=== PATIENT | male | born 1940 | race Caucasian/White ===

== ENCOUNTER 2020-11-23 06:37 | Outpatient (REF) | payer MEDICARE, SELFPAY ==
[2020-11-23 07:23] LABS: Hematocrit 36.1 % (42-52); Hemoglobin 11.7 g/dl (14.0-18.0); Mean Corpuscular HGB Conc 32.4 g/dl (31.0-36.0); Mean Corpuscular Hemoglobin 29.7 pg (27.0-33.0); Mean Corpuscular Volume 91.6 fL (80-98); Platelet Count 130 X10*3/uL (160-400); Red Blood Count 3.94 X10*6/uL (4.60-5.80); Red Cell Distribution Width 14.4 % (11.0-16.0); White Blood Count 3.4 X10*3/uL (4.8-10.8)
[2020-11-23 07:49] LABS: Alanine Aminotransferase 17 U/L (0-40); Alkaline Phosphatase 111 U/L (39-117); Anion Gap 18 (12-20); Aspartate Amino Transferase 32 U/L (5-37); Bilirubin Total 0.3 mg/dL (0.0-1.0); Blood Urea Nitrogen 49 mg/dL (9-16); Calcium 8.7 mg/dL (8.4-10.2); Carbon Dioxide 19 mmol/L (22-29); Chloride 105 mmol/L (96-108); Estimated Glomerular Filt Rate 31; Glucose Random 136 mg/dL (60-115); Potassium 4.5 mmol/L (3.3-5.1); Sodium 137 mmol/L (135-145)
== END 2020-11-23 06:38 | disposition home or self-care (01) ==
LOC: HO.MMNH1L 06:37
PROVIDERS: Visit Provider Family Medicine
DX: U07.1 COVID-19 (principal); I10 Essential (primary) hypertension
CPT/HCPCS: 36415; 80053; 85027

== ENCOUNTER 2020-11-26 12:50 | Outpatient (REF) | payer MEDICARE, SELFPAY ==
[2020-11-26 08:21] LABS: Hematocrit 38.1 % (42-52); Hemoglobin 12.1 g/dl (14.0-18.0); Mean Corpuscular HGB Conc 31.8 g/dl (31.0-36.0); Mean Corpuscular Volume 91.4 fL (80-98); Mean Platelet Volume 11.5 fL (9.4-12.4); Platelet Count 184 X10*3/uL (160-400); Red Blood Count 4.17 X10*6/uL (4.60-5.80); Red Cell Distribution Width 14.6 % (11.0-16.0); White Blood Count 5.8 X10*3/uL (4.8-10.8)
[2020-11-26 09:14] LABS: Anion Gap 20 (12-20); Blood Urea Nitrogen 48 mg/dL (9-16); Calcium 9.3 mg/dL (8.4-10.2); Carbon Dioxide 18 mmol/L (22-29); Chloride 108 mmol/L (96-108); Estimated Glomerular Filt Rate 27; Glucose Random 156 mg/dL (60-115); Potassium 4.2 mmol/L (3.3-5.1); Sodium 142 mmol/L (135-145)
== END 2020-11-26 12:51 | disposition home or self-care (01) ==
LOC: HO.MMNH1L 12:50
PROVIDERS: Visit Provider Family Medicine
DX: U07.1 COVID-19 (principal); I10 Essential (primary) hypertension
CPT/HCPCS: 36415; 80048; 85027

== ENCOUNTER 2020-11-27 | Outpatient (REF) | payer SELFPAY ==
[2020-11-27 09:27] LABS: Glucose Urine UA NEG (NEG); Leukocyte Esterase Urine NEG (NEG); Nitrite Urine NEG (NEG); PH 5.5 (5.0-8.0); Specific Gravity - Urine 1.025 (1.005-1.025); Urine Blood 3+ (NEG); Urine Ketones 5 MG/DL (NEG); Urine Protein 1+ MG/DL (NEG-TRACE)
[2020-11-27 09:28] LABS: Appearance Urine HAZY; Color Urine YELLOW
[2020-11-27 09:45] LABS: Amorphous Sediment Urine 1+ /LPF; Mucus Urine 2+ /LPF
== END 2020-11-27 00:01 | disposition home or self-care (01) ==
LOC: HO.LNP
PROVIDERS: Visit Provider Family Medicine
DX: Z13.89 Encounter for screening for other disorder (principal)
CPT/HCPCS: 81001; 87086

== ENCOUNTER 2020-12-03 06:41 | Outpatient (REF) | payer MEDICARE, SELFPAY ==
[2020-12-03 07:05] LABS: Hematocrit 40.2 % (42-52); Hemoglobin 13.2 g/dl (14.0-18.0); Mean Corpuscular HGB Conc 32.8 g/dl (31.0-36.0); Mean Corpuscular Hemoglobin 29.3 pg (27.0-33.0); Mean Corpuscular Volume 89.3 fL (80-98); Mean Platelet Volume 11.8 fL (9.4-12.4); NRBC Pct Auto 0.2 /100WBC (0.0-0.2); Platelet Count 242 X10*3/uL (160-400); Red Cell Distribution Width 13.9 % (11.0-16.0); White Blood Count 10.4 X10*3/uL (4.8-10.8)
[2020-12-03 07:22] LABS: Alanine Aminotransferase 17 U/L (0-40); Albumin Level 3.1 g/dL (3.5-5.0); Alkaline Phosphatase 92 U/L (39-117); Anion Gap 15 (12-20); Aspartate Amino Transferase 11 U/L (5-37); Bilirubin Total 0.7 mg/dL (0.0-1.0); Blood Urea Nitrogen 56 mg/dL (9-16); Calcium 9.6 mg/dL (8.4-10.2); Carbon Dioxide 27 mmol/L (22-29); Chloride 103 mmol/L (96-108); Estimated Glomerular Filt Rate 41; Glucose Random 314 mg/dL (60-115); Sodium 140 mmol/L (135-145); Total Protein 5.2 g/dL (6.5-8.0)
== END 2020-12-03 06:42 | disposition home or self-care (01) ==
LOC: HO.MMNH1L 06:41
PROVIDERS: Visit Provider Family Medicine
DX: U07.1 COVID-19 (principal); I10 Essential (primary) hypertension
CPT/HCPCS: 36415; 80048; 80053; 85027

== ENCOUNTER 2020-12-10 00:38 | Outpatient (REF) | payer MEDICARE, SELFPAY ==
[2020-12-10 07:46] LABS: Hematocrit 40.8 % (42-52); Hemoglobin 13.6 g/dl (14.0-18.0); Mean Corpuscular HGB Conc 33.3 g/dl (31.0-36.0); Mean Corpuscular Hemoglobin 29.3 pg (27.0-33.0); Mean Corpuscular Volume 87.9 fL (80-98); Platelet Count 169 X10*3/uL (160-400); Red Blood Count 4.64 X10*6/uL (4.60-5.80); White Blood Count 10.7 X10*3/uL (4.8-10.8)
[2020-12-10 08:41] LABS: Anion Gap 14 (12-20); Blood Urea Nitrogen 46 mg/dL (9-16); Calcium 9.3 mg/dL (8.4-10.2); Carbon Dioxide 26 mmol/L (22-29); Chloride 99 mmol/L (96-108); Estimated Glomerular Filt Rate 30; Glucose Random 438 mg/dL (60-115); Potassium 3.9 mmol/L (3.3-5.1); Sodium 135 mmol/L (135-145)
== END 2020-12-10 00:39 | disposition home or self-care (01) ==
LOC: HO.MMNH1L 00:38
PROVIDERS: Visit Provider Family Medicine
DX: J96.90 Respiratory failure, unspecified, unspecified whether with hypoxia or hypercapnia (principal); I10 Essential (primary) hypertension; E87.5 Hyperkalemia
CPT/HCPCS: 36415; 80048; 85027

== ENCOUNTER 2020-12-17 10:25 | Outpatient (REF) | payer SELFPAY | END 2020-12-17 10:26 | disposition home or self-care (01) | LOC: HO.MMNH1L 10:25 | PROVIDERS: Visit Provider Family Medicine | DX: Z13.89 Encounter for screening for other disorder (principal) ==

== ENCOUNTER 2020-12-19 06:13 | Outpatient (REF) | payer MEDICARE, SELFPAY ==
[2020-12-19 06:51] LABS: Alanine Aminotransferase 18 U/L (0-40); Albumin Level 2.2 g/dL (3.5-5.0); Alkaline Phosphatase 109 U/L (39-117); Anion Gap 11 (12-20); Aspartate Amino Transferase 15 U/L (5-37); Bilirubin Total 0.3 mg/dL (0.0-1.0); Blood Urea Nitrogen 22 mg/dL (9-16); Calcium 8.2 mg/dL (8.4-10.2); Carbon Dioxide 25 mmol/L (22-29); Chloride 104 mmol/L (96-108); Estimated Glomerular Filt Rate 41; Glucose Random 138 mg/dL (60-115); Hematocrit 32.1 % (42-52); Hemoglobin 10.4 g/dl (14.0-18.0); Mean Corpuscular HGB Conc 32.4 g/dl (31.0-36.0); Mean Corpuscular Hemoglobin 28.9 pg (27.0-33.0); Mean Corpuscular Volume 89.2 fL (80-98); Mean Platelet Volume 11.1 fL (9.4-12.4); Platelet Count 189 X10*3/uL (160-400); Potassium 4.2 mmol/L (3.3-5.1); Red Cell Distribution Width 14.9 % (11.0-16.0); Sodium 136 mmol/L (135-145); White Blood Count 6.2 X10*3/uL (4.8-10.8)
== END 2020-12-19 06:14 | disposition home or self-care (01) ==
LOC: HO.MMNH1L 06:13
PROVIDERS: Visit Provider Family Medicine
DX: U07.1 COVID-19 (principal)
CPT/HCPCS: 36415; 80053; 85027

== ENCOUNTER 2020-12-24 00:32 | Outpatient (REF) | payer MEDICARE, SELFPAY ==
[2020-12-24 08:17] LABS: Hematocrit 31.8 % (42-52); Hemoglobin 10.4 g/dl (14.0-18.0); Mean Corpuscular HGB Conc 32.7 g/dl (31.0-36.0); Mean Corpuscular Hemoglobin 28.7 pg (27.0-33.0); Mean Corpuscular Volume 87.8 fL (80-98); Platelet Count 463 X10*3/uL (160-400); Red Blood Count 3.62 X10*6/uL (4.60-5.80); Red Cell Distribution Width 14.5 % (11.0-16.0); White Blood Count 5.5 X10*3/uL (4.8-10.8)
[2020-12-24 08:33] LABS: Anion Gap 15 (12-20); Blood Urea Nitrogen 19 mg/dL (9-16); Calcium 8.6 mg/dL (8.4-10.2); Carbon Dioxide 25 mmol/L (22-29); Chloride 103 mmol/L (96-108); Estimated Glomerular Filt Rate 39; Glucose Random 134 mg/dL (60-115); Potassium 4.1 mmol/L (3.3-5.1); Sodium 139 mmol/L (135-145)
== END 2020-12-24 00:33 | disposition home or self-care (01) ==
LOC: HO.MMNH1L 00:32
PROVIDERS: Visit Provider Family Medicine
DX: U07.1 COVID-19 (principal)
CPT/HCPCS: 36415; 80048; 85027

== ENCOUNTER 2020-12-31 01:05 | Outpatient (REF) | payer MEDICARE, SELFPAY ==
[2020-12-31 06:50] LABS: Hematocrit 31.9 % (42-52); Hemoglobin 10.1 g/dl (14.0-18.0); Mean Corpuscular HGB Conc 31.7 g/dl (31.0-36.0); Mean Corpuscular Hemoglobin 28.5 pg (27.0-33.0); Mean Corpuscular Volume 89.9 fL (80-98); Mean Platelet Volume 10.8 fL (9.4-12.4); NRBC Pct Auto 0.4 /100WBC (0.0-0.2); Platelet Count 443 X10*3/uL (160-400); Red Blood Count 3.55 X10*6/uL (4.60-5.80); Red Cell Distribution Width 14.7 % (11.0-16.0); White Blood Count 7.4 X10*3/uL (4.8-10.8)
[2020-12-31 07:39] LABS: Anion Gap 12 (12-20); Blood Urea Nitrogen 21 mg/dL (9-16); Calcium 8.8 mg/dL (8.4-10.2); Carbon Dioxide 27 mmol/L (22-29); Chloride 104 mmol/L (96-108); Estimated Glomerular Filt Rate 39; Glucose Random 112 mg/dL (60-115); Potassium 4.2 mmol/L (3.3-5.1); Sodium 139 mmol/L (135-145)
== END 2020-12-31 01:06 | disposition home or self-care (01) ==
LOC: HO.MMNH1L 01:05
PROVIDERS: Visit Provider Family Medicine
DX: U07.1 COVID-19 (principal)
CPT/HCPCS: 36415; 80048; 85027

== ENCOUNTER 2021-01-08 00:25 | Outpatient (REF) | payer MEDICARE, SELFPAY ==
[2021-01-08 07:19] LABS: Hematocrit 35.9 % (42-52); Hemoglobin 11.2 g/dl (14.0-18.0); Mean Corpuscular HGB Conc 31.2 g/dl (31.0-36.0); Mean Corpuscular Hemoglobin 28.4 pg (27.0-33.0); Mean Corpuscular Volume 91.1 fL (80-98); Mean Platelet Volume 11.5 fL (9.4-12.4); NRBC Pct Auto 0.2 /100WBC (0.0-0.2); Platelet Count 308 X10*3/uL (160-400); Red Blood Count 3.94 X10*6/uL (4.60-5.80); Red Cell Distribution Width 15.6 % (11.0-16.0); White Blood Count 8.2 X10*3/uL (4.8-10.8)
[2021-01-08 07:31] LABS: Anion Gap 11 (12-20); Blood Urea Nitrogen 21 mg/dL (9-16); Carbon Dioxide 29 mmol/L (22-29); Chloride 109 mmol/L (96-108); Estimated Glomerular Filt Rate 38; Glucose Random 123 mg/dL (60-115); Sodium 144 mmol/L (135-145)
== END 2021-01-08 00:26 | disposition home or self-care (01) ==
LOC: HO.MMNH1L 00:25
PROVIDERS: Visit Provider Family Medicine
DX: U07.1 COVID-19 (principal)
CPT/HCPCS: 36415; 80048; 85027

== ENCOUNTER 2021-01-13 04:32 | Outpatient (REF) | payer SELFPAY | END 2021-01-13 04:33 | disposition home or self-care (01) | LOC: HO.MMNH1L 04:32 | PROVIDERS: Visit Provider Family Medicine | DX: Z13.89 Encounter for screening for other disorder (principal) ==

== ENCOUNTER 2021-01-14 00:51 | Outpatient (REF) | payer MEDICARE, SELFPAY ==
[2021-01-14 07:47] LABS: Hematocrit 35.1 % (42-52); Hemoglobin 11.1 g/dl (14.0-18.0); Mean Corpuscular HGB Conc 31.6 g/dl (31.0-36.0); Mean Corpuscular Hemoglobin 28.6 pg (27.0-33.0); Mean Corpuscular Volume 90.5 fL (80-98); Platelet Count 191 X10*3/uL (160-400); Red Blood Count 3.88 X10*6/uL (4.60-5.80); Red Cell Distribution Width 16.1 % (11.0-16.0)
[2021-01-14 08:16] LABS: Anion Gap 12 (12-20); Blood Urea Nitrogen 22 mg/dL (9-16); Calcium 8.9 mg/dL (8.4-10.2); Carbon Dioxide 28 mmol/L (22-29); Chloride 105 mmol/L (96-108); Estimated Glomerular Filt Rate 46; Glucose Random 124 mg/dL (60-115); Potassium 4.5 mmol/L (3.3-5.1); Sodium 140 mmol/L (135-145)
[2021-01-14 08:21] LABS: White Blood Count 7.6 X10*3/uL (4.8-10.8)
== END 2021-01-14 00:52 | disposition home or self-care (01) ==
LOC: HO.MMNH1L 00:51
PROVIDERS: Visit Provider Family Medicine
DX: U07.1 COVID-19 (principal)
CPT/HCPCS: 36415; 80048; 85027

== ENCOUNTER 2021-01-21 00:27 | Outpatient (REF) | payer MEDICARE, SELFPAY ==
[2021-01-21 07:13] LABS: Hematocrit 32.8 % (42-52); Hemoglobin 10.4 g/dl (14.0-18.0); Mean Corpuscular HGB Conc 31.7 g/dl (31.0-36.0); Mean Corpuscular Hemoglobin 28.8 pg (27.0-33.0); Mean Corpuscular Volume 90.9 fL (80-98); Mean Platelet Volume 12.1 fL (9.4-12.4); Platelet Count 181 X10*3/uL (160-400); Red Blood Count 3.61 X10*6/uL (4.60-5.80); Red Cell Distribution Width 16.4 % (11.0-16.0)
[2021-01-21 07:45] LABS: Blood Urea Nitrogen 20 mg/dL (9-16); Calcium 8.8 mg/dL (8.4-10.2); Estimated Glomerular Filt Rate 49; Glucose Random 124 mg/dL (60-115)
[2021-01-21 08:01] LABS: Anion Gap 13 (12-20); Carbon Dioxide 26 mmol/L (22-29); Chloride 107 mmol/L (96-108); Potassium 4.3 mmol/L (3.3-5.1); Sodium 142 mmol/L (135-145)
== END 2021-01-21 00:28 | disposition home or self-care (01) ==
LOC: HO.MMNH1L 00:27
PROVIDERS: Visit Provider Family Medicine
DX: U07.1 COVID-19 (principal)
CPT/HCPCS: 36415; 80048; 85027

== ENCOUNTER 2021-01-28 07:04 | Outpatient (REF) | payer MEDICARE, SELFPAY ==
[2021-01-28 07:12] LABS: Hematocrit 32.3 % (42-52); Hemoglobin 10.3 g/dl (14.0-18.0); Mean Corpuscular HGB Conc 31.9 g/dl (31.0-36.0); Mean Corpuscular Hemoglobin 28.8 pg (27.0-33.0); Mean Corpuscular Volume 90.2 fL (80-98); Mean Platelet Volume 11.7 fL (9.4-12.4); Platelet Count 205 X10*3/uL (160-400); Red Blood Count 3.58 X10*6/uL (4.60-5.80)
[2021-01-28 07:36] LABS: Anion Gap 10 (12-20); Blood Urea Nitrogen 23 mg/dL (9-16); Carbon Dioxide 28 mmol/L (22-29); Chloride 109 mmol/L (96-108); Estimated Glomerular Filt Rate 41; Glucose Random 140 mg/dL (60-115); Potassium 4.1 mmol/L (3.3-5.1); Sodium 143 mmol/L (135-145)
== END 2021-01-28 07:05 | disposition home or self-care (01) ==
LOC: HO.MMNH1L 07:04
PROVIDERS: Visit Provider Family Medicine
DX: U07.1 COVID-19 (principal)
CPT/HCPCS: 36415; 80048; 85027

== ENCOUNTER 2021-02-04 00:30 | Outpatient (REF) | payer MEDICARE, SELFPAY | END 2021-02-04 00:31 | disposition home or self-care (01) | LOC: HO.MMNH1L 00:30 | PROVIDERS: Visit Provider Family Medicine | DX: Z13.89 Encounter for screening for other disorder (principal) ==

== ENCOUNTER 2021-03-29 07:00 | Outpatient (REF) | payer MEDICARE, SELFPAY ==
[2021-03-29 07:38] LABS: Glucose Urine UA NEG (NEG); Leukocyte Esterase Urine TRACE (NEG); Nitrite Urine NEG (NEG); Specific Gravity - Urine >= 1.030 (1.005-1.025); Urine Blood 1+ (NEG); Urine Ketones NEG (NEG); Urine Protein 2+ MG/DL (NEG-TRACE)
[2021-03-29 07:39] LABS: Appearance Urine HAZY; Color Urine YELLOW
[2021-03-29 08:07] LABS: Bacteria Urine 1+ /LPF; Calcium Oxalate Crystals Urine TRACE /LPF; Squamous Epithelial Cell Urine TRACE /LPF; Triple Phosphate Crystal Urine TRACE /LPF
== END 2021-03-29 07:01 | disposition home or self-care (01) ==
LOC: HO.MMNH1L 07:00
PROVIDERS: Visit Provider Family Medicine
DX: R41.0 Disorientation, unspecified (principal)
CPT/HCPCS: 81001; 87086; 87088; 87186

== ENCOUNTER 2021-04-08 00:57 | Outpatient (REF) | payer MEDICARE, SELFPAY ==
[2021-04-08 06:54] LABS: Hemoglobin 12.4 g/dl (14.0-18.0); Mean Corpuscular HGB Conc 31.8 g/dl (31.0-36.0); Mean Corpuscular Hemoglobin 28.2 pg (27.0-33.0); Mean Corpuscular Volume 88.6 fL (80-98); Mean Platelet Volume 11.4 fL (9.4-12.4); Platelet Count 274 X10*3/uL (160-400); Red Cell Distribution Width 13.9 % (11.0-16.0); White Blood Count 8.7 X10*3/uL (4.8-10.8)
[2021-04-08 07:29] LABS: Anion Gap 14 (12-20); Blood Urea Nitrogen 22 mg/dL (9-16); Calcium 9.5 mg/dL (8.4-10.2); Carbon Dioxide 25 mmol/L (22-29); Chloride 108 mmol/L (96-108); Estimated Glomerular Filt Rate 32; Glucose Random 69 mg/dL (60-115); Potassium 4.2 mmol/L (3.3-5.1); Sodium 143 mmol/L (135-145)
== END 2021-04-08 00:58 | disposition home or self-care (01) ==
LOC: HO.MMNH1L 00:57
PROVIDERS: Visit Provider Family Medicine
DX: N18.6 End stage renal disease (principal)
CPT/HCPCS: 36415; 80048; 85027

== ENCOUNTER 2021-04-16 21:12 | Outpatient (REF) | payer MEDICARE, SELFPAY ==
[2021-04-16 07:19] LABS: Hematocrit 36.2 % (42-52); Hemoglobin 11.7 g/dl (14.0-18.0); Mean Corpuscular HGB Conc 32.3 g/dl (31.0-36.0); Mean Corpuscular Hemoglobin 28.5 pg (27.0-33.0); Mean Corpuscular Volume 88.3 fL (80-98); Mean Platelet Volume 11.9 fL (9.4-12.4); Platelet Count 209 X10*3/uL (160-400); Red Cell Distribution Width 14.3 % (11.0-16.0); White Blood Count 7.5 X10*3/uL (4.8-10.8)
[2021-04-16 08:13] LABS: Anion Gap 10 (12-20); Blood Urea Nitrogen 30 mg/dL (9-16); Calcium 9.3 mg/dL (8.4-10.2); Carbon Dioxide 29 mmol/L (22-29); Chloride 108 mmol/L (96-108); Estimated Glomerular Filt Rate 31; Glucose Random 118 mg/dL (60-115); Potassium 4.2 mmol/L (3.3-5.1); Sodium 143 mmol/L (135-145)
== END 2021-04-16 21:13 | disposition home or self-care (01) ==
LOC: HO.MMNH1L 21:12
PROVIDERS: Visit Provider Family Medicine
DX: N18.9 Chronic kidney disease, unspecified (principal)
CPT/HCPCS: 36415; 80048; 85027

== ENCOUNTER 2023-06-18 12:16 | Outpatient (AMB) | payer MEDICARE, SELFPAY ==
--- NOTE | 2023-06-18 12:24 | HO.NEPHOV_ITS ---
HPI HPI Comments History of Present Illness Details I had a delight of seeing Papo in follow-up for his chronic kidney disease and hypertension. He is known to have proteinuria. He is a diabetic. His blood sugar control is fair. His blood pressure has been at goal. He does not have any hypervolemia. He denies chest pain, shortness of breath, hypoglycemia, nausea, vomiting, diarrhea or urinary symptoms. He is active now. He avoids nonsteroidal anti-inflammatory medications. His renal functions are stable. [facility] Medical History (Updated 06/23/23 @ 13:27 by Mitesh Corrales MD) Posterior reversible encephalopathy syndrome Chronic kidney disease, stage 4 (severe) Diabetes Acute kidney injury Essential (primary) hypertension Surgical History (Updated 06/18/23 @ 12:23 by Isabela Green MA) History of cataract surgery Social History (Updated 06/18/23 @ 12:37 by Isabela Green MA) Alcohol intake: never Patient Tobacco Use Status: Never used Tobacco Vital Signs 06/18/23 12:33 Height 5 ft 9 in Weight 215 lb 6 oz BMI 31.8 BP 130/70 Blood Pressure Location Lt brachial Position Sitting Pulse 74 Pulse Source Pulse Oximeter Physical Exam Vital Signs: Last Vital Signs Pulse 74 06/18/23 12:33 BP 130/70 06/18/23 12:33 BMI result Body Mass Index 31.8 Const General: comfortable and no acute distress Orientation/consciousness: patient oriented x3 HEENT Head: Yes normocephalic Mouth: Normal oral and palatal mucosa present Eyes EOM: EOMs intact bilaterally Neck Neck: Yes supple Resp Auscultation: clear to auscultation bilaterally Cardio Jugular venous distension: no JVD Rate: regular rate Heart sounds: Murmur heart sound present GI Palpation (GI): Soft to palpation Auscultation: normal bowel sounds General: Yes no CVA tenderness Back/Spine/Pelvis Back: no CVA tenderness Skin General skin exam: no rashes or lesions noted Neuro General: patient oriented x3 and moves all extremities Assessment & Plan Assessment & Plan (1) Chronic kidney disease, stage 4 (severe): Code(s): N18.4 - Chronic kidney disease, stage 4 (severe) (2) Essential (primary) hypertension: Code(s): I10 - Essential (primary) hypertension (3) Proteinuria: Code(s): R80.9 - Proteinuria, unspecified Qualifiers: Proteinuria type: other Qualified Code(s): R80.8 - Other proteinuria Plan Papo has stage 4 chronic kidney disease. His renal functions had been pretty stable. He is proteinuric. His blood pressure has been at goal. He has no orthostatic symptoms. He is not hyperkalemic or metabolically acidotic. He will be a candidate for Farga. He should be on a low-sodium diet. He should try to lose some weight. He should remain well hydrated. He should avoid nonst eroidal anti-inflammatory medications. All these have been explained detail .Follow-up of blood work and urine studies were ordered. All his and his daughter's questions were answered. Follow-up appointment given. Time spent for retrieval of data, patient encounter and documentation 22 minutes. Orders: Orders Hemoglobin A1c 06/18/23 I10 - Essential (primary) hypertension, N18.4 - Chronic kidney disease, stage 4 (severe) Blood Urea Nitrogen 06/18/23 I10 - Essential (primary) hypertension, N18.4 - Chronic kidney disease, stage 4 (severe) Calcium 06/18/23 I10 - Essential (primary) hypertension, N18.4 - Chronic kidney disease, stage 4 (severe) Electrolytes 06/18/23 I10 - Essential (primary) hypertension, N18.4 - Chronic kidney disease, stage 4 (severe) Creatinine 06/18/23 I10 - Essential (primary) hypertension, N18.4 - Chronic kidney disease, stage 4 (severe) Complete Blood Count Auto Diff 06/18/23 I10 - Essential (primary) hypertension, N18.4 - Chronic kidney disease, stage 4 (severe) Coding Level of Care Code Est Pt Level 3 (84038) Diagnoses Chronic kidney disease, stage 4 (severe) N18.4 Essential (primary) hypertension I10 Other proteinuria R80.8 Proteinuria type: other
[2023-06-18 12:33] VITALS: BP 130/70; PULSE 74; BMI 31.8
== END 2023-06-18 13:22 | disposition home or self-care (01) ==
PROVIDERS: PCP Pediatrics; Visit Provider Internal Medicine Nephrology
DX: I12.9 Hypertensive chronic kidney disease with stage 1 through stage 4 chronic kidney disease, or unspecified chronic kidney disease (principal); E11.22 Type 2 diabetes mellitus with diabetic chronic kidney disease; N18.4 Chronic kidney disease, stage 4 (severe); R80.8 Other proteinuria
CPT/HCPCS: 99213

== ENCOUNTER → 2023-06-18 12:16 | Outpatient (BNVA) | payer MEDICARE, SELFPAY | PROVIDERS: PCP Pediatrics; Visit Provider Internal Medicine Nephrology | DX: I12.9 Hypertensive chronic kidney disease with stage 1 through stage 4 chronic kidney disease, or unspecified chronic kidney disease (principal); N18.4 Chronic kidney disease, stage 4 (severe); R80.8 Other proteinuria | CPT/HCPCS: 99212 ==

== ENCOUNTER 2023-09-15 14:19 | Outpatient (AMB) | payer MEDICARE, SELFPAY ==
[2023-09-15 14:19] VITALS: BP 150/66; PULSE 78; O2SAT 98; BMI 32.8
--- NOTE | 2023-09-15 14:19 | MHC.OFFVIS ---
Intake Vital Signs 09/15/23 14:19 09/15/23 14:50 Height 5 ft 9 in Weight 222 lb BMI 32.8 BP 150/66 H 140/70 H Blood Pressure Location Rt brachial Lt brachial Position Sitting Pulse 78 Pulse Source Pulse Oximeter Pulse Oximetry (%) 98 Oxygen Delivery Method Room Air Intake Visit Reasons: follow-up/ LVM Allergies atorvastatin Allergy (Verified 09/15/23 14:21) Unknown pravastatin Allergy (Verified 09/15/23 14:21) Unknown HPI HPI Comments History of Present Illness Details I had a delight of seeing Papo in follow-up for his chronic kidney disease and hypertension. He was accompanied by his daughter. He is known to have proteinuria. He is a diabetic. His last A1c was 6.5. His blood pressure has been at goal. He does not have any hypervolemia. He denies chest pain, shortness of breath, hypoglycemia, nausea, vomiting, diarrhea or urinary symptoms. He is active now. He avoids nonsteroidal anti-inflammatory medications. His renal functions are stable with a creatinine around 2.8 PFSH Medical History Posterior reversible encephalopathy syndrome Chronic kidney disease, stage 4 (severe) Diabetes Acute kidney injury Essential (primary) hypertension Surgical History History of cataract surgery Social History Alcohol intake: never Patient Tobacco Use Status: Never used Tobacco Physical Exam Vital Signs: Last Vital Signs Pulse 78 09/15/23 14:19 BP 140/70 H 09/15/23 14:50 Pulse Ox 98 09/15/23 14:19 Oxygen Delivery Method Room Air 09/15/23 14:19 BMI result Body Mass Index 32.8 Const General: comfortable and no acute distress Orientation/consciousness: patient oriented x3 HEENT Head: Yes normocephalic Mouth: Normal oral and palatal mucosa present Eyes EOM: EOMs intact bilaterally Neck Neck: Yes supple Resp Auscultation: clear to auscultation bilaterally Cardio Jugular venous distension: no JVD Rate: regular rate GI Palpation (GI): Soft to palpation Auscultation: normal bowel sounds General: Yes no CVA tenderness Back/Spine/Pelvis Back: no CVA tenderness Skin General skin exam: no rashes or lesions noted Neuro General: patient oriented x3 and moves all extremities Extrem General: Yes no pedal edema Assessment & Plan Assessment & Plan (1) Chronic kidney disease, stage 4 (severe): Code(s): N18.4 - Chronic kidney disease, stage 4 (severe) (2) Essential (primary) hypertension: Code(s): I10 - Essential (primary) hypertension (3) Proteinuria: Code(s): R80.9 - Proteinuria, unspecified Qualifiers: Proteinuria type: other Qualified Code(s): R80.8 - Other proteinuria Plan Papo has stage 4 chronic kidney disease. His renal functions had been pretty stable. He is proteinuric. His blood pressure has been at goal. He has no orthostatic symptoms. He is not hyperkalemic or metabolically acidotic. I asked him to hold glipizide and started him on 5 mg Jardiance today. He should be monitoring his blood sugar closely at home. If his blood sugar goes up he may have to go back on glipizide. He should be on a low-sodium diet. He should try to lose some weight. He should remain well hydrated. He should avoid nonsteroidal anti-inflammatory medications. All these have been explained detail .Follow-up of blood work was ordered. All his and his daughter's questions were answered. Follow-up appointment given Orders: Orders Electrolytes Today I10 - Essential (primary) hypertension, N18.4 - Chronic kidney disease, stage 4 (severe), R80.9 - Proteinuria, unspecified Blood Urea Nitrogen Today I10 - Essential (primary) hypertension, N18.4 - Chronic kidney disease, stage 4 (severe), R80.9 - Proteinuria, unspecified Creatinine Today I10 - Essential (primary) hypertension, N18.4 - Chronic kidney disease, stage 4 (severe), R80.9 - Proteinuria, unspecified Medications: New empagliflozin (Jardiance) 5 mg (1/2 x 10 mg) PO DAILY 30 days 15 tabs 1RF empagliflozin (Jardiance) 5 mg (1/2 x 10 mg) PO DAILY 15 tabs 1RF 30 days Coding Level of Care Code Est Pt Level 4 (48701) Diagnoses Chronic kidney disease, stage 4 (severe) N18.4 Essential (primary) hypertension I10 Other proteinuria R80.8 Proteinuria type: other
[2023-09-15 14:50] VITALS: BP 140/70
== END 2023-09-15 14:55 | disposition home or self-care (01) ==
PROVIDERS: PCP Pediatrics; Visit Provider Internal Medicine Nephrology
DX: I12.9 Hypertensive chronic kidney disease with stage 1 through stage 4 chronic kidney disease, or unspecified chronic kidney disease (principal); N18.4 Chronic kidney disease, stage 4 (severe); R80.8 Other proteinuria
CPT/HCPCS: 99214

== ENCOUNTER → 2023-09-15 14:19 | Outpatient (BNVA) | payer MEDICARE, SELFPAY | PROVIDERS: PCP Pediatrics; Visit Provider Internal Medicine Nephrology | DX: I12.9 Hypertensive chronic kidney disease with stage 1 through stage 4 chronic kidney disease, or unspecified chronic kidney disease (principal); N18.4 Chronic kidney disease, stage 4 (severe); R80.8 Other proteinuria | CPT/HCPCS: 99212 ==

== ENCOUNTER 2023-10-27 13:27 | Outpatient (AMB) | payer MEDICARE, SELFPAY ==
[2023-10-27 13:33] VITALS: BP 138/70; PULSE 66; O2SAT 96; BMI 31.9
--- NOTE | 2023-10-27 13:33 | HO.NEPHOV ---
HPI HPI Comments History of Present Illness Details I had a delight of seeing Papo in follow-up for his chronic kidney disease and hypertension. He is known to have proteinuria. He is a diabetic. His blood sugar control is fair. His blood pressure has been at goal. He does not have any hypervolemia. He denies chest pain, shortness of breath, hypoglycemia, nausea, vomiting, diarrhea or urinary symptoms. He is active now. He avoids nonsteroidal anti-inflammatory medications. His renal functions are stable. [facility] Medical History (Updated 09/16/23 @ 15:00 by Mitesh Corrales MD) Posterior reversible encephalopathy syndrome Chronic kidney disease, stage 4 (severe) Diabetes Acute kidney injury Essential (primary) hypertension Surgical History History of cataract surgery Social History Alcohol intake: never Patient Tobacco Use Status: Never used Tobacco Vital Signs 10/27/23 13:33 Height 5 ft 9 in Weight 216 lb BMI 31.9 BP 138/70 Blood Pressure Location Lt brachial Position Sitting Pulse 66 Pulse Source Pulse Oximeter Pulse Oximetry (%) 96 Oxygen Delivery Method Room Air Physical Exam Vital Signs: Last Vital Signs Pulse 66 10/27/23 13:33 BP 138/70 10/27/23 13:33 Pulse Ox 96 10/27/23 13:33 Oxygen Delivery Method Room Air 10/27/23 13:33 BMI result Body Mass Index 31.9 Const General: comfortable and no acute distress Orientation/consciousness: patient oriented x3 HEENT Head: Yes normocephalic Mouth: Normal oral and palatal mucosa present Eyes EOM: EOMs intact bilaterally Neck Neck: Yes supple Resp Auscultation: clear to auscultation bilaterally Cardio Jugular venous distension: no JVD Rate: regular rate GI Palpation (GI): Soft to palpation Auscultation: normal bowel sounds General: Yes no CVA tenderness Back/Spine/Pelvis Back: no CVA tenderness Skin General skin exam: no rashes or lesions noted Neuro General: patient oriented x3 and moves all extremities Extrem General: Yes no pedal edema Assessment & Plan Assessment & Plan (1) Chronic kidney disease, stage 4 (severe): Code(s): N18.4 - Chronic kidney disease, stage 4 (severe) (2) Essential (primary) hypertension: Code(s): I10 - Essential (primary) hypertension (3) Proteinuria: Code(s): R80.9 - Proteinuria, unspecified Qualifiers: Proteinuria type: other Qualified Code(s): R80.8 - Other proteinuria Plan Papo has stage 4 chronic kidney disease. His renal functions had been pretty stable. He is proteinuric. His blood pressure has been at goal. He has no orthostatic symptoms. He is not hyperkalemic or metabolically acidotic. He is on Jardiance, dose of which I increased to 10 mg daily.. He should be on a low-sodium diet. He should try to lose some weight. He should remain well hydrated. He should avoid nonsteroidal anti-inflammatory medications. All these have been explained detail .Follow-up of blood work and urine studies were ordered. All his and his daughter's questions were answered. Follow-up appointment given. Orders: Orders Blood Urea Nitrogen Today I10 - Essential (primary) hypertension, N18.4 - Chronic kidney disease, stage 4 (severe), R80.9 - Proteinuria, unspecified Creatinine Today I10 - Essential (primary) hypertension, N18.4 - Chronic kidney disease, stage 4 (severe), R80.9 - Proteinuria, unspecified Electrolytes Today I10 - Essential (primary) hypertension, N18.4 - Chronic kidney disease, stage 4 (severe), R80.9 - Proteinuria, unspecified Medications: Changed From empagliflozin (Jardiance) 5 mg (1/2 x 10 mg) PO DAILY 30 days 15 tabs 1RF To empagliflozin (Jardiance) 10 mg PO DAILY 30 days 30 tabs 5RF Coding Level of Care Code Est Pt Level 4 (84573) Diagnoses Chronic kidney disease, stage 4 (severe) N18.4 Essential (primary) hypertension I10 Other proteinuria R80.8 Proteinuria type: other Results Reviewed Nephrology Results: Hgb 11.7 g/dl (14.0-18.0) L 04/16/21 WBC 7.5 X10*3/uL (4.8-10.8) 04/16/21 Plt Count 209 X10*3/uL (160-400) 04/16/21 Sodium 143 mmol/L (135-145) 04/16/21 Potassium 4.2 mmol/L (3.3-5.1) 04/16/21 Chloride 108 mmol/L (96-108) 04/16/21 Carbon Dioxide 29 mmol/L (22-29) 04/16/21 BUN 30 mg/dL (9-16) H 04/16/21 Creatinine 2.08 mg/dL (0.5-1.4) H 04/16/21 Calcium 9.3 mg/dL (8.4-10.2) 04/16/21 Urine Protein 2+ MG/DL (NEG-TRACE) H 03/29/21
== END 2023-10-27 14:13 | disposition home or self-care (01) ==
PROVIDERS: PCP Pediatrics; Visit Provider Internal Medicine Nephrology
DX: I12.9 Hypertensive chronic kidney disease with stage 1 through stage 4 chronic kidney disease, or unspecified chronic kidney disease (principal); N18.4 Chronic kidney disease, stage 4 (severe); R80.8 Other proteinuria
CPT/HCPCS: 99214

== ENCOUNTER → 2023-10-27 13:27 | Outpatient (BNVA) | payer MEDICARE, SELFPAY | PROVIDERS: PCP Pediatrics; Visit Provider Internal Medicine Nephrology | DX: N18.4 Chronic kidney disease, stage 4 (severe) (principal); I10 Essential (primary) hypertension; R80.8 Other proteinuria; E11.9 Type 2 diabetes mellitus without complications | CPT/HCPCS: 99212 ==

== ENCOUNTER 2023-12-29 11:21 | Outpatient (REF) | payer MEDICARE, SELFPAY ==
[2023-12-29 19:08] LABS: Mean Corpuscular Volume 90.4 fL (80.0-98.0); SCAN SMEAR FLAG 1
[2023-12-29 19:10] LABS: Basophils Absolute Auto 0.1 X10*3/uL (0.0-0.2); Basophils Percent Auto 0.8 % (0-2); Eosinophils Absolute Auto 0.2 X10*3/uL (0.0-0.4); Eosinophils Percent Auto 2.7 % (0-4); Hematocrit 44.3 % (42.0-52.0); Hemoglobin 14.5 g/dl (14.0-18.0); Imm Gran Abs Auto 0.04 X10*3/uL (0.00-0.03); Imm Gran Pct Auto 0.5 % (0.0-0.4); Lymphocytes Absolute Auto 1.2 X10*3/uL (1.2-4.9); Lymphocytes Percent Auto 13.7 % (20-40); MANUAL DIFF FLAG SCAN; Mean Corpuscular HGB Conc 32.7 g/dl (31.0-36.0); Mean Corpuscular Hemoglobin 29.6 pg (27.0-33.0); Mean Platelet Volume 13.4 fL (9.4-12.4); Monocytes Absolute Auto 0.6 X10*3/uL (0.1-1.2); Monocytes Percent Auto 6.8 % (2-11); Neutrophils Absolute Auto 6.5 x10*3/uL (2.0-8.3); Neutrophils Percent Auto 75.5 % (45-73); Platelet Count 176 X10*3/uL (160-400); Red Cell Distribution Width 14.1 % (11.0-16.0); White Blood Count 8.6 X10*3/uL (4.8-10.8)
[2023-12-29 19:28] LABS: Anion Gap 17 (12-20); Blood Urea Nitrogen 34 mg/dL (9-16); Calcium 10.1 mg/dL (8.4-10.2); Carbon Dioxide 24 mmol/L (22-29); Chloride 108 mmol/L (96-108); Estimated Glomerular Filt Rate 20; PLT ABN DIST 1; Potassium 4.1 mmol/L (3.3-5.1); Sodium 145 mmol/L (135-145)
[2023-12-29 20:53] LABS: SLIDE REVIEW VERIFIED
[2023-12-30 07:10] LABS: Estimated Average Glucose 154 mg/dL
== END 2023-12-29 11:22 | disposition home or self-care (01) ==
LOC: HO.HKASLDS 11:21
PROVIDERS: Visit Provider Internal Medicine Nephrology
DX: I12.9 Hypertensive chronic kidney disease with stage 1 through stage 4 chronic kidney disease, or unspecified chronic kidney disease (principal); N18.4 Chronic kidney disease, stage 4 (severe); R80.9 Proteinuria, unspecified
CPT/HCPCS: 36415; 80051; 82310; 82565; 83036; 84520; 85025

== ENCOUNTER 2023-12-31 10:17 | Outpatient (AMB) | payer MEDICARE, SELFPAY ==
--- NOTE | 2023-12-31 11:53 | HO.NEPHOV ---
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 He is known to have proteinuria. He is a diabetic. His blood sugar control is high. His blood pressure has been at goal. He does not have any hypervolemia. He denies chest pain, shortness of breath, hypoglycemia, nausea, vomiting, diarrhea or urinary symptoms. He is active now. He avoids nonsteroidal anti-inflammatory medications. He had no new complaints. [facility] Medical History (Updated 12/31/23 @ 20:49 by Mitesh Corrales MD) Posterior reversible encephalopathy syndrome Chronic kidney disease, stage 4 (severe) Diabetes Acute kidney injury Essential (primary) hypertension Surgical History History of cataract surgery Social History Alcohol intake: never Patient Tobacco Use Status: Never used Tobacco Physical Exam Vital Signs: Last Vital Signs Pulse 64 12/31/23 11:54 BP 140/70 H 12/31/23 11:54 Pulse Ox 96 12/31/23 11:54 Oxygen Delivery Method Room Air 12/31/23 11:54 BMI result Body Mass Index 31.4 Const General: comfortable and no acute distress Orientation/consciousness: patient oriented x3 HEENT Head: Yes normocephalic Mouth: Normal oral and palatal mucosa present Eyes EOM: EOMs intact bilaterally Neck Neck: Yes supple Resp Auscultation: clear to auscultation bilaterally Cardio Jugular venous distension: no JVD Rate: regular rate GI Palpation (GI): Soft to palpation Auscultation: normal bowel sounds General: Yes no CVA tenderness Back/Spine/Pelvis Back: no CVA tenderness Skin General skin exam: no rashes or lesions noted Neuro General: patient oriented x3 and moves all extremities Extrem General: Yes no pedal edema Results Reviewed Nephrology Results: Hgb 14.5 g/dl (14.0-18.0) 12/29/23 WBC 8.6 X10*3/uL (4.8-10.8) 12/29/23 Plt Count 176 X10*3/uL (160-400) 12/29/23 Sodium 145 mmol/L (135-145) 12/29/23 Potassium 4.1 mmol/L (3.3-5.1) 12/29/23 Chloride 108 mmol/L (96-108) 12/29/23 Carbon Dioxide 24 mmol/L (22-29) 12/29/23 BUN 34 mg/dL (9-16) H 12/29/23 Creatinine 2.99 mg/dL (0.5-1.4) H 12/29/23 Calcium 10.1 mg/dL (8.4-10.2) 12/29/23 Urine Protein 2+ MG/DL (NEG-TRACE) H 03/29/21 Assessment & Plan Assessment & Plan (1) Essential (primary) hypertension: Code(s): I10 - Essential (primary) hypertension Category: Medical (2) Diabetes: Code(s): E11.9 - Type 2 diabetes mellitus without complications Category: Medical Qualifiers: Diabetes mellitus type: type 2 Diabetes mellitus adjunct faculty for medical terminology insulin use: without adjunct faculty for medical terminology use Diabetes mellitus complication status: with kidney complications Diabetes mellitus complication detail: with nephropathy Qualified Code(s): E11.21 - Type 2 diabetes mellitus with diabetic nephropathy (3) Chronic kidney disease, stage 4 (severe): Code(s): N18.4 - Chronic kidney disease, stage 4 (severe) Category: Medical (4) Proteinuria: Code(s): R80.9 - Proteinuria, unspecified Category: Medical Qualifiers: Proteinuria type: other Qualified Code(s): R80.8 - Other proteinuria Plan Papo has stage 4 chronic kidney disease. His renal functions had been pretty stable. He is proteinuric. His blood pressure has been at goal. He has no orthostatic symptoms. He is not hyperkalemic or metabolically acidotic. He is on Jardiance, 10 mg daily. His blood sugars have been high. I have asked him to start on glipizide 2.5 mg once daily in addition to current dose of Jardiance. He should be on a low-sodium diet. He should try to lose some weight. He should remain well hydrated. He should avoid nonsteroidal anti-inflammatory medications. All these have been explained detail .Follow-up of blood work were ordered. All his and his daughter's questions were answered. Follow-up appointment given. Orders: Orders Blood Urea Nitrogen Today E11.9 - Type 2 diabetes mellitus without complications, I10 - Essential (primary) hypertension, N18.4 - Chronic kidney disease, stage 4 (severe), R80.8 - Other proteinuria Electrolytes Today E11.9 - Type 2 diabetes mellitus without complications, I10 - Essential (primary) hypertension, N18.4 - Chronic kidney disease, stage 4 (severe), R80.8 - Other proteinuria Hemoglobin A1c Today E11.9 - Type 2 diabetes mellitus without complications, I10 - Essential (primary) hypertension, N18.4 - Chronic kidney disease, stage 4 (severe), R80.8 - Other proteinuria Creatinine Today E11.9 - Type 2 diabetes mellitus without complications, I10 - Essential (primary) hypertension, N18.4 - Chronic kidney disease, stage 4 (severe), R80.8 - Other proteinuria Coding Level of Care Code Est Pt Level 4 (53964) Diagnoses Essential (primary) hypertension I10 Type 2 diabetes mellitus with diabetic nephropathy, without long-term current use of insulin E11.21 Diabetes mellitus type: type 2 Diabetes mellitus skilled nursing insulin use: without adjunct faculty for medical terminology use Diabetes mellitus complication status: with kidney complications Diabetes mellitus complication detail: with nephropathy Chronic kidney disease, stage 4 (severe) N18.4 Other proteinuria R80.8 Proteinuria type: other
[2023-12-31 11:54] VITALS: BP 140/70; PULSE 64; O2SAT 96; BMI 31.4
== END 2023-12-31 12:20 | disposition home or self-care (01) ==
PROVIDERS: PCP Pediatrics; Visit Provider Internal Medicine Nephrology
DX: I12.9 Hypertensive chronic kidney disease with stage 1 through stage 4 chronic kidney disease, or unspecified chronic kidney disease (principal); E11.21 Type 2 diabetes mellitus with diabetic nephropathy; N18.4 Chronic kidney disease, stage 4 (severe); R80.8 Other proteinuria
CPT/HCPCS: 99214

== ENCOUNTER → 2023-12-31 10:17 | Outpatient (BNVA) | payer MEDICARE, SELFPAY | PROVIDERS: PCP Pediatrics; Visit Provider Internal Medicine Nephrology | DX: E11.22 Type 2 diabetes mellitus with diabetic chronic kidney disease (principal); I12.9 Hypertensive chronic kidney disease with stage 1 through stage 4 chronic kidney disease, or unspecified chronic kidney disease; N18.4 Chronic kidney disease, stage 4 (severe); E11.21 Type 2 diabetes mellitus with diabetic nephropathy; R80.8 Other proteinuria | CPT/HCPCS: 99212 ==

== ENCOUNTER 2024-01-14 11:26 | Outpatient (REF) | payer MEDICARE, SELFPAY ==
[2024-01-14 17:48] LABS: Anion Gap 15 (12-20); Blood Urea Nitrogen 32 mg/dL (9-16); Carbon Dioxide 23 mmol/L (22-29); Chloride 110 mmol/L (96-108); Estimated Glomerular Filt Rate 20; Potassium 4.2 mmol/L (3.3-5.1); Sodium 144 mmol/L (135-145)
[2024-01-15 07:08] LABS: Estimated Average Glucose 151 mg/dL; Hemoglobin A1c % 6.9 % (<6.0)
== END 2024-01-14 11:27 | disposition home or self-care (01) ==
LOC: HO.HKASLDS 11:26
PROVIDERS: Visit Provider Internal Medicine Nephrology
DX: E11.9 Type 2 diabetes mellitus without complications (principal); N18.4 Chronic kidney disease, stage 4 (severe); R80.8 Other proteinuria; I10 Essential (primary) hypertension
CPT/HCPCS: 36415; 80051; 82565; 83036; 84520

== ENCOUNTER 2024-01-19 10:55 | Outpatient (AMB) | payer MEDICARE, SELFPAY ==
--- NOTE | 2024-01-19 11:02 | HO.NEPHOV ---
Vital Signs 01/19/24 11:03 Height 5 ft 9 in Weight 211 lb 6 oz BMI 31.2 BP 130/70 Blood Pressure Location Lt brachial Position Sitting Pulse 62 Pulse Source Pulse Oximeter Pulse Oximetry (%) 97 Oxygen Delivery Method Room Air Intake Visit Reasons: 4 Weeks F/U/ LVM [employer] Required: No Accompanied by: Daughter Allergies atorvastatin Allergy (Verified 01/19/24 11:07) Unknown pravastatin Allergy (Verified 01/19/24 11:07) Unknown HPI Comments Details: I had a delight of seeing Papo in follow-up for his chronic kidney disease and hypertension. He is known to have proteinuria. He is a diabetic. His blood sugar control is high. His blood pressure has been at goal. He does not have any hypervolemia. He denies chest pain, shortness of breath, hypoglycemia, nausea, vomiting, diarrhea or urinary symptoms. He is active now. He avoids nonsteroidal anti-inflammatory medications. He had no new complaints. [facility] Medical History (Updated 01/19/24 @ 11:17 by Mitesh Corrales MD) Posterior reversible encephalopathy syndrome Chronic kidney disease, stage 4 (severe) Diabetes Acute kidney injury Essential (primary) hypertension Surgical History History of cataract surgery Social History Alcohol intake: never Patient Tobacco Use Status: Never used Tobacco Physical Exam Vital Signs: Last Vital Signs Pulse 62 01/19/24 11:03 BP 130/70 01/19/24 11:03 Pulse Ox 97 01/19/24 11:03 Oxygen Delivery Method Room Air 01/19/24 11:03 BMI result Body Mass Index 31.2 Const General: comfortable and no acute distress Orientation/consciousness: patient oriented x3 HEENT Head: Yes normocephalic Mouth: Normal oral and palatal mucosa present Eyes EOM: EOMs intact bilaterally Neck Neck: Yes supple Resp Auscultation: clear to auscultation bilaterally Cardio Jugular venous distension: no JVD Rate: regular rate GI Palpation (GI): Soft to palpation Auscultation: normal bowel sounds General: Yes no CVA tenderness Back/Spine/Pelvis Back: no CVA tenderness Skin General skin exam: no rashes or lesions noted Neuro General: patient oriented x3 and moves all extremities Results Reviewed Nephrology Results: Hgb 14.5 g/dl (14.0-18.0) 12/29/23 WBC 8.6 X10*3/uL (4.8-10.8) 12/29/23 Plt Count 176 X10*3/uL (160-400) 12/29/23 Sodium 144 mmol/L (135-145) 01/14/24 Potassium 4.2 mmol/L (3.3-5.1) 01/14/24 Chloride 110 mmol/L (96-108) H 01/14/24 Carbon Dioxide 23 mmol/L (22-29) 01/14/24 BUN 32 mg/dL (9-16) H 01/14/24 Creatinine 2.96 mg/dL (0.5-1.4) H 01/14/24 Calcium 10.1 mg/dL (8.4-10.2) 12/29/23 Assessment & Plan Assessment & Plan (1) Chronic kidney disease, stage 4 (severe): Code(s): N18.4 - Chronic kidney disease, stage 4 (severe) Category: Medical (2) Essential (primary) hypertension: Code(s): I10 - Essential (primary) hypertension Category: Medical (3) Diabetic nephropathy: Code(s): E11.21 - Type 2 diabetes mellitus with diabetic nephropathy Category: Medical Qualifiers: Diabetes mellitus type: type 2 Qualified Code(s): E11.21 - Type 2 diabetes mellitus with diabetic nephropathy Plan Papo has stage 4 chronic kidney disease. His renal functions had been pretty stable. He is proteinuric. His blood pressure has been at goal. He has no orthostatic symptoms. He is not hyperkalemic or metabolically acidotic. I increased his Jardiance to 20 mg daily which I plan to increase it to 25 mg when he runs out of Jardiance. . His blood sugars is better. He can come off glipizide if he develops hypoglycemia . He should be on a low-sodium diet. He should try to lose some weight. He should remain well hydrated. He should avoid nonsteroidal anti-inflammatory medications. All these have been explained detail .Follow-up of blood work were ordered. All his and his daughter's questions were answered. Follow-up appointment given. Orders: Orders Creatinine Today E11.21 - Type 2 diabetes mellitus with diabetic nephropathy, I10 - Essential (primary) hypertension, N18.4 - Chronic kidney disease, stage 4 (severe) Electrolytes Today E11.21 - Type 2 diabetes mellitus with diabetic nephropathy, I10 - Essential (primary) hypertension, N18.4 - Chronic kidney disease, stage 4 (severe) Blood Urea Nitrogen Today E11.21 - Type 2 diabetes mellitus with diabetic nephropathy, I10 - Essential (primary) hypertension, N18.4 - Chronic kidney disease, stage 4 (severe) Coding Level of Care Code Est Pt Level 4 (46144) Diagnoses Chronic kidney disease, stage 4 (severe) N18.4 Essential (primary) hypertension I10 Diabetic nephropathy associated with type 2 diabetes mellitus E11 Diabetes mellitus type: type 2
[2024-01-19 11:03] VITALS: BP 130/70; PULSE 62; O2SAT 97; BMI 31.2
== END 2024-01-19 11:29 | disposition home or self-care (01) ==
PROVIDERS: PCP Pediatrics; Visit Provider Internal Medicine Nephrology
DX: I12.9 Hypertensive chronic kidney disease with stage 1 through stage 4 chronic kidney disease, or unspecified chronic kidney disease (principal); N18.4 Chronic kidney disease, stage 4 (severe); E11.21 Type 2 diabetes mellitus with diabetic nephropathy
CPT/HCPCS: 99214

== ENCOUNTER → 2024-01-19 10:55 | Outpatient (BNVA) | payer MEDICARE, SELFPAY | PROVIDERS: PCP Pediatrics; Visit Provider Internal Medicine Nephrology | DX: E11.22 Type 2 diabetes mellitus with diabetic chronic kidney disease (principal); I12.9 Hypertensive chronic kidney disease with stage 1 through stage 4 chronic kidney disease, or unspecified chronic kidney disease; N18.4 Chronic kidney disease, stage 4 (severe); E11.21 Type 2 diabetes mellitus with diabetic nephropathy | CPT/HCPCS: 99212 ==

== ENCOUNTER 2024-03-02 13:36 | Outpatient (REF) | payer MEDICARE, SELFPAY ==
[2024-03-02 18:59] LABS: Anion Gap 16 (12-20); Blood Urea Nitrogen 33 mg/dL (9-16); Carbon Dioxide 24 mmol/L (22-29); Chloride 109 mmol/L (96-108); Estimated Glomerular Filt Rate 20; Potassium 4.5 mmol/L (3.3-5.1); Sodium 144 mmol/L (135-145)
== END 2024-03-02 13:37 | disposition home or self-care (01) ==
LOC: HO.HKASLDS 13:36
PROVIDERS: Visit Provider Internal Medicine Nephrology
DX: R80.9 Proteinuria, unspecified (principal); I12.9 Hypertensive chronic kidney disease with stage 1 through stage 4 chronic kidney disease, or unspecified chronic kidney disease; N18.4 Chronic kidney disease, stage 4 (severe)
CPT/HCPCS: 36415; 80051; 82565; 84520

== ENCOUNTER 2024-03-08 11:32 | Outpatient (AMB) | payer MEDICARE, SELFPAY ==
[2024-03-08 11:37] VITALS: BP 130/70; PULSE 67; O2SAT 95; BMI 31.2
--- NOTE | 2024-03-08 11:37 | HO.NEPHOV_ITS ---
Vital Signs 03/08/24 11:37 Height 5 ft 9 in Weight 211 lb BMI 31.2 BP 130/70 Blood Pressure Location Lt brachial Position Sitting Pulse 67 Pulse Source Pulse Oximeter Pulse Oximetry (%) 95 Oxygen Delivery Method Room Air Intake Visit Reasons: 6 Weeks F/U/ [employer] Required: No Accompanied by: Daughter Allergies atorvastatin Allergy (Verified 03/08/24 11:40) Unknown pravastatin Allergy (Verified 03/08/24 11:40) Unknown HPI Comments Details: I had a delight of seeing Papo in follow-up for his chronic kidney disease and hypertension. He is known to have proteinuria. He is a diabetic. His blood pressure has been at goal. He does not have any hypervolemia. He denies chest pain, shortness of breath, hypoglycemia, nausea, vomiting, diarrhea or urinary symptoms. He is active now. He avoids nonsteroidal anti-inflammatory medications. He had no new complaints. [facility] Medical History (Updated 01/19/24 @ 11:17 by Mitesh Corrales MD) Posterior reversible encephalopathy syndrome Chronic kidney disease, stage 4 (severe) Diabetes Acute kidney injury Essential (primary) hypertension Surgical History History of cataract surgery Social History Alcohol intake: never Patient Tobacco Use Status: Never used Tobacco Review of Systems Const All systems reviewed & are unremarkable except as noted in HPI and below Physical Exam Vital Signs: Last Vital Signs Pulse 67 03/08/24 11:37 BP 150/70 H 03/08/24 11:37 Pulse Ox 95 03/08/24 11:37 Oxygen Delivery Method Room Air 03/08/24 11:37 BMI result Body Mass Index 31.2 Const General: comfortable and no acute distress Orientation/consciousness: patient oriented x3 HEENT Head: Yes normocephalic Mouth: Normal oral and palatal mucosa present Eyes EOM: EOMs intact bilaterally Neck Neck: Yes supple Resp Auscultation: clear to auscultation bilaterally Cardio Jugular venous distension: no JVD Rate: regular rate GI Palpation (GI): Soft to palpation Auscultation: normal bowel sounds General: Yes no CVA tenderness Back/Spine/Pelvis Back: no CVA tenderness Skin General skin exam: no rashes or lesions noted Neuro General: patient oriented x3 and moves all extremities Extrem General: Yes no pedal edema Results Reviewed Nephrology Results: Hgb 14.5 g/dl (14.0-18.0) 12/29/23 WBC 8.6 X10*3/uL (4.8-10.8) 12/29/23 Plt Count 176 X10*3/uL (160-400) 12/29/23 Sodium 144 mmol/L (135-145) 03/02/24 Potassium 4.5 mmol/L (3.3-5.1) 03/02/24 Chloride 109 mmol/L (96-108) H 03/02/24 Carbon Dioxide 24 mmol/L (22-29) 03/02/24 BUN 33 mg/dL (9-16) H 03/02/24 Creatinine 3.01 mg/dL (0.5-1.4) H 03/02/24 Calcium 10.1 mg/dL (8.4-10.2) 12/29/23 Assessment & Plan Assessment & Plan (1) Diabetic nephropathy: Code(s): E11.21 - Type 2 diabetes mellitus with diabetic nephropathy Category: Medical Qualifiers: Diabetes mellitus type: type 2 Qualified Code(s): E11.21 - Type 2 diabetes mellitus with diabetic nephropathy (2) Essential (primary) hypertension: Code(s): I10 - Essential (primary) hypertension Category: Medical (3) Chronic kidney disease, stage 4 (severe): Code(s): N18.4 - Chronic kidney disease, stage 4 (severe) Category: Medical Plan Papo has stage 4 chronic kidney disease. His renal functions had been pretty stable. He is proteinuric. His blood pressure has been at goal. He has no orthostatic symptoms. He is not hyperkalemic or metabolically acidotic. He is on Jardiance to 25 mg daily. His blood sugars is better. He should be on a low- sodium diet. He should try to lose some weight. He should remain well hydrated. He should avoid nonsteroidal anti-inflammatory medications. All these have been explained detail .Follow-up of blood work were ordered. All his and his daughter's questions were answered. Follow-up appointment given. Orders: Orders Creatinine Today E11.21 - Type 2 diabetes mellitus with diabetic nephropathy, I10 - Essential (primary) hypertension, N18.4 - Chronic kidney disease, stage 4 (severe) Blood Urea Nitrogen Today E11.21 - Type 2 diabetes mellitus with diabetic nephropathy, I10 - Essential (primary) hypertension, N18.4 - Chronic kidney disease, stage 4 (severe) Electrolytes Today E11.21 - Type 2 diabetes mellitus with diabetic nephropathy, I10 - Essential (primary) hypertension, N18.4 - Chronic kidney disease, stage 4 (severe) Coding Level of Care Code Est Pt Level 4 (90665) Diagnoses Diabetic nephropathy associated with type 2 diabetes mellitus . Diabetes mellitus type: type 2 Essential (primary) hypertension I10 Chronic kidney disease, stage 4 (severe) N18.4
== END 2024-03-08 12:01 | disposition home or self-care (01) ==
PROVIDERS: PCP Pediatrics; Visit Provider Internal Medicine Nephrology
DX: E11.21 Type 2 diabetes mellitus with diabetic nephropathy (principal); I12.9 Hypertensive chronic kidney disease with stage 1 through stage 4 chronic kidney disease, or unspecified chronic kidney disease; N18.4 Chronic kidney disease, stage 4 (severe)
CPT/HCPCS: 99214

== ENCOUNTER → 2024-03-08 11:32 | Outpatient (BNVA) | payer MEDICARE, SELFPAY | PROVIDERS: PCP Pediatrics; Visit Provider Internal Medicine Nephrology | DX: E11.21 Type 2 diabetes mellitus with diabetic nephropathy (principal); I12.9 Hypertensive chronic kidney disease with stage 1 through stage 4 chronic kidney disease, or unspecified chronic kidney disease; N18.4 Chronic kidney disease, stage 4 (severe); Z79.84 Long term (current) use of oral hypoglycemic drugs | CPT/HCPCS: 99212 ==

== ENCOUNTER 2024-06-07 11:17 | Outpatient (AMB) | payer MEDICARE, SELFPAY ==
[2024-06-07 11:42] VITALS: BP 148/70; PULSE 61; O2SAT 98; BMI 30.9
--- NOTE | 2024-06-07 11:42 | HO.NEPHOV_ITS ---
Vital Signs 06/07/24 11:42 Height 5 ft 9 in Weight 209 lb 2 oz BMI 30.9 BP 148/70 H Blood Pressure Location Lt brachial Position Sitting Pulse 61 Pulse Source Pulse Oximeter Pulse Oximetry (%) 98 Oxygen Delivery Method Room Air Intake Visit Reasons: 3 mon follow up-[facility] [employer] Required: No Accompanied by: Daughter Allergies atorvastatin Allergy (Verified 06/07/24 11:45) Unknown pravastatin Allergy (Verified 06/07/24 11:45) Unknown HPI Comments Details: I had a delight of seeing Papo in follow-up for his chronic kidney disease and hypertension. He is known to have proteinuria. He is a diabetic. His blood pressure has been at goal. He does not have any hypervolemia. He denies chest pain, shortness of breath, hypoglycemia, nausea, vomiting, diarrhea or urinary symptoms. He is active now. He avoids nonsteroidal anti-inflammatory medications. He had no new complaints [facility] Medical History (Updated 01/19/24 @ 11:17 by Mitesh Corrales MD) Posterior reversible encephalopathy syndrome Chronic kidney disease, stage 4 (severe) Diabetes Acute kidney injury Essential (primary) hypertension Surgical History History of cataract surgery Social History Alcohol intake: never Patient Tobacco Use Status: Never used Tobacco Review of Systems Const All systems reviewed & are unremarkable except as noted in HPI and below Physical Exam Vital Signs: Last Vital Signs Pulse 61 06/07/24 11:42 BP 148/70 H 06/07/24 11:42 Pulse Ox 98 06/07/24 11:42 Oxygen Delivery Method Room Air 06/07/24 11:42 BMI result Body Mass Index 30.9 Const General: comfortable and no acute distress Orientation/consciousness: patient oriented x3 HEENT Head: Yes normocephalic Mouth: Normal oral and palatal mucosa present Eyes EOM: EOMs intact bilaterally Neck Neck: Yes supple Resp Auscultation: clear to auscultation bilaterally Cardio Jugular venous distension: no JVD Rate: regular rate GI Palpation (GI): Soft to palpation Auscultation: normal bowel sounds General: Yes no CVA tenderness Back/Spine/Pelvis Back: no CVA tenderness Skin General skin exam: no rashes or lesions noted Neuro General: patient oriented x3 and moves all extremities Extrem General: Yes no pedal edema Assessment & Plan Assessment & Plan (1) Chronic kidney disease, stage 4 (severe): Code(s): N18.4 - Chronic kidney disease, stage 4 (severe) Category: Medical (2) Diabetic nephropathy: Code(s): E11.21 - Type 2 diabetes mellitus with diabetic nephropathy Category: Medical Qualifiers: Diabetes mellitus type: type 2 Qualified Code(s): E11.21 - Type 2 diabetes mellitus with diabetic nephropathy (3) Essential (primary) hypertension: Code(s): I10 - Essential (primary) hypertension Category: Medical Plan Papo has stage 4 chronic kidney disease. His renal functions had been pretty stable. He is proteinuric. His blood pressure has been at goal. He has no orthostatic symptoms. He is not hyperkalemic or metabolically acidotic. He is on Jardiance to 25 mg daily. His blood sugars is better. He should be on a low- sodium diet. He should try to lose some weight. He should remain well hydrated. He should avoid nonsteroidal anti-inflammatory medications. All these have been explained detail .Follow-up of blood work were ordered. All his and his daughter's questions were answered. Follow-up appointment given Orders: Orders Creatinine 3 Months E11.21 - Type 2 diabetes mellitus with diabetic nephropathy, I10 - Essential (primary) hypertension, N18.4 - Chronic kidney disease, stage 4 (severe) Blood Urea Nitrogen 3 Months E11.21 - Type 2 diabetes mellitus with diabetic nephropathy, I10 - Essential (primary) hypertension, N18.4 - Chronic kidney disease, stage 4 (severe) Electrolytes 3 Months E11.21 - Type 2 diabetes mellitus with diabetic nephropathy, I10 - Essential (primary) hypertension, N18.4 - Chronic kidney disease, stage 4 (severe) Vitamin D 25-OH Total 3 Months E11.21 - Type 2 diabetes mellitus with diabetic nephropathy, I10 - Essential (primary) hypertension, N18.4 - Chronic kidney disease, stage 4 (severe) Calcium 3 Months E11.21 - Type 2 diabetes mellitus with diabetic nephropathy, I10 - Essential (primary) hypertension, N18.4 - Chronic kidney disease, stage 4 (severe) Parathyroid Hormone Intact 3 Months E11.21 - Type 2 diabetes mellitus with diabetic nephropathy, I10 - Essential (primary) hypertension, N18.4 - Chronic kidney disease, stage 4 (severe) Phosphorus 3 Months E11.21 - Type 2 diabetes mellitus with diabetic nephropathy, I10 - Essential (primary) hypertension, N18.4 - Chronic kidney disease, stage 4 (severe) Coding Level of Care Code Est Pt Level 4 (89393) Diagnoses Chronic kidney disease, stage 4 (severe) N18.4 Diabetic nephropathy associated with type 2 diabetes mellitus E11.21 Diabetes mellitus type: type 2 Essential (primary) hypertension I10
== END 2024-06-07 12:04 | disposition home or self-care (01) ==
LOC: HO.HKAS 11:17
PROVIDERS: PCP Pediatrics; Visit Provider Internal Medicine Nephrology
DX: I12.9 Hypertensive chronic kidney disease with stage 1 through stage 4 chronic kidney disease, or unspecified chronic kidney disease (principal); N18.4 Chronic kidney disease, stage 4 (severe); E11.21 Type 2 diabetes mellitus with diabetic nephropathy
CPT/HCPCS: 99214

== ENCOUNTER → 2024-06-07 11:17 | Outpatient (BNVA) | payer MEDICARE, SELFPAY | PROVIDERS: PCP Pediatrics; Visit Provider Internal Medicine Nephrology | DX: E11.21 Type 2 diabetes mellitus with diabetic nephropathy (principal); E11.22 Type 2 diabetes mellitus with diabetic chronic kidney disease; I12.9 Hypertensive chronic kidney disease with stage 1 through stage 4 chronic kidney disease, or unspecified chronic kidney disease; N18.4 Chronic kidney disease, stage 4 (severe); Z79.84 Long term (current) use of oral hypoglycemic drugs | CPT/HCPCS: 99212 ==

== ENCOUNTER 2024-10-05 10:59 | Outpatient (REF) | payer MEDICARE, SELFPAY ==
--- OUTSIDE RECORDS SUMMARY | 2024-10-05 13:45 | XMS_ITS | Data Portability ---
Author Organization [facility], Main Office Address [address] [place] [address] Care Team Providers Care Stave Jointer Name Role Phone SUZI ARNOLD 1ST FLOOR OTHER [phone] KEITH SIMS OTHER Assessment No assessment recorded. Plan of Treatment Reminders Order Date Submit Date Provider Last Modified By Organization Details Last Modified Time Details Appointments None record ed. Lab None record ed. Referral None record ed. Procedures None record ed. Surgeries None record ed. Imaging None record ed. Medication Orders None record ed. Patient TargetsNo targets recorded. Patient InstructionsNo instructions recorded. Reason for Referral None Reported. Problems Name Problem SNOMED Code Status Onset Date Resolution Date Notes Provider Name and Address Organization Details Recorded Time Benign prostatic hyperplasia 145983316 Active 2020 JAYA FRIEDMAN NP [address], [address], [place], [address], [facility] [employer] [facility] 13:12:59 Essential hypertension 09563416 Active 2020 JAYA FRIEDMAN NP [address], [address], [place], [address], [facility] [employer] 13:13:05 Gout 10922247 Active 2020 JAYA FRIEDMAN NP [address], [address], [place], [address], [facility] [employer] 13:13:13 Hyperlipidemia 07668520 Active 2020 JAYA FRIEDMAN NP [address], [place], [address], [facility] [employer] [facility] 13:13:19 Gastroesophage al reflux disease without esophagitis 910853576 Active 2020 JAYA FRIEDMAN NP [address], [place], [address], [facility] [employer] 1 13:13:28 SARS-CoV-2 Active 2020 JAYA FRIEDMAN, [employer] [address], [address], [place], [address], [facility] [employer] 1 13:13:59 Acute urinary tract infection 138090736 Active 2020 JAYA FRIEDMAN, [employer] [address], [place], [address], [facility] [employer] 1 13:15:55 At increased risk for falls 674843195 Active 2020 JAYA FRIEDMAN, [employer] [address], [place], [address], [facility] [employer] 1 13:18:38 Type 2 diabetes mellitus without complication 199056896 Active 2020 Ary Javed MD [address], [address], [place], [address], [facility] [employer] 19:37:57 Unresponsive 852069009 Active 2020 JAYA FRIEDMAN, [employer] [address], [place], [address], [facility] [employer] 09:22:18 Atrial fibrillation 59314887 Active 2020 JAYA FRIEDMAN, [employer] [address], [place], [address], [facility] [employer] 1 13:25:45 Altered mental status 425881188 Active 2020 JAYA FRIEDMAN, [employer] [address], [place], [address], [facility] [employer] 10:06:28 Pneumonia 902222601 Active 2020 JAYA ELDER, [employer] [address], [place], [address], [facility] [employer] 1 10:05:14 Orthostatic hypotension 97245548 Active 2020 JAYA FRIEDMAN, [employer] [address], [place], [address], [employer] [facility] 1 11:14:33 Chronic retention of urine 131067040 Active 2020 JAYA FRIEDMAN NP [address] [facility], [address], [place], [address], [facility] 1 11:14:58 Insomnia 605674194 Active 2020 JAYA FRIEDMAN NP [address] [facility], [address], [place], [address], [employer] [facility] 1 15:24:06 Problem Notes None recorded. Medical Equipment None Reported. Allergies No known drug allergies Vitals Date Recorded Body height Heart rate Respiratory rate Body temperature Oxygen saturation Oxygen saturation in Arterial blood by Pulse oximetry Systolic blood pressure Diastolic blood pressure Provider Name and Address Organization Details Last Updated DateTime 1 167.64 cm 60 /min 18 /min 97.1 [degF] 100 % 100 % 129 mm[Hg] 60 mm[Hg] JAYA FRIEDMAN NP [address] [facility], [address], [place], [address], [facility] 1 15:14:37 Date Recorded Body height Heart rate Respiratory rate Body temperature Oxygen saturation Oxygen saturation in Arterial blood by Pulse oximetry Systolic blood pressure Diastolic blood pressure Provider Name and Address Organization Details Last Updated DateTime 1 167.64 cm 77 /min 18 /min 97.4 [degF] 97 % 97 % 138 mm[Hg] 81 mm[Hg] JAYA FRIEDMAN NP [address] [facility], [address], [place], [address], [facility] 1 13:01:02 Date Recorded Body height Heart rate Respiratory rate Body temperature Oxygen saturation Oxygen saturation in Arterial blood by Pulse oximetry Systolic blood pressure Diastolic blood pressure Provider Name and Address Organization Details Last Updated DateTime 1 167.64 cm 70 /min 18 /min 98.3 [degF] 97 % 97 % 140 mm[Hg] 71 mm[Hg] JAYA FRIEDMAN NP [address] [facility], [address], [place], [address], [facility] 1 13:43:49 Date Recorded Body height Heart rate Respiratory rate Body temperature Oxygen saturation Oxygen saturation in Arterial blood by Pulse oximetry Systolic blood pressure Diastolic blood pressure Provider Name and Address Organization Details Last Updated DateTime 1 167.64 cm 61 /min 18 /min 97.4 [degF] 98 % 98 % 142 mm[Hg] 75 mm[Hg] JAYA FRIEDMAN NP [address] [facility], [facility] [address], [place], [address], [employer] 1 12:41:48 Date Recorded Body height Body mass index (BMI) Body weight Heart rate Respiratory rate Body temperature Oxygen saturation Oxygen saturation in Arterial blood by Pulse oximetry Systolic blood pressure Diastolic blood pressure Provider Name and Address Organization Details Last Updated DateTime 1 167.64 cm 30.4 kg/m2 10359.8 g 62 /min 18 /min 97.3 [degF] 98 % 98 % 157 mm[Hg] 75 mm[Hg] JAYA FRIEDMAN NP [address] [facility], [facility] [address], [place], [address], [employer] 1 10:15:26 Social History Question Answer Notes LastModified by Organizat ion Details LastModified Time Tobacco Smoking Status Former Smoker quit about a month ago JAYA FRIEDMAN NP [address] [facility] [address], [place], [address], [employer] 11/23/2020 13:17:00 Do You Have An Advance Directive? Yes Ok Cpr DNI Ok To Hosp, NO Hd, Ivf, Art Nut Information not available 03/26/2021 What Is Your Level Of Alcohol Consumption? Occasional Information not available 11/23/2020 How Much Tobacco Do You Chew? None Information not available 12/11/2020 What Is Your Code Status? DNI Information not available 04/02/2021 Do You Or Have You Ever Used E-cigarettes Or Vape? Never Used Electronic Cigarettes Information not available 12/11/2020 Legal Guardian? No Information not available 04/02/2021 Do You Have A Medical Power Of Tanning Solution Maker? Yes Information not available 12/11/2020 What Was The Date Of Your Most Recent Tobacco Screening? 12/11/2020 Information not available 12/11/2020 Do You Or Have You Ever Used Smokeless Tobacco? Never Used Smokeless Tobacco Information not available 12/11/2020 Has Tobacco Cessation Counseling Been Provided? No Information not available 04/02/2021 How Many Years Have You Smoked Tobacco? 60 Information not available 12/11/2020 Do You Or Have You Ever Used Any Other Forms Of Tobacco Or Nicotine? No Information not available 04/02/2021 Sex: Unknown Functional Status None recorded. Mental Status None recorded. Family History Nothing Reported Notes:n/c Medical History No medical history recorded. Immunizations Vaccine Type Date Status Note Provider Nam e and Address Organization Details Recorded Time Td (adult), 5 Lf tetanus toxoid, preservative free, adsorbed [facility] 10:52:50 Influenza, split virus, quadrivalent, preservative 0 completed Elodia Valencia [facility] 11/26/2020 10:53:03 Influenza, split virus, quadrivalent, preservative 9 completed Elodia Valencia [facility] 11/26/2020 10:53:14 Influenza, split virus, quadrivalent, preservative 8 [facility] 11/26/[facility] 10:53:20 Pneumococcal conjugate PCV 13 8 [facility] 11/26/[facility] 10:53:34 pneumococcal polysaccharide PPV23 1 completed Elodia Valencia [facility] 11/26/2020 10:53:46 zoster recombinant 9 completed Elodia Valencia [facility] 11/26/2020 10:53:58 zoster recombinant 8 [facility] 10:54:09 Past Encounters Encounter ID Performer Location Encounter Start Date Encounter Closed Date Diagnosis/Indication Diagnosis SNOMED-CT Code Diagnosis ICD10 Code Diagnosis Note [id number] JAYA GRIPPIN, [employer] [address] [address] 11/23/2020 08:30:27 11/27/2020 12:18:26 Benign prostatic hyperplasia 807177093 N40.0 conner cath followup with urology flomax 0.4 mg daily augmentin 875/125 mg bid to 11/25 Essential hypertension 17534619 I10 amlodipine 10 mg daily enalapril 20 mg bid clonidine 0.1 mg bid CoQ10 bid monitor bp Gastroesop hageal reflux disease without esophagitis 902938576 K21.9 protonix 40 mg daily Gout 63700157 M10.9 allopurino l 300 mg daily Hyperlipidemia 64107117 E78.5 rosuvastat in 5 mg daily SARS-CoV-2 829050482 U07 .1 11/20 positive O2 prn encourage po intake of food and fluids ivf for anorexia monitor for any changes in mental or medical status send to ED for decompensa tion Acute urin chi tract infection 927704882 N39.0 augmentin bid to 11/25 At increas ed risk for falls 301613380 Z91.81 PT OT eval and treat fall precaution s frequent safety checks [id number] JAYA FRIEDMAN NP [address] [address] 11/26/2020 14:06:52 11/28/2020 16:25:23 At increased risk for falls 612766210 Z91.81 PT OT eval and treat fall precaution s frequent safety checks SARS-CoV-2 391159472 U07 .1 11/20 positive O2 prn encourage po intake of food and fluids ivf for anorexia monitor for any changes in mental or medical status send to ED for decompensa tion start D51/2 NS at 60 ml/hr x 2 liter rocephin 1 gm IV x7 days zpak if can take po [id number] JAYA FRIEDMAN NP [address] [address] 12/01/2020 12:41:54 12/05/2020 08:22:16 At increased risk for falls 312967880 Z91.81 PT OT eval and treat fall precaution s frequent safety checks Benign pro static hyperplasia 372873245 N40.0 followup with urology flomax 0.4 mg daily Essential hypertension 30826327 I10 amlodipine 10 mg daily clonidine 0.1 mg bid CoQ10 bid monitor bp Gastroesop hageal reflux disease without esophagitis 781489462 K21.9 protonix 40 mg daily Gout 33485528 M10.9 allopurino l 300 mg daily Hyperlipidemia 45535426 E78.5 rosuvastat in 5 mg daily SARS-CoV-2 611923151 U07 .1 11/20 positive O2 prn encourage po intake of food and fluids ivf for anorexia monitor for any changes in mental or medical status send to ED for decompensa tion decadron 6 mg x 4 days albuterol mdi 2 puffs q 4hr prn remeron 7.5 mg hs for appetite [id number] JAYA FRIEDMAN NP [address] [address] 12/03/2020 07:55:59 12/05/2020 08:40:14 SARS-CoV-2 064133870 U07.1 11/20 positive O2 prn encourage po intake of food and fluids ivf for anorexia monitor for any changes in mental or medical status send to ED for decompensa tion decadron 6 mg x 4 days albuterol mdi 2 puffs q 4hr prn remeron 7.5 mg hs for appetite Benign pro static hyperplasia 152648191 N40.0 followup with urology flomax 0.4 mg daily [id number] JAYA FRIEDMAN NP [address] [address] 12/07/2020 08:32:58 12/10/2020 12:07:45 At increased risk for falls 438795402 Z91.81 PT OT eval and treat fall precaution s frequent safety checks SARS-CoV-2 834125825 U07 .1 11/20 positive O2 prn encourage po intake of food and fluids ivf for anorexia monitor for any changes in mental or medical status send to ED for decompensa tion decadron 6 mg x 4 days albuterol mdi 2 puffs q 4hr prn remeron 7.5 mg hs for appetite [id number] JAYA FRIEDMAN NP [address] [address] 12/10/2020 15:22:09 12/13/2020 10:56:51 At increased risk for falls 323896455 Z91.81 PT OT eval and treat fall precaution s frequent safety checks SARS-CoV-2 926607831 U07 .1 11/20 positive O2 prn encourage po intake of food and fluids ivf for anorexia monitor for any changes in mental or medical status send to ED for decompensa tion albuterol mdi 2 puffs q 4hr prn remeron 7.5 mg hs for appetite D5 1/ NS at 60 ml/hr x 2 liters [id number] JAYA FRIEDMAN NP [address] [address] 12/11/2020 15:13:36 12/13/2020 03:48:29 SARS-CoV-2 325960209 U07.1 recovered 11/20 positive O2 prn encourage po intake of food and fluids ivf for anorexia monitor for any changes in mental or medical status send to ED for decompensa tion albuterol mdi 2 puffs q 4hr prn remeron 7.5 mg hs for appetite NS at 60 ml/hr x 2 liters [facility] for falls 320202978 Z91.81 PT OT eval and treat fall precaution s frequent safety checks [id number] Ary Javed MD [address] [address] 12/11/2020 17:36:32 12/13/2020 11:38:42 SARS-CoV-2 894260817 U07.1 Considered recovered, was + on 11/20, began having sxs on 11/16. Continues with sequelae. He continues to have poor po intake. Started on IV fluid today. He is also getting more confused again. Pretty oriented when he talks to me, but very odd that he cannot be redirected from believing [place]. O2 sat stable. Completed dexamethas one on 12/05. Continue albuterol mdi 2 puffs q 4hr prn and mirtazapin e 7.5 mg qhs for appetite Continue NS at 60 ml/hr x 2 liters. Have low threshold for sending him out. Recheck labs on 12/13. Continue to monitor O2 sats, temp, GI sxs and po intake. At [facility] ed risk for falls 916295921 Z91.81 Very deconditio yana, needs PT/OT for strengthen ing, balance, gait training, safety and function. Fall precaution s in place. Monitor for safety. Benign pro static hyperplasia 617105208 N40.0 No current issues. Continue tamsulosin 0.4 mg qd. F/U with uro as planned. Essential hypertension 25070036 I10 SBP borderline today, Continue amlodipine 10 mg qd and clonidine 0.1 mg BID. Monitor BP and labs and adjust as needed. Gastroesop hageal reflux disease without esophagitis 090374145 K21.9 No current sxs. Continue pantoprazo le 40 mg qd. Monitor sxs. Gout 32346757 M10.09 Continue allopurino l 300 mg qd. Monitor for sxs and for uric acid level prn. Hyperlipidemia 38563161 E78.5 Continue rosuvastat in 5 mg qd and CoQ10/fish oil BID. Monitor labs as outpt. Type 2 miguel a betes mellitus without complication 127283627 E11.9 One high BS likely due to D5NS. Off steroids for 5 days, so unlikely to be contributi ng. Now improved. Continue SSI and adjust as needed. Vitamin D deficiency 347 46330 E56.8 Continue cholecalci ferol 1000 IU qd. Recheck level in 4 weeks. [id number] MCKENZIE WEAVER [address] [place] [address] [place] [address] 12/12/2020 07:51:37 12/14/2020 15:19:28 At increased risk for falls 254934441 Z91.81 PT OT eval and treat fall precaution s frequent safety checks SARS-CoV-2 832263650 U07 .1 recovered 11/20 positive O2 prn encourage po intake of food and fluids ivf for anorexia monitor for any changes in mental or medical status send to ED for decompensa tion albuterol mdi 2 puffs q 4hr prn remeron 7.5 mg hs for appetite NS at 60 ml/hr x 2 liters Type 2 miguel a betes mellitus without complication 099268598 E11.9 Continue SSI and adjust as needed. Unresponsive 245656168 R 40.20 code called, sent to hospital [id number] JAYA GRIPPIN, [employer] [address] [address] 12/19/2020 13:18:05 12/25/2020 14:01:46 At increased risk for falls 279643162 Z91.81 PT OT eval and treat fall precaution s frequent safety checks Benign pro static hyperplasia 496736282 N40.0 followup with urology flomax 0.4 mg daily Essential hypertension 72437124 I10 amlodipine 10 mg daily clonidine 0.1 mg bid CoQ10 bid monitor bp Gastroesop hageal reflux disease without esophagitis 257873515 K21.9 protonix 40 mg daily Gout 66118082 M10.9 allopurino l 300 mg daily Hyperlipidemia 71912612 E78.5 rosuvastat in 5 mg daily SARS-CoV-2 026661006 U07 .1 recovered 11/20 positive O2 prn encourage po intake of food and fluids ivf for anorexia monitor for any changes in mental or medical status send to ED for decompensa tion albuterol mdi 2 puffs q 4hr prn remeron 7.5 mg hs for appetite Type 2 miguel a betes mellitus without complication 690265706 E11.9 Continue SSI and adjust as needed. Atrial fibrillation 4943 6004 I48.91 metoprolol 12.5 mg bid [id number] JAYA FRIEDMAN NP [address] [address] 12/21/2020 15:02:43 12/25/2020 14:43:29 At increased risk for falls 582392080 Z91.81 PT OT eval and treat fall precaution s frequent safety checks SARS-CoV-2 675009220 U07 .1 recovered 11/20 positive O2 prn encourage po intake of food and fluids ivf for anorexia monitor for any changes in mental or medical status send to ED for decompensa tion albuterol mdi 2 puffs q 4hr prn remeron 7.5 mg hs for appetite [id number] MCKENZIE WEAVER [address] [address] 12/24/2020 07:54:31 12/26/2020 12:15:29 Altered mental status 121418285 R41.82 sent to [facility] for further evaluation [id number] JAYA GRIPPIN, [employer] [address] [address] 12/28/2020 08:00:51 12/31/2020 16:12:32 Altered mental status 858704909 R41.82 continue to reorient prn seroquel 12.5 mg hs to 12/31 At [facility] ed risk for falls 644071543 Z91.81 PT OT eval and treat fall precaution s frequent safety checks Atrial fibrillation 4943 6004 I48.91 metoprolol 12.5 mg bid Benign pro static hyperplasia 511208243 N40.0 followup with urology flomax 0.4 mg daily Essential hypertension 01612234 I10 amlodipine 10 mg daily clonidine 0.1 mg bid CoQ10 bid monitor bp Gastroesop hageal reflux disease without esophagitis 413055481 K21.9 protonix 40 mg daily Gout 57086999 M10.9 allopurino l 300 mg daily Hyperlipidemia 01334767 E78.5 rosuvastat in 5 mg daily Type 2 miguel a betes mellitus without complication 028711097 E11.9 Continue SSI and adjust as needed. SARS-CoV-2 132371941 U07 .1 recovered 11/20 positive O2 prn encourage po intake of food and fluids ivf for anorexia monitor for any changes in mental or medical status send to ED for decompensa tion albuterol mdi 2 puffs q 4hr prn remeron 15 mg hs for appetite [id number] JAYA FRIEDMAN NP [address] [address] 12/31/2020 12:02:10 01/03/2021 12:06:40 Altered mental status 504629136 R41.82 continue to reorient prn seroquel 12.5 mg hs to 12/31 Type 2 miguel a betes mellitus without complication 523708916 E11.9 Continue SSI and adjust as needed. [id number] JAYA FRIEDMAN NP [address] [address] 01/02/2021 07:46:14 01/04/2021 16:30:37 Type 2 diabetes mellitus without complication 391335690 E11.9 Continue SSI and adjust as needed. glucerna with meals Hyperlipidemia 52433248 E78.5 rosuvastat in 5 mg daily Gout 67259095 M10.9 allopurino l 300 mg daily Gastroesop hageal reflux disease without esophagitis 777802353 K21.9 protonix 40 mg daily Essential hypertension 56608007 I10 amlodipine 10 mg daily clonidine 0.1 mg bid CoQ10 bid monitor bp Benign pro static hyperplasia 945027178 N40.0 followup with urology flomax 0.4 mg daily Atrial fibrillation 4943 6004 I48.91 metoprolol 12.5 mg bid At [facility] ed risk for falls 237912777 Z91.81 PT OT eval and treat fall precaution s frequent safety checks Pneumonia 764011364 J18. 9 recovered O2 prn , trying to wean him to room air [id number] [employer]IE [employer] [address] [place] [address] 01/07/2021 11:06:12 01/09/2021 15:49:15 Atrial fibrillation 17679901 I48.91 metoprolol 12.5 mg bid Type 2 miguel a betes mellitus without complication 286631031 E11.9 Continue SSI and adjust as needed. glucerna with meals At [facility] risk for falls 214315607 Z91.81 PT OT eval and treat fall precaution s frequent safety checks [id number] MCKENZIE [employer]AVER [address] [place] [address] 01/11/2021 14:24:00 01/15/2021 14:37:10 Type 2 diabetes mellitus without complication 421226433 E11.9 Continue SSI and adjust as needed. glucerna with meals Gastroesop hageal reflux disease without esophagitis 439549176 K21.9 protonix 40 mg daily Essential hypertension 03592117 I10 amlodipine 10 mg daily clonidine 0.1 mg bid CoQ10 bid monitor bp [id number] MCKENZIE WEAVER [address] [place] [address] 01/14/2021 12:41:51 01/16/2021 13:09:42 Gastroesophageal reflux disease without esophagitis 984678234 K21.9 protonix 40 mg daily Type 2 miguel a betes mellitus without complication 658680458 E11.9 Continue SSI and adjust as needed. glucerna with meals [id number] JAYA GRIPPIN, [employer] [address] [address] 01/18/2021 13:22:41 01/21/2021 14:13:18 Gastroesophageal reflux disease without esophagitis 066560522 K21.9 protonix 40 mg daily Type 2 miguel a betes mellitus without complication 814527406 E11.9 Continue SSI and adjust as needed. glucerna with meals At [facility] risk for falls 234415921 Z91.81 PT OT eval and treat fall precaution s frequent safety checks [id number] Zulema Mckoy MD [address] [address] 01/23/2021 07:54:25 01/25/2021 13:56:28 At increased risk for falls 812429024 Z91.81 PT/OTwill monitor and continue to try to minimize fall risk Atrial fibrillation 4943 6004 I48.19 metoprolol 12.5 mg bid for rate controlwil l monitor Benign pro static hyperplasia 011872550 N40.0 tamsulosin 0.4 mg dailywill monitor Essential hypertension 86951243 I10 metoprolol 12.5 mg bid amlodipine 10 mg dailycloni dine 0.1 mg bidwill monitor Gastroesop hageal reflux disease without esophagitis 824653015 K21.9 pantoprazo le 40 mg dailywill monitor Gout 66726928 M10.09 allopurino l 300 mg dailywill monitor Hyperlipidemia 70298041 E78.49 rosuvastat in 5 mg dailywill monitor 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 9 recovered O2 prn , trying to wean him to room air Type 2 miguel a betes mellitus without complication 836816149 E11.9 Continue SSI and adjust as needed. glucerna with meals Hyperlipidemia 63521258 E78.5 rosuvastat in 5 mg daily Gout 68368746 M10.9 allopurino l 300 mg daily Gastroesop hageal reflux disease without esophagitis 495582952 K21.9 protonix 40 mg daily Essential hypertension 32469933 I10 amlodipine 10 mg daily clonidine 0.1 mg bid CoQ10 bid monitor bp Benign pro static hyperplasia 979374955 N40.0 followup with urology flomax 0.4 mg daily Atrial fibrillation 4943 6004 I48.91 metoprolol 12.5 mg bid Acute urin chi tract infection 038621091 N39.0 recoveredp robiotic daily At [facility] ed risk for falls 183312856 Z91.81 PT OT eval and treat fall precaution s frequent safety checks [id number] MCKENZIE WEAVER CATALINA [address] [place] [address] [place] [address] 03/26/2021 10:32:00 03/28/2021 14:22:20 Orthostatic hypotension 65829269 I95.1 Chronic re tention of urine 082884958 R33.8 Atrial fibrillation 4943 6004 I48.91 metoprolol 12.5 mg bid Benign pro static hyperplasia 930217648 N40.0 followup with urologyfol ey to be removed Essential hypertension 34805964 I10 valsartan 160 mg [id number] bidamlodip ine 10 mg dailymonit or bp Gastroesop hageal reflux disease without esophagitis 279988039 K21.9 protonix 40 mg daily Gout 03641018 M10.9 allopurino l 300 mg daily Hyperlipidemia 19828195 E78.5 rosuvastat in 5 mg daily Type 2 miguel a betes mellitus without complication [id number] E11.9 Continue SSI and adjust as needed. glucerna with mealsglipi zide 2.5 mg bid Altered mental status 41 0212829 R41.82 resolved monitor for changestra zodone 25 mg hsmelatoni n 5 mg hs prnremeron 15 mg hs At [facility] ed risk for falls 452776298 Z91.81 PT OT eval and treat fall precaution s frequent safety checks [id number] MD SUZI Sheridan [address] [place] [address] rd ANNA CHANG [address] 03/29/2021 16:23:18 04/03/2021 15:17:55 Orthostatic hypotension 15043116 I95.1 Improved since here.Very deconditio yana.Needs PT/OT for strengthen ing, balance, gait training, safety and function.C ontinue fall precaution s.Monitor for safety. Chronic re tention of urine 128845241 R33.8 Continue conner for now. Plan voiding trial for next week.Uro consult if fails voiding trial. Atrial fibrillation 4943 6004 I48.0 Rate in good control on metoprolol 12.5 mg BID.Not on AC due to GI bleed.Terri tor HR. Benign pro static hyperplasia 402785840 N40.1 As above. Essential hypertension 00133842 I10 With some borderline systolic HTN, but BP goal is permissive HTN, with SBP<160 amd DBP<90, to help avoid orhostasis .Continue valsartan 160 mg qd, amlodipine 10 mg qd and metoprolol 12.5 mg BID.Monito r BP and labs. Gastroesop hageal reflux disease without esophagitis 997207589 K21.9 No current sxs.Contin ue pantoprazo le 40 mg qd.Monitor sxs. Gout 15765628 M10.09 No current sxs. Continue allopurino l 300 mg qd.Monitor for sxs. Hyperlipidemia 07231141 E78.49 Continue rosuvastat in 5 mg qd and CoQ10 100 mg BID.Monito r labs as outpt. 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 Altered mental status 41 8083464 G93.49 MS still variable.C ontinue trazodone 25 mg qhs, mirtazapin e 15 mg qhs and melatonin 5 mg qhs prnMOnitor MS and mood.Psych consult prn. At [facility] ed risk for falls 841545475 Z91.81 Continue PT/OT as above.Cont inue fall precaution s.Monitor for safety. [id number] JAYA FRIEDMAN NP [address] [address] 04/01/2021 12:25:54 04/03/2021 15:37:28 Benign prostatic hyperplasia 323374454 N40.0 followup with urologyfol ey to be removed Acute urin cih tract infection 309243182 N39.0 bactrim DS bid for 5 daysprobio tic daily [id number] JAYA FRIEDMAN NP [address] [address] 04/05/2021 15:13:25 04/09/2021 11:48:29 Chronic retention of urine 487845282 R33.8 monitor urine outputavoi d dehydratio n Acute urin chi tract infection 705727871 N39.0 probiotic daily Atrial fibrillation 4943 6004 I48.0 metoprolol 12.5 mg bid Benign pro static hyperplasia 484054795 N40.1 followup with urology Essential hypertension 03868074 I10 CoQ10 bidamlodip ine 10 mg dailymonit or bp Gastroesop hageal reflux disease without esophagitis 732767056 K21.9 protonix 40 mg daily Gout 66138978 M10.09 monitor for symptoms Hyperlipidemia 34603145 E78.49 rosuvastat in 5 mg daily 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 glucerna with mealsglipi zide 2.5 mg bid At [facility] risk for falls 114835328 Z91.81 PT OT eval and treat fall precaution s frequent safety checks Insomnia 439617839 G47.0 0 melatonin 5 mg hs prnremeron 15 mg hstrazodon e 25 mg hs [id number] JAYA FRIEDMAN NP [address] [address] 04/08/2021 11:46:51 04/12/2021 09:03:52 Gastroesophageal reflux disease without esophagitis 213269530 K21.9 protonix 40 mg daily Benign pro static hyperplasia 597719750 N40.1 followup with urology Acute urin chi tract infection 055724240 N39.0 probiotic daily [id number] JAYA FRIEDMAN NP [address] [address] 04/12/2021 10:40:41 04/19/2021 09:05:23 Benign prostatic hyperplasia 175781273 N40.1 followup with urology At [facility] ed risk for falls 062251476 Z91.81 PT OT eval and treat fall precaution s frequent safety checks Acute urin chi tract infection 641131993 N39.0 probiotic daily [id number] JAYA FRIEDMAN NP [address] [address] 04/16/2021 12:13:30 04/19/2021 10:25:31 Acute urinary tract infection 133608135 N39.0 probiotic dailyawait ing results Type 2 miguel a betes mellitus without complication 169801886 E11.9 Continue SSI and adjust as needed. glucerna with mealsglipi zide 2.5 mg bid [id number] JAYA FRIEDMAN MCKENZIE [address] [address] 04/19/2021 09:58:13 04/23/2021 11:09:47 Orthostatic hypotension 66770292 I95.1 Improved since here.Very deconditio yana.Needs PT/OT for strengthen ing, balance, gait training, safety and function.C ontinue fall precaution s.Monitor for safety. Chronic re tention of urine 304405386 R33.8 monitor urine outputavoi d dehydratio n Atrial fibrillation 4943 6004 I48.91 metoprolol 12.5 mg bid Benign pro static hyperplasia 780286051 N40.0 followup with urologymon itor voiding Essential hypertension 28949038 I10 CoQ10 bidamlodip ine 10 mg dailymonit or bp Gastroesop hageal reflux disease without esophagitis 183988910 K21.9 protonix 40 mg daily Gout 80903632 M10.9 allopurino l 300 mg daily Hyperlipidemia 91684660 E78.5 rosuvastat in 5 mg daily Type 2 miguel a betes mellitus without complication 707816202 E11.9 Continue SSI and adjust as needed. glucerna with mealsglipi zide 2.5 mg bid Altered mental status 41 8899682 R41.82 resolved monitor for changestra zodone 25 mg hsmelatoni n 5 mg hs prnremeron 15 mg hs At [facility] ed risk for falls 581024271 Z91.81 PT OT eval and treat fall precaution s frequent safety checks Health Concerns Section Related Observation LastModified by Organization Detai ls LastModified Time None Recorded Concern Status LastModified by Organization Details LastModified Time None Recorded Advance Directives Directive Y: ok cpr DNI ok to hosp, NO hd, ivf, art nut Payers Encounter Date Sequence Insurance Name Policy Number Policy Johnson Covered Member ID Johnson Member ID Guarantor Name 04/05/[address] [facility] (MEDICARE REPLACEMENT/A DVANTAGE - PPO) [id number] Papo Brand [id number] Papo Brand 04/08/[address] [facility] (MEDICARE REPLACEMENT/A DVANTAGE - PPO) [id number] Papo Brand [id number] Papo Brand 04/12/[address] [facility] (MEDICARE REPLACEMENT/A DVANTAGE - PPO) [id number] Papo Brand [id number] Papo Brand 04/16/[address] [facility] (MEDICARE REPLACEMENT/A DVANTAGE - PPO) [id number] Papo Brand [id number] Papo Brand 04/19/[address] [facility] (MEDICARE REPLACEMENT/A DVANTAGE - PPO) [id number] Papo Brand [id number] [employer] Notes Date Note Type Note Provider Name and Address Organization Details Recorded Time 04/05/2021 text/html seen today for readmission-80 yom readmitted to for rehab after being sent to the hospital 04/01 with agitation confusion and unable to reinsert his conner cath. IN the Ed the ultrasound showed 150 ml of urine 8 hours after the conner removed, he had been on bactrim for uti, htis was changed to rocephin he also received gently rehydration with IVF. CAOx2 he knew we were in [place] but did not know the name of the facility. lungs clear, no edema, he denies any disstress or discomfort, reminded nursing that he needed a urinal and fluids at the bedside JAYA FRIEDMAN NP [address] [facility], [address], [place], [address], [facility] [employer] [facility] 04/05/2021 15:25:29 04/08/2021 text/html seen today for acute rounding visit, CAOx3 sitting up in bed, lungs clear, participates with PT, mood has improved, more animated today JAYA FRIEDMAN NP [address], [address], [place], [address], [facility] 04/08/2021 13:03:53 04/12/2021 text/html seen today for acute rounding visit, CAOx3 resting in bed, lungs clear, supervision with ambulation, eating and drinking well, still has episodes of impaired cognition, will repeat the UA per family request JAYA FRIEDMAN NP [address] [facility], [address], [place], [address], [facility] [employer] [facility] 04/12/2021 13:47:11 04/16/2021 text/html seen today for acute rounding visit, CAOx3 sitting up in bed, eating and drinking well, no ua symtoms, awaiting repeat ua results JAYA FRIEDMAN NP [address] [facility], [address], [place], [address], [facility] [employer] [facility] 04/16/2021 12:44:13 04/19/2021 text/html seen today for discharge summary-80 yom admitted to for rehab after presenting to the hospital from home with imbalance and unable to ambulate, no dizziness or lightheadedness. CT head showed no acute process, ASA and plavix started. MRI brain done, negative for infarct, moderate C1-2 canal stenosis, had orthostatic bp issues during his hospitalization, clonidine and flomax stopped, and valsartan started, he was started on some hs trazodone for mild delirium. he needs followup with urology if conner cannot be removed. 04/05 readmitted to for rehab after being sent to the hospital 04/01 with agitation confusion and unable to reinsert his conner cath. IN the Ed the ultrasound showed 150 ml of urine 8 hours after the conner removed, he had been on bactrim for uti, htis was changed to rocephin he also received gently rehydration with IVF. CAOx3 sitting up in bed, he is ready for discharge, SW having difficulty finding VNA for him, he wants to go home. lungs clear , voiding well, eating and drinking well. JAYA FRIEDMAN NP [address] [facility], [address], [place], [address], [facility] 04/19/2021 10:22:06
--- OUTSIDE RECORDS SUMMARY | 2024-10-05 13:45 | XMS_ITS ---
Author Organization [facility] Address Unknown Problems Problem Status Start Date End Date MUSCLE WASTING AND ATROPHY, NOT ELSEWHERE CLASSIFIED, LEFT UPPER ARM (Primary) (M62.522 - ICD-10-CM) ACTIVE 03/25/2021 PATHOLOGICAL FRACTURE, OTHER SITE, SUBSEQUENT ENCOUNTER FOR FRACTURE WITH ROUTINE HEALING (Primary) (M84.48XD - ICD-10-CM) RESOLVED 12/20/2020 03/25/2021 URINARY TRACT INFECTION, SIT E NOT SPECIFIED (N39.0 - ICD-10-CM) ACTIVE 04/04/2021 BENIGN PROSTATIC HYPERPLASIA WITH LOWER URINARY TRACT SYMPTOMS (N40.1 - ICD-10-CM) ACTIVE 03/25/2021 MUSCLE WASTING AND ATROPHY, NOT ELSEWHERE CLASSIFIED, RIGHT UPPER ARM (M62.521 - ICD-10-CM) ACTIVE 03/25/2021 PNEUMONIA, UNSPECIFIED ORGANISM (J18.9 - ICD-10-CM) RE SOLVED 12/17/2020 03/25/2021 DIFFICULTY IN WALKING, NOT E LSEWHERE CLASSIFIED (R26.2 - ICD-10-CM) RESOLVED 11/22/2020 03/25/2021 TYPE 2 DIABETES MELLITUS WIT HOUT COMPLICATIONS (E11.9 - ICD-10-CM) ACTIVE 11/22/2020 RETENTION OF URINE, UNSPECIFIED (R33.9 - ICD-10-CM) AC TIVE 03/25/2021 DYSPHAGIA, OROPHARYNGEAL PHASE (R13.12 - ICD-10-CM) RE SOLVED 11/22/2020 03/25/2021 CHRONIC KIDNEY DISEASE, STAG E 3 UNSPECIFIED (N18.30 - ICD-10-CM) ACTIVE 11/22/2020 MAJOR DEPRESSIVE DISORDER, S CHEMA EPISODE, UNSPECIFIED (F32.9 - ICD-10-CM) ACTIVE 03/28/2021 OTHER MALAISE (R53.81 - ICD-10-CM) RESOLVED 202003/25/2021 ORTHOSTATIC HYPOTENSION (I95.1 - ICD-10-CM) ACTIVE 03/25/2021 PERSONAL HISTORY OF (HEALED) TRAUMATIC FRACTURE (Z87.81 - ICD-10-CM) RESOLVED 11/22/2020 03/25/2021 HYPERTENSIVE CHRONIC KIDNEY DISEASE WITH STAGE 1 THROUGH STAGE 4 CHRONIC KIDNEY DISEASE, OR UNSPECIFIED CHRONIC KIDNEY DISEASE (I12.9 - ICD-10-CM) ACTIVE 11/22/2020 DIFFICULTY IN WALKING, NOT E LSEWHERE CLASSIFIED (R26.2 - ICD-10-CM) ACTIVE 03/25/2021 PERSONAL HISTORY OF COVID-19 (Z86.16 - ICD-10-CM) ACTI VE 03/25/2021 GOUT, UNSPECIFIED (M10.9 - ICD-10-CM) ACTIVE ESSENTIAL (PRIMARY) HYPERTENSION (I10 - ICD-10-CM) RES OLVED 11/22/2020 11/22/2020 MUSCLE WASTING AND ATROPHY, NOT ELSEWHERE CLASSIFIED, RIGHT UPPER ARM (M62.521 - ICD-10-CM) RESOLVED 11/22/2020 MUSCLE WASTING AND ATROPHY, NOT ELSEWHERE CLASSIFIED, LEFT UPPER ARM (M62.522 - ICD-10-CM) RESOLVED 11/22/2020 HISTORY OF FALLING (Z91.81 - ICD-10-CM) ACTIVE 0 11/22/2020 VITAMIN D DEFICIENCY, UNSPECIFIED (E55.9 - ICD-10-CM) ACTIVE 11/22/2020 COVID-19 (U07.1 - ICD-10-CM) RESOLVED 11/22/2020 03/25/2021 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 There is a mild right lower lung infiltrate.There is subsegmental atelectasis versus a mild left lower lung infiltrate. The lungsare otherwise clear. There is no definite pleural effusion. The bone structuresappear unremarkable.Conclusion: A mild right lower lung infiltrate.Electronically signed by AICHA CARABALLO M.D. 11/26/2020 1:33:17 PM EDT.Reason for Study: R06.02 SHORTNESS OF BREATHPrincipal Result Media Assistant: AICHA CARABALLO ([id number])Certification Engineer: RAE FITCH ([email or web address])[employer]er Certification Engineer: RANDALL 11/26/2020 01:33 p m EDT Encounters Encounter Performer Performer Role Encounter Diagnoses Location Date Leave - Discharged / Transferred to another [facility] 1 09:19 pm EDT - 1 05:18 pm EDT Leave - Discharged / Transferred to another [facility] 1 05:51 pm EDT - 1 10:16 am EDT Leave - Discharged / Transferred to another [facility] 1 03:05 pm EDT - 1 03:01 pm EDT Discharge - Discharged to home or self care - Home - [facility] 1 03:09 pm EDT - 1 02:42 pm EDT Leave - Discharged / Transferred to another [facility] 1 07:39 pm EDT - 1 03:30 pm EDT Discharge - Discharged to home or self care - Home - [facility] 1 01:26 pm EDT - 1 02:09 pm EDT Reason For Referral Behavioral symptoms (e.g. agitation, psychosis) Immunizations Vaccine Date Influenza TB 2 Step Mantoux Skin Test 12/01/2020 1 2:00 am EDT TB 2 Step Mantoux Skin Test 11/23/2020 1 2:00 am EDT PCV13 (Pneumococcal Conjugate)Vaccine SARS-COV-2 (COVID-19) 11/14/2020 12:00 a m EDT SARS-COV-2 (COVID-19) 10/24/2020 08:00 a m EDT Social History
--- OUTSIDE RECORDS SUMMARY | 2024-10-05 13:45 | XMS_ITS | Data Portability ---
Author Organization [facility], Main Office Address [address] [facility] [address] [place] [id number] Care Team Providers Care Drug Clerk Name Role Phone SUDHEER SIMS Primary Care Provider HIRAL TURK Disc Recordist ONOFRE HARDIN Orthopedic Surgeon [phone] ALANNAH CORRALES Site Acquisition Specialist DONNA DOUGLAS Esthetician Makeup Artist DYAN LOZADA Urologist LORENA CAZARES Orthopedic Surgeon [phone] ANGEL LUIS PAULINO Interior Block Wirer RUDY EDWARDS Hogshead Dumper Assessment Encounter Date Assessment Date Assessment LastModified by Organization Details LastModified Time 10/10/2022 10/10/2022 This service was provided using telemedicine. Patient consented to video & audio visit Patient was located in the [facility]. Provider was located in the office. No other persons participated in the telemedicine visit except for the patient unless otherwise indicated here. Kareen Total time of visit was 13 minutes. [email or web address] Not available 10/10/2022 15:17:14 10/31/2022 10/31/2022 This service was provided using telemedicine. Patient consented to video & audio visit Patient was located in the [facility]. Provider was located in the office. No other persons participated in the telemedicine visit except for the patient unless otherwise indicated here. Dtr/Kareen Total time of visit was 12 minutes. [email or web address] Not available 10/31/2022 15:18:36 05/27/2024 05/27/2024 This service was provided using telemedicine. Patient consented to video & audio visit Patient was located in the [facility]. Provider was located in the office. No other persons participated in the telemedicine visit except for the patient unless otherwise indicated here. Phil Total time of visit was 17 minutes. flora Not available 05/27/2024 13:53:38 Plan of Treatment Reminders Order Date Submit Date Provider Last Modified By Organization Details Last Modified Time Details Appointments FOLLOW UP 2024 11:30A M Sudheer Sims MD Not available Not available Not available AWV30 2024 11:00A M Sudheer Sims MD Not available Not available Not available Lab CMP, serum or plasma 2023 025 awychowski [facility] (Centralized Electronic Ordering - All Locations), Patient Can Go To The Location Of Their Choice, [id number] 05/27/2024 13:54:53 HbA1c (hemog lobin A1c), blood 2023 025 flora [facility] (Centralized Electronic Ordering - All Locations), Patient Can Go To The Location Of Their Choice, [id number] 05/27/2024 13:54:53 TSH, ultra- sensit karlo, serum 2023 025 awychowski [facility] (Centralized Electronic Ordering - All Locations), Patient Can Go To The Location Of Their Choice, [id number] 05/27/2024 13:54:53 TSH, ultra- sensit karlo, serum 2023 024 MARIYA [facility] (Centralized Electronic Ordering - All Locations), Patient Can Go To The Location Of Their Choice, [id number] 05/18/2024 08:09:35 magnes ium, serum or plasma 2023 024 MARIYA [facility], [address], [place], [id number], 05/18/2024 08:09:36 lipid panel, serum 2023 024 MARIYA [facility], [address], [place], [id number], 05/18/2024 08:09:33 HbA1c (hemog lobin A1c), blood 2023 024 MARIYA [facility], [address], [address], [place], [place], [id number], 05/18/2024 08:09:34 CMP, serum or plasma 2023 024 MARIYA [facility], [address], [address], [place], [address], 05/18/2024 08:09:32 PSA, serum or plasma 2023 024 MARIYA [facility], [address], [address], [place], [place], [id number], 05/18/2024 08:09:34 TSH, serum or plasma 2022 023 MARIYA [facility], [address], [address], [place], [address], 12/02/2022 21:39:33 TSH, serum or plasma 2022 023 MARIYA [facility], [address], [address], [place], [address], 10/06/2022 13:55:15 magnes ium, serum or plasma 2022 023 [email or web address] [facility], [address], [place], [id number], 10/07/2022 08:56:57 HbA1c (hemog lobin A1c), blood 2022 023 MARIYA [facility], [address], [address], [place], [address], 10/06/2022 13:53:04 CMP, serum or plasma 2022 023 MARIYA [facility], [address], [address], [place], [id number], 10/06/2022 13:48:43 lipid panel, serum 2022 023 MARIYA [facility], [address], [address], [place], [id number], 10/06/2022 13:48:45 PSA, serum or plasma 2022 023 MARIYA [facility], [address], [address], [place], [address], 10/06/2022 13:55:13 Referral physic al therap ist referr al - At risk for fallin g 2022 023 [email or web address] Not available 2022 15:39:45 nutrit ionist /dieti deya referr al 2022 023 [email or web address] Not available 10/21/2022 13:21:11 Procedures None record ed. Surgeries None record ed. Imaging None record ed. Medication Orders mirtaz apine 30 mg tablet 2023 024 [id number], [address] [place] [address], [id number], 02/15/2024 14:43:12 rosuva statin 5 mg tablet 2023 024 [facility] #84390, [address] [place] [address], [id number], 02/15/2024 14:43:09 Jardia nce 25 mg tablet 2023 024 [facility], [address] [place] [address], [id number], 03/14/2024 06:33:50 quetia pine 25 mg tablet 2022 023 [email or web address] [facility] #30568, [address] [place] [address], [id number], 02/15/2024 14:00:42 quetia pine 25 mg tablet 2022 023 dana [facility] #53639, [address], [place], [id number], 02/15/2024 14:00:42 doxepi n 10 mg capsul e 2022 023 jaclyn [facility] #71031, [address], [place], [id number], 10/10/2022 14:45:51 Patient TargetsNo targets recorded. Patient Instructions Encounter Date Encounter Id Patient Instructions Last Modified By Organization Details Last Modified Time 2022 [id number] thyroid nodules: care instructions [email or web address] Not available 10/07/2022 08:56:57 insomnia: care instructions [email or web address] Not available 2022 15:35:24 preventing falls: care instructions awychowski Not available 2022 15:35:24 medicare preventive services guide (male 74 rs and under) [email or web address] Not available 2022 15:35:24 starting a weight loss plan: care instructions awychowski Not available 2022 15:35:24 02/15/2024 [id number] insomnia: care instructions [email or web address] Not available 02/15/2024 14:42:59 preventing falls: care instructions awychowski Not available 02/15/2024 14:42:58 well visit, over 65: care instructions [email or web address] Not available 02/15/2024 14:42:58 medicare preventive services guide (male 74 rs and under) [email or web address] Not available 02/15/2024 14:42:59 Reason for Referral Physical Therapist Referral for Adult health examination At risk for falling Referring Physician: Family [facility], Encounter Date: 2022 Town Marshal/dietitian Refer ral for Body mass index 30+ - obesity Referring Physician: Family Jenny Chavez, Encounter Date: 2022 Results Created Date Observation Date Name Description Value Unit Range Abnormal Flag Note LastModifiedBy Organization Detail LastModifiedTime 06/16/2006/16/2023 renal funct ion panel , serum WBC 8.4 Not Available [facility] (Centralized Electronic Ordering - All Locations) Patient Can Go To The Location Of Their Choice, 06/16/2023 08:42:41 06/16/2006/16/2023 renal funct ion panel , serum RBC 4.88 Not Available [facility] (Centralized Electronic Ordering - All Locations) Patient Can Go To The Location Of Their Choice, 06/16/2023 08:42:41 06/16/2006/16/2023 renal funct ion panel , serum HGB 14.4 Not Available [facility] (Centralized Electronic Ordering - All Locations) Patient Can Go To The Location Of Their Choice, 06/16/2023 08:42:41 06/16/2006/16/2023 renal funct ion panel , serum HCT 45.8 Not Available [facility] (Centralized Electronic Ordering - All Locations) Patient Can Go To The Location Of Their Choice, 06/16/2023 08:42:41 06/16/2006/16/2023 renal funct ion panel , serum plt 203 Not Available [facility] (Centralized Electronic Ordering - All Locations) Patient Can Go To The Location Of Their Choice, 06/16/2023 08:42:41 06/16/2006/16/2023 renal funct ion panel , serum HbA1C 6.3 Not Available [facility] (Centralized Electronic Ordering - All Locations) Patient Can Go To The Location Of Their Choice, 06/16/2023 08:42:41 06/16/2006/16/2023 renal funct ion panel , serum sodium 146 Not Available [facility] (Centralized Electronic Ordering - All Locations) Patient Can Go To The Location Of Their Choice, 06/16/2023 08:42:41 06/16/2006/16/2023 renal funct ion panel , serum BUN 40 Not Available [facility] (Centralized Electronic Ordering - All Locations) Patient Can Go To The Location Of Their Choice, 06/16/2023 08:42:41 06/16/2006/16/2023 renal funct ion panel , serum creatinine 2.8 Not Available [facility] (Centralized Electronic Ordering - All Locations) Patient Can Go To The Location Of Their Choice, 06/16/2023 08:42:41 06/16/2006/16/2023 renal funct ion panel , serum glucose 133 Not Available [facility] (Centralized Electronic Ordering - All Locations) Patient Can Go To The Location Of Their Choice, 06/16/2023 08:42:41 06/16/2006/16/2023 renal funct ion panel , serum potassium 5.1 Not Available [facility] (Centralized Electronic Ordering - All Locations) Patient Can Go To The Location Of Their Choice, 06/16/2023 08:42:41 06/16/2006/16/2023 urina lysis , compl ete WBC 8.4 Not Available [facility] (Centralized Electronic Ordering - All Locations) Patient Can Go To The Location Of Their Choice, 06/16/2023 08:42:41 06/16/2006/16/2023 urina lysis , compl ete RBC 4.88 Not Available [facility] (Centralized Electronic Ordering - All Locations) Patient Can Go To The Location Of Their Choice, 06/16/2023 08:42:41 06/16/2006/16/2023 urina lysis , compl ete HGB 14.4 Not Available [facility] (Centralized Electronic Ordering - All Locations) Patient Can Go To The Location Of Their Choice, 06/16/2023 08:42:41 06/16/2006/16/2023 urina lysis , compl ete HCT 45.8 Not Available [facility] (Centralized Electronic Ordering - All Locations) Patient Can Go To The Location Of Their Choice, 06/16/2023 08:42:41 06/16/2006/16/2023 urina lysis , compl ete plt 203 Not Available [facility] (Centralized Electronic Ordering - All Locations) Patient Can Go To The Location Of Their Choice, 06/16/2023 08:42:41 06/16/2006/16/2023 urina lysis , compl ete HbA1C 6.3 Not Available [facility] (Centralized Electronic Ordering - All Locations) Patient Can Go To The Location Of Their Choice, 06/16/2023 08:42:41 06/16/2006/16/2023 urina lysis , compl ete sodium 146 Not Available [facility] (Centralized Electronic Ordering - All Locations) Patient Can Go To The Location Of Their Choice, 06/16/2023 08:42:41 06/16/2006/16/2023 urina lysis , compl ete BUN 40 Not Available [facility] (Centralized Electronic Ordering - All Locations) Patient Can Go To The Location Of Their Choice, 06/16/2023 08:42:41 06/16/2006/16/2023 urina lysis , compl ete creatinine 2.8 Not Available [facility] (Centralized Electronic Ordering - All Locations) Patient Can Go To The Location Of Their Choice, 06/16/2023 08:42:41 06/16/2006/16/2023 urina lysis , compl ete glucose 133 Not Available [facility] (Centralized Electronic Ordering - All Locations) Patient Can Go To The Location Of Their Choice, 06/16/2023 08:42:41 06/16/2006/16/2023 urina lysis , compl ete potassium 5.1 Not Available [facility] (Centralized Electronic Ordering - All Locations) Patient Can Go To The Location Of Their Choice, 06/16/2023 08:42:41 06/16/2006/16/2023 micro album in, urine WBC 8.4 Not Available [facility] (Centralized Electronic Ordering - All Locations) Patient Can Go To The Location Of Their Choice, 06/16/2023 08:42:41 06/16/2006/16/2023 micro album in, urine RBC 4.88 Not Available [facility] (Centralized [facility] Ordering - All Locations) Patient Can Go To The Location Of Their Choice, 06/16/2023 08:42:41 06/16/2006/16/2023 micro album in, urine HGB 14.4 Not Available [facility] (Centralized Electronic Ordering - All Locations) Patient Can Go To The Location Of Their Choice, 06/16/2023 08:42:41 06/16/2006/16/2023 micro album in, urine HCT 45.8 Not Available [facility] (Centralized Electronic Ordering - All Locations) Patient Can Go To The Location Of Their Choice, 06/16/2023 08:42:41 06/16/2006/16/2023 micro album in, urine plt 203 Not Available [facility] (Centralized Electronic Ordering - All Locations) Patient Can Go To The Location Of Their Choice, 06/16/2023 08:42:41 06/16/2006/16/2023 micro album in, urine HbA1C 6.3 Not Available [facility] (Centralized Electronic Ordering - All Locations) Patient Can Go To The Location Of Their Choice, 06/16/2023 08:42:41 06/16/2006/16/2023 micro album in, urine sodium 146 Not Available [facility] (Centralized Electronic Ordering - All Locations) Patient Can Go To The Location Of Their Choice, 06/16/2023 08:42:41 06/16/2006/16/2023 micro album in, urine BUN 40 Not Available [facility] (Centralized Electronic Ordering - All Locations) Patient Can Go To The Location Of Their Choice, 06/16/2023 08:42:41 06/16/2006/16/2023 micro album in, urine creatinine 2.8 Not Available [facility] (Centralized [facility] Ordering - All Locations) Patient Can Go To The Location Of Their Choice, 06/16/2023 08:42:41 06/16/2006/16/2023 micro album in, urine glucose 133 Not Available [facility] (Centralized Electronic Ordering - All Locations) Patient Can Go To The Location Of Their Choice, 06/16/2023 08:42:41 06/16/2006/16/2023 micro album in, urine potassium 5.1 Not Available [facility] (Centralized Electronic Ordering - All Locations) Patient Can Go To The Location Of Their Choice, 06/16/2023 08:42:41 06/16/2006/16/2023 BMP, serum or plasm a WBC 8.4 Not Available [facility] (Centralized Electronic Ordering - All Locations) Patient Can Go To The Location Of Their Choice, 06/16/2023 08:42:41 06/16/2006/16/2023 BMP, serum or plasm a RBC 4.88 Not Available [facility] (Centralized Electronic Ordering - All Locations) Patient Can Go To The Location Of Their Choice, 06/16/2023 08:42:41 06/16/2006/16/2023 BMP, serum or plasm a HGB 14.4 Not Available [facility] (Centralized Electronic Ordering - All Locations) Patient Can Go To The Location Of Their Choice, 06/16/2023 08:42:41 06/16/2006/16/2023 BMP, serum or plasm a HCT 45.8 Not Available [facility] (Centralized Electronic Ordering - All Locations) Patient Can Go To The Location Of Their Choice, 06/16/2023 08:42:41 06/16/2006/16/2023 BMP, serum or plasm a plt 203 Not Available [facility] ([facility]ized Electronic Ordering - All Locations) Patient Can Go To The Location Of Their Choice, 06/16/2023 08:42:41 06/16/2006/16/2023 BMP, serum or plasm a HbA1C 6.3 Not Available [facility] (Centralized Electronic Ordering - All Locations) Patient Can Go To The Location Of Their Choice, 06/16/2023 08:42:41 06/16/2006/16/2023 BMP, serum or plasm a sodium 146 Not Available [facility] (Centralized Electronic Ordering - All Locations) Patient Can Go To The Location Of Their Choice, 06/16/2023 08:42:41 06/16/2006/16/2023 BMP, serum or plasm a BUN 40 Not Available [facility] (Centralized Electronic Ordering - All Locations) Patient Can Go To The Location Of Their Choice, 06/16/2023 08:42:41 06/16/2006/16/2023 BMP, serum or plasm a creatinine 2.8 Not Available [facility] (Centralized [facility] Ordering - All Locations) Patient Can Go To The Location Of Their Choice, 06/16/2023 08:42:41 06/16/2006/16/2023 BMP, serum or plasm a glucose 133 Not Available [facility] (Centralized Electronic Ordering - All Locations) Patient Can Go To The Location Of Their Choice, 06/16/2023 08:42:41 06/16/2006/16/2023 BMP, serum or plasm a potassium 5.1 Not Available [facility] ([facility] Ordering - All Locations) Patient Can Go To The Location Of Their Choice, 06/16/2023 08:42:41 06/16/2006/16/2023 HbA1c (hemo globi n A1c), blood WBC 8.4 Not Available [facility] ([facility] Ordering - All Locations) Patient Can Go To The Location Of Their Choice, 06/16/2023 08:42:41 06/16/2006/16/2023 HbA1c (hemo globi n A1c), blood RBC 4.88 Not Available [facility] ([facility] Ordering - All Locations) Patient Can Go To The Location Of Their Choice, 06/16/2023 08:42:41 06/16/2006/16/2023 HbA1c (hemo globi n A1c), blood HGB 14.4 Not Available [facility] ([facility] Electronic Ordering - All Locations) Patient Can Go To The Location Of Their Choice, 06/16/2023 08:42:41 06/16/2006/16/2023 HbA1c (hemo globi n A1c), blood HCT 45.8 Not Available [facility] ([facility] Electronic Ordering - All Locations) Patient Can Go To The Location Of Their Choice, 06/16/2023 08:42:41 06/16/2006/16/2023 HbA1c (hemo globi n A1c), blood plt 203 Not Available [facility] ([facility] Electronic Ordering - All Locations) Patient Can Go To The Location Of Their Choice, 06/16/2023 08:42:41 06/16/2006/16/2023 HbA1c (hemo globi n A1c), blood HbA1C 6.3 Not Available [facility] ([facility] Ordering - All Locations) Patient Can Go To The Location Of Their Choice, 06/16/2023 08:42:41 06/16/2006/16/2023 HbA1c (hemo globi n A1c), blood sodium 146 Not Available [facility] ([facility] Ordering - All Locations) Patient Can Go To The Location Of Their Choice, 06/16/2023 08:42:41 06/16/2006/16/2023 HbA1c (hemo globi n A1c), blood BUN 40 Not Available [facility] ([facility]ized [facility] Ordering - All Locations) Patient Can Go To The Location Of Their Choice, 06/16/2023 08:42:41 06/16/2006/16/2023 HbA1c (hemo globi n A1c), blood creatinine 2.8 Not Available [facility] ([facility] Ordering - All Locations) Patient Can Go To The Location Of Their Choice, 06/16/2023 08:42:41 06/16/2006/16/2023 HbA1c (hemo globi n A1c), blood glucose 133 Not Available [facility] ([facility] Ordering - All Locations) Patient Can Go To The Location Of Their Choice, 06/16/2023 08:42:41 06/16/2006/16/2023 HbA1c (hemo globi n A1c), blood potassium 5.1 Not Available [facility] ([facility] Ordering - All Locations) Patient Can Go To The Location Of Their Choice, 06/16/2023 08:42:41 10/06/1910/06/2022 COMPR EHENS KARLO METAB OLIC PANL glucose 171 mg/dL (70-99 ) high Not Available [facility] ([facility] Ordering - All Locations) Patient Can Go To The Location Of Their Choice, 10/06/2022 13:48:43 10/06/19 23 10/06/2022 COMPR EHENS KARLO METAB OLIC PANL BUN 38 mg/dL (8-23) high Not Available [facility] ([facility] Ordering - All Locations) Patient Can Go To The Location Of Their Choice, 10/06/2022 13:48:43 10/06/19 23 10/06/2022 COMPR EHENS KARLO METAB OLIC PANL creatinine 3.0 mg/dL (0.7-1 .2) high Not Available [facility] ([facility] Ordering - All Locations) Patient Can Go To The Location Of Their Choice, 10/06/2022 13:48:43 10/06/19 23 10/06/2022 COMPR EHENS KARLO METAB OLIC PANL sodium 145 mmol/ L (133-1 45) Not Available [facility] ([facility] Ordering - All Locations) Patient Can Go To The Location Of Their Choice, 10/06/2022 13:48:43 10/06/1910/06/2022 COMPR EHENS KARLO METAB OLIC PANL potassium 4.4 mmol/ L (3.6-5 .2) Not Available [facility] ([facility] Ordering - All Locations) Patient Can Go To The Location Of Their Choice, 10/06/2022 13:48:43 10/06/1910/06/2022 COMPR EHENS KARLO METAB OLIC PANL chloride 107 mmol/ L (98-10 7) Not Available [facility] ([facility] Ordering - All Locations) Patient Can Go To The Location Of Their Choice, 10/06/2022 13:48:43 10/06/1910/06/2022 COMPR EHENS KARLO METAB OLIC PANL bicarbonate 26 mmol/ L (22-29 ) Not Available [facility] ([facility] Ordering - All Locations) Patient Can Go To The Location Of Their Choice, 10/06/2022 13:48:43 10/06/1910/06/2022 COMPR EHENS KARLO METAB OLIC PANL anion gap 12 (4-17) Not Available [facility] ([facility] Order[facility] - All Locations) Patient Can Go To The Location Of Their Choice, 10/06/2022 13:48:43 10/06/1910/06/2022 COMPR EHENS KARLO METAB OLIC PANL albumin 4.3 gm/dL (3.4-4 .8) Not Available [facility] ([facility] Ordering - All Locations) Patient Can Go To The Location Of Their Choice, 10/06/2022 13:48:43 10/06/1910/06/2022 COMPR EHENS KARLO METAB OLIC PANL calcium 10.2 mg/dL (8.6-1 0.5) Not Available [facility] ([facility] Ordering - All Locations) Patient Can Go To The Location Of Their Choice, 10/06/2022 13:48:43 10/06/1910/06/2022 COMPR EHENS KARLO METAB OLIC PANL bilirubin,to jarett 0.4 mg/dL (0-1.2 ) Not Available [facility] ([facility] Ordering - All Locations) Patient Can Go To The Location Of Their Choice, 10/06/2022 13:48:43 10/06/1910/06/2022 COMPR EHENS KARLO METAB OLIC PANL total protein 6.2 gm/dL (6.2-8 .2) Not Available [facility] ([facility] Ordering - All Locations) Patient Can Go To The Location Of Their Choice, 10/06/2022 13:48:43 10/06/1910/06/2022 COMPR EHENS KARLO METAB OLIC PANL Ag ratio 2.3 Not Available [facility] ([facility] Ordering - All Locations) Patient Can Go To The Location Of Their Choice, 10/06/2022 13:48:43 10/06/1910/06/2022 COMPR EHENS KARLO METAB OLIC PANL AST 18 U/L (0-40) Not Available [facility] ([facility] Ordering - All Locations) Patient Can Go To The Location Of Their Choice, 10/06/2022 13:48:43 10/06/1910/06/2022 COMPR EHENS KARLO METAB OLIC PANL alk phos 207 U/L (40-12 9) high Not Available [facility] ([facility] Ordering - All Locations) Patient Can Go To The Location Of Their Choice, 10/06/2022 13:48:43 10/06/1910/06/2022 COMPR EHENS KARLO METAB OLIC PANL ALT 15 U/L (0-41) Not Available [facility] ([facility]ized [facility] Ordering - All Locations) Patient Can Go To The Location Of Their Choice, 10/06/2022 13:48:43 10/06/1910/06/2022 COMPR EHENS KARLO METAB OLIC PANL estimated GFR creatinine 20 mL/mi n/1.7 3_M2 Creat inine based estim ated glome rular filtr ation (eGFR ) in adult s is calcu lated using the Natio nal Kidne y Found ation recom valerie d 2020 CKD-E PI equat ion. Estim ates GFR from serum creat inine , age and sex. Not Available [facility] ([facility]ized Electronic Ordering - All Locations) Patient Can Go To The Location Of Their Choice, 10/06/2022 13:48:43 10/06/1910/06/2022 NON FASTI NG LIPID PANEL cholesterol, total 128 mg/dL (<200) Not Available [facility] ([facility] - [facility] Locations) Patient Can Go To The Location Of Their Choice, 10/06/2022 13:48:45 10/06/1910/06/2022 NON FASTI NG LIPID PANEL HDL chol 36 mg/dL (>39) low Not Available [facility] ([facility] Ordering - All Locations) Patient Can Go To The Location Of Their Choice, 10/06/2022 13:48:45 10/06/1910/06/2022 NON FASTI NG LIPID PANEL non HDL cholesterol (calc) 92 mg/dL (<160) Not Available [facility] - All Locations) Patient Can Go To The Location Of Their Choice, 10/06/2022 13:48:45 10/06/1910/06/2022 HEMOG LOBIN A1C hemoglobin A1C 7.5 % (4.0-5 .6) high MONIT ORING : In known diabe tic patie nts, hemog lobin A1c targe ts shoul d be discu ssed with healt h care provi ada. DIAGN OSTIC USE: The Ameri can Diabe faina Assoc iatio n (ADA) and the World Healt h Organ izati on (WHO) recom mend the use of HbA1c to diagn ose diabe faina using a thres hold of 6.5%. Patie nts who have an HbA1c betwe en 5.7% and 6.4% are consi dered at incre ased risk for devel oping diabe faina in the futur e. CAUTI ON: False ly low HbA1c resul ts may be obser jamal in patie nts with hemol ytic anemi a, homoz ygous forms of abnor mal hemog lobin (e.g. SS, CC, SC), pregn sujatha, recen t blood loss or hemog lobin F great er than 7%. Fruct osami ne may be used as an alter jose test in these cases . REFER ENCE: ADA: Stand ards of Medic al Care in Diabe faina 2019, The Journ al of Clini maya and Appli ed [facility] and Educa sesar Volum e 43, Suppl ement 1 Not Available [facility] (Centralized Electronic Ordering - All Locations) Patient Can Go To The Location Of Their Choice, 10/06/2022 13:53:04 10/06/1910/06/2022 PSA PSA 0.6 NG/mL (0-4) TEST PERFO RMED USING THE ALEJANDRINA ELECT ALEJANDRINA MILLU MINES CENCE TOTAL PSA ASSAY . PSA VALUE S OBTAI YANA WITH OTHER ASSAY METHO DS OR KITS CANNO T BE USED INTER IYER EABLY . Not Available [facility] (Centralized Electronic Ordering - All Locations) Patient Can Go To The Location Of Their Choice, 10/06/2022 13:55:13 10/06/1910/06/2022 TSH WITH REFLE X TO FT4 TSH 8.47 uIU/m L (0.4-4 .2) high Not Available [facility] (Centralized Electronic Ordering - All Locations) Patient Can Go To The Location Of Their Choice, 10/06/2022 13:55:15 10/06/1910/06/2022 FREE T4 free T4 1.31 NG/dL (0.70- 1.80) Not Available [facility] (Centralized Electronic Ordering - All Locations) Patient Can Go To The Location Of Their Choice, 10/06/2022 14:41:48 10/06/1910/07/2022 MAGNE SIUM magnesium 1.8 mg/dL (1.6-2 .3) Not Available [facility] (Centralized Electronic Ordering - All Locations) Patient Can Go To The Location Of Their Choice, 10/07/2022 09:40:32 12/03/1912/02/2022 TSH WITH REFLE X TO FT4 TSH 6.45 uIU/m L (0.4-4 .2) high Not Available [facility] (Centralized Electronic Ordering - All Locations) Patient Can Go To The Location Of Their Choice, 12/02/2022 21:39:33 12/03/19 23 12/02/2022 FREE T4 free T4 1.20 NG/dL (0.70- 1.80) Not Available [facility] (Centralized Electronic Ordering - All Locations) Patient Can Go To The Location Of Their Choice, 12/02/2022 22:17:24 01/30/20 23 01/29/2023 TSH WITH REFLE X TO FT4 TSH 3.74 uIU/m L (0.4-4 .2) Not Available [facility] (Centralized Electronic Ordering - All Locations) Patient Can Go To The Location Of Their Choice, 01/29/2023 20:53:10 06/12/2006/12/2023 BASIC METAB OLIC PANEL glucose 128 mg/dL (70-99 ) high Not Available [facility] (Centralized Electronic Ordering - All Locations) Patient Can Go To The Location Of Their Choice, 06/12/2023 23:01:06/12/2006/12/2023 BASIC METAB OLIC PANEL BUN 41 mg/dL (8-23) high Not Available [facility] (Centralized Electronic Ordering - All Locations) Patient Can Go To The Location Of Their Choice, 06/12/2023 23:01:06/12/2006/12/2023 BASIC METAB OLIC PANEL creatinine 2.8 mg/dL (0.7-1 .2) high Not Available [facility] (Centralized Electronic Ordering - All Locations) Patient Can Go To The Location Of Their Choice, 06/12/2023 23:01:29 06/12/2006/12/2023 BASIC METAB OLIC PANEL sodium 144 mmol/ L (133-1 45) Not Available [facility] (Centralized Electronic Ordering - All Locations) Patient Can Go To The Location Of Their Choice, 06/12/2023 23:01:29 06/12/2006/12/2023 BASIC METAB OLIC PANEL potassium 4.9 mmol/ L (3.6-5 .2) Not Available [facility] (Centralized Electronic Ordering - All Locations) Patient Can Go To The Location Of Their Choice, 06/12/2023 23:01:06/12/2006/12/2023 BASIC METAB OLIC PANEL chloride 109 mmol/ L (98-10 7) high Not Available [facility] (Centralized Electronic Ordering - All Locations) Patient Can Go To The Location Of Their Choice, 06/12/2023 23:01:29 06/12/20 23 06/12/2023 BASIC METAB OLIC PANEL bicarbonate 23 mmol/ L (22-29 ) Not Available [facility] (Centralized Electronic Ordering - All Locations) Patient Can Go To The Location Of Their Choice, 06/12/2023 23:01:29 06/12/2006/12/2023 BASIC METAB OLIC PANEL anion gap 12 (4-17) Not Available [facility] (Centralized Electronic Ordering - All Locations) Patient Can Go To The Location Of Their Choice, 06/12/2023 23:01:29 06/12/2006/12/2023 BASIC METAB OLIC PANEL calcium 9.9 mg/dL (8.6-1 0.5) Not Available [facility] (Centralized Electronic Ordering - All Locations) Patient Can Go To The Location Of Their Choice, 06/12/2023 23:01:29 06/12/2006/12/2023 BASIC METAB OLIC PANEL estimated GFR creatinine 21 mL/mi n/1.7 3_M2 Creat inine based estim ated glome rular filtr ation (eGFR ) in adult s is calcu lated using the Natio nal Kidne y Found ation recom valerie d 2020 CKD-E PI equat ion. Estim ates GFR from serum creat inine , age and sex. Not Available [facility] (Centralized Electronic Ordering - All Locations) Patient Can Go To The Location Of Their Choice, 06/12/2023 23:01:29 06/12/2006/12/2023 URIC ACID uric acid 3.3 mg/dL (2.6-8 .7) Not Available [facility] (Centralized Electronic Ordering - All Locations) Patient Can Go To The Location Of Their Choice, 06/12/2023 23:01:31 06/12/2006/12/2023 CBC w/ auto diff WBC 8.4 Not Available [facility] (Centralized Electronic Ordering - All Locations) Patient Can Go To The Location Of Their Choice, 06/16/2023 07:59:21 06/12/2006/12/2023 CBC w/ auto diff RBC 4.88 Not Available [facility] (Centralized Electronic Ordering - All Locations) Patient Can Go To The Location Of Their Choice, 06/16/2023 07:59:21 06/12/2006/12/2023 CBC w/ auto diff HGB 14.4 Not Available [facility] (Centralized Electronic Ordering - All Locations) Patient Can Go To The Location Of Their Choice, 06/16/2023 07:59:21 06/12/2006/12/2023 CBC w/ auto diff HCT 45.8 Not Available [facility] (Centralized Electronic Ordering - All Locations) Patient Can Go To The Location Of Their Choice, 06/16/2023 07:59:21 06/12/2006/12/2023 CBC w/ auto diff plt 203 Not Available [facility] (Centralized Electronic Ordering - All Locations) Patient Can Go To The Location Of Their Choice, 06/16/2023 07:59:21 06/12/2006/12/2023 CBC w/ auto diff HbA1C 6.3 Not Available [facility] (Centralized Electronic Ordering - All Locations) Patient Can Go To The Location Of Their Choice, 06/16/2023 07:59:21 06/12/2006/12/2023 CBC w/ auto diff sodium 146 Not Available [facility] (Centralized Electronic Ordering - All Locations) Patient Can Go To The Location Of Their Choice, 06/16/2023 07:59:21 06/12/2006/12/2023 CBC w/ auto diff BUN 40 Not Available [facility] (Centralized Electronic Ordering - All Locations) Patient Can Go To The Location Of Their Choice, 06/16/2023 07:59:21 06/12/2006/12/2023 CBC w/ auto diff creatinine 2.8 Not Available [facility] ([facility]ized Electronic Ordering - All Locations) Patient Can Go To The Location Of Their Choice, 06/16/2023 07:59:21 06/12/2006/12/2023 CBC w/ auto diff glucose 133 Not Available [facility] (Centralized Electronic Ordering - All Locations) Patient Can Go To The Location Of Their Choice, 06/16/2023 07:59:21 06/12/2006/12/2023 CBC w/ auto diff potassium 5.1 Not Available [facility] (Centralized Electronic Ordering - All Locations) Patient Can Go To The Location Of Their Choice, 06/16/2023 07:59:21 10/21/1910/22/2023 HEMOG LOBIN A1C hemoglobin A1C 6.9 % 4.8-5. 6 above high normal Predi abete s: 5.7 - 6.4 Diabe faina: >6.4 Glyce anshul contr ol for adult s with diabe faina: <7.0 Not Available [facility] ([facility]) [address] [place], [address], 10/22/2023 22:06:05 05/17/2005/18/2024 COMP. METAB OLIC PANEL (14) glucose 122 mg/dL 70-99 above high normal Not Available [facility] ([facility]) [address] [place], [address], 05/18/2024 08:09:32 05/17/20 24 05/18/2024 COMP. METAB OLIC PANEL (14) BUN 34 mg/dL 8-27 above high normal Not Available [facility] ([facility]) [address] [place], [address], 05/18/2024 08:09:32 05/17/20 24 05/18/2024 COMP. METAB OLIC PANEL (14) creatinine 3.18 mg/dL 0.76-1 .27 above high normal Not Available [facility] ([facility]) [address] [place], [address], 05/18/2024 08:09:32 05/17/20 24 05/18/2024 COMP. METAB OLIC PANEL (14) eGFR 18 mL/mi n/1.7 3 >59 below low normal Not Available [facility] ([facility]) [address] [place], [address], 05/18/2024 08:09:32 05/17/20 24 05/18/2024 COMP. METAB OLIC PANEL (14) BUN/creatini ne ratio 11 10-24 normal Not Available [facility] ([facility]) [address] [place], [address], 05/18/2024 08:09:32 05/17/20 24 05/18/2024 COMP. METAB OLIC PANEL (14) sodium 145 mmol/ L 134-14 4 above high normal Not Available [facility] ([facility]) [address] [place], [address], 05/18/2024 08:09:32 05/17/20 24 05/18/2024 COMP. METAB OLIC PANEL (14) potassium 4.8 mmol/ L 3.5-5. 2 normal Not Available [facility] ([facility]) [address] [place], [address], 05/18/2024 08:09:32 05/17/20 24 05/18/2024 COMP. METAB OLIC PANEL (14) chloride 107 mmol/ L 96-106 above high normal Not Available [facility] ([facility]) [address] [place], [address], 05/18/2024 08:09:32 05/17/20 24 05/18/2024 COMP. METAB OLIC PANEL (14) carbon dioxide, total 18 mmol/ L 20-29 below low normal Not Available [facility] ([facility]) [address] [place], [address], 05/18/2024 08:09:32 05/17/20 24 05/18/2024 COMP. METAB OLIC PANEL (14) calcium 9.7 mg/dL 8.6-10 .2 normal Not Available [facility] ([facility]) [address] [place], [address], 05/18/2024 08:09:32 05/17/20 24 05/18/2024 COMP. METAB OLIC PANEL (14) protein, total 6.6 g/dL 6.0-8. 5 normal Not Available [facility] ([facility]) [address] [place], [address], 05/18/2024 08:09:32 05/17/20 24 05/18/2024 COMP. METAB OLIC PANEL (14) albumin 4.0 g/dL 3.7-4. 7 normal Not Available [facility] ([facility]) [address] [facility], [place], [address], 05/18/2024 08:09:32 05/17/20 24 05/18/2024 COMP. METAB OLIC PANEL (14) globulin, total 2.6 g/dL 1.5-4. 5 Not Available [facility] ([facility]) [address] [facility] [place], [address], 05/18/2024 08:09:32 05/17/2005/18/2024 COMP. METAB OLIC PANEL (14) bilirubin, total 0.3 mg/dL 0.0-1. 2 normal Not Available [facility] ([facility]) [address] [facility] [place], [address], 05/18/2024 08:09:32 05/17/20 24 05/18/2024 COMP. METAB OLIC PANEL (14) alkaline phosphatase 191 IU/L 44-121 above high normal Not Available [facility] ([facility]) [address] [facility], [place], [address], 05/18/2024 08:09:32 05/17/2005/18/2024 COMP. METAB OLIC PANEL (14) AST (SGOT) 26 IU/L 0-40 normal Not Available [facility] ([facility]) [address] [facility] [place], [address], 05/18/2024 08:09:32 05/17/2005/18/2024 COMP. METAB OLIC PANEL (14) ALT (SGPT) 21 IU/L 0-44 normal Not Available [facility] ([facility]) [address] [facility] [place], [address], 05/18/2024 08:09:32 05/17/20 05/18/2024 LIPID PANEL cholesterol, total 140 mg/dL 100-19 9 normal Not Available [facility] ([facility]) [address] [place], [address], 05/18/2024 08:09:33 05/17/20 24 05/18/2024 LIPID PANEL triglyceride s 120 mg/dL 0-149 normal Not Available [facility] ([facility]) [address] [place], [address], 05/18/2024 08:09:33 05/17/20 24 05/18/2024 LIPID PANEL HDL cholesterol 46 mg/dL >39 normal Not Available [facility] ([facility]) [address] [place], [address], 05/18/2024 08:09:33 05/17/2005/18/2024 LIPID PANEL VLDL cholesterol maya 22 mg/dL 5-40 Not Available [facility] ([facility]) [address] [place], [address], 05/18/2024 08:09:33 05/17/2005/18/2024 LIPID PANEL LDL chol calc ([facility]) 72 mg/dL 0-99 Not Available [facility] ([facility]) [address] [place], [address], 05/18/2024 08:09:33 05/17/2005/18/2024 LIPID PANEL LDL calc comment: APPLICATION COUNSELOR Not Available [facility] ([facility]) [address] [place], [address], 05/18/2024 08:09:33 05/17/2005/17/2024 PSA TOTAL (REFL EX TO FREE) reflex criteria COMMEN T The perce nt free PSA is perfo rmed on a refle x basis only when the total PSA is betwe en 4.0 and 10.0 ng/mL . Not Available [facility] ([facility]) [address] [place], [address], 05/18/2024 08:09:34 05/17/2005/18/2024 PSA TOTAL (REFL EX TO FREE) prostate specific Ag 0.6 NG/mL 0.0-4. 0 normal Alejandrina ECLIA metho dolog y. Accor ding to the Ameri can Urolo g[employer] Ass[employer] iatio n, Serum PSA shoul d decre ase and remai n at undet ectab le level s after radic al prost atect mary. The AUA defin es bioch emica l recur rence as an initi al PSA value 0.2 ng/mL or great er follo wed by a subse quent confi rmato ry PSA value 0.2 ng/mL or great er. Value s obtai yana with diffe rent assay metho ds or kits canno t be used inter iyer eably . Resul ts canno t be inter prete d as absol [place] evide nce of the prese nce or absen ce of yue abreu se. Not Available [facility] ([facility]) [address] [facility], [place], [address], 05/18/2024 08:09:34 05/17/2005/17/2024 HEMOG LOBIN A1C hemoglobin A1C 6.5 % 4.8-5. 6 above high normal Predi abete s: 5.7 - 6.4 Diabe faina: >6.4 Glyce anshul contr ol for adult s with diabe faina: <7.0 Not Available [facility] ([facility]) [address] [facility], [place], [address], 05/18/2024 08:09:34 05/17/20 24 05/18/2024 TSH RFX ON ABNOR MAL TO FREE T4 TSH 4.730 uIU/m L 0.450- 4.500 above high normal Not Available [facility] ([facility]) [address] [facility], [place], [address], 05/18/2024 08:09:35 10/08/05/18/2024 TSH RFX ON ABNOR MAL TO FREE T4 T4,free (direct) 1.60 NG/dL 0.82-1 .77 normal Not Available [facility] ([facility]) [address] [facility], [place], [address], 05/18/2024 08:09:35 05/17/20 24 05/18/2024 MAGNE SIUM magnesium 2.2 mg/dL 1.6-2. 3 normal Not Available [facility] ([facility]) [address] [facility], [place], [address], 05/18/2024 08:09:36 Result Notes None recorded. Problems Name Problem SNOMED Code Status Onset Date Resolution Date Notes Provider Name and Address Organization Details Recorded Time Chronic kidney disease stage 3 288624138 Completed 201510/31/2020 Pati dyer [facility] 2 11:00:31 Diabetes mellitus 45088549 Active 2015 ANNA Sinclair [facility] 4 14:12:03 Carcinom a of prostate 327183971 Active 2015 [facility] 2 15:07:04 Osteomye litis 00731060 Completed 201010/01/2017 5th digit right foot, s/p amputati on Sudheer Sims MD [address] [facility] [address], [place], [address] , [facility] 8 15:03:09 Spinal stenosis 80211885 Active 2015 ANNA Garner [facility] 2 15:07:04 Adenoma of rectum 307770546 Active 2015 ANNA Garner [facility] 2 15:07:04 Radiatio n proctiti s 121396848 Active 2015 [facility]NA Gar[facility] 2 15:07:04 Polyp of colon 07904641 Active 2015 ANNA Garner, [facility] 2 15:07:04 Glaucoma 77282958 Completed 201610/01/2017 Sudheer Sims MD [address], [place], [address] , [facility] 8 15:02:39 Thyroid hormone tests outside referenc e range 864566782 Completed 201610/05/2018 Sudheer Sims MD [address], [place], [address] , [facility] 11:12:24 Proteinu neel 05936472 Completed 201610/05/2016 ANNA Aguirre, [facility] 2 13:26:12 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 053198868 Active 2016 ANNA Garner, [facility] 2 15:07:04 Hypercho lesterol emia 08225400 Active 2016 ANNA Garner, [facility] 2 15:07:04 Renal disorder due to type 2 diabetes mellitus 632376003 Active 2016 Isabelabakari dyer [facility] 1 09:04:10 Osteoart hritis of hip 967518638 Active 2017 ANNA Garner, [facility] 2 15:07:04 History of osteomye litis 297916505 Active 2017 ANNA Garner, [facility] 2 15:07:04 Methicil danielle resistan t Staphylo coccus aureus infectio n 714598713 Completed 201810/07/2019 Sudheer Sims MD [address], [place], [address] , [facility] 0 10:27:23 Gout 40803000 Active 2018 Barbi Burkett MA null, [facility] 4 14:12:03 Infectio n of toe 491288785 Completed 201810/07/2019 left first MTP Sudheer Sims MD [address] [address], [place], [address] , [facility] 10:27:09 Ulcer of left foot Completed 201801/06/2019 grade 2 Elizabeth mittal MA null, [facility] 9 13:18:01 Gouty arthriti s of toe 440345277 Completed 201810/07/2019 Sudheer Sims MD [address] [address], [place], [address] , [facility] 10:27:00 Osteomye litis of left foot 23475466058 32770 Completed 201810/07/2019 MSSA Sudheer Sims MD [address] [address], [place], [address] , [facility] 10:27:37 Bursitis caused by bacteria l infectio n 911238050 Completed 201810/07/2019 Sudheer Sims MD [address] [address], [address] , [facility] 10:23:02 Diabetic foot ulcer 845256545 Completed 201810/07/2019 Sudheer Sims MD [address] [address], [place], [address] , [facility] 10:23:09 Olecrano n bursitis 498330586 Completed 201810/07/2019 Sudheer Sims MD [address], [place], [address] , [facility] 10:27:42 History of methicil danielle resistan t Staphylo coccus aureus infectio n 464194472 Active 2019 Dyan Moreira MA null, [facility] 2 15:07:04 Osteoart hritis of joint of bilatera l hands 17610411170 9109 Active 2019 Dyan Moreira MA null, [facility] 2 15:07:04 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 87807002912 07 Active 2019 ANNA Garner, [facility] 2 15:07:04 Vitamin D deficien cy 61669979 Active 2019 ANNA Sinclair, [facility] 4 14:12:03 Erosive esophagi tis 13036466 Active 2020 Dyan Moreira MA null, [facility] 2 15:07:04 Total replacem ent of hip Active 2020 right ANNA Garner, [facility] 2 15:07:04 History of total hip arthropl asty 77791786430 6 Active 2020 ANNA Garner, [facility] 2 15:07:04 Retentio n of urine 946424236 Active 2020 ANNA Garner, [facility] 2 15:07:04 Traumati c dislocat ion of joint of finger 864600034 Completed 202010/07/2022 Sudheer Sims MD [address] [facility] [address], [place], [address] , [facility] 3 08:51:50 Cyst of kidney 322612848 Active 2020 Cain Saenz MD [address] [facility] [address], [place], [address] , [facility] 1 22:49:45 Acute urinary tract infectio n 695089957 Completed 202008/16/2021 Sudheer Sims MD [address] [facility] [address], [facility] [place], [address] , [facility] 3 08:48:25 COVID-19 534465231 Completed 202012/12/2020 Removal Reason: Problem marked historic al by user [employer] from the COVID-19 watch flag Iram Li RN null, [facility] 1 14:39:56 History of SARS-CoV -2 47117527455 2946971 Active 2020 Dyan Moreira MA null, [facility] 2 15:07:04 Spinal stenosis in cervical region 73638132 Active 2020 Barbi Burkett MA null, [facility] 4 14:12:03 Nodular thyroid disease Active 2020 Dyan Moreira MA null, [facility] 2 15:07:04 Hyperten sive renal disease 46384517 Active 2020 Dyan Moreira MA null, [facility] 2 15:07:04 Secondar y hyperpar athyroid is 13797283 Active 2020 Dyan Moreira MA null, [facility] 2 15:07:04 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 796807203 Active 2020 LABS 1 ACR 983.6 Yaneli Carlos MA null, [facility] 2 13:26:12 Vertigo 710316301 Completed 202110/07/2022 Sudheer Sims MD [address] [facility] [address], [place], [address] , [facility] 3 08:51:46 At increase d risk for falls 567936433 Active 2021 Dyan Moreira MA null, [facility] 2 15:07:04 Moderate major depressi on 394899 Active 2021 Dyan Moreira MA null, [facility] 2 15:07:04 Subclini maya hypothyr oidism 09042518 Active 2021 Dyan Moreira MA null, [facility] 2 15:07:04 Hypomagn esemia 924963342 Active 2021 Yaneli Carlos MA null, [facility] 2 13:26:12 Persiste nt insomnia 396065663 Active 2021 Dyan Moreira MA null, [facility] 2 15:07:04 Acute urinary tract infectio n 342519187 Completed 202010/07/2022 Sudheer Sims MD [address] [facility] [address], [place], [address] , [facility] 3 08:48:25 Orthosta tic hypotens ion 60397920 Active 2020 ANNA Aguirre, [facility] 2 13:26:12 Lower urinary tract symptoms due to benign prostati c hypertro phy 92838813879 101 Active 2020 Dyan Moreira MA null, [facility] 2 15:07:04 Chronic kidney disease stage 3A 777726253 Completed 202109/23/2023 Sudheer Sims MD [address] [facility] [address], [place], [address] , [facility] 4 10:15:15 Thyroid nodule 844078362 Completed 202010/07/2022 Sudheer Sims MD [address] [facility] [address], [place], [address] , [facility] 3 08:51:43 Multinod kimberly smith 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 Procedures Surgical History Date Name Laterality Status Provider Name and Address Organization Details Recorded Time 2021 Advanced Care Planning completed Elizabeth torres MA [facility] 2 10:25:24 2020 esophagogastroduodenoscopy completed Sudheer Sims MD [address] [facility] [address], [place], [address], [facility] 1 16:22:14 2020 prosthetic arthroplasty of the hip completed Sudheer Sims MD [address] [facility] [address], [place], [address], [facility] 1 12:44:46 2020 Joint Replacement completed Sudheer Sims MD [address] [facility] [address], [address], [facility] 1 21:46:38 2020 Eye Surgery completed Ewelina Velazquez MA [facility] 1 09:51:24 2019 Mini-Cog Test completed Yaneli Carlos MA [facility] 0 09:58:14 2018 Mini-Cog Test completed Yaneli Carlos MA [facility] 9 10:56:24 2017 Mini-Cog Test completed Yaneli Carlos MA [facility] 8 14:19:13 2016 Fall Risk Assessment completed Bella Pastor [facility] 7 13:42:32 2016 Mini-Cog Test completed Bella Pastor [facility] 7 13:44:30 2016 Advanced Care Planning completed Sudheer Sims MD [address], [place], [address], [facility] 12:13:29 2015 Colonoscopy completed Sudheer Sims MD [address], [place], [address], [facility] 9 11:11:56 2010 Amputation completed Sudheer Sims MD [address], [place], [address], [facility] 9 11:12:03 Cholecystectomy completed Sudheer Sims MD [address], [place], [address], [facility] 7 14:21:27 Laminotomy single lumbar completed Sudheer Sims MD [address], [place], [address], [facility] 7 14:22:18 Appendectomy completed Sudheer Sims MD [address], [place], [address], [facility] 0 10:18:05 Imaging Results None recorded. Procedure Notes None recorded. Medical Equipment None Reported. Allergies Allergen ID Allergen Name Allergen Category Reaction Reaction Severity Criticality Documentation Date Start Date Code Code System Note Provider Name and Address Organization Details Recorded Time 26022 atorvasta tin medicatio n myalgias (muscle pain) moderate Not available 03/23/2017 03171 RxNorm Sudheer Sims MD [address], [place], [address], [facility] 14:27:00 57848 pravastat in medicatio n myalgias (muscle pain) Not available Not available 04/23/20172020 56603 RxNorm ANNA Sinclair, [facility] 4 13:50:45 06668 atorvasta tin calcium medicatio n other moderate Not available 01/14/20222020 59435 RxNorm Sudheer Sims MD [address], [place], [address], [facility] 08:48:05 18603 doxepin medicatio n dizziness Not available Not available 10/10/2022 3638 RxNorm ANNA Garner, [facility] 3 14:46:07 Medications Name Sig Start Date Stop Date Status Note LastModified by Organization Details LastModified Time co q-10 100mg capsules TAKE 1 CAPSULE BY MOUTH TWICE DAILY 05/08 completed Not Available Not Available Not Available co q-10 100mg softgel capsules TAKE 1 CAPSULE BY MOUTH TWICE DAILY 09/12 completed Not Available Not Available Not Available quetiapin e 25 mg tablet TAKE 1/2 TABLET BY MOUTH AT BEDTIME NEEDED 02/14 completed Not Available Not Available Not Available clonidine HCl 0.1 mg tablet TAKE 1 TABLET BY MOUTH TWICE DAILY 03/26 completed Not Available Not Available Not Available clindamyc in HCl 300 mg capsule 10/07 completed Not Available Not Available Not Available trazodone 50 mg tablet TAKE 2 TABLETS BY MOUTH EVERY DAY AT BEDTIME 05/13 completed Not Available Not Available Not Available atorvasta tin 10 mg tablet Take by oral route for 90 days. 03/23 completed Not Available Not Available Not Available pravastat in 40 mg tablet Take 1 tablet every day by oral route. 04/23 completed Not Available Not Available Not Available ofloxacin 0.3 % eye drops INSTILL 1 DROP FOUR TIMES DAILY IN TO OPERATED EYE STARTING THE DAY AFTER SURGERY PLEASE BRING TO OFFICE BOTH BOTTLES AFTER SURGERY 10/17 completed Not Available Not Available Not Available enalapril maleate 20 mg tablet TAKE 1 TABLET BY MOUTH TWICE A DAY 02/06 completed Not Available Not Available Not Available minocycli ne 100 mg capsule Take 1 capsule every day by oral route for 10 days. 01/06 completed Not Available Not Available Not Available prednison e 20 mg tablet Take 2 tablets every day by oral route for 5 days. 04/27 completed Not Available Not Available Not Available glipizide ER 5 mg tablet, extended release 24 hr Take 1 tablet every day by oral route for 90 days. 03/23 completed Not Available Not Available Not Available Tylenol Arthritis Pain 650 mg tablet,ex tended release Take 1 tablet every 8 hours by oral route as needed. active Not Available Not Available No t Available melatonin 3 mg tablet Take 2 tablets every day by oral route. 09/18 completed Not Available Not Available Not Available chlorthal idone 25 mg tablet TAKE 1 TABLET BY MOUTH ONCE DAILY 02/06 completed Not Available Not Available Not Available allopurin ol 100 mg tablet take 1 tablet by mouth twice a day (90 DAYS SUPPLY PLEASE) 01/06 completed Not Available Not Available Not Available doxepin 10 mg capsule TAKE 1 CAPSULE BY MOUTH EVERY DAY AT BEDTIME 10/10 completed Not Available Not Available Not Available sulfameth oxazole 800 mg-trimet hoprim 160 mg tablet TAKE 1 TABLET BY MOUTH TWICE DAILY FOR 7 DAYS 09/12 completed Not Available Not Available Not Available acetamino phen 500 mg tablet 01/14 completed Not Available Not Available Not Available triamcino lone acetonide 0.1 % topical cream APPLY TOPICALL Y TO THE AFFECTED AREA TWICE DAILY FOR 14 DAYS NEEDED active Not Available Not Available No t Available Flomax 0.4 mg capsule,e xtended release Take 1 capsule every day by oral route. 12/24 completed Not Available Not Available Not Available levothyro xine 25 mcg tablet TAKE 2 TABLETS ON MON, WED, FRI. AND TAKE 1 TABLET ON SAT, SUN, TUES,LYNNETTE RS. 10/10 completed Not Available Not Available Not Available levothyro xine 75 mcg tablet TAKE 1 TABLET BY MOUTH EVERY DAY active Not Available Not Available No t Available cefadroxi l 500 mg capsule Take 1 capsule every day by oral route for 10 days. 01/06 completed Not Available Not Available Not Available famotidin e 20 mg tablet TAKE 1 TABLET BY MOUTH TWICE DAILY active Not Available Not Available No t Available prednisol one acetate 1 % eye drops,jasmina pension 08/23 completed Not Available Not Available Not Available magnesium oxide 400 mg (241.3 mg magnesium ) tablet Take 1 tablet every day by oral route. active Not Available Not Available No t Available lorazepam 0.5 mg tablet TAKE 1 TO 2 TABLETS BY MOUTH PRIOR TO PROCEDUR E NEEDED 02/06 completed Not Available Not Available Not Available tamsulosi n 0.4 mg capsule TAKE 1 CAPSULE BY MOUTH EVERY DAY active Not Available Not Available No t Available meclizine 25 mg tablet Take 1 tablet by oral route for 6 days. 11/15 completed Not Available Not Available Not Available amlodipin e 10 mg tablet TAKE 1 TABLET BY MOUTH EVERY DAY active Not Available Not Available No t Available glipizide ER 2.5 mg tablet, extended release 24 hr TAKE 1 TABLET BY MOUTH TWICE DAILY active Not Available Not Available No t Available levothyro xine 50 mcg tablet Take 1 tablet every day by oral route. 10/10 completed taking 25 mcg once daily Not Available Not Available Not Available cephalexi n 500 mg capsule TAKE 1 CAPSULE BY MOUTH THREE TIMES DAILY 09/18 completed Not Available Not Available Not Available pantopraz ole 40 mg tablet,de layed release TAKE 1 TABLET BY MOUTH EVERY DAY active Not Available Not Available No t Available mirtazapi ne 30 mg tablet TAKE 1 TABLET BY MOUTH EVERY DAY active Not Available Not Available No t Available diclofena c 0.1 % eye drops 10/17 completed Not Available Not Available Not Available indometha salma 25 mg capsule Take 1 capsule every day by oral route for 5 days. 01/06 completed Not Available Not Available Not Available betametha sone dipropion ate 0.05 % topical cream Apply by topical route for 20 days. 04/27 completed Not Available Not Available Not Available allopurin ol 300 mg tablet TAKE 1 TABLET BY MOUTH EVERY DAY 2024 active Not Available Not Available Not Avai lable aspirin 81 mg tablet Take 1 tablet every day by oral route as directed for 30 days. 10/22 completed dc GI bleed and blood in urine. Not Available Not Available Not Available alcohol swabs active Not Available Not Available Not Available mupirocin 2 % topical ointment active Not Available Not Available Not Available mirtazapi ne 15 mg tablet TAKE 1 TABLET BY MOUTH EVERY DAY 02/14 completed Not Available Not Available Not Available gabapenti n 100 mg capsule TAKE 1 CAPSULE BY MOUTH AT BEDTIME NEEDED 09/18 completed Not Available Not Available Not Available triamtere ne 75 mg-hydroc hlorothia zide 50 mg tablet 09/24 completed Not Available Not Available Not Available metoprolo l succinate ER 25 mg tablet,ex tended release 24 hr TAKE 0.5 TABLET BY MOUTH TWICE DAILY active Not Available Not Available No t Available methylpre dnisolone 4 mg tablets in a dose pack 10/07 completed Not Available Not Available Not Available amoxicill in 500 mg-potass ium clavulana te 125 mg tablet TAKE 1 TABLET BY MOUTH EVERY 12 HOURS FOR 10 DAYS 11/15 completed Not Available Not Available Not Available valsartan 160 mg tablet Take 1 tablet every day by oral route. 05/08 completed Not Available Not Available Not Available Benadryl 25 mg capsule Take 1 capsule every day by oral route at bedtime. 10/31 completed Not Available Not Available Not Available Tylenol Extra Strength 500 mg capsule Take 2 capsules as needed by oral route. 02/14 completed Not Available Not Available Not Available coenzyme Q10 100 mg capsule Take 1 capsule twice a day by oral route for 90 days. active Not Available Not Available No t Available Vitamin D3 25 mcg (1,000 unit) capsule Take 1 capsule every day by oral route in the morning for 30 days. active Not Available Not Available No t Available minocycli ne 100 mg tablet 01/06 completed Not Available Not Available Not Available rosuvasta tin 5 mg tablet TAKE 1 TABLET BY MOUTH ONCE DAILY 2024 active 06/01/23 Last Lipid panel performe d 10/06/22 Not Available Not Available Not Available Saccharom yces boulardii 250 mg capsule 250 mg by oral route. 12/26 completed Not Available Not Available Not Available metoprolo l tartrate 25 mg tablet TAKE 1/2 TABLET BY MOUTH TWICE DAILY active Not Available Not Available No t Available SilvaSorb topical gel,exten ded release APPLY TO WOUNDS EVERY OTHER DAY DIRECTED 10/17 completed Not Available Not Available Not Available nitrofura ntoin monohydra te/macroc rystals 100 mg capsule 11/20 completed Not Available Not Available Not Available cholecalc iferol (vitamin D3) 25 mcg (1,000 unit) tablet Take 1 tablet by oral route. 01/14 completed Not Available Not Available Not Available Align (B.infant is) 4 mg capsule Take 1 capsule every day by oral route. active Not Available Not Available No t Available Align (B.infant is) 01/11 completed Not Available Not Available Not Available GaviLyte- G 236 gram-22.7 4 gram-6.74 gram-5.86 gram oral solution 09/24 completed Not Available Not Available Not Available Contour Next Test Strips TEST BLOOD SUGARS THREE TIMES DAILY active Not Available Not Available No t Available Jardiance 10 mg tablet Take 2 tablets every day by oral route. 02/14 completed Not Available Not Available Not Available Jardiance 25 mg tablet TAKE 1 TABLET BY MOUTH EVERY DAY active Not Available Not Available No t Available Shingrix (PF) 50 mcg/0.5 mL intramusc ular suspensio n, kit 01/06 completed Not Available Not Available Not Available Tylenol 325 mg capsule Take 1 capsule by oral route. 02/06 completed Not Available Not Available Not Available Fluad 2019-20 65yr up(PF)45 mcg(15 mcgx3)/0. 5 mL intramusc ular syringe 10/07 completed Not Available Not Available Not Available Fluzone High-Dose Quad 2019- (PF) 240 mcg/0.7 mL IM syringe 04/27 completed Not Available Not Available Not Available Contour Next Glucose Meter kit USE DIRECTED active Not Available Not Available No t Available glipizide 2.5 mg tablet TAKE 1 TABLET BY MOUTH EVERY DAY active Not Available Not Available No t Available Vitals Date Recorded Body height Body mass index (BMI) Body weight Heart rate Oxygen saturation Oxygen saturation in Arterial blood by Pulse oximetry Body temperature Systolic blood pressure Diastolic blood pressure Systolic blood pressure Diastolic blood pressure Provider Name and Address Organization Details Last Updated DateTime 3 175.26 cm 32.5 kg/m2 87222.3 2 g 78 /min 97 % 97 % 98 [degF] 158 mm[Hg] 66 mm[Hg] 128 mm[Hg] 70 mm[Hg] Barbi Anandbhumi Burkett [facility] 3 15:04:18 Date Recorded Body height Provider Name an d Address Organization Details Last Updated DateTime 10/31/2022 175.26 cm Katt Whitney [facility] 10/31/2022 14:36:57 Date Recorded Body height Body mass index (BMI) Body weight Heart rate Oxygen saturation Oxygen saturation in Arterial blood by Pulse oximetry Body temperature Systolic blood pressure Diastolic blood pressure Provider Name and Address Organization Details Last Updated DateTime 4 175.26 cm 30.9 kg/m2 82913.8 1 g 65 /min 98 % 98 % 98.4 [degF] 146 mm[Hg] 70 mm[Hg] Barbi Anandbhumi Burkett [facility] 4 13:58:51 Date Recorded Body height Provider Name an d Address Organization Details Last Updated DateTime 05/27/2024 175.26 cm Denia White MA [facility] 05/27/2024 13:10:58 Social History Question Answer Notes LastModified by Organizat ion Details LastModified Time Tobacco Smoking Status Former Smoker Bella dyer [facility] 09/24/2016 13:39:27 Do You Have An Advance Directive? Yes HCP/ Dtr's [place] 09/24/19 18 [email or web address] Information not available 10/31/2022 What Is Your Level Of Alcohol Consumption? None Information not available 09/24/2016 Is Blood Transfusion Acceptable In An Emergency? Yes Information not available 09/24/2016 What Is Your Level Of Caffeine Consumption? Moderate 1 Daily Information not available 02/15/2024 How Much Tobacco Do You Chew? None Information not available 09/24/2016 In The 14 Days Before Symptom Onset, Have You Had Close Contact With A Laboratory-confir med COVID-19 While That Case Was Ill? No [email or web address] Information not available 10/31/2022 In The 14 Days Before Symptom Onset, Have You Had Close Contact With A Person Who Is Under Investigation For COVID-19 While That Person Was Ill? No [email or web address] Information not available 10/31/2022 Are You Currently Employed? No Information not available 09/24/2016 What Type Of Diet Are You Following? CARDIAC Low Salt/low Carb Information not available 09/12/2021 Which Illicit Or Recreational Drugs Have You Used? None Information not available 09/24/2016 Do You Or Have You Ever Used E-cigarettes Or Vape? Never Used Electronic Cigarettes [email or web address] Information not available 10/31/2022 What Is Your Occupation? [employer]inary [employer] ne[employer] Information not available 10/15/2021 When Did You Quit Smoking? 14+yearssinandrew gregory [email or web address] Information not available 10/22/2020 Live Alone Or With Others? Alone [email or web address] Information not available 10/31/2022 Do You Take Precautions To Prevent Distracted Driving? Yes Information not available 09/24/2016 How Often Do You Need To Have Someone Help You When You Read Instructions, Pamphlets, Or Other Written Material From Your Doctor Or Pharmacy? Never Information not available 09/24/2016 Have You Served In The ? Yes Information not available 09/24/2016 Have You Or Anyone In Your Household Had Any Of The Following Symptoms In The Last 14 Days: Sore Throat, Cough, Chills, Body Aches For Unknown Reasons, Shortness Of Breath For Unknown Reasons, Loss Of Smell, Loss Of Taste, Fever At Or Greater Than 100 Degrees Fahrenheit? No [email or web address] Information not available 03/16/2020 Are You Or Anyone In Your Household A Health Care Provider Or Emergency Responder? No [email or web address] Information not available 03/16/2020 To The Best Of Your Knowledge Have You Been In Close Proximity To Any Individual Who Tested Positive For COVID-19? No [email or web address] Information not available 03/16/2020 *AWV ONLY* Are You Presently Prescribed Opioid Medication By PCP Or Specialist? If YES -Provider Assess The Benefit For Other, Non-opioid Pain Therapies Instead, Even If The Patient Does Not Have OUD But Is Possibly At Risk. No Information not available 04/27/2020 Have You Recently Traveled To A COVID-19 High Risk Area Or Gathering In The Last 10 Days? No [email or web address] Information not available 08/23/2020 What Was The Date Of Your Most Recent Tobacco Screening? 02/15/2024 Information not available 02/15/2024 How Many Children Do You Have? 2 Sharon Information not available 09/12/2021 What Is Your Current Pack Years? 20-29packyear s [email or web address] Information not available 10/31/2022 Do You Use Your Seat Belt Or Car Seat Routinely? Yes Information not available 10/15/2021 Seat Belts Used Routinely Yes [email or web address] Information not available 10/31/2022 Are You Sexually Active? No Information not available 10/15/2021 Smoke Alarm In Home Yes [email or web address] Information not available 10/31/2022 Do You Have Smoke And Carbon Monoxide Detectors In Your Home? Yes Information not available 10/15/2021 At What Age Did You Start Smoking Tobacco? 14 Information not available 10/05/2018 Are You Passively Exposed To Smoke? No Information no t available 09/24/2016 Do You Or Have You Ever Used Smokeless Tobacco? Never Used Smokeless Tobacco Information not available 04/27/2020 How Much Tobacco Do You Smoke? 1 PPD Quit 30 Years Ago Information not available 09/24/2016 Do You Use Any Illicit Or Recreational Drugs? No [email or web address] Information not available 10/31/2022 Do You Use Sunscreen Routinely? No Information not available 09/24/2016 How Many Years Have You Smoked Tobacco? 20 Information not available 09/24/2016 Sex: Unknown Functional Status Question Answer Note LastModified by Organizat ion Details LastModified Time Are you able to walk? YESASSIST Cane/Walke r [email or web address] Information not available 10/31/2022 Are you able to care for yourself? Yes Information not available 09/24/2016 What is your exercise level? None Information not available 02/15/2024 Mental Status None recorded. Family History Relationship Description Onset Age of this Age Resolved Age Notes LastModified by Organization Details LastModified Time Mother Diabetes mellitus [email or web address] Not available 13:37:57 Father Essential hypertension [email or web address] Not available 03/2024 13:45:21 Father Cerebrovascu lar accident [email or web address] Not available 14:18:17 Brother Coronary arterioscler osis [email or web address] Not available 2023 13:45:21 Brother Well adult Not availabl e 02/15/2024 13:45:21 Sister Well adult Not available 02/15/2024 13:45:21 Medical History Condition Response Gout Y Other Y Blood Diseases N Kidney Stones N Hyperthyroidism N Breast Cancer N Depression N COPD N Lung Disease N Hypothyroidism Y Defects or Inherited Disease N Anesthesia Complications N Headaches/Migraines N Anxiety Disorder N Varicose Veins N Obesity N Vision or Eye Problems N Arthritis N Head Injury/Concussion N Polyps N Infertility N Congenital Anomalies N Acid Reflux (GERD) Y Cancer Y Stroke N ADHD N Endometriosis N High Cholesterol Y Liver Disease N Fibromyalgia N Kidney Disease Y Heart Problems N Ear or Hearing Problems N Hospitalizations Y Thyroid Problems Y GI Problems N Acne N Eating Disorder N Skin Problems N Anemia N Constipation N Bladder Problems N Mental Illness N Ovarian Cancer N Diabetes Y Blood Transfusions N Seizures/Epilepsy N Tuberculosis N AIDS/HIV N Congestive Heart Failure (CHF) N Eczema N Diverticulitis N Abuse/Domestic Violence N Asthma N Allergies N Reflux/GERD N Hepatitis N Pulmonary Embolism N Hypertension Y Chicken Pox N Autism Spectrum Disorder (ASD) N Osteoporosis N Immunizations Vaccine Type Date Status Note Provider Nam camilla and Address Organization Details Recorded Time Influenza, high-dose, trivalent, PF [facility] 14:12:10 pneumococcal polysaccharide PPV23 1 [facility] 15:07:16 zoster recombinant 8 [facility] 14:12:10 zoster recombinant 9 [facility] 14:12:10 Influenza, split virus, quadrivalent, preservative 9 completed Isabela dyer [facility] 10/23/2020 09:04:11 COVID-19, mRNA, LNP-S, PF, 30 mcg/0.3 mL dose 1 [facility] 14:12:10 COVID-19, mRNA, LNP-S, PF, 30 mcg/0.3 mL dose 1 [facility] 14:12:10 pneumococcal polysaccharide PPV23 2 [facility] 10:32:04 Tdap 1 [facility]24 14:12:10 Influenza, high-dose, trivalent, PF 5 [facility] 14:12:10 Influenza, adjuvanted, trivalent, PF 6 completed ANNA Sinclair, [facility] 02/15/2024 14:12:10 Influenza, high-dose, quadrivalent, PF 0 completed ANNA Sinclair, [facility] 02/15/2024 13:51:03 COVID-19, mRNA, LNP-S, PF, 30 mcg/0.3 mL dose 1 completed ANNA Sinclair [facility] 02/15/2024 14:12:10 COVID-19, mRNA, LNP-S, PF, 30 mcg/0.3 mL dose, rita-sucrose 2 completed ANNA Garner, [facility] 07/09/2022 15:07:17 Pneumococcal conjugate PCV 13 8 [facility] 14:12:10 Influenza, high-dose, trivalent, PF 7 [facility] 14:12:10 Influenza, high-dose, trivalent, PF 8 [facility] 14:12:10 Influenza, high-dose, quadrivalent, PF 1 [facility] 13:51:03 Td (adult), 5 Lf tetanus toxoid, preservative free, adsorbed [facility] 13:51:04 COVID-19, mRNA, LNP-S, bivalent, PF, 30 mcg/0.3 mL dose 2 completed [facility] 2022 15:04:26 Influenza, high-dose, quadrivalent, PF 2 completed Pati dyer MA [facility] 06/12/2022 14:10:50 Past Encounters Encounter ID Performer Location Encounter Start Date Encounter Closed Date Diagnosis/Indication Diagnosis SNOMED-CT Code Diagnosis ICD10 Code Diagnosis Note [id number] Patiezequiel Hubbard Main Office [address] [place] [address] 09/24/2016 13:27:24 09/24/2016 14:48:57 Carcinoma of prostate 503327659 C61 s/p radiation therapy. Will confirm PSA is stable. Hypertensive disorder 38 376296 I10 Well controlled /at goal. Continue current regimen.Im munization status updated, will screen based on risk factors. Regular dental and ophtho care advised as well as seat belt and sunscreen use. Pt currently demonstrat es mild/moder ate risk for falls as well as cognitive decline. Advance directives in place. Body mass index 30+ - obesity 535150571 Z68.30 E66.9 Requires a tetanus booster 206811310 Z23 Disorder o f nervous system due to type 2 diabetes mellitus 332485204 E11.40 diagnosis based on history. Monofilame nt exam unremarkab le today but has history of osteomyeli tis. Will monitor. Ophtho exam utd, wll track down most recent report. Increased frequency of urination 345324084 R35.0 Refer to urology to help address this issue and follow up on prostate cancer monitoring . 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 Regular physical and mental activity advised. Will monitor. [id number] Pati Hubbard Main Office [address] [place] [address] 03/23/2017 13:29:27 03/23/2017 14:40:58 Hypertensive disorder 96209203 I10 Well controlled , continue current regimen. Influenza vaccine needed 6086909898 106 Z23 Proteinuria 57519495 R80 .9 Stable on ACEI and also followed by renal. Renal diso rder due to type 2 diabetes mellitus 331495335 E11.22 On ASA. Has ophtho exam next month. Chronic ki dney disease stage 3 971874913 N18.3 Diabetic p eripheral neuropathy 921003096 E11.42 Hypercholesterolemia 136 58659 E78.00 WIll resume statin but see if pravastati n is better tolerated. [id number] Sudheer Sims MD Main Office [address] [facility] [address] [facility] [place] [address] 08/28/2017 09:41:39 08/28/2017 10:22:35 Intermittent claudication 53065941 I73.9 ? if musculoske letal vs vascular vs neurogenic in etiology. Will start with orthopedic and vascular assessment s. If abnormal will refer accordingl y. If studies are normal will pursue neurologic eval. Advised to call if new symptoms develop. Pain in lower limb 23309 006 M79.604 M79.605 [id number] Sudheer Sims MD Main Office [address] [facility] [address] [facility] [place] [address] 10/01/2017 13:53:12 10/01/2017 15:26:49 Adult health examination 212609157 Z00.00 Immunizati ons status updated. Will screen based on risk factors. Regular dental and ophtho care advised as well as seat belt and sunscreen use. Distracted driving discussed. Pt currently demonstrat es low risk for falls and no significan t cognitive decline. Diabetes mellitus 467483 09 E11.21 Carcinoma of prostate 25 0267669 C61 s/p radiation therapy. Will confirm PSA is stable. Obesity 669289426 E66.9 Body mass index 30+ - obesity 206761927 Z68.32 Hypercholesterolemia 136 67940 E78.00 Will reassess back on statin and titrate as tolerated to goal LDL <100. Thyroid ho rmone tests outside reference range 961270983 R94.6 Clinically euthyroid, will recheck labs. Hypertensive disorder 38 702944 I10 Not at goal today. Has renal f/u scheduled next week. Chronic ki dney disease stage 3 627870849 N18.[address] Corrales next week. Renal; function has been stable. Administra tion of pneumococcal vaccine 78155402 Z23 Disorder o f nervous system due to type 2 diabetes mellitus 793241294 E11.40 Followed by podiatry. Ophtho exam utd. [id number] Sudheer Sims MD Main Office [address] [address] [place] [address] 12/24/2017 09:40:07 12/24/2017 10:39:35 Hypertensive disorder 75326919 I10 Fair control. Continue current regimen for now. Diabetes mellitus 882437 09 E11.21 Hypercholesterolemia 136 23448 E78.00 LDL at goal. Continue current regimen/do se. Osteoarthritis of hip 23 6203309 M16.12 Improved, following with ortho. Renal diso rder due to type 2 diabetes mellitus 404941337 E11.22 Following labs every 6 months with renal. Chronic ki dney disease stage 3 666577683 N18.3 Renal; function has been stable. [id number] Sudheer Sims MD Main Office [address] [address] [place] [address] 04/27/2018 09:43:46 04/27/2018 10:38:20 Diabetes mellitus 76463119 E11.21 Hypertensive disorder 38 093468 I10 Influenza vaccine needed 1675634284 106 Z23 Varicella vaccination 68 886543 Z23 Thyroid ho rmone tests outside reference range 388043715 R94.6 Clinically euthyroid, will recheck labs. Hypercholesterolemia 136 52392 E78.00 LDL at goal. Continue current regimen/do se. [id number] Sudheer Sims MD Main Office [address] [address] [place] [address] 10/05/2018 10:01:33 10/05/2018 11:23:34 Adult health examination 704907495 Z00.00 Immunizati ons status updated. Will screen based on risk factors. Regular dental and ophtho care advised as well as seat belt and sunscreen use. Distracted driving discussed. Pt currently demonstrat es low risk for falls and no significan t cognitive decline. Advance directives in place. Diabetes mellitus 221344 09 E11.21 Fair control. COntineu currnt regimen. Carcinoma of prostate 25 2945896 C61 s/p radiation therapy. Will confirm PSA is stable. Obesity 057255495 E66.9 Body mass index 30+ - obesity 258728631 Z68.30 Hypercholesterolemia 136 00671 E78.00 Will reassess back on statin and titrate as tolerated to goal LDL <100. Hypertensive disorder 38 023545 I10 Well controlled , continue current regimen. Chronic ki dney disease stage 3 312793349 N18.[address] Corrales next week. Renal; function has been stable. Disorder o f nervous system due to type 2 diabetes mellitus 944794894 E11.40 Followed by podiatry. Ophtho exam utd. Infection of toe 4983131 06 L08.9 Foot dressed. Currently following with podiatry and wound care referral underway. WIll request podiatry notes. [id number] Greg Carrillo PA-C Main Office [address] [facility] [address] [place] [address] 01/06/2019 12:50:48 01/06/2019 13:50:26 Diabetic foot ulcer 847203222 E13.621 f/u c wound care clinic later this afternoon Osteomyeli tis of left foot 7670325802 798633 M86.9 cont abx as dir by cereal supervisor x 5 more weeks - agree c taking probiotic daily Gout 35404723 M10.9 seen by rheum yest - cont allopurino l as dir, f/u c rheum 6 months/prn Chronic ki dney disease stage 3 046900823 N18.3 mild yaneth as inpt - will recheck bmp and cc: labs to renal, next f/u in a few months Essential hypertension 13331511 I10 bp stable, cont meds as dir [id number] Sudheer Sims MD Main Office [address] [facility] [address] [place] [address] 10/07/2019 09:16:12 10/07/2019 10:50:59 Adult health examination 660946708 Z00.00 Immunizati ons status utd. Will screen based on risk factors. Regular dental and ophtho care advised as well as seat belt and sunscreen use. Distracted driving discussed. Pt currently demonstrat es low risk for falls and no significan t cognitive decline. Advance directives in place. Diabetes mellitus 277468 09 E11.21 Fair control. Continue current regimen. Chronic ki dney disease stage 3 871987769 N18.[address] Corrales next week. Renal; function has been stable. Carcinoma of prostate 25 2515004 C61 s/p radiation therapy. Will confirm PSA is stable. Benign pro static hyperplasia with outflow obstruction 246542972 N40.1 Gout 31828149 M10.9 Hypercholesterolemia 136 62175 E78.01 Will reassess back on statin and titrate as tolerated to goal LDL <100. Hypertensive disorder 38 728889 I10 Has been well controlled , continue current regimen and reassess. Renal diso rder due to type 2 diabetes mellitus 264739680 E11.22 Following labs every 6 months with renal. Peripheral neuropathy due to type 2 diabetes mellitus 8255686223 107 E11.42 Stable, followed by podiatry. Vitamin D deficiency 347 13437 E55.9 On supplement will confirm appropriat eness. [id number] Kelsey campbell Main Office [address] [facility] [address] [facility] [place] [address] 03/16/2020 10:34:55 03/16/2020 11:39:08 Eruption 060102845 R21 pt has had a rash in the same areas over the years, now worse, looks plaque like like psoriasis, no hx of dermatolog y eval, will treat with prednisone for 5 days, refer to derm joann. no role for abx, no evidence of infection or superinfec tion. however, if pt does need abx needs to have coverage for MRSA as he ahs a hx of MRSA [id number] Sudheer Sims MD Telehealt [facility] [address] [facility] [address] [place] [address] 04/27/2020 13:09:51 04/27/2020 16:13:58 Hypertensive disorder 87530272 I10 Has been well controlled based on home numbers continue current regimen and reassess in office next visit. Diabetes mellitus 123297 09 E11.21 Good control. Continue current regimen. Chronic ki dney disease stage 3 875042167 N18.3 Renal function has been stable on ACEI. Renal following. Hypercholesterolemia 136 34492 E78.01 Well controlled on low dose statin. Continue as is. Gout 44780712 M10.9 [id number] Cain Saenz MD Main Office [address] [facility] [address] [facility] [place] [address] 07/18/2020 08:49:40 07/18/2020 09:19:13 Pre-surgery evaluation 234521045 Z01.818 1.Pre-Surg ical Evaluation /Surgical Clearance for L cataracts -- Clinical cardiac predictor( s): CKD 3, DM, HLD, HTN -- Surgical risk level: Low -- Functional Status: EXCELLENT -- Revised Cardiac Risk Index (RCRI) for Pre-Operat karlo Risk: 1 -- Vitals reviewed and labs not indicated -- Imaging: Not indicated -- EKG: Not indicated -- Informed patient NPO at midnight -- Plan of care discussed with patient. -- Medical clearance: Stable to proceed for procedure. Patient is at low risk for planned procedure based on procedure type. Advised to avoid aspirin and NSAIDS . MANNING Score: 0.1 % Risk of myocardial infarction or cardiac arrest, intraopera tively or up to 30 days post-op Addendum 08/06/2020 1.Pre-Surg ical Evaluation /Surgical Clearance for b/l cataracts- - Clinical cardiac predictor( s): CKD 3, DM, HLD, HTN-- Surgical risk level: Low-- Functional Status: EXCELLENT- - Revised Cardiac Risk Index (RCRI) for Pre-Operat karlo Risk: 1-- Vitals reviewed and labs not indicated- - Imaging: Not indicated- - EKG: Not indicated- - Informed patient NPO at midnight-- Plan of care discussed with patient. -- Medical clearance: Stable to proceed for procedure. Patient is at low risk for planned procedure based on procedure type. Advised to avoid aspirin and NSAIDS. MANNING Score: 0.1 % Risk of myocardial infarction or cardiac arrest, intraopera tively or up to 30 days post-op Cataract 057081590 H26.9 Patient to have left cataract surgery 07/23/2020 and right in Sep 03 2020. [id number] Pati Hubbard Main Office [address] [place] [address] 08/23/2020 09:43:35 08/23/2020 10:42:02 Cellulitis of toe of left foot 4762627875 4100626 L03.032 Due to redness, will start med for a week, followup with wound care/Dr Becerra. Keep toe covered, wash and dry as normal, call if weeping , pus develops or worsens. Ulcer of toe 020013447 L 97.529 pt has appt to see podiatry on thursday, Dr Becerra in [place] [id number] Pati Hubbard Main Office [address] [facility] [address] [facility] [place] [address] 10/22/2020 09:47:08 10/22/2020 10:39:18 Transition of care 7491299260 105 Z75.8 Medication s were reconciled , precaution s were discussed. Patient to have blood work done for nephrology this includes renal panel in reflex, CBC, calcium, microalbum in to creatinine ratio, serum amino fixation. I have gone ahead and added vitamin D and albumin as well. Erosive esophagitis 4071 9004 K22.10 Patient is on Protonix 40 and is due to follow-up with gastro. Retention of urine 87632 4002 R33.9 This is likely due to postop urinary retention, and history of BPH he is on tamsulosin , has a Nieves in place that is draining straw-colo red urine and he is due to see urology who will evaluate for Nieves removal. Traumatic dislocation of joint of finger 678885843 S63.250D Patient had a dislocatio n of the right fifth PIP secondary to fall he is post reduction. Patient is to follow-up with hand surgeon outpatient . Mass of duodenum 8289736 [address] scan showed possible duodenal mass however patient had a EGD with EUS and no mass was appreciate d via endoscopic ultrasound patient is to have an MRI to further evaluate this as gastroente rologist thinks that this may be due to edema and inflammati on of the duodenum secondary to gastric ileus with confoundin g findings of a large renal cyst. Cyst of kidney 716107776 N28.1 Patient is to have an MRI, and he is following with nephrology thus this will need following up and coordinati on with his primary care doctor and nephrology once further imaging is obtained. Acute urin chi tract infection 740241468 N39.0 This is a UTI likely due to Nieves placement, Nieves was replaced. Patient was started on Macrobid and is to follow-up with urology. Urine was straw-colo red and not cloudy. Skin irritation 29624876 7 L30.9 This is due to prolonged pressure in the gluteal region however there is no skin break at this time I advised the patient to offload and change position frequently to prevent ulcers. Fracture of femur 330894 00 S72.91XD Given the mechanism of the injury I felt it would be best after discussing with the patient's PCP to also get a bone density scan. Patient is likely not a good candidate for bisphospho jose given the stomach ulcers and esophagiti s however if bone scan does indicate osteoporos is he may benefit from Prolia. At this time we decided to continue the Protonix given the recent GI bleed however risk of poor bone mineraliza tion needs to also be taken into considerat ion and that medication should be or may be changed to Pepcid if possible in the future. Patient's visit was late in the morning thus I have not gone ahead and ordered a morning testostero ne level and one can wait for the bone density result, if this does indeed show osteoporos is then he might benefit from a morning testostero ne level to evaluate if low testostero ne may be the cause of his osteoporos is. fall W19.XXXD [id number] Greg Carrillo PA-C Telehealt h [address] [facility] [address] [place] [address] 11/20/2020 13:02:50 11/23/2020 13:51:08 Fever 267064823 R50.9 given his fever, cough, and signs of dehydratio n (dark urine in bag) - unsure of etiology of his sxs - strongly urged pt/dtr to take pt to [facility] for prompt evaluation to r/o covid, pna, uti, etc as well as receive IV fluids - dtr expressed understand ing and will take him there, will fwd this note to [facility] triage Cough 98913974 R05 [id number] Pati Hubbard Main Office [address] [facility] [address] [facility] [place] [address] 02/06/2021 14:38:47 02/06/2021 15:53:18 Moderate major depression 019082 F32.1 pt stable on meds, needs refill of mirtazapin e which is helping with depression , anxiety and wt Peripheral neuropathy due to type 2 diabetes mellitus 8460951878 107 E11.42 stable Chronic ki dney disease stage 3B 224473074 N18.32 check labs in 2 days; pt has orders, creat was stable at last check, will need to see renal in the next month or two Diabetes mellitus 199862 09 E11.40 BS controlled , will do labs to followup, not sure if he has labs ordered from renal History of SARS-CoV-2 29 11641009 03642941 Z86.16 has recovered, no cough in study for post covid surveillan ce Gout 41285053 M10.9 stable , no sx on allopurino l Mass of duodenum 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 Pt had neg EUS, per discharge summary was recomended to have MRI, will arrange in the next few weeks. Thyroid nodule 238222780 E04.1 Hypercalcemia 93159904 E 83.52 calcium to be done as part of bmp above Hypertensi ve renal disease 96721699 I12.9 BP is controlled on present regimen, continue all meds at current dosages. Continue with low salt diet, exercise [id number] Greg Carrillo PA-C Main Office [address] [facility] [address] [facility] [place] [address] 05/08/2021 14:23:53 05/08/2021 15:53:40 Influenza vaccine needed 1462078075 106 Z23 Benign pro static hyperplasia with outflow obstruction 620518741 N13.8 stable lately, cont f/u c uro Muscle weakness 11466279 M62.81 generalize d weakness from multiple inpt admissions for past 7-8 months, slowly getting better/str onger - cont PT as dir Chronic ki dney disease stage 3B 809203601 N18.32 stable, cont f/u c renal - next month Hypertensi ve renal disease 84992191 I12.9 stable, cont meds as dir Insomnia 147188062 G47.0 0 stable on 25mg qhs - advised if having difficulty sleeping can increase to 50mg qhs [id number] Soto Castle MD Telehealt h [address] [facility] [address] [place] [address] 08/16/2021 13:46:32 08/19/2021 12:03:13 Urinary tract infectious disease 42635061 N39.0 [id number] Sudheer Sims MD Main Office [address] [facility] [address] [facility] [place] [address] 09/12/2021 10:06:59 09/12/2021 11:20:17 Adult health examination 957455160 Z00.00 Immunizati ons status utd. Will screen based on risk factors. Regular dental and ophtho care advised as well as seat belt and sunscreen use. Distracted driving discussed. Pt currently demonstrat es risk for falls but no significan t cognitive decline. Advance directives in place. Advance di rective discussed with patient 279949797 Z71.89 Will obtain copy of MOLST form for chart. Vertigo 345982423 R42 Suspect this is related to sinusitis. Will use meclizine while waiting for abx to help. At [facility] risk for falls 620693205 Z91.81 Acute sinusitis 22576976 J01.90 Sounds like secondary bacterial infection is likely. Will cover with Augmentin, renally dosed. Gout 33569911 M10.9 On allopurino l, will verify adequate control. Goal UA level <6.8. Chronic ki dney disease stage 3B 857241026 N18.32 Carcinoma of prostate 25 0867075 C61 s/p radiation therapy. Will confirm PSA is stable. Hypercholesterolemia 136 72138 E78.01 Well controlled on low dose statin. Continue as is. Hypertensi ve renal disease 44279617 I12.9 BP well controlled , following with Dr. Corrales. Vitamin D deficiency 347 35066 E55.9 On supplement will confirm appropriat eness. Erosive esophagitis 4071 9004 K22.10 On PPI, well controlled . Hypomagnesemia 950356644 E83.42 Will see if supplement is needed. Peripheral neuropathy due to type 2 diabetes mellitus 3690270102 107 E11.42 Stable, followed by podiatry. Moderate m ajor depression 886367 F32.1 Symptoms not limiting. Trazodone helping with sleep. Will monitor. [id number] Sudheer Sims MD Telehealt h [address] [facility] [address] [facility] [place] [address] 11/15/2021 08:45:26 11/18/2021 08:24:05 Moderate major depression 510205 F32.1 Mood improved back on SSRI. Not sure trazodone is helping. Will titrate traz dose down and monitor. Hypercholesterolemia 136 49908 E78.01 Well controlled on low dose statin. Continue as is. Persistent insomnia 1919 96830 G47.09 Will see if mirtazepin e helps with this and mood. Titrate as tolerated to goal symptom control. [id number] Pati Hubbard Main Office [address] [facility] [address] [place] [address] 01/14/2022 13:15:31 01/14/2022 14:21:26 Peripheral neuropathy due to type 2 diabetes mellitus 2185629959 107 E11.42 Will reassess and continue current regimen for now. Benign hyp ertensive renal disease 448811 I12.9 Well controlled at recent renal appt 128/70 and improving with recheck here. Will contiue current regimen. Persistent insomnia 1919 68696 G47.09 Doing well on mirtazepon e and melatonin. Will continue current regimen. Hypomagnesemia 464394316 E83.42 Will see if supplement is needed. Abnormal t hyroid hormone 065850169 R94.6 Subclinica l, will follow/jhonathan ssess. [id number] Thaliazachariah Foote Main Office [address] [facility] [address] [place] [address] 05/22/2022 14:28:25 05/22/2022 15:44:38 Peripheral neuropathy due to type 2 diabetes mellitus 5185236682 107 E11.42 Diabetes well controlled . Will try low dose gabapentin for neuropathy . Moderate m ajor depression 599551 F32.1 Well controlled on low dose mirtazepin e. Will continue as is. Consider switch to duloxetine depending on neuropathy progressio n. Hypertensi ve renal disease 30384862 I12.9 Not under great control. Following with renal where plan was to reduce amlodipine and restart chlorthali done. I will defer these decisions to Dr. Corrales given his CKD. Influenza vaccine needed 3017841611 106 Z23 Hypothyroidism 93711112 E03.9 Started on low dose supplement , will recheck labs in 2-3 months and evaluate nodules in the meantime. Chronic insomnia 2177810 04 F51.04 See if low dose gabapentin (because of CKD) helps. Thyroid nodule 894569234 E04.1 Delayed evaluation because of multiple health events/gomez demic last year. With thyroid dysfunctio n and based on size it should be investigat ed further. Now willing to pursue further evaluation . Will again ask endo to help assess and determine best plan/appro ach. Chronic ki dney disease stage 3A 493313931 N18.31 [id number] Sudheer Sims MD Main Office [address] [place] [place] [address] 2022 14:28:41 2022 15:39:45 Adult health examination 926935496 Z00.00 Immunizati ons status utd. Will screen based on risk factors. Regular dental and ophtho care advised as well as seat belt and sunscreen use. Distracted driving discussed. Pt currently demonstrat es risk for falls but no significan t cognitive decline. Advance directives in place. Chronic ki dney disease stage 3A 473814769 N18.31 Has been stable and followed by Dr. Corrales, BP well controlled . Moderate m ajor depression 396873 F32.1 Well controlled on low dose mirtazepin e. Will continue as is for now but consider reducing dose depending on response to doxepin. Peripheral neuropathy due to type 2 diabetes mellitus 6023677929 107 E11.42 Diabetes well controlled . Carcinoma of prostate 25 0965183 C61 s/p radiation therapy. Will confirm PSA is stable and CC urology. Body mass index 30+ - obesity 317136460 E66.9 Z68.32 Insomnia 808803121 G47.0 0 Persistent issue. Will try low dose doxepin, titrate as tolerated to goal symptom control. At [facility] risk for falls 898087290 Z91.81 Referral provided for FPI. Hypomagnesemia 533283940 E83.42 Will see if supplement is needed. Subclinica l hypothyroidism 22561041 E02 Renal diso rder due to type 2 diabetes mellitus 059944441 E11.22 Following labs every 6 months with renal. Hypercholesterolemia 136 98461 E78.01 Well controlled on low dose statin. Continue as is. Adenoma of rectum 759270 005 D12.8 Has history but based on age/lack of symptoms and comorbidit ies will defer f/u for now. Thyroid nodule 014773153 E04.1 Following with endocrine, imaging felt to be stable. Biopsy being deferred for now. [id number] Sudheer Sims MD Telehealt h [address] [place] [address] 10/10/2022 13:35:49 10/10/2022 16:05:19 Persistent insomnia 632480182 G47.09 Recalcitra nt issue, no relief with mirtazepin e currently or with trazodone/ melatonin/ lorazepam/ doxepin in the past. Will see if low dose mood stabilizer helps. Moderate m ajor depression 177676 F32.1 Hypothyroidism 52461827 E03.9 Started on low dose supplement , dose recently increased will recheck labs in 2-3 months. Nodules being followed by Dr. Edwards. [id number] Sudheer Sims MD Telehealt h [address] [facility] [address] [facility] [place] [address] 10/31/2022 13:27:30 10/31/2022 15:26:43 Persistent insomnia 464928123 G47.09 Recalcitra nt issue, no relief with trazodone/ melatonin/ lorazepam/ doxepin in the past. Responding well to low ose mood stabilizer . Will continue current dose for now. Moderate m ajor depression 169292 F32.1 Well controlled with mirtazepin e. Will continue current dose for now, consider weaning if symptoms improve with better sleep quality. [id number] Sudheer Sims MD Main Office [address] [facility] [address] [facility] [place] [address] 02/15/2024 13:44:15 02/15/2024 14:49:30 Adult health examination 635475288 Z00.00 COVID booster, RSV and PCV20 advised via local pharmacy. Will screen based on risk factors. Regular dental and ophtho care advised as well as seat belt and sunscreen use. Distracted driving discussed. Pt currently demonstrat es risk for falls but no significan t cognitive decline. Advance directives in place. Hypercholesterolemia 136 46389 E78.01 Well controlled on low dose statin. Continue as is. Moderate m ajor depression 859032 F32.1 Well controlled on mirtazepin e. Will continue as is for now but consider reducing dose depending on response to doxepin. Peripheral neuropathy due to type 2 diabetes mellitus 2326850382 107 E11.42 Diabetes well controlled . Carcinoma of prostate 25 7969397 C61 s/p radiation therapy. Will confirm PSA is stable and CC urology. Body mass index 30+ - obesity 792433970 E66.9 Z68.30 Insomnia 326973060 G47.0 0 Responding to mirtazepin e, will monitor. Hypomagnesemia 329641414 E83.42 Will see if supplement is needed. Subclinica l hypothyroidism 23365914 E[address] Edwards. Renal diso rder due to type 2 diabetes mellitus 554925240 E11.22 Following labs every 6 months with renal. Adenoma of rectum 841344 005 D12.8 Has history but based on age/lack of symptoms and comorbidit ies will defer f/u for now. Thyroid nodule 724664652 E04.1 Has u/s booked then f/u with Dr. Edwards. Administra tion of viral vaccine 02467423 Z29.11 Chronic ki dney disease stage 4 741123713 N18.4 Stable and working with Dr. Corrales on HTN/DM control. [id number] Sud[facility] [address] [facility] [address] [place] [address] 05/27/2024 12:52:03 05/27/2024 15:03:53 Persistent insomnia 136016095 G47.09 Recalcitra nt issue, no relief with trazodone/ melatonin/ lorazepam/ doxepin in the past. Responding well to mirtazepin e. Will continue current dose for now. Subclinica l hypothyroidism 54902999 E[address] Edwards. Will monitor slight TSH bump for now. Renal diso rder due to type 2 diabetes mellitus 343933268 E11.22 Following labs every 6 months with renal. Health Concerns Section Related Observation LastModified by Organization Detai ls LastModified Time None Recorded Concern Status LastModified by Organization Details LastModified Time None Recorded Advance Directives Directive Y: HCP/ Dtr's Omayra 09/24/2017 Payers Encounter Date Sequence Insurance Name Policy Number Policy Johnson Covered Member ID Johnson Member ID Guarantor Name 2022 1 [employer] (MEDICARE REPLACEMENT PPO) [id number] [employer] [id number] [employer] 10/10/2022 1 [employer] (MEDICARE REPLACEMENT PPO) [id number] [employer] [id number] [employer] 10/31/2022 1 [employer] (MEDICARE REPLACEMENT PPO) [id number] [employer] [id number] [employer] 02/15/2024 1 [employer] (MEDICARE REPLACEMENT PPO) [id number] [employer] [id number] [employer] 05/27/2024 1 [employer] (MEDICARE REPLACEMENT PPO) [id number] 1 [employer] [id number] [employer] Notes Date Note Type Note Provider Name and Address Organization Details Recorded Time 2022 text/html Medicare Annual Wellness VisitReported bypatient.Diet and Nutrition:healthy diet Fracture Risk:history of fractures Physical Activity:decreased physical activity Depression Risk:no significant changes in weight; no history of depression;sleep disturbances or insomnia Concentration and Memory:no memory lapses or loss Speech/Motor difficulties:no speech difficulties; no difficulty writing/copying Hearing:no loss of hearing Vision:no vision problems; Wears glasses Activities of Daily Living:able to bathe with limited or no assistance; able to contol urination and bowels; able to dress with limited or no assistance; able to feed self with limited or no assistance; able to get out of chair or bed with limited or no assistance; able to toilet with limited or no assistance Instrumental Activities of Daily Living:able to prepare meals with limited or no assistance;unable to do house work without assistance;unable to grocery shop without assistance;unable to manage medications without assistance;unable to manage money without assistance; Medications and finances managed by daughter Falls Risk Assessment:no frequent falls while walking; no fall since last visit; no dizziness/vertigo; fall(s) in the past year Home Safety:no unsafe alexandra hazzards; working smoke/CO detectors; use of seatbelts; no fire arms; has hand bars in the bathroom/shower Sudheer Sims MD [address], [address], [facility] [place]22 09:01:03 10/10/2022 text/html Anxiety/Depressi onRe ported bypatient.Severity:d enies suicidal ideations; able to maintain relationships; does not interfere with activities of daily livingNotes:Doing well on low dose mirtazepine.Insomnia Reported bypatient.Quality:sy mptoms worse in the evening Severity:moderate Duration:frequent Onset/Timing:gradual onset Context:using medications for sleep Associated Symptoms:no known sleep apnea; no pain; no urinary frequency; legs do not feel restless;depressionN otes:Good sleep hygeine, tried doxepin at last visit and it only afforded dizziness.ThyroidRep orted bypatient.Context:lo w thyroid levels Exerciseno exercise Associated Symptoms:no cold intolerance; no heat intolerance; no weight lossNotes:Levothyrox ine dose increased since last visit because of elevated TSH. Sudheer Sims MD [address], [address], [facility] [place]10/2022 15:21:40 10/31/2022 text/html Anxiety/Depressi onRe ported bypatient.Severity:d enies suicidal ideations; able to maintain relationships; does not interfere with activities of daily livingNotes:Doing well on low dose mirtazepine.Insomnia Reported bypatient.Quality:sy mptoms worse in the evening Severity:moderate Duration:frequent Onset/Timing:gradual onset Context:using medications for sleep Associated Symptoms:no known sleep apnea; no pain; no urinary frequency; legs do not feel restless;depressionN otes:Good sleep hygeine, started 12.5mg of quetiepine at last visit which is working well.ThyroidReported bypatient.Context:lo w thyroid levels Exerciseno exercise Associated Symptoms:no cold intolerance; no heat intolerance; no weight lossNotes:Levothyrox ine dose increased since last visit because of elevated TSH. Sudheer Sims MD [address], [address], [facility] [place]/31/2022 15:23:26 02/15/2024 text/html Medicare Annual Wellness VisitReported bypatient.Diet and Nutrition:healthy diet Fracture Risk:history of fractures Physical Activity:decreased physical activity Depression Risk:no significant changes in weight; no history of depression;sleep disturbances or insomnia Orientation:no disorientation to time; no disorientation to date; no disorientation to place Concentration and Memory:no decreased concentrating ability; no memory lapses or loss;forgetting words Speech/Motor difficulties:no speech difficulties; no difficulty expressing formulated concepts; no difficulty with fine manipulative tasks; no difficulty writing/copying; no slowed reaction time; does not knock things over when trying to pick them up Hearing:no loss of hearing Vision:no vision problems; Wears glasses Activities of Daily Living:able to bathe with limited or no assistance; able to contol urination and bowels; able to dress with limited or no assistance; able to feed self with limited or no assistance; able to get out of chair or bed with limited or no assistance; able to toilet with limited or no assistance Instrumental Activities of Daily Living:able to do house work with limited or no assistance; able to prepare meals with limited or no assistance;unable to grocery shop without assistance;unable to manage medications without assistance;unable to manage money without assistance; Medications and finances managed by daughter Falls Risk Assessment:no frequent falls while walking; no fall in the past year; no fall since last visit; no dizziness/vertigo Home Safety:no unsafe alexandra hazzards; working smoke/CO detectors; use of seatbelts; no fire arms; has hand bars in the bathroom/shower Sudheer Sims MD [address], [address], [facility] [place]/14/2024 06:49:08 05/27/2024 text/html Anxiety/Depressi onRe ported bypatient.Severity:d enies suicidal ideations; able to maintain relationships; does not interfere with activities of daily livingNotes:Doing well on moderate dose mirtazepine.Insomnia Reported bypatient.Quality:sy mptoms worse in the evening Severity:moderate Duration:frequent Onset/Timing:gradual onset Context:using medications for sleep Associated Symptoms:no known sleep apnea; no pain; no urinary frequency; legs do not feel restless;depressionN otes:Good sleep hygeine, increased mirtazepine at last visit which is working well for sleep along with 3mg of melatonin.ThyroidRep orted bypatient.Severity:m ild Onset/Timing:still present Context:low thyroid levels Exercisegets exercise Associated Symptoms:no cold intolerance; no heat intoleranceNotes:Rec ent TSH mildly elevated. Sudheer Sims MD [address] [place], [address], [facility] [place] 05/27/2024 13:56:30
--- OUTSIDE RECORDS SUMMARY | 2024-10-05 13:45 | XMS_ITS | Clinical Summary ---
Author Organization [facility] Address [address] [facility] [address] [place] [address] Phone Care Team Providers Care Radiologic Technologist Mammogram Name Role Phone Sudheer Goyal MD Primary Care Provider [phone] Allergies Active Allergy Reactions Criticality Noted Date Comments Atorvastatin Other (see comments) Medium 10/30/2020 Pravastatin Other (see comments) 10/30/2020 Medications acetaminophen (TYLENOL) 500 MG tablet every 4 (four) hours Active allopurinol (ZYLOPRIM) 300 MG tablet Take 1 tablet by mouth 1 (one) time each day 10/16/2020 Active glipiZIDE (GLUCOTROL XL) 2.5 MG 24 hr tablet Take 1 tablet by mouth 2 (two) times a day 08/08/2019 Active pantoprazole (PROTONIX) 40 MG EC tablet Take 1 tablet by mouth 1 (one) time each day 10/16/2020 Active rosuvastatin (CRESTOR) 5 MG tablet Take 1 tablet by mouth 1 (one) time each day 10/17/2020 Active cholecalciferol (VITAMIN D-3) 25 MCG (1000 UT) tablet Take 1,000 Units by mouth 1 (one) time each day Active coenzyme Q-10 100 MG capsule Take 100 mg by mouth 1 (one) time each day Active Probiotic Product (Align) 4 MG capsule Take 1 capsule by mouth 1 (one) time each day Active Magnesium 400 MG tablet Take 1 tablet by mouth 1 (one) time each day Active mirtazapine (REMERON) 15 MG tablet Take 15 mg by mouth every night Active levothyroxine (SYNTHROID, LEVOTHROID) 75 MCG tablet Take 1 tablet by mouth 1 (one) time each day 12/03/2022 Active QUEtiapine (SEROquel) 25 MG tablet Take 0.5 tablets by mouth 1 (one) time each day 10/31/2022 Active metoprolol tartrate 25 MG tablet Take 12.5 mg by mouth in the morning and 12.5 mg in the evening. 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 07/19/2021 Hypertension 06/20/2021 Orthostatic hypotension 03/25/2021 Benign hypertensive renal disease 10/30/2020 Acute urinary tract infection 10/24/2020 Cyst of kidney 10/24/2020 Renal disorder due to type 2 diabetes mellitus 1 08/10/2016 Proteinuria 10/05/2016 Stage 3a chronic kidney disease 04/15/2016 Hypertensive disorder 04/15/2016 Resolved Problems Problem Noted Date Diagnosed Date Resolved Date Cellulitis 12/26/2021 12/26/2021 Malignant neoplasm of prostate 12/26/2021 12/26/2021 Osteomyelitis 12/26/2021 12/26/2021 Subclinical hypothyroidism 09/25/2021 1 Vertigo 09/06/2021 06/04/2022 Secondary hyperparathyroidism 06/22/2021 06/04/2022 Insomnia 04/05/2021 12/26/2021 Mild protein-calorie malnutrition 04/05/2021 12/26/2021 Major depressive disorder with single episode 03/28/20 21 12/26/2021 Benign prostatic hyperplasia with lower urinary tract symptom 03/25/2021 06/04/2022 Personal history of COVID-19 03/25/2021 12/26/2021 Altered mental status 12/24/20202021 Pathological fracture, other site, subsequent encounter for fracture with routine healing 12/20/2020 02/06/2021 Paroxysmal atrial fibrillation 12/19/2020 02/06/2021 Nodular thyroid disease 12/19/2020 06/3 Pneumonia 12/17/2020 02/06/2021 Unresponsive 12/12/2020 12/26/2021 At increased risk for falls 11/23/2020 12/26/2021 Gastroesophageal reflux disease 11/23/2020 12/26/2021 Type 2 diabetes mellitus without complication 11/23/1902/06/2021 Other malaise 11/22/2020 02/06/2021 Muscle wasting and atrophy, not elsewhere classified, upper arm 11/22/2020 02/06/2021 History of falling 11/22/2020 Dysphagia, oropharyngeal phase 11/22/2020 02/06/2021 Difficulty in walking 11/22/20202020 COVID-19 11/22/2020 02/06/2021 History of total hip arthroplasty 10/24/2020 10/30/2020 Mass of duodenum 10/24/2020 10/30/2020 Retention of urine 10/24/2020 Skin irritation 10/24/2020 10/30/2020 Traumatic dislocation of joint of finger 10/24/2020 10/30/2020 Fracture of neck of femur 10/19/2020 Erosive esophagitis 09/24/2020 10/31/19 21 Total replacement of hip 2020 History of methicillin resis tant Staphylococcus aureus infection 10/07/2019 10/31/19 21 Osteoarthritis of joint of bilateral hands 10/07/2019 10/30/2020 Peripheral neuropathy due to type 2 diabetes mellitus 10/07/2019 02/06/2021 Vitamin D deficiency 10/07/2019 021 Gout 10/17/2018 10/30/2020 History of osteomyelitis 10/01/2017 Osteoarthritis of hip 09/01/20172020 Hypercholesterolemia 03/23/2017 021 Benign prostatic hyperplasia with outflow obstruction 11/13/2016 10/30/2020 Adenoma of rectum 06/18/2016 10/30/2020 Polyp of colon 06/18/2016 10/30/2020 Radiation proctitis 06/18/2016 10/31/19 21 Carcinoma of prostate 04/15/20162020 Diabetes mellitus 04/15/2016 10/30/2020 Spinal stenosis 04/15/2016 10/30/2020 Immunizations Name Administration Dates Next Due Influenza Split High Dose Pr eservative Free IM 04/27/2018,03/23/2017,04/10/2016,04/05 Influenza, Quadrivalent, Wit h Preservative 03/29/2020,05/02/2019,04/27/2018 Influenza, Trivalent, Adjuvanted 04/23/2016 Influenza, Unspecified 05/08/2021 Enventum SARS-COV-2 10/24/2020 Pfizer SARS-COV-2 06/24/2021,11/14/2020,10/25/19 21 Pneumococcal Conjugate 13-Valent 10/01/2017,09/11 Pneumococcal Polysaccharide 05/10/2012, 1,06/13/2011 Shingrix 11/15/2018,05/06/2018 TD Preservative Free 09/24/2016,09/24/2016 Tdap 09/17/2020 Zoster 11/15/2018,05/06/2018 Family History Medical History Relation Comments Hypertension Father Stroke Father Diabetes Mother Hypertension Sibling Relation Status Comments Father Mother Sibling Social History Tobacco Use Types Packs/Day Years Used Date Smoking Tobacco: Never Smokeless Tobacco: Never Tobacco Cessation:Counseling Given: Not Answered Alcohol Use Standard Drinks/Week Comments No 0 (1 standard drink = 0.6 oz pur e alcohol) Sex and Gender Information Value Date Recorded Sex Assigned at Not on file Legal Sex Male 5:10 PM EST Gender Identity Not on file Sexual Orientation Not on file Last Filed Vital Signs Vital Sign Reading Time Taken Comments Blood Pressure 130/80 12/04/2022 2:44 PM EDT Pulse 67 12/04/2022 2:44 PM EDT Temperature - - Respiratory Rate - - Oxygen Saturation 99% 06/20/2021 3:11 PM EST Inhaled Oxygen Concentration - - Weight 102 kg (224 lb) 12/04/2022 2:44 PM EDT Height 175.3 cm (5' 9 ) 06/20/2021 3:11 PM EST Body Mass Index 33.08 06/20/2021 3:11 PM EST Plan of Treatment Health Maintenance Due Date Last Done Comments Diabetes: Ophthalmology Exam 09/07/2020 Diabetes: Pedal Pulse Checked 09/07/2020 Diabetes: Sensory Foot Exam 09/07/2020 Diabetes: Visual Foot Exam 09/07/2020 Diabetes: Hemoglobin A1C 09/12/2023 023, 05/20/2022, 11/20/2020, Additional history exists Influenza Vaccine (#1) 2024 1, 03/29/2020, 05/02/2019, Additional history exists Pneumococcal Vaccine: 65+ Years Completed 10/01/2017, 10/01/2017, 05/10/2012, Additional history exists Hepatitis B Vaccine Aged Out No longe r eligible based on patient's age to complete this topic Procedures Procedure Name Priority Date/Time Associated Diagnosis Comments HEMOGLOBIN A1C Routine 06/12/2023 1:01 PM EDT from Last 3 Months or Most Recently Relevant to Health Maintenance Results * (ABNORMAL) Hemoglobin A1c (06/12/2023 1:01 PM EDT) Hemoglobin A1C 6.3(H) (4.0-5.6) % [facility] Comment: MONITORING: In known diabetic patients, hemoglobin A1c targets should be discussed with health care provider. DIAGNOSTIC USE: ??The [place] Diabetes Association (ADA) and the World Health Organization (WHO) recommend the use of HbA1c to diagnose diabetes using a threshold of 6.5%. Patients who have an HbA1c between 5.7% and 6.4% are considered at increased risk for developing diabetes in the future. CAUTION: Falsely low HbA1c results may be observed in patients with hemolytic anemia, homozygous forms of abnormal hemoglobin (e.g. SS, CC, SC), , recent blood loss or hemoglobin F greater than 7%. Fructosamine may be used as an alternate test in these cases. REFERENCE: ADA: Standards of Medical Care in Diabetes 2020, The Journal of Clinical and Applied Research and Education Volume 43, Supplement 1 Testing performed or reported by [facility], a Service of [facility], [address] [place] [address] Sidney Cano MD, Software Installation Engineer [facility]# [id number] 06/12/2023 1:01 PM EDT 06/12/2023 1:04 PM EDT us Mitesh Corrales MD LAB BLOOD ORDERABLES Final Resul t [facility] from Last 3 Months or Most Recently Relevant to Health Maintenance Insurance [employer]NA [facility] ADV PPO ([id number]) [employer] [facility] ADV PPO ([id number]) Care Teams Radiologic Technologist Mammogram Relationship Specialty Start Date End Date Sudheer Goyal MD [address] [address] PCP - General 08/20/20
--- OUTSIDE RECORDS SUMMARY | 2024-10-05 13:45 | XMS_ITS | Clinical Summary ---
Author Organization [facility] Address [address] [place] [address] Care Team Providers Care Lumber Marker Name Role Phone Unavailable Primary Care Provider Unavailabl e Social History Tobacco Use Types Packs/Day Years Used Date Smoking Tobacco: Never Assessed Sex and Gender Information Value Date Recorded Sex Assigned at Not on file Legal Sex Male 9:02 PM EST Gender Identity Not on file Sexual Orientation Not on file Plan of Treatment Health Maintenance Due Date Last Done Comments DTaP,Tdap,and Td Vaccines (1 - Tdap) 1957 Pneumococcal Vaccine: 50+ Ye ars (1 of 1 - PCV) 1988 Zoster Vaccines (1 of 2) 1988 RSV Immunization Patients 60 + Years Old (1 - 1-dose 75+ series) 2013 COVID-19 Vaccine ( - 2023-2 5 season) 2024 Influenza Vaccine (#1) 2024 HIB Vaccines Aged Out No longer eligi ble based on patient's age to complete this topic HPV Vaccines Aged Out No longer eligi ble based on patient's age to complete this topic Hepatitis A Vaccines Aged Out No long er eligible based on patient's age to complete this topic Hepatitis B Vaccines Aged Out No long er eligible based on patient's age to complete this topic IPV Vaccines Aged Out No longer eligi ble based on patient's age to complete this topic MMR Vaccines Aged Out No longer eligi ble based on patient's age to complete this topic Meningococcal ACWY Vaccine Aged Out N o longer eligible based on patient's age to complete this topic Meningococcal B Vacine Aged Out No lo nger eligible based on patient's age to complete this topic RSV Immunization Patients Un ada 20 months Aged Out No longer eligible b ased on patient's age to complete this topic Varicella Vaccines Aged Out No longer eligible based on patient's age to complete this topic
[2024-10-05 19:01] LABS: Anion Gap 15 (12-20); Blood Urea Nitrogen 37 mg/dL (9-16); Carbon Dioxide 24 mmol/L (22-29); Chloride 111 mmol/L (96-108); Estimated Glomerular Filt Rate 21; Potassium 5.2 mmol/L (3.3-5.1); Sodium 145 mmol/L (135-145)
[2024-10-05 19:07] LABS: Parathyroid Hormone Intact 405.2 pg/mL (8.7-77.1)
[2024-10-05 19:18] LABS: Vitamin D 25-OH Total 39.5 ng/mL (>30)
== END 2024-10-05 11:00 | disposition home or self-care (01) ==
LOC: HO.HKASLDS 10:59
PROVIDERS: Visit Provider Internal Medicine Nephrology
DX: N18.4 Chronic kidney disease, stage 4 (severe) (principal); I10 Essential (primary) hypertension; E11.21 Type 2 diabetes mellitus with diabetic nephropathy
CPT/HCPCS: 36415; 80051; 82306; 82310; 82565; 83970; 84100; 84520

== ENCOUNTER 2024-10-11 11:05 | Outpatient (AMB) | payer MEDICARE, SELFPAY ==
--- NOTE | 2024-10-11 11:11 | HO.NEPHOV ---
Vital Signs 10/11/24 11:20 Height 5 ft 9 in Weight 205 lb 6 oz BMI 30.3 BP 138/60 Blood Pressure Location Lt brachial Position Sitting Pulse 65 Pulse Source Pulse Oximeter Pulse Oximetry (%) 97 Oxygen Delivery Method Room Air Intake Visit Reasons: 3 mon follow up Damper Maker Required: No Accompanied by: Daughter Allergies atorvastatin Allergy (Verified 10/11/24 11:20) Unknown pravastatin Allergy (Verified 10/11/24 11:20) Unknown HPI Comments Details: Papo was seen in follow-up for his chronic kidney disease and hypertension. He is known to have proteinuria. He is a diabetic. His blood pressure has been at goal. He does not have any hypervolemia. He denies chest pain, shortness of breath, hypoglycemia, nausea, vomiting, diarrhea or urinary symptoms. He is active now. He avoids nonsteroidal anti-inflammatory medications. He had no new complaints [facility] Medical History (Updated 10/11/24 @ 11:35 by Mitesh Corrales MD) Posterior reversible encephalopathy syndrome Chronic kidney disease, stage 4 (severe) Diabetes Acute kidney injury Essential (primary) hypertension Surgical History History of cataract surgery Social History Alcohol intake: never Patient Tobacco Use Status: Never used Tobacco Review of Systems Const All systems reviewed & are unremarkable except as noted in HPI and below Physical Exam Vital Signs: Last Vital Signs Pulse 65 10/11/24 11:20 BP 138/60 10/11/24 11:20 Pulse Ox 97 10/11/24 11:20 Oxygen Delivery Method Room Air 10/11/24 11:20 BMI result Body Mass Index 30.3 Const General: comfortable and no acute distress Orientation/consciousness: patient oriented x3 HEENT Head: Yes normocephalic Mouth: Normal oral and palatal mucosa present Eyes EOM: EOMs intact bilaterally Neck Neck: Yes supple Resp Auscultation: clear to auscultation bilaterally Cardio Jugular venous distension: no JVD Rate: regular rate GI Palpation (GI): Soft to palpation Auscultation: normal bowel sounds General: Yes no CVA tenderness Back/Spine/Pelvis Back: no CVA tenderness Skin General skin exam: no rashes or lesions noted Neuro General: patient oriented x3 and moves all extremities Extrem General: Yes no pedal edema Results Reviewed Nephrology Results: Hgb 14.5 g/dl (14.0-18.0) 12/29/23 WBC 8.6 X10*3/uL (4.8-10.8) 12/29/23 Plt Count 176 X10*3/uL (160-400) 12/29/23 Sodium 145 mmol/L (135-145) 10/05/24 Potassium 5.2 mmol/L (3.3-5.1) H 10/05/24 Chloride 111 mmol/L (96-108) H 10/05/24 Carbon Dioxide 24 mmol/L (22-29) 10/05/24 BUN 37 mg/dL (9-16) H 10/05/24 Creatinine 2.92 mg/dL (0.5-1.4) H 10/05/24 Calcium 10.0 mg/dL (8.4-10.2) 10/05/24 Phosphorus 3.0 mg/dL (2.7-4.5) 10/05/24 PTH Intact 405.2 pg/mL (8.7-77.1) H 10/05/24 Assessment & Plan Assessment & Plan (1) Chronic kidney disease, stage 4 (severe): Code(s): N18.4 - Chronic kidney disease, stage 4 (severe) Category: Medical (2) Essential (primary) hypertension: Code(s): I10 - Essential (primary) hypertension Category: Medical (3) Proteinuria: Code(s): R80.9 - Proteinuria, unspecified Category: Medical Qualifiers: Proteinuria type: other Qualified Code(s): R80.8 - Other proteinuria (4) Diabetic nephropathy: Code(s): E11.21 - Type 2 diabetes mellitus with diabetic nephropathy Category: Medical Qualifiers: Diabetes mellitus type: type 2 Qualified Code(s): E11.21 - Type 2 diabetes mellitus with diabetic nephropathy (5) Secondary hyperparathyroidism (of renal origin): Code(s): N25.81 - Secondary hyperparathyroidism of renal origin Category: Medical Plan Papo has stage 4 chronic kidney disease. His renal functions had been pretty stable. He is proteinuric. His blood pressure has been at goal. He has no orthostatic symptoms. He is not hyperkalemic or metabolically acidotic. He is on Jardiance to 25 mg daily. I started him on calcitriol 0.25 mcg 3 times a week. His blood sugars is better. He should be on a low-sodium diet. He should try to lose some weight. He should remain well hydrated. He should avoid nonsteroidal anti-inflammatory medications. All these have been explained detail .Follow-up of blood work were ordered. All his and his daughter's questions were answered. Follow-up appointment given Orders: Orders Complete Blood Count Auto Diff 3 Months E11.21 - Type 2 diabetes mellitus with diabetic nephropathy, I10 - Essential (primary) hypertension, N18.4 - Chronic kidney disease, stage 4 (severe), N25.81 - Secondary hyperparathyroidism of renal origin, R80.8 - Other proteinuria Blood Urea Nitrogen 3 Months E11.21 - Type 2 diabetes mellitus with diabetic nephropathy, I10 - Essential (primary) hypertension, N18.4 - Chronic kidney disease, stage 4 (severe), N25.81 - Secondary hyperparathyroidism of renal origin, R80.8 - Other proteinuria Electrolytes 3 Months E11.21 - Type 2 diabetes mellitus with diabetic nephropathy, I10 - Essential (primary) hypertension, N18.4 - Chronic kidney disease, stage 4 (severe), N25.81 - Secondary hyperparathyroidism of renal origin, R80.8 - Other proteinuria Calcium 3 Months E11.21 - Type 2 diabetes mellitus with diabetic nephropathy, I10 - Essential (primary) hypertension, N18.4 - Chronic kidney disease, stage 4 (severe), N25.81 - Secondary hyperparathyroidism of renal origin, R80.8 - Other proteinuria Phosphorus 3 Months E11.21 - Type 2 diabetes mellitus with diabetic nephropathy, I10 - Essential (primary) hypertension, N18.4 - Chronic kidney disease, stage 4 (severe), N25.81 - Secondary hyperparathyroidism of renal origin, R80.8 - Other proteinuria Creatinine 3 Months E11.21 - Type 2 diabetes mellitus with diabetic nephropathy, I10 - Essential (primary) hypertension, N18.4 - Chronic kidney disease, stage 4 (severe), N25.81 - Secondary hyperparathyroidism of renal origin, R80.8 - Other proteinuria Parathyroid Hormone Intact 3 Months E11.21 - Type 2 diabetes mellitus with diabetic nephropathy, I10 - Essential (primary) hypertension, N18.4 - Chronic kidney disease, stage 4 (severe), N25.81 - Secondary hyperparathyroidism of renal origin, R80.8 - Other proteinuria Medications: New calcitriol 0.25 mcg PO 3XW 14 caps 4RF Coding Level of Care Code Est Pt Level 4 (81163) Diagnoses Chronic kidney disease, stage 4 (severe) N18.4 Essential (primary) hypertension I10 Other proteinuria R80.8 Proteinuria type: other Diabetic nephropathy associated with type 2 diabetes mellitus E11.21 Diabetes mellitus type: type 2 Secondary hyperparathyroidism (of renal origin) N25.81
[2024-10-11 11:20] VITALS: BP 138/60; PULSE 65; O2SAT 97; BMI 30.3
--- OUTSIDE RECORDS SUMMARY | 2024-10-11 13:51 | XMS_ITS | Clinical Summary ---
Author Organization [facility] Address [address] [facility] [address] [place] [address] Phone Care Team Providers Care Helmet Hat Brim Cutter Name Role Phone Sudheer Goyal MD Primary Care Provider [phone] Allergies Active Allergy Reactions Criticality Noted Date [...] Influenza, Trivalent, Adjuvanted 04/23/2016 Influenza, Unspecified 05/08/2021 [employer] SARS-COV-2 10/24/2020 Pfizer SARS-COV-2 06/24/2021,11/14/2020,10/25/19 21 Pneumococcal [...] PM EDT) Hemoglobin A1C 6.3(H) (4.0-5.6) % [facility] Comment: MONITORING: In known diabetic patients, hemoglobin A1c targets should be discussed with health care provider. DIAGNOSTIC USE: ??The [place] Diabetes Association (ADA) and the World Health [...] Supplement 1 Testing performed or reported by [facility], a Service of [facility], [address] [place] [address] Sidney Cano MD, Manager Programming [facility]# [id number] 06/12/2023 1:01 PM EDT 06/12/2023 1:04 PM EDT us Mitesh Corrales MD LAB BLOOD ORDERABLES Final Resul t [facility] from Last 3 Months or Most Recently Relevant to Health Maintenance Insurance [employer] [facility] ADV PPO ([id number]) [employer] [facility] AD[facility] PPO ([id number]) Care Teams Helmet Hat Brim Cutter Relationship Specialty Start Date End Date Sudheer Goyal MD [address] [address] PCP - General 08/20/20
--- OUTSIDE RECORDS SUMMARY | 2024-10-11 13:52 | XMS_ITS | Clinical Summary ---
Author Organization [facility] Address [address] [place] [address] Care Team Providers Care Crime Scene Investigator Name Role Phone Unavailable Primary Care Provider [...]
--- OUTSIDE RECORDS SUMMARY | 2024-10-11 13:52 | XMS_ITS | Data Portability ---
Author Organization [facility], Main Office Address [address], [address] [place] [address] Care Team Providers Care Combined Rail Operator Name Role Phone SUZI ARNOLD 1ST FLOOR OTHER [phone] KEITH SIMS OTHER Assessment No assessment recorded. [...] Organization Details Recorded Time Benign prostatic hyperplasia [id number] Active 2020 JAYA FRIEDMAN NP [address], [address], [place], [address], [facility] 13:12:59 Essential hypertension 20603253 Active 2020 JAYA FRIEDMAN NP [address], [address], [place], [address], [facility] 13:13:05 Gout 15898237 Active 2020 JAYA FRIEDMAN NP [address], [address], [place], [address], [facility] 13:13:13 Hyperlipidemia 00731317 Active 2020 JAYA FRIEDMAN NP [address], [address], [place], [address], [facility] [employer] [facility] 13:13:19 Gastroesophage al reflux disease without esophagitis 846356907 Active 2020 JAYA FRIEDMAN NP [address], [address], [place], [address], [facility] 1 13:13:28 SARS-CoV-2 Active 2020 JAYA FRIEDMAN, SUPPLY CHAIN CONSULTANT [address], [address], [place], [address], [facility] 1 13:13:59 Acute urinary tract infection 247283426 Active 2020 JAYA FRIEDMAN, SUPPLY CHAIN CONSULTANT [address], [address], [place], [address], [facility] 1 13:15:55 At increased risk for falls 420266095 Active 2020 JAYA FRIEDMAN, SUPPLY CHAIN CONSULTANT [address], [address], [place], [address], [facility] 1 13:18:38 Type 2 diabetes mellitus without complication 937826425 Active 2020 Ary Javed MD [address], [address], [place], [address], [facility] 19:37:57 Unresponsive 392555403 Active 2020 JAYA FRIEDMAN, SUPPLY CHAIN CONSULTANT [address], [address], [place], [address], [facility] 09:22:18 Atrial fibrillation 41692048 Active 2020 JAYA FRIEDMAN, SUPPLY CHAIN CONSULTANT [address], [address], [place], [address], [facility] 1 13:25:45 Altered mental status 288745357 Active 2020 JAYA FRIEDMAN, SUPPLY CHAIN CONSULTANT [address], [address], [place], [address], [facility] 10:06:28 Pneumonia 707974505 Active 2020 JAYA ELDER, SUPPLY CHAIN CONSULTANT [address], [place], [address], [facility] 1 10:05:14 Orthostatic hypotension 16770807 Active 2020 JAYA FRIEDMAN, SUPPLY CHAIN CONSULTANT [address], [place], [address], [facility] 1 11:14:33 Chronic retention of urine 465799030 Active 2020 JAYA FRIEDMAN NP [address] [facility], [address], [place], [address], [facility] 1 11:14:58 Insomnia 109365848 Active 2020 JAYA FRIEDMAN NP [address] [facility] [address], [address], [place], [address], [facility] 1 15:24:06 Problem Notes None recorded. [...] mm[Hg] 60 mm[Hg] JAYA FRIEDMAN NP [address] [facility], [address], [place], [address], [facility] 1 15:14:37 Date Recorded Body height Heart rate Respiratory rate Body temperature Oxygen saturation Oxygen saturation in Arterial blood by Pulse oximetry Systolic blood pressure Diastolic blood pressure Provider Name and Address Organization Details Last Updated DateTime 1 167.64 cm 77 /min 18 /min 97.4 [degF] 97 % 97 % 138 mm[Hg] 81 mm[Hg] JAYA FRIEDMAN NP [address] [facility], [address], [place], [address], [facility] 1 13:01:02 Date Recorded Body height Heart rate Respiratory rate Body temperature Oxygen saturation Oxygen saturation in Arterial blood by Pulse oximetry Systolic blood pressure Diastolic blood pressure Provider Name and Address Organization Details Last Updated DateTime 1 167.64 cm 70 /min 18 /min 98.3 [degF] 97 % 97 % 140 mm[Hg] 71 mm[Hg] JAYA FRIEDMAN NP [address] [facility], [address], [place], [address], [facility] 1 13:43:49 Date Recorded Body height Heart rate Respiratory rate Body temperature Oxygen saturation Oxygen saturation in Arterial blood by Pulse oximetry Systolic blood pressure Diastolic blood pressure Provider Name and Address Organization Details Last Updated DateTime 1 167.64 cm 61 /min 18 /min 97.4 [degF] 98 % 98 % 142 mm[Hg] 75 mm[Hg] JAYA FRIEDMAN NP [address] [facility], [facility] [address], [place], [address], [facility] 1 12:41:48 Date Recorded Body height Body mass index (BMI) Body weight Heart rate Respiratory rate Body temperature Oxygen saturation Oxygen saturation in Arterial blood by Pulse oximetry Systolic blood pressure Diastolic blood pressure Provider Name and Address Organization Details Last Updated DateTime 1 167.64 cm 30.4 kg/m2 73759.8 g 62 /min 18 /min 97.3 [degF] 98 % 98 % 157 mm[Hg] 75 mm[Hg] JAYA FRIEDMAN NP [address] [facility], [facility] [address], [place], [address], [facility] 1 10:15:26 Social History Question Answer Notes LastModified by Organizat ion Details LastModified Time Tobacco Smoking Status Former Smoker quit about a month ago JAYA FRIEDMAN NP [address] [facility] [address], [place], [address], [facility] 11/23/2020 13:17:00 Do You Have An Advance [...] Do You Have A Medical Power Of Cloth Mender? Yes Information not available 12/11/2020 What Was [...] toxoid, preservative free, adsorbed [facility] 10[facility]52:50 Influenza, split virus, quadrivalent, preservative 0 completed Elodia Valencia [facility] 11/26/2020 10:53:03 Influenza, split virus, quadrivalent, preservative 9 completed Elodia Valencia [facility] 11/26/2020 10:53:14 Influenza, split virus, quadrivalent, preservative 8 [facility] 10:53:20 Pneumococcal conjugate PCV 13 8 [facility] 10:53:34 pneumococcal polysaccharide PPV23 1 completed Elodia Valencia [facility] 11/26/2020 10:53:46 zoster recombinant 9 completed Elodia Valencia [facility] 11/26/2020 10:53:58 zoster recombinant 8 [facility] 10:54:09 Past Encounters Encounter ID Performer Location Encounter Start Date Encounter Closed Date Diagnosis/Indication Diagnosis SNOMED-CT Code Diagnosis ICD10 Code Diagnosis Note [id number] JAYA GRIPPIN, SUPPLY CHAIN CONSULTANT SUZI [address] [address] 11/23/2020 08:30:27 11/27/2020 12:18:26 Benign prostatic hyperplasia 132668095 N40.0 conner cath followup with urology flomax 0.4 mg daily augmentin 875/125 mg bid to 11/25 Essential hypertension 72354486 I10 amlodipine 10 mg daily enalapril 20 mg bid clonidine 0.1 mg bid CoQ10 bid monitor bp Gastroesop hageal reflux disease without esophagitis 236139671 K21.9 protonix 40 mg daily Gout 30572535 M10.9 allopurino l 300 mg daily Hyperlipidemia 35846761 E78.5 rosuvastat in 5 mg daily SARS-CoV-2 224839456 U07 .1 11/20 positive O2 prn encourage po intake of food and fluids ivf for anorexia monitor for any changes in mental or medical status send to ED for decompensa tion Acute urin chi tract infection 214616252 N39.0 augmentin bid to 11/25 At incre[facility] ed risk for falls 012089315 Z91.81 PT OT eval and treat fall precaution s frequent safety checks [id number] JAYA FRIEDMAN NP [address] [address] 11/26/2020 14:06:52 11/28/2020 16:25:23 At increased risk for falls 443615727 Z91.81 PT OT eval and treat fall precaution s frequent safety checks SARS-CoV-2 507421291 U07 .1 11/20 positive O2 prn encourage po intake of food and fluids ivf for anorexia monitor for any changes in mental or medical status send to ED for decompensa tion start D51/2 NS at 60 ml/hr x 2 liter rocephin 1 gm IV x7 days zpak if can take po [id number] JAYA FRIEDMAN NP [address] [address] 12/01/2020 12:41:54 12/05/2020 08:22:16 At increased risk for falls 635470956 Z91.81 PT OT eval and treat fall precaution s frequent safety checks Benign pro static hyperplasia 695170068 N40.0 followup with urology flomax 0.4 mg daily Essential hypertension 54231205 I10 amlodipine 10 mg daily clonidine 0.1 mg bid CoQ10 bid monitor bp Gastroesop hageal reflux disease without esophagitis 357890968 K21.9 protonix 40 mg daily Gout 35713236 M10.9 allopurino l 300 mg daily Hyperlipidemia 00466560 E78.5 rosuvastat in 5 mg daily SARS-CoV-2 956616232 U07 .1 11/20 positive O2 prn encourage po intake of food and fluids ivf for anorexia monitor for any changes in mental or medical status send to ED for decompensa tion decadron 6 mg x 4 days albuterol mdi 2 puffs q 4hr prn remeron 7.5 mg hs for appetite [id number] JAYA FRIEDMAN NP [address] [address] 12/03/2020 07:55:59 12/05/2020 08:40:14 SARS-CoV-2 854061481 U07.1 11/20 positive O2 prn encourage po intake of food and fluids ivf for anorexia monitor for any changes in mental or medical status send to ED for decompensa tion decadron 6 mg x 4 days albuterol mdi 2 puffs q 4hr prn remeron 7.5 mg hs for appetite Benign pro static hyperplasia 850858235 N40.0 followup with urology flomax 0.4 mg daily [id number] JAYA FRIEDMAN NP [address] [address] 12/07/2020 08:32:58 12/10/2020 12:07:45 At increased risk for falls 164372761 Z91.81 PT OT eval and treat fall precaution s frequent safety checks SARS-CoV-2 016323245 U07 .1 11/20 positive O2 prn encourage po intake of food and fluids ivf for anorexia monitor for any changes in mental or medical status send to ED for decompensa tion decadron 6 mg x 4 days albuterol mdi 2 puffs q 4hr prn remeron 7.5 mg hs for appetite [id number] JAYA FRIEDMAN NP [address] [address] 12/10/2020 15:22:09 12/13/2020 10:56:51 At increased risk for falls 243205967 Z91.81 PT OT eval and treat fall precaution s frequent safety checks SARS-CoV-2 585381289 U07 .1 11/20 positive O2 prn encourage po intake of food and fluids ivf for anorexia monitor for any changes in mental or medical status send to ED for decompensa tion albuterol mdi 2 puffs q 4hr prn remeron 7.5 mg hs for appetite D5 1/ NS at 60 ml/hr x 2 liters [id number] JAYA FRIEDMAN NP [address] [address] 12/11/2020 15:13:36 12/13/2020 03:48:29 SARS-CoV-2 371536144 U07.1 recovered 11/20 positive O2 prn encourage po intake of food and fluids ivf for anorexia monitor for any changes in mental or medical status send to ED for decompensa tion albuterol mdi 2 puffs q 4hr prn remeron 7.5 mg hs for appetite NS at 60 ml/hr x 2 liters [facility] 196730775 Z91.81 PT OT eval and treat fall precaution s frequent safety checks [id number] Ary Javed MD [address] [address] 12/11/2020 17:36:32 12/13/2020 11:38:42 SARS-CoV-2 069557577 U07.1 Considered recovered, was + on 11/20, [...] temp, GI sxs and po intake. At [facility] ed risk for falls 648736283 Z91.81 Very deconditio yana, needs PT/OT for strengthen ing, balance, gait training, safety and function. Fall precaution s in place. Monitor for safety. Benign pro static hyperplasia 469783505 N40.0 No current issues. Continue tamsulosin 0.4 mg qd. F/U with uro as planned. Essential hypertension 75410756 I10 SBP borderline today, Continue amlodipine 10 mg qd and clonidine 0.1 mg BID. Monitor BP and labs and adjust as needed. Gastroesop hageal reflux disease without esophagitis 246432247 K21.9 No current sxs. Continue pantoprazo le 40 mg qd. Monitor sxs. Gout 54211880 M10.09 Continue allopurino l 300 mg qd. Monitor for sxs and for uric acid level prn. Hyperlipidemia 21090268 E78.5 Continue rosuvastat in 5 mg qd and CoQ10/fish oil BID. Monitor labs as outpt. Type 2 miguel a betes mellitus without complication 315759935 E11.9 One high BS likely due to D5NS. Off steroids for 5 days, so unlikely to be contributi ng. Now improved. Continue SSI and adjust as needed. Vitamin D deficiency 347 08092 E56.8 Continue cholecalci ferol 1000 IU qd. Recheck level in 4 weeks. [id number] MCKENZIE WEAVER [address] [place] [address] [place] [address] 12/12/2020 07:51:37 12/14/2020 15:19:28 At increased risk for falls 174570742 Z91.81 PT OT eval and treat fall precaution s frequent safety checks SARS-CoV-2 974689257 U07 .1 recovered 11/20 positive O2 prn encourage po intake of food and fluids ivf for anorexia monitor for any changes in mental or medical status send to ED for decompensa tion albuterol mdi 2 puffs q 4hr prn remeron 7.5 mg hs for appetite NS at 60 ml/hr x 2 liters Type 2 miguel a betes mellitus without complication 519111441 E11.9 Continue SSI and adjust as needed. Unresponsive 647250417 R 40.20 code called, sent to hospital [id number] JAYA GRIPPIN, SUPPLY CHAIN CONSULTANT [address] [address] 12/19/2020 13:18:05 12/25/2020 14:01:46 At increased risk for falls 432960199 Z91.81 PT OT eval and treat fall precaution s frequent safety checks Benign pro static hyperplasia 109303473 N40.0 followup with urology flomax 0.4 mg daily Essential hypertension 93750980 I10 amlodipine 10 mg daily clonidine 0.1 mg bid CoQ10 bid monitor bp Gastroesop hageal reflux disease without esophagitis 602174579 K21.9 protonix 40 mg daily Gout 36066154 M10.9 allopurino l 300 mg daily Hyperlipidemia 27520196 E78.5 rosuvastat in 5 mg daily SARS-CoV-2 121713018 U07 .1 recovered 11/20 positive O2 prn encourage po intake of food and fluids ivf for anorexia monitor for any changes in mental or medical status send to ED for decompensa tion albuterol mdi 2 puffs q 4hr prn remeron 7.5 mg hs for appetite Type 2 miguel a betes mellitus without complication 533289336 E11.9 Continue SSI and adjust as needed. Atrial fibrillation 4943 6004 I48.91 metoprolol 12.5 mg bid [id number] JAYA FRIEDMAN NP [address] [address] 12/21/2020 15:02:43 12/25/2020 14:43:29 At increased risk for falls 576004582 Z91.81 PT OT eval and treat fall precaution s frequent safety checks SARS-CoV-2 579743221 U07 .1 recovered 11/20 positive O2 prn encourage po intake of food and fluids ivf for anorexia monitor for any changes in mental or medical status send to ED for decompensa tion albuterol mdi 2 puffs q 4hr prn remeron 7.5 mg hs for appetite [id number] MCKENZIE WEAVER [address] [address] 12/24/2020 07:54:31 12/26/2020 12:15:29 Altered mental status 335875778 R41.82 sent to [facility] for further evaluation [id number] JAYA GRIPPIN, SUPPLY CHAIN CONSULTANT [address] [address] 12/28/2020 08:00:51 12/31/2020 16:12:32 Altered mental status 815599774 R41.82 continue to reorient prn seroquel 12.5 mg hs to 12/31 At [facility] ed risk for falls 194417653 Z91.81 PT OT eval and treat fall precaution s frequent safety checks Atrial fibrillation 4943 6004 I48.91 metoprolol 12.5 mg bid Benign pro static hyperplasia 272460640 N40.0 followup with urology flomax 0.4 mg daily Essential hypertension 72114553 I10 amlodipine 10 mg daily clonidine 0.1 mg bid CoQ10 bid monitor bp Gastroesop hageal reflux disease without esophagitis 725290652 K21.9 protonix 40 mg daily Gout 96956430 M10.9 allopurino l 300 mg daily Hyperlipidemia 58903399 E78.5 rosuvastat in 5 mg daily Type 2 miguel a betes mellitus without complication 347966600 E11.9 Continue SSI and adjust as needed. SARS-CoV-2 202644146 U07 .1 recovered 11/20 positive O2 prn encourage po intake of food and fluids ivf for anorexia monitor for any changes in mental or medical status send to ED for decompensa tion albuterol mdi 2 puffs q 4hr prn remeron 15 mg hs for appetite [id number] JAYA FRIEDMAN NP [address] [address] 12/31/2020 12:02:10 01/03/2021 12:06:40 Altered mental status 668382826 R41.82 continue to reorient prn seroquel 12.5 mg hs to 12/31 Type 2 miguel a betes mellitus without complication 512894327 E11.9 Continue SSI and adjust as needed. [id number] JAYA FRIEDMAN NP [address] [address] 01/02/2021 07:46:14 01/04/2021 16:30:37 Type 2 diabetes mellitus without complication 727353320 E11.9 Continue SSI and adjust as needed. glucerna with meals Hyperlipidemia 98130930 E78.5 rosuvastat in 5 mg daily Gout 58346950 M10.9 allopurino l 300 mg daily Gastroesop hageal reflux disease without esophagitis 535288527 K21.9 protonix 40 mg daily Essential hypertension 97783913 I10 amlodipine 10 mg daily clonidine 0.1 mg bid CoQ10 bid monitor bp Benign pro static hyperplasia 325636012 N40.0 followup with urology flomax 0.4 mg daily Atrial fibrillation 4943 6004 I48.91 metoprolol 12.5 mg bid At [facility] ed risk for falls 644347523 Z91.81 PT OT eval and treat fall precaution s frequent safety checks Pneumonia 975478877 J18. 9 recovered O2 prn , trying to wean him to room air [id number] MCKENZIE WEAVER [address] [place] [address] 01/07/2021 11:06:12 01/09/2021 15:49:15 Atrial fibrillation 63199601 I48.91 metoprolol 12.5 mg bid Type 2 miguel a betes mellitus without complication 792024702 E11.9 Continue SSI and adjust as needed. glucerna with meals At [facility] risk for falls 243413762 Z91.81 PT OT eval and treat fall precaution s frequent safety checks [id number] MCKENZIE WEAVER [address] [place] [address] 01/11/2021 14:24:00 01/15/2021 14:37:10 Type 2 diabetes mellitus without complication 655392448 E11.9 Continue SSI and adjust as needed. glucerna with meals Gastroesop hageal reflux disease without esophagitis 132147370 K21.9 protonix 40 mg daily Essential hypertension 64255888 I10 amlodipine 10 mg daily clonidine 0.1 mg bid CoQ10 bid monitor bp [id number] MCKENZIE WEAVER [address] [place] [address] 01/14/2021 12:41:51 01/16/2021 13:09:42 Gastroesophageal reflux disease without esophagitis 737279397 K21.9 protonix 40 mg daily Type 2 miguel a betes mellitus without complication 335449169 E11.9 Continue SSI and adjust as needed. glucerna with meals [id number] JAYA GRIPPIN, SUPPLY CHAIN CONSULTANT [address] [address] 01/18/2021 13:22:41 01/21/2021 14:13:18 Gastroesophageal reflux disease without esophagitis 890776200 K21.9 protonix 40 mg daily Type 2 miguel a betes mellitus without complication 166070099 E11.9 Continue SSI and adjust as needed. glucerna with meals At [facility] risk for falls 833046599 Z91.81 PT OT eval and treat fall precaution s frequent safety checks [id number] Zulema Mckoy MD [address] [address] 01/23/2021 07:54:25 01/25/2021 13:56:28 At increased risk for falls 651727807 Z91.81 PT/OTwill monitor and continue to try to minimize fall risk Atrial fibrillation 4943 6004 I48.19 metoprolol 12.5 mg bid for rate controlwil l monitor Benign pro static hyperplasia 723832194 N40.0 tamsulosin 0.4 mg dailywill monitor Essential hypertension 12237065 I10 metoprolol 12.5 mg bid amlodipine 10 mg dailycloni dine 0.1 mg bidwill monitor Gastroesop hageal reflux disease without esophagitis 673566309 K21.9 pantoprazo le 40 mg dailywill monitor Gout 38522849 M10.09 allopurino l 300 mg dailywill monitor Hyperlipidemia 67044023 E78.49 rosuvastat in 5 mg dailywill monitor 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 9 recovered O2 prn , trying to wean him to room air Type 2 miguel a betes mellitus without complication 776816427 E11.9 Continue SSI and adjust as needed. glucerna with meals Hyperlipidemia 66487614 E78.5 rosuvastat in 5 mg daily Gout 58744731 M10.9 allopurino l 300 mg daily Gastroesop hageal reflux disease without esophagitis 078228598 K21.9 protonix 40 mg daily Essential hypertension 50770724 I10 amlodipine 10 mg daily clonidine 0.1 mg bid CoQ10 bid monitor bp Benign pro static hyperplasia 233849048 N40.0 followup with urology flomax 0.4 mg daily Atrial fibrillation 4943 6004 I48.91 metoprolol 12.5 mg bid Acute urin chi tract infection 401136934 N39.0 recoveredp robiotic daily At [facility] ed risk for falls 412907666 Z91.81 PT OT eval and treat fall precaution s frequent safety checks [id number] MCKENZIE WEAVER CATALINA [address] [place] [address] [place] [address] 03/26/2021 10:32:00 03/28/2021 14:22:20 Orthostatic hypotension 01637717 I95.1 Chronic re tention of urine 952724970 R33.8 Atrial fibrillation 4943 6004 I48.91 metoprolol 12.5 mg bid Benign pro static hyperplasia 417672072 N40.0 followup with urologyfol ey to be removed Essential hypertension 04889058 I10 valsartan 160 mg [id number] bidamlodip ine 10 mg dailymonit or bp Gastroesop hageal reflux disease without esophagitis 139984387 K21.9 protonix 40 mg daily Gout 97705159 M10.9 allopurino l 300 mg daily Hyperlipidemia 51902489 E78.5 rosuvastat in 5 mg daily Type 2 miguel a betes mellitus without complication 129153141 E11.9 Continue SSI and adjust as needed. glucerna with mealsglipi zide 2.5 mg bid Altered mental status 41 2223914 R41.82 resolved monitor for changestra zodone 25 mg hsmelatoni n 5 mg hs prnremeron 15 mg hs At [facility] ed risk for falls 363579494 Z91.81 PT OT eval and treat fall precaution s frequent safety checks [id number] MD SUZI Sheridan [address] [place] [address] rd [place] [address] 03/29/2021 16:23:18 04/03/2021 15:17:55 Orthostatic hypotension 64863482 I95.1 Improved since here.Very deconditio yana.Needs PT/OT for strengthen ing, balance, gait training, safety and function.C ontinue fall precaution s.Monitor for safety. Chronic re tention of urine 733819122 R33.8 Continue conner for now. Plan voiding trial for next week.Uro consult if fails voiding trial. Atrial fibrillation 4943 6004 I48.0 Rate in good control on metoprolol 12.5 mg BID.Not on AC due to GI bleed.Terri tor HR. Benign pro static hyperplasia 521147388 N40.1 As above. Essential hypertension 47381531 I10 With some borderline systolic HTN, but BP goal is permissive HTN, with SBP<160 amd DBP<90, to help avoid orhostasis .Continue valsartan 160 mg qd, amlodipine 10 mg qd and metoprolol 12.5 mg BID.Monito r BP and labs. Gastroesop hageal reflux disease without esophagitis 776897660 K21.9 No current sxs.Contin ue pantoprazo le 40 mg qd.Monitor sxs. Gout 11866598 M10.09 No current sxs. Continue allopurino l 300 mg qd.Monitor for sxs. Hyperlipidemia 57014044 E78.49 Continue rosuvastat in 5 mg qd and CoQ10 100 mg BID.Monito r labs as outpt. Type 2 miguel a betes mellitus without complication 788071936 E11.9 In good control.Co ntinue glipizide 2.5 mg BID and SSI.Monito r accuchecks TID and HgA1C q 3 months. Altered mental status 41 6094429 G93.49 MS still variable.C ontinue trazodone 25 mg qhs, mirtazapin e 15 mg qhs and melatonin 5 mg qhs prnMOnitor MS and mood.Psych consult prn. At [facility] ed risk for falls 347839173 Z91.81 Continue PT/OT as above.Cont inue fall precaution s.Monitor for safety. [id number] JAYA FRIEDMAN NP [address] [address] 04/01/2021 12:25:54 04/03/2021 15:37:28 Benign prostatic hyperplasia 696858041 N40.0 followup with urologyfol ey to be removed Acute urin chi tract infection 553609954 N39.0 bactrim DS bid for 5 daysprobio tic daily [id number] JAYA FRIEDMAN NP [address] [address] 04/05/2021 15:13:25 04/09/2021 11:48:29 Chronic retention of urine 432847551 R33.8 monitor urine outputavoi d dehydratio n Acute urin chi tract infection 159707629 N39.0 probiotic daily Atrial fibrillation 4943 6004 I48.0 metoprolol 12.5 mg bid Benign pro static hyperplasia 992146608 N40.1 followup with urology Essential hypertension 68000379 I10 CoQ10 bidamlodip ine 10 mg dailymonit or bp Gastroesop hageal reflux disease without esophagitis 856915694 K21.9 protonix 40 mg daily Gout 55127115 M10.09 monitor for symptoms Hyperlipidemia 02245959 E78.49 rosuvastat in 5 mg daily Type 2 miguel a betes mellitus without complication 841287266 E11.9 Continue SSI and adjust as needed. glucerna with mealsglipi zide 2.5 mg bid At [facility] risk for falls 412972861 Z91.81 PT OT eval and treat fall precaution s frequent safety checks Insomnia 890738423 G47.0 0 melatonin 5 mg hs prnremeron 15 mg hstrazodon e 25 mg hs [id number] JAYA FRIEDMAN NP [address] [address] 04/08/2021 11:46:51 04/12/2021 09:03:52 Gastroesophageal reflux disease without esophagitis 912088089 K21.9 protonix 40 mg daily Benign pro static hyperplasia 083769994 N40.1 followup with urology Acute urin chi tract infection 419155196 N39.0 probiotic daily [id number] JAYA FRIEDMAN NP [address] [address] 04/12/2021 10:40:41 04/19/2021 09:05:23 Benign prostatic hyperplasia 153571842 N40.1 followup with urology At [facility] ed risk for falls 972398581 Z91.81 PT OT eval and treat fall precaution s frequent safety checks Acute urin chi tract infection 245465529 N39.0 probiotic daily [id number] JAYA FRIEDMAN NP [address] [address] 04/16/2021 12:13:30 04/19/2021 10:25:31 Acute urinary tract infection 045383238 N39.0 probiotic dailyawait ing results Type 2 miguel a betes mellitus without complication 218641440 E11.9 Continue SSI and adjust as needed. glucerna with mealsglipi zide 2.5 mg bid [id number] JAYA FRIEDMAN MCKENZIE [address] [address] 04/19/2021 09:58:13 04/23/2021 11:09:47 Orthostatic hypotension 02408067 I95.1 Improved since here.Very deconditio yana.Needs PT/OT for strengthen ing, balance, gait training, safety and function.C ontinue fall precaution s.Monitor for safety. Chronic re tention of urine 039223286 R33.8 monitor urine outputavoi d dehydratio n Atrial fibrillation 4943 6004 I48.91 metoprolol 12.5 mg bid Benign pro static hyperplasia 968655971 N40.0 followup with urologymon itor voiding Essential hypertension 04686991 I10 CoQ10 bidamlodip ine 10 mg dailymonit or bp Gastroesop hageal reflux disease without esophagitis 116202667 K21.9 protonix 40 mg daily Gout 77859418 M10.9 allopurino l 300 mg daily Hyperlipidemia 57292920 E78.5 rosuvastat in 5 mg daily Type 2 miguel a betes mellitus without complication 768663001 E11.9 Continue SSI and adjust as needed. glucerna with mealsglipi zide 2.5 mg bid Altered mental status 41 8926619 R41.82 resolved monitor for changestra zodone 25 mg hsmelatoni n 5 mg hs prnremeron 15 mg hs At [facility] ed risk for falls 997907095 Z91.81 PT OT eval and treat fall [...] Johnson Member ID Guarantor Name 04/05/2021 1 [facility] (MEDICARE REPLACEMENT/A DVANTAGE - PPO) [id number] [employer] [id number] Papo [employer] 04/08/2021 1 [facility] (MEDICARE REPLACEMENT/A DVANTAGE - PPO) [id number] Papo Brand [id number] Pap[employer] 04/12/2021 1 [facility] (MEDICARE REPLACEMENT/A DVANTAGE - PPO) [id number] Papo Brand [id number] Papo [employer] 04/16/2021 1 [facility] (MEDICARE REPLACEMENT/A DVANTAGE - PPO) [id number] Papo Brand [id number] Papo Brand 04/19/2021 1 [facility] (MEDICARE REPLACEMENT/A DVANTAGE - PPO) [id number] Papo Brand [id number] Papo Barnd Notes Date Note Type Note Provider Name [...] IVF. CAOx2 he knew we were in [place] but did not know the name of the facility. lungs clear, no edema, he denies any disstress or discomfort, reminded nursing that he needed a urinal and fluids at the bedside JAYA FRIEDMAN NP [address], [address], [place], [address], [facility] [employer] [facility] 04/05/2021 15:25:29 04/08/2021 text/html seen today for acute rounding visit, CAOx3 sitting up in bed, lungs clear, participates with PT, mood has improved, more animated today JAYA FRIEDMAN NP [address], [address], [place], [address], [facility] 04/08/2021 13:03:53 04/12/2021 text/html seen today for acute rounding visit, CAOx3 resting in bed, lungs clear, supervision with ambulation, eating and drinking well, still has episodes of impaired cognition, will repeat the UA per family request JAYA FRIEDMAN NP [address], [address], [place], [address], [facility] [employer] [facility] 04/12/2021 13:47:11 04/16/2021 text/html seen today for acute rounding visit, CAOx3 sitting up in bed, eating and drinking well, no ua symtoms, awaiting repeat ua results JAYA FRIEDMAN NP [address] [facility] [address], [address], [place], [address], [facility] [employer] [facility] 04/16/2021 12:44:13 04/19/2021 text/html seen today for [...] and drinking well. JAYA FRIEDMAN NP [address], [address], [place], [address], [facility] 04/19/2021 10:22:06
--- OUTSIDE RECORDS SUMMARY | 2024-10-11 13:52 | XMS_ITS | Data Portability ---
Author Organization [facility], Main Office Address [address] [facility] [address] [place] [id number] Care Team Providers Care Sliver Lapper Name Role Phone SUDHEER SIMS Primary Care Provider [phone] HIRAL TURK Underground Bolting Machine Operator ONOFRE HARDIN Orthopedic Surgeon [phone] ALANNAH CORRALES Cargo Handler DONNA DOUGLAS Assistant Account Executive DYAN LOZADA Urologist LORENA CAZARES Orthopedic Surgeon [phone] ANGEL LUIS PAULINO Science Interpreter RUDY EDWARDS Hydraulic Press Tender [phone] Assessment Encounter Date Assessment Date Assessment LastModified by Organization Details LastModified Time 10/10/2022 10/10/2022 This service was provided using telemedicine. Patient consented to video & audio visit Patient was located in the [facility]. Provider was located in the office. No other persons participated in the telemedicine visit except for the patient unless otherwise indicated here. Kareen Total time of visit was 13 minutes. [email or web address] Not available 10/10/2022 15:17:14 10/31/2022 10/31/2022 This service was provided using telemedicine. Patient consented to video & audio visit Patient was located in the [facility]. Provider was located in the office. No other persons participated in the telemedicine visit except for the patient unless otherwise indicated here. Dtr/Kareen Total time of visit was 12 minutes. [email or web address] Not available 10/31/2022 15:18:36 05/27/2024 05/27/2024 This service was provided using telemedicine. Patient consented to video & audio visit Patient was located in the [facility]. Provider was located in the office. No other persons participated in the telemedicine visit except for the patient unless otherwise indicated here. Phil Total time of visit was 17 minutes. [email or web address] Not available 05/27/2024 13:53:38 Plan of Treatment Reminders Order Date Submit Date Provider Last Modified By Organization Details Last Modified Time Details Appointments FOLLOW UP 2024 11:30A M Sudheer Sims MD Not available Not available Not available [email or web address] 2024 11:00A M Sudheer Sims MD Not available Not available Not available Lab CMP, serum or plasma 2023 025 MARIYA [facility] (Centralized Electronic Ordering - All Locations), Patient Can Go To The Location Of Their Choice, [id number] 10/10/2024 03:06:36 HbA1c (hemog lobin A1c), blood 2023 025 MARIYA [facility] (Centralized Electronic Ordering - All Locations), Patient Can Go To The Location Of Their Choice, [id number] 10/10/2024 03:06:36 TSH, ultra- sensit karlo, serum 2023 025 MARIYA [facility] (Centralized Electronic Ordering - All Locations), Patient Can Go To The Location Of Their Choice, 10/10/2024 03:06:35 TSH, ultra- sensit karlo, serum 2023 024 MARIYA [facility] (Centralized Electronic Ordering - All Locations), Patient Can Go To The Location Of Their Choice, [address] 05/18/2024 08:09:35 magnes ium, serum or plasma 2023 024 MARIYA [facility], [address], [place], [address], 05/18/2024 08:09:36 lipid panel, serum 2023 024 MARIYA [facility], [address], [address], [place], [address], 05/18/2024 08:09:33 HbA1c (hemog lobin A1c), blood 2023 024 MARIYA [facility], [address], [address], [place], [address], 05/18/2024 08:09:34 CMP, serum or plasma 2023 024 MARIYA [facility], [address], [address], [place], [address], 05/18/2024 08:09:32 PSA, serum or plasma 2023 024 MARIYA [facility], [address], [address], [place], [address], 05/18/2024 08:09:34 TSH, serum or plasma 2022 023 MARIYA [facility], [address], [address], [place], [address], 12/02/2022 21:39:33 TSH, serum or plasma 2022 023 MARIYA [facility], [address], [address], [place], [address], 10/06/2022 13:55:15 magnes ium, serum or plasma 2022 023 [email or web address] [email or web address] [facility], [address], [address], [place], [address], 10/07/2022 08:56:57 HbA1c (hemog lobin A1c), blood 2022 023 MARIYA [facility], [address], [address], [place], [address], 10/06/2022 13:53:04 CMP, serum or plasma 2022 023 MARIYA [facility], [address], [address], [place], [address], 10/06/2022 13:48:43 lipid panel, serum 2022 023 MARIYA [facility], [address], [address], [place], [address], 10/06/2022 13:48:45 PSA, serum or plasma 2022 023 MARIYA [facility], [address], [place], [address], 10/06/2022 13:55:13 Referral physic al therap ist referr al - At risk for fallin g 2022 023 [email or web address] Not available 2022 15:39:45 nutrit ionist /dieti deya referr al 2022 023 [email or web address] Not available 10/21/2022 13:21:11 Procedures None record ed. Surgeries None record ed. Imaging None record ed. Medication Orders mirtaz apine 30 mg tablet 2023 024 [id number], [address] [place] [address], [id number], 02/15/2024 14:43:12 rosuva statin 5 mg tablet 2023 024 [facility] #[id number], [address] [place] [address], [id number], 02/15/2024 14:43:09 Jardia nce 25 mg tablet 2023 024 [facility] #35996, [address] [place] [address], [id number], 03/14/2024 06:33:50 quetia pine 25 mg tablet 2022 023 [email or web address] #[facility]04, [address] [place] [address], [id number], 02/15/2024 14:00:42 quetia pine 25 mg tablet 2022 023 dana [facility] #64471, [address] [place], [place], [id number], 02/15/2024 14:00:42 doxepi n 10 mg capsul e 2022 023 jaclyn [facility] #76557, [address], [place], [id number], 10/10/2022 14:45:51 Patient TargetsNo targets recorded. Patient Instructions Encounter Date Encounter Id Patient Instructions Last Modified By Organization Details Last Modified Time 2022 [id number] thyroid nodules: care instructions [email or web address] Not available 10/07/2022 08:56:57 insomnia: care instructions [email or web address] Not available 2022 15:35:24 preventing falls: care instructions [email or web address] Not available 2022 15:35:24 medicare preventive services guide (male 74 rs and under) [email or web address] Not available 2022 15:35:24 starting a weight loss plan: care instructions [email or web address] Not available 2022 15:35:24 02/15/2024 [id number] insomnia: care instructions [email or web address] Not available 02/15/2024 [...] Physician: [facility], Encounter Date: 2022 Tempering Oven Operator/dietitian Refer ral for Body mass index 30+ [...] 10/06/1910/06/2022 COMPR EHENS KARLO METAB OLIC PANL BUN 38 mg/dL (8-23) high Not Available [facility] (Centralized Electronic Ordering - All Locations) Patient Can Go To The Location Of Their Choice, 10/06/2022 13:48:43 10/06/1910/06/2022 COMPR EHENS KARLO METAB OLIC PANL creatinine [...] Their Choice, 10/06/2022 13:48:43 10/06/19 23 10/06/2022 NON FASTI NG LIPID PANEL cholesterol, total 128 mg/dL (<200) Not Available [facility] (Centralized Electronic Ordering - All Locations) Patient Can Go To The Location Of Their Choice, 10/06/2022 13:48:45 10/06/19 23 10/06/2022 NON FASTI NG LIPID PANEL HDL chol 36 mg/dL (>39) low Not Available [facility] (Centralized Electronic Ordering - All Locations) Patient Can Go To The Location Of Their Choice, 10/06/2022 13:48:45 10/06/19 23 10/06/2022 NON FASTI NG LIPID PANEL non HDL [...] of [facility]ini [facility] and Appli ed Resea [facility] and Walea sesar Volum e 43, Suppl ement 1 [...] 06/12/2023 23:01:29 06/12/2006/12/2023 BASIC METAB OLIC PANEL BUN 41 mg/dL [...] 06/12/2023 23:01:29 06/12/2006/12/2023 BASIC METAB OLIC PANEL chloride 109 mmol/ [...] The Location Of Their Choice, 06/16/2023 07:59:21 10/21/19 24 10/22/2023 HEMOG LOBIN A1C hemoglobin A1C 6.9 % 4.8-5. 6 above high normal Predi abete s: 5.7 - 6.4 Diabe faina: >6.4 Glyce anshul contr ol for adult s with diabe faina: <7.0 Not Available [facility] ([facility]) [address] [place], [address], 10/22/2023 22:06:05 05/17/2005/18/2024 COMP. METAB OLIC PANEL (14) glucose 122 mg/dL 70-99 above high normal Not Available [facility] ([facility]) [address] [place], [address], 05/18/2024 08:09:32 05/17/20 24 05/18/2024 COMP. METAB OLIC PANEL (14) BUN 34 mg/dL 8-27 above high normal Not Available [facility] ([facility]) [address] [place], [address], 05/18/2024 08:09:32 05/17/2005/18/2024 COMP. METAB OLIC PANEL (14) creatinine 3.18 mg/dL 0.76-1 .27 above high normal Not Available [facility] ([facility]) [address] [place], [address], 05/18/2024 08:09:32 05/17/20 24 05/18/2024 COMP. METAB OLIC PANEL (14) eGFR 18 mL/mi n/1.7 3 >59 below low normal Not Available [facility] ([facility]) [address] [place], [address], 05/18/2024 08:09:32 05/17/20 24 05/18/2024 COMP. METAB OLIC PANEL (14) BUN/creatini ne ratio 11 10-24 normal Not Available [facility] ([facility]) [address] [place], [address], 05/18/2024 08:09:32 05/17/20 24 05/18/2024 COMP. METAB OLIC PANEL (14) sodium 145 mmol/ L 134-14 4 above high normal Not Available [facility] ([facility]) [address] [place], [address], 05/18/2024 08:09:32 05/17/20 24 05/18/2024 COMP. METAB OLIC PANEL (14) potassium 4.8 mmol/ L 3.5-5. 2 normal Not Available [facility] ([facility]) [address] [place], [address], 05/18/2024 08:09:32 05/17/20 24 05/18/2024 COMP. METAB OLIC PANEL (14) chloride 107 mmol/ L 96-106 above high normal Not Available [facility] ([facility]) [address] [facility] [place], [address], 05/18/2024 08:09:32 05/17/20 24 05/18/2024 COMP. METAB OLIC PANEL (14) carbon dioxide, total 18 mmol/ L 20-29 below low normal Not Available [facility] ([facility]) [address] [facility] [place], [address], 05/18/2024 08:09:32 05/17/20 24 05/18/2024 COMP. METAB OLIC PANEL (14) calcium 9.7 mg/dL 8.6-10 .2 normal Not Available [facility] ([facility] [address] [facility] [place] [address], 05/18/2024 08:09:32 05/17/20 24 05/18/2024 COMP. METAB OLIC PANEL (14) protein, total 6.6 g/dL 6.0-8. 5 normal Not Available [facility] ([facility]) [address] [facility] [place], [address], 05/18/2024 08:09:32 05/17/20 24 05/18/2024 COMP. METAB OLIC PANEL (14) albumin 4.0 g/dL 3.7-4. 7 normal Not Available [facility] ([facility]) [address] [facility] [place], [address], 05/18/2024 08:09:32 05/17/20 24 05/18/2024 COMP. METAB OLIC PANEL (14) globulin, total 2.6 g/dL 1.5-4. 5 Not Available [facility] ([facility]) [address] [facility] [place], [address], 05/18/2024 08:09:32 05/17/2005/18/2024 COMP. METAB OLIC PANEL (14) bilirubin, total 0.3 mg/dL 0.0-1. 2 normal Not Available [facility] ([facility]) [address] [facility] [place], [address], 05/18/2024 08:09:32 05/17/20 24 05/18/2024 COMP. METAB OLIC PANEL (14) alkaline phosphatase 191 IU/L 44-121 above high normal Not Available [facility] ([facility]) [address] [facility] [place], [address], 05/18/2024 08:09:32 05/17/2005/18/2024 COMP. METAB OLIC PANEL (14) AST (SGOT) 26 IU/L 0-40 normal Not Available [facility] ([facility]) [address] [facility] [place], [address], 05/18/2024 08:09:32 05/17/2005/18/2024 COMP. METAB OLIC PANEL (14) ALT (SGPT) 21 IU/L 0-44 normal Not Available [facility] ([facility]) [address] [facility] [place], [address], 05/18/2024 08:09:32 05/17/20 24 05/18/2024 LIPID PANEL cholesterol, total 140 mg/dL 100-19 9 normal Not Available [facility] ([facility]) [address] [place], [address], 05/18/2024 08:09:33 05/17/20 24 05/18/2024 LIPID PANEL triglyceride s 120 mg/dL 0-149 normal Not Available [facility] ([facility]) [address] [facility], [place], [address], 05/18/2024 08:09:33 05/17/20 24 05/18/2024 LIPID PANEL HDL cholesterol 46 mg/dL >39 normal Not Available [facility] ([facility]) [address] [place], [address], 05/18/2024 08:09:33 05/17/20 24 05/18/2024 LIPID PANEL VLDL cholesterol maya 22 mg/dL 5-40 Not Available [facility] ([facility]) [address] [facility], [place], [address], 05/18/2024 08:09:33 05/17/20 24 05/18/2024 LIPID PANEL LDL chol calc ([facility]) 72 mg/dL 0-99 Not Available [facility] ([facility]) [address] [place], [address], 05/18/2024 08:09:33 05/17/2005/18/2024 LIPID PANEL LDL calc comment: CHIEF METEOROLOGIST Not Available [facility] ([facility]) [address] [place], [address], 05/18/2024 08:09:33 05/17/2005/17/2024 PSA TOTAL (REFL EX TO FREE) reflex criteria COMMEN T The perce nt free PSA is perfo rmed on a refle x basis only when the total PSA is betwe en 4.0 and 10.0 ng/mL . Not Available [facility] ([facility]) [address] [place], [address], 05/18/2024 08:09:34 05/17/20 24 05/18/2024 PSA TOTAL (REFL EX TO FREE) prostate [...] t be inter prete d as absol [place] evide nce of the prese nce or absen ce of yue abreu se. Not Available [facility] ([facility]) [address] [facility], [place], [address], 05/18/2024 08:09:34 05/17/2005/17/2024 HEMOG LOBIN A1C hemoglobin A1C 6.5 % 4.8-5. 6 above high normal Predi abete s: 5.7 - 6.4 Diabe faina: >6.4 Glyce anshul contr ol for adult s with diabe faina: <7.0 Not Available [facility] ([facility]) [address] [facility], [place], [address], 05/18/2024 08:09:34 05/17/20 24 05/18/2024 TSH RFX ON ABNOR MAL TO FREE T4 TSH 4.730 uIU/m L 0.450- 4.500 above high normal Not Available [facility] ([facility]) [address] [facility], [place], [address], 05/18/2024 08:09:35 05/17/20 24 05/18/2024 TSH RFX ON ABNOR MAL TO FREE T4 T4,free (direct) 1.60 NG/dL 0.82-1 .77 normal Not Available [facility] ([facility]) [address] [facility], [place], [address], 05/18/2024 08:09:35 05/17/2005/18/2024 MAGNE SIUM magnesium 2.2 mg/dL 1.6-2. 3 normal Not Available [facility] ([facility]) [address] [facility], [place], [address], 05/18/2024 08:09:36 Result Notes None recorded. Problems Name Problem SNOMED Code Status Onset Date Resolution Date Notes Provider Name and Address Organization Details Recorded Time Chronic kidney disease stage 3 924210928 Completed 201510/31/2020 Pati dyer [facility] 2 11:00:31 Diabetes mellitus 71984503 Active 2015 ANNA Sinclair, [facility] 4 14:12:03 Carcinom a of prostate 717455421 Active 2015 ANNA Garner, [facility] 2 15:07:04 Osteomye litis 24397864 Completed 201010/01/2017 5th digit right foot, s/p amputati on Sudheer Sims MD [address] [facility] [address], [place], [address] , [facility] 8 15:03:09 Spinal stenosis 27338788 Active 2015 ANNA Garner [facility] 2 15:07:04 Adenoma of rectum 703694369 Active 2015 ANNA Garner [facility] 2 15:07:04 Radiatio n proctiti s 245998459 Active 2015 ANNA Garner [facility] 2 15:07:04 Polyp of colon 11459107 Active 2015 ANNA Garner, [facility] 2 15:07:04 Glaucoma 16655054 Completed 201610/01/2017 Sudheer Sims MD [address], [place], [address] , [facility] 8 15:02:39 Thyroid hormone tests outside referenc e range 489375875 Completed 201610/05/2018 Sudheer Sims MD [address], [place], [address] , [facility] 9 11:12:24 Proteinu neel 38078217 Completed 201610/05/2016 ANNA Aguirre, [facility] 2 13:26:12 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 09:[facility]10 Osteoart hritis of hip 284377079 Active 2017 ANNA Garner, [facility] 2 15:07:04 History of osteomye litis 995782241 Active 2017 ANNA Garner, [facility] 2 15:07:04 Methicil danielle resistan t Staphylo coccus aureus infectio n 832393937 Completed 201810/07/2019 Sudheer Sims MD [address], [place], [address] , [facility] 0 10:27:23 Gout 04318638 Active 2018 Barbi Burkett MA null, [facility] 4 14:12:03 Infectio n of toe 498698871 Completed 201810/07/2019 left first MTP Sudheer Sims MD [address] [address], [place], [address] , [facility] 0 10:27:09 Ulcer of left foot Completed 201801/06/2019 grade 2 Elizabeth mittal MA null, [facility] 9 13:18:01 Gouty arthriti s of toe 898030170 Completed 201810/07/2019 Sudheer Sims MD [address] [address], [place], [address] , [facility] 0 10:27:00 Osteomye litis of left foot 32899246993 23660 Completed 201810/07/2019 MSSA Sudheer Sims MD [address] [address], [place], [address] , [facility] 0 10:27:37 Bursitis caused by bacteria l infectio n 046020455 Completed 201810/07/2019 Sudheer Sims MD [address] [address], [place], [address] , [facility] 0 10:23:02 Diabetic foot ulcer 261327195 Completed 201810/07/2019 Sudheer Sims MD [address] [address], [place], [address] , [facility] 0 10:23:09 Olecrano n bursitis 164631025 Completed 201810/07/2019 Sudheer Sims MD [address], [place], [address] , [facility] 0 10:27:42 History of methicil danielle resistan t Staphylo coccus aureus infectio n 515005326 Active 2019 Dyan Moreira MA null, [facility] 2 15:07:04 Osteoart hritis of joint of bilatera l hands 74890713224 9109 Active 2019 Dyan Moreira MA null, [facility] 2 15:07:04 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 55080083147 07 Active 2019 Dyan Moreira MA null, [facility] 2 15:07:04 Vitamin D deficien cy 82536212 Active 2019 Barbi Burkett MA null, [facility] 4 14:12:03 Erosive esophagi tis 82085792 Active 2020 Dyan Moreira MA null, [facility] 2 15:07:04 Total replacem ent of hip Active 2020 right Dyan Moreira MA null, [facility] 2 15:07:04 History of total hip arthropl asty 05230952347 6 Active 2020 Dyan Moreira MA null, [facility] 2 15:07:04 Retentio n of urine 885862543 Active 2020 Dyan Moreira MA null, [facility] 2 15:07:04 Traumati c dislocat ion of joint of finger 848275003 Completed 202010/07/2022 Sudheer Sims MD [address] [facility] [address], [place], [address] , [facility] 3 08:51:50 Cyst of kidney 023613193 Active 2020 Cain Saenz MD [address], [place], [address] , [facility] 1 22:49:45 Acute urinary tract infectio n 838634634 Completed 202008/16/2021 Sudheer Sims MD [address] [facility] [address], [place], [address] , [facility] 3 08:48:25 COVID-19 879994089 Completed 202012/12/2020 Removal Reason: Problem marked historic al by user [employer] from the COVID-19 watch flag Iram Li RN null, [facility] 1 14:39:56 History of SARS-CoV -2 02849855736 9826793 Active 2020 Dyan Moreira MA null, [facility] 2 15:07:04 Spinal stenosis in cervical region 18665685 Active 2020 Barbi Burkett MA null, [facility] 4 14:12:03 Nodular thyroid disease Active 2020 Dyan Moreira MA null, [facility] 2 15:07:04 Hyperten sive renal disease 20882545 Active 2020 Dyan Moreira MA null, [facility] 2 15:07:04 Secondar y hyperpar athyroid ism 05085843 Active 2020 Dyan Moreira MA null, [facility] 2 15:07:04 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 147813180 Active 2020 LABS 1 ACR 983.6 Yaneli Carlos MA null, [facility] 2 13:26:12 Vertigo 295426124 Completed 202110/07/2022 Sudheer Sims MD [address] [facility] [address], [place], [address] , [facility] 3 08:51:46 At increase d risk for falls 443400401 Active 2021 Dyan Moreira MA null, [facility] 2 15:07:04 Moderate major depressi on 265259 Active 2021 Dyan Moreira MA null, [facility] 2 15:07:04 Subclini maya hypothyr oidism 78810370 Active 2021 Dyan Moreira MA null, [facility] 2 15:07:04 Hypomagn esemia 318416224 Active 2021 Yaneli Carlos MA null, [facility] 2 13:26:12 Persiste nt insomnia 265505003 Active 2021 Dyan Moreira MA null, [facility] 2 15:07:04 Acute urinary tract infectio n 644539447 Completed 202010/07/2022 Sudheer Sims MD [address] [facility] [address], [place], [address] , [facility] 3 08:48:25 Orthosta tic hypotens ion 77848893 Active 2020 Yaneli Carlos MA null, [facility] 2 13:26:12 Lower urinary tract symptoms due to benign prostati c hypertro phy 36192792494 101 Active 2020 Dyan Moreira MA null, [facility] 2 15:07:04 Chronic kidney disease stage 3A 438626883 Completed 202109/23/2023 Sudheer Sims MD [address] [facility] [address], [place], [address] , [facility] 4 10:15:15 Thyroid nodule 849654489 Completed 202010/07/2022 Sudheer Sims MD [address] [facility] [address], [place], [address] , [facility] 3 08:51:43 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 Procedures Surgical History Date Name Laterality Status Provider Name and Address Organization Details Recorded Time 2021 Advanced Care Planning completed Elizabeth torres MA [facility] 2 10:25:24 2020 esophagogastroduodenoscopy completed Sudheer Sims MD [address] [facility] [address], [place], [address], [facility] 1 16:22:14 2020 prosthetic arthroplasty of the hip completed Sudheer Sims MD [address] [facility] [address], [place], [address], [facility] 1 12:44:46 2020 Joint Replacement completed Sudheer Sims MD [address] [facility] [address] [place], [address], [facility] 1 21:46:38 2020 Eye Surgery completed Ewelina Velazquez MA [facility] 1 09:51:24 2019 Mini-Cog Test completed Yaneli Carlos MA [facility] 0 09:58:14 2018 Mini-Cog Test completed Yaneli Carlos MA [facility] 9 10:56:24 2017 Mini-Cog Test completed Yaneli Carlos MA [facility] 8 14:19:13 2016 Fall Risk Assessment completed Bella Pastor [facility] 7 13:42:32 2016 Mini-Cog Test completed Bella Pastor [facility] 7 13:44:30 2016 Advanced Care Planning completed Sudheer Sims MD [address], [place], [address], [facility] 7 12:13:29 2015 Colonoscopy completed Sudheer Sims MD [address], [place], [address], [facility] 9 11:11:56 2010 Amputation completed Sudheer Sims MD [address], [place], [address], [facility] 9 11:12:03 Cholecystectomy completed Sudheer Sims MD [address], [place], [address], [facility] 7 14:21:27 Laminotomy single lumbar completed Sudheer Sims MD [address], [place], [address], [facility] 7 14:22:18 Appendectomy completed Sudheer Sims MD [address], [place], [address], [facility] 0 10:18:05 Imaging Results None recorded. Procedure Notes None recorded. Medical Equipment None Reported. Allergies Allergen ID Allergen Name Allergen Category Reaction Reaction Severity Criticality Documentation Date Start Date Code Code System Note Provider Name and Address Organization Details Recorded Time 31498 atorvasta tin medicatio n myalgias (muscle pain) moderate Not available 03/23/2017 38248 RxNorm Sudheer Sims MD [address], [place], [address], [facility] 7 14:27:00 82183 pravastat in medicatio n myalgias (muscle pain) Not available Not available 04/23/20172020 31209 RxNorm ANNA Sinclair, [facility] 4 13:50:45 77163 atorvasta tin calcium medicatio n other moderate Not available 01/14/20222020 91184 RxNorm Sudheer Sims MD [address], [place], [address], [facility] 3 08:48:05 30923 doxepin medicatio n dizziness Not available Not available 10/10/2022 3638 RxNorm ANNA Garner, [facility] 3 14:46:07 Medications Name Sig Start Date [...] Not Available Not Available Not Available Align (B. is) 4 mg capsule Take 1 capsule every day by oral route. active Not Available Not Available No t Available Align (B. is) 01/11 completed Not Available Not Available [...] Not Available Not Available Not Available Fluad 2018- 65yr up(PF)45 mcg(15 mcgx3)/0. 5 mL intramusc ular syringe 10/07 completed Not Available Not Available Not Available Fluzone High-Dose Quad (PF) 240 mcg/0.7 mL IM syringe 04/27 [...] Updated DateTime 3 175.26 cm 32.5 kg/m2 24518.3 2 g 78 /min 97 % 97 % 98 [degF] 158 mm[Hg] 66 mm[Hg] 128 mm[Hg] 70 mm[Hg] Barbi Anandbhumi [facility] 3 15:04:18 Date Recorded Body height Provider Name an d Address Organization Details Last Updated DateTime 10/31/2022 175.26 cm [facility]att Whitney [facility] 10/31/2022 14:36:57 Date Recorded Body height Body mass index (BMI) Body weight Heart rate Oxygen saturation Oxygen saturation in Arterial blood by Pulse oximetry Body temperature Systolic blood pressure Diastolic blood pressure Provider Name and Address Organization Details Last Updated DateTime 4 175.26 cm 30.9 kg/m2 97492.8 1 g 65 /min 98 % 98 % 98.4 [degF] 146 mm[Hg] 70 mm[Hg] Barbi Anandbhumi [facility] 4 13:58:51 Date Recorded Body height Provider Name an d Address Organization Details Last Updated DateTime 05/27/2024 175.26 cm Denia White [facility] 05/27/2024 13:10:58 Social History Question Answer Notes LastModified by Organizat ion Details LastModified Time Tobacco Smoking Status Former Smoker Bella dyer [facility] 09/24/2016 13:39:27 Do You Have An Advance Directive? Yes HCP/ Dtr's Sharon 09/24/19 18 [email or web address] Information not available 10/31/2022 What Is Your [...] COVID-19 While That Case Was Ill? No [email or web address] Information not available 10/31/2022 In The 14 Days Before Symptom Onset, Have You Had Close Contact With A Person Who Is Under Investigation For COVID-19 While That Person Was Ill? No [email or web address] Information not available 10/31/2022 Are You Currently Employed? No Information not available 09/24/2016 What Type Of Diet Are You Following? CARDIAC Low Salt/low Carb Information not available 09/12/2021 Which Illicit Or Recreational Drugs Have You Used? None Information not available 09/24/2016 Do You Or Have You Ever Used E-cigarettes Or Vape? 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 16+yearssinandrew [email or web address] Information not available 10/22/2020 Live Alone Or With Others? Alone [email or web address] Information not available 10/31/2022 Do You Take [...] Or Greater Than 100 Degrees Fahrenheit? No [email or web address] Information not available 03/16/2020 Are You Or Anyone In Your Household A Health Care Provider Or Emergency Responder? No [email or web address] Information not available 03/16/2020 To The Best Of Your Knowledge Have You Been In Close Proximity To Any Individual Who Tested Positive For COVID-19? No [email or web address] Information not available 03/16/2020 *AWV ONLY* Are [...] Gathering In The Last 10 Days? No Information not available 08/23/2020 What Was The Date Of Your Most Recent Tobacco Screening? 02/15/2024 Information not available 02/15/2024 How Many Children Do You Have? 2 Sharon Information not available 09/12/2021 What Is Your Current Pack Years? 20-29packyear s [email or web address] Information not available 10/31/2022 Do You Use Your Seat Belt Or Car Seat Routinely? Yes Information not available 10/15/2021 Seat Belts Used Routinely Yes Information not available 10/31/2022 Are You Sexually Active? No Information not available 10/15/2021 Smoke Alarm In Home Yes [email or web address] Information not available 10/31/2022 Do You Have [...] Use Any Illicit Or Recreational Drugs? No Information not available 10/31/2022 Do You Use Sunscreen Routinely? No [email or web address] Information not available 09/24/2016 How Many Years Have You Smoked Tobacco? 20 Information not available 09/24/2016 Sex: Unknown Functional Status Question Answer Note LastModified by Organizat ion Details LastModified Time Are you able to walk? YESASSIST Cane/Walke r [email or web address] Information not available 10/31/2022 Are you able to care for yourself? Yes [email or web address] Information not available 09/24/2016 What is your [...] History Condition Response Gout Y Other Y Kidney Stones N Blood Diseases N Hyperthyroidism N Breast Cancer N Hypothyroidism Y Lung Disease N Depression N COPD N Defects or Inherited Disease N Anesthesia Complications N Headaches/Migraines N Anxiety Disorder N Varicose Veins N Obesity N Vision or Eye Problems N Arthritis N Head Injury/Concussion N Infertility N Polyps N Congenital Anomalies N Acid Reflux (GERD) Y Cancer Y Stroke N ADHD N Endometriosis N High Cholesterol Y Liver Disease N Fibromyalgia N Kidney Disease Y Heart Problems N Ear or Hearing Problems N Hospitalizations Y Thyroid Problems Y GI Problems N Acne N Eating Disorder N Skin Problems N Anemia N Constipation N Bladder Problems N Mental Illness N Diabetes Y Ovarian Cancer N Blood Transfusions N Seizures/Epilepsy N Tuberculosis N AIDS/HIV N Congestive Heart Failure (CHF) N Eczema N Abuse/Domestic Violence N Diverticulitis N Asthma N Allergies N Reflux/GERD N Hepatitis N Pulmonary Embolism N Hypertension Y Chicken Pox N Autism Spectrum Disorder (ASD) N Osteoporosis N Immunizations Vaccine Type Date Status Note Provider Nam e and Address Organization Details Recorded Time Influenza, high-dose, trivalent, PF [facility]:12:10 pneumococcal polysaccharide PPV23 1 [facility] 15:07:16 zoster recombinant 8 [facility] 14:12:10 zoster recombinant 9 [facility] 14:12:10 Influenza, split virus, quadrivalent, preservative 9 completed Isabela dyer [facility] 10/23/2020 09:04:11 COVID-19, mRNA, LNP-S, PF, 30 mcg/0.3 mL dose 1 [facility] 14:12:10 COVID-19, mRNA, LNP-S, PF, 30 mcg/0.3 mL dose 1 [facility] 14:12:10 pneumococcal polysaccharide PPV23 2 [facility]12[facility] 10:32:04 Tdap 1 [facility] 14:12:10 Influenza, high-dose, trivalent, PF 5 [facility] 14:12:10 Influenza, adjuvanted, trivalent, PF 6 completed ANNA Sinclair, [facility] 02/15/2024 14:12:10 Influenza, high-dose, quadrivalent, PF 0 completed ANNA Sinclair, [facility] 02/15/2024 13:51:03 COVID-19, mRNA, LNP-S, PF, 30 mcg/0.3 mL dose 1 completed ANNA Sinclair, [facility] 02/15/2024 14:12:10 COVID-19, mRNA, LNP-S, PF, 30 mcg/0.3 mL dose, rita-sucrose 2 [facility]22 15:07:17 Pneumococcal conjugate PCV 13 8 completed ANNA Sinclair, [facility] 02/15/2024 14:12:10 Influenza, high-dose, trivalent, PF 7 [facility] 14:12:10 Influenza, high-dose, trivalent, PF 8 [facility] 14:12:10 Influenza, high-dose, quadrivalent, PF 1 completed ANNA Sinclair, [facility] 02/15/2024 13:51:03 Td (adult), 5 Lf tetanus toxoid, preservative free, adsorbed 7 completed ANNA Sinclair, [facility] 02/15/2024 13:51:04 COVID-19, mRNA, LNP-S, bivalent, PF, 30 mcg/0.3 mL dose 2 completed ANNA Sinclair, [facility] 2022 15:04:26 Influenza, high-dose, quadrivalent, PF 2 completed Pati dyer [place] [facility] 06/12/2022 14:10:50 Past Encounters Encounter ID Performer Location Encounter Start Date Encounter Closed Date Diagnosis/Indication Diagnosis SNOMED-CT Code Diagnosis ICD10 Code Diagnosis Note [id number] Pati Stevie Main Office [address] [place] [address] 09/24/2016 13:27:24 09/24/2016 14:48:57 Carcinoma of prostate 364741170 C61 s/p radiation therapy. Will confirm PSA is stable. Hypertensive disorder 38 177268 I10 Well controlled /at goal. Continue current regimen.Im munization status updated, will screen based on risk factors. Regular dental and ophtho care advised as well as seat belt and sunscreen use. Pt currently demonstrat es mild/moder ate risk for falls as well as cognitive decline. Advance directives in place. Body mass index 30+ - obesity 625649214 Z68.30 E66.9 Requires a tetanus booster 686477896 Z23 Disorder o f nervous system due to type 2 diabetes mellitus 714522922 E11.40 diagnosis based on history. Monofilame nt exam unremarkab le today but has history of osteomyeli tis. Will monitor. Ophtho exam utd, wll track down most recent report. Increased frequency of urination 744319820 R35.0 Refer to urology to help address this issue and follow up on prostate cancer monitoring . 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 Regular physical and mental activity advised. Will monitor. [id number] Pati Hubbard Main Office [address] [place] [address] 03/23/2017 13:29:27 03/23/2017 14:40:58 Hypertensive disorder 13517605 I10 Well controlled , continue current regimen. Influenza vaccine needed 7649940627 106 Z23 Proteinuria 72885723 R80 .9 Stable on ACEI and also followed by renal. Renal diso rder due to type 2 diabetes mellitus 039385617 E11.22 On ASA. Has ophtho exam next month. Chronic ki dney disease stage 3 296918815 N18.3 Diabetic p eripheral neuropathy 585192727 E11.42 Hypercholesterolemia 136 46323 E78.00 WIll resume statin but see if pravastati n is better tolerated. [id number] Sudheer Sims MD Main Office [address] [place] [address] 08/28/2017 09:41:39 08/28/2017 10:22:35 Intermittent claudication 28976365 I73.9 ? if musculoske letal vs vascular vs neurogenic in etiology. Will start with orthopedic and vascular assessment s. If abnormal will refer accordingl y. If studies are normal will pursue neurologic eval. Advised to call if new symptoms develop. Pain in lower limb 40980 006 M79.604 M79.605 [id number] Sudheer Sims MD Main Office [address] [place] [address] 10/01/2017 13:53:12 10/01/2017 15:26:49 Adult health examination 845782105 Z00.00 Immunizati ons status updated. Will screen based on risk factors. Regular dental and ophtho care advised as well as seat belt and sunscreen use. Distracted driving discussed. Pt currently demonstrat es low risk for falls and no significan t cognitive decline. Diabetes mellitus 625020 09 E11.21 Carcinoma of prostate 25 8905601 C61 s/p radiation therapy. Will confirm PSA is stable. Obesity 066196290 E66.9 Body mass index 30+ - obesity 133860523 Z68.32 Hypercholesterolemia 136 19297 E78.00 Will reassess back on statin and titrate as tolerated to goal LDL <100. Thyroid ho rmone tests outside reference range 979642755 R94.6 Clinically euthyroid, will recheck labs. Hypertensive disorder 38 016506 I10 Not at goal today. Has renal f/u scheduled next week. Chronic ki dney disease stage 3 470060455 N18.[address] Corrales next week. Renal; function has been stable. Administra tion of pneumococcal vaccine 02629445 Z23 Disorder o f nervous system due to type 2 diabetes mellitus 487549557 E11.40 Followed by podiatry. Ophtho exam utd. [id number] Sudheer Sims MD Main Office [address] [address] [place] [address] 12/24/2017 09:40:07 12/24/2017 10:39:35 Hypertensive disorder 65284169 I10 Fair control. Continue current regimen for now. Diabetes mellitus 563507 09 E11.21 Hypercholesterolemia 136 81583 E78.00 LDL at goal. Continue current regimen/do se. Osteoarthritis of hip 23 7327460 M16.12 Improved, following with ortho. Renal diso rder due to type 2 diabetes mellitus 560646831 E11.22 Following labs every 6 months with renal. Chronic ki dney disease stage 3 687981987 N18.3 Renal; function has been stable. [id number] Sudheer Sims MD Main Office [address] [address] [place] [address] 04/27/2018 09:43:46 04/27/2018 10:38:20 Diabetes mellitus 59562156 E11.21 Hypertensive disorder 38 475838 I10 Influenza vaccine needed 3226172385 106 Z23 Varicella vaccination 68 073157 Z23 Thyroid ho rmone tests outside reference range 892748164 R94.6 Clinically euthyroid, will recheck labs. Hypercholesterolemia 136 11305 E78.00 LDL at goal. Continue current regimen/do se. [id number] Sudheer Sims MD Main Office [address] [place] [address] 10/05/2018 10:01:33 10/05/2018 11:23:34 Adult health examination 181492768 Z00.00 Immunizati ons status updated. Will screen based on risk factors. Regular dental and ophtho care advised as well as seat belt and sunscreen use. Distracted driving discussed. Pt currently demonstrat es low risk for falls and no significan t cognitive decline. Advance directives in place. Diabetes mellitus 834519 09 E11.21 Fair control. COntineu currnt regimen. Carcinoma of prostate 25 7638221 C61 s/p radiation therapy. Will confirm PSA is stable. Obesity 780652655 E66.9 Body mass index 30+ - obesity 092348322 Z68.30 Hypercholesterolemia 136 92598 E78.00 Will reassess back on statin and titrate as tolerated to goal LDL <100. Hypertensive disorder 38 822206 I10 Well controlled , continue current regimen. Chronic ki dney disease stage 3 478546888 N18.[address] Corrales next week. Renal; function has been stable. Disorder o f nervous system due to type 2 diabetes mellitus 547074387 E11.40 Followed by podiatry. Ophtho exam utd. Infection of toe 2041309 06 L08.9 Foot dressed. Currently following with podiatry and wound care referral underway. WIll request podiatry notes. [id number] Greg Carrillo PA-C Main Office [address] [facility] [address] [facility] [place] [address] 01/06/2019 12:50:48 01/06/2019 13:50:26 Diabetic foot ulcer 416098022 E13.621 f/u c wound care clinic later this afternoon Osteomyeli tis of left foot 9014639337 815969 M86.9 cont abx as dir by toolroom checker x 5 more weeks - agree c taking probiotic daily Gout 01003182 M10.9 seen by rheum yest - cont allopurino l as dir, f/u c rheum 6 months/prn Chronic ki dney disease stage 3 553113513 N18.3 mild yaneth as inpt - will recheck bmp and cc: labs to renal, next f/u in a few months Essential hypertension 31441428 I10 bp stable, cont meds as dir [id number] Sudheer Sims MD Main Office [address] [facility] [address] [place] [address] 10/07/2019 09:16:12 10/07/2019 10:50:59 Adult health examination 364996840 Z00.00 Immunizati ons status utd. Will screen based on risk factors. Regular dental and ophtho care advised as well as seat belt and sunscreen use. Distracted driving discussed. Pt currently demonstrat es low risk for falls and no significan t cognitive decline. Advance directives in place. Diabetes mellitus 556268 09 E11.21 Fair control. Continue current regimen. Chronic ki dney disease stage 3 518485080 N18.[address] Corrales next week. Renal; function has been stable. Carcinoma of prostate 25 6269494 C61 s/p radiation therapy. Will confirm PSA is stable. Benign pro static hyperplasia with outflow obstruction 416610471 N40.1 Gout 79265382 M10.9 Hypercholesterolemia 136 68441 E78.01 Will reassess back on statin and titrate as tolerated to goal LDL <100. Hypertensive disorder 38 169723 I10 Has been well controlled , continue current regimen and reassess. Renal diso rder due to type 2 diabetes mellitus 079996087 E11.22 Following labs every 6 months with renal. Peripheral neuropathy due to type 2 diabetes mellitus 5026758257 107 E11.42 Stable, followed by podiatry. Vitamin D deficiency 347 88599 E55.9 On supplement will confirm appropriat eness. [id number] Kelsey campbell Main Office [address] [facility] [address] [place] [address] 03/16/2020 10:34:55 03/16/2020 11:39:08 Eruption 958526772 R21 pt has had a rash in [...] as he ahs a hx of MRSA [id number] Sudheer Sims MD Tele[facility]alt [facility] [address] [facility] [address] [place] [address] 04/27/2020 13:09:51 04/27/2020 16:13:58 Hypertensive disorder 68410807 I10 Has been well controlled based on home numbers continue current regimen and reassess in office next visit. Diabetes mellitus 569790 09 E11.21 Good control. Continue current regimen. Chronic ki dney disease stage 3 879311057 N18.3 Renal function has been stable on ACEI. Renal following. Hypercholesterolemia 136 15917 E78.01 Well controlled on low dose statin. Continue as is. Gout 56541877 M10.9 [id number] Cain Saenz MD Main Office [address] [facility] [address] [facility] [place] [address] 07/18/2020 08:49:40 07/18/2020 09:19:13 Pre-surgery evaluation 197416784 Z01.818 1.Pre-Surg ical Evaluation /Surgical Clearance for [...] or up to 30 days post-op Cataract 883598233 H26.9 Patient to have left cataract surgery 07/23/2020 and right in Sep 03 2020. [id number] Pati Hubbard Main Office [address] [facility] [address] [place] [address] 08/23/2020 09:43:35 08/23/2020 10:42:02 Cellulitis of toe of left foot 4581820416 6091199 L03.032 Due to redness, will start med for a week, followup with wound care/Dr Becerra. Keep toe covered, wash and dry as normal, call if weeping , pus develops or worsens. Ulcer of toe 143200458 L 97.529 pt has appt to see podiatry on thursday, Dr Becerra in [place] [id number] Pati Hubbard Main Office [address] [facility] [address] [place] [address] 10/22/2020 09:47:08 10/22/2020 10:39:18 Transition of care 6433642443 105 Z75.8 Medication s were reconciled , [...] to follow-up with gastro. Retention of urine 10168 4002 R33.9 This is likely due to postop urinary retention, and history of BPH he is on tamsulosin , has a Nieves in place that is draining straw-colo red urine and he is due to see urology who will evaluate for Nieves removal. Traumatic dislocation of joint of finger 018877241 S63.250D Patient had a dislocatio n of the right fifth PIP secondary to fall he is post reduction. Patient is to follow-up with hand surgeon outpatient . Mass of duodenum 6508375 [address] scan showed possible [...] a large renal cyst. Cyst of kidney 274372299 N28.1 Patient is to have an MRI, and he is following with nephrology thus this will need following up and coordinati on with his primary care doctor and nephrology once further imaging is obtained. Acute urin chi tract infection 374657071 N39.0 This is a UTI likely due to Nieves placement, Nieves was replaced. Patient was started on Macrobid and is to follow-up with urology. Urine was straw-colo red and not cloudy. Skin irritation 39982637 7 L30.9 This is due to prolonged pressure in the gluteal region however there is no skin break at this time I advised the patient to offload and change position frequently to prevent ulcers. Fracture of femur 262623 00 S72.91XD Given the mechanism of the [...] cause of his osteoporos is. fall W19.XXXD [id number] Greg Carrillo PA-C Telehealt [facility] [address] [facility] [address] [facility] [place] [address] 11/20/2020 13:02:50 11/23/2020 13:51:08 Fever 201415331 R50.9 given his fever, cough, and signs of dehydratio n (dark urine in bag) - unsure of etiology of his sxs - strongly urged pt/dtr to take pt to [facility] for prompt evaluation to r/o covid, pna, uti, etc as well as receive IV fluids - dtr expressed understand ing and will take him there, will fwd this note to [facility] triage Cough 08280048 R05 [id number] Pati Hubbard Main Office [address] [facility] [address] [facility] [place] [address] 02/06/2021 14:38:47 02/06/2021 15:53:18 Moderate major depression 994613 F32.1 pt stable on meds, needs refill of mirtazapin e which is helping with depression , anxiety and wt Peripheral neuropathy due to type 2 diabetes mellitus 1383192087 107 E11.42 stable Chronic ki dney disease stage 3B 713550305 N18.32 check labs in 2 days; pt has orders, creat was stable at last check, will need to see renal in the next month or two Diabetes mellitus 798029 09 E11.40 BS controlled , will do labs to followup, not sure if he has labs ordered from renal History of SARS-CoV-2 29 46180325 44958793 Z86.16 has recovered, no cough in study for post covid surveillan ce Gout 32624619 M10.9 stable , no sx on allopurino l Mass of duodenum 9310296 08 R19.09 Thsi was seen on imaging study in Sep 2020. Pt had neg EUS, per discharge summary was recomended to have MRI, will arrange in the next few weeks. Thyroid nodule 237388266 E04.1 Hypercalcemia 97658849 E 83.52 calcium to be done as part of bmp above Hypertensi ve renal disease 40447105 I12.9 BP is controlled on present regimen, continue all meds at current dosages. Continue with low salt diet, exercise [id number] Greg Carrillo PA-C Main Office [address] [facility] [address] [place] [address] 05/08/2021 14:23:53 05/08/2021 15:53:40 Influenza vaccine needed 2180304626 106 Z23 Benign pro static hyperplasia with outflow obstruction 541389571 N13.8 stable lately, cont f/u c uro Muscle weakness 48996120 M62.81 generalize d weakness from multiple inpt admissions for past 7-8 months, slowly getting better/str onger - cont PT as dir Chronic ki dney disease stage 3B 465751418 N18.32 stable, cont f/u c renal - next month Hypertensi ve renal disease 18638752 I12.9 stable, cont meds as dir Insomnia 296390341 G47.0 0 stable on 25mg qhs - advised if having difficulty sleeping can increase to 50mg qhs [id number] Soto Castle MD Telehealt h [address] [facility] [address] [place] [address] 08/16/2021 13:46:32 08/19/2021 12:03:13 Urinary tract infectious disease 14807366 N39.0 [id number] Sudheer Sims MD Main Office [address] [facility] [address] [place] [address] 09/12/2021 10:06:59 09/12/2021 11:20:17 Adult health examination 789554795 Z00.00 Immunizati ons status utd. Will screen based on risk factors. Regular dental and ophtho care advised as well as seat belt and sunscreen use. Distracted driving discussed. Pt currently demonstrat es risk for falls but no significan t cognitive decline. Advance directives in place. Advance di rective discussed with patient [id number] Z71.89 Will obtain copy of MOLST form for chart. Vertigo [id number] R42 Suspect this is related to sinusitis. Will use meclizine while waiting for abx to help. At [facility] ed risk for falls 451717350 Z91.81 Acute sinusitis 45918585 J01.90 Sounds like secondary bacterial infection is likely. Will cover with Augmentin, renally dosed. Gout 30986527 M10.9 On allopurino l, will verify adequate control. Goal UA level <6.8. Chronic ki dney disease stage 3B 545964500 N18.32 Carcinoma of prostate 25 7383116 C61 s/p radiation therapy. Will confirm PSA is stable. Hypercholesterolemia 136 08095 E78.01 Well controlled on low dose statin. Continue as is. Hypertensi ve renal disease 33187527 I12.9 BP well controlled , following with Dr. Corrales. Vitamin D deficiency 347 20610 E55.9 On supplement will confirm appropriat eness. Erosive esophagitis 4071 9004 K22.10 On PPI, well controlled . Hypomagnesemia 420247718 E83.42 Will see if supplement is needed. Peripheral neuropathy due to type 2 diabetes mellitus 9149670324 107 E11.42 Stable, followed by podiatry. Moderate m ajor depression 920808 F32.1 Symptoms not limiting. Trazodone helping with sleep. Will monitor. [id number] Sudheer Sims MD Telehealt h [address] [facility] [address] [facility] [place] [address] 11/15/2021 08:45:26 11/18/2021 08:24:05 Moderate major depression 574045 F32.1 Mood improved back on SSRI. Not sure trazodone is helping. Will titrate traz dose down and monitor. Hypercholesterolemia 136 31459 E78.01 Well controlled on low dose statin. Continue as is. Persistent insomnia 1919 36889 G47.09 Will see if mirtazepin e helps with this and mood. Titrate as tolerated to goal symptom control. [id number] Pati Hubbard Main Office [address] [facility] [address] [place] [address] 01/14/2022 13:15:31 01/14/2022 14:21:26 Peripheral neuropathy due to type 2 diabetes mellitus 6492902416 107 E11.42 Will reassess and continue current regimen for now. Benign hyp ertensive renal disease 696145 I12.9 Well controlled at recent renal appt 128/70 and improving with recheck here. Will contiue current regimen. Persistent insomnia 1919 82683 G47.09 Doing well on mirtazepon e and melatonin. Will continue current regimen. Hypomagnesemia 876747638 E83.42 Will see if supplement is needed. Abnormal t hyroid hormone 436526505 R94.6 Subclinica l, will follow/jhonathan ssess. [id number] Thaliazachariah Foote Main Office [address] [facility] [address] [place] [address] 05/22/2022 14:28:25 05/22/2022 15:44:38 Peripheral neuropathy due to type 2 diabetes mellitus 7803462670 107 E11.42 Diabetes well controlled . Will try low dose gabapentin for neuropathy . Moderate m ajor depression 009985 F32.1 Well controlled on low dose mirtazepin e. Will continue as is. Consider switch to duloxetine depending on neuropathy progressio n. Hypertensi ve renal disease 80149379 I12.9 Not under great control. Following with renal where plan was to reduce amlodipine and restart chlorthali done. I will defer these decisions to Dr. Corrales given his CKD. Influenza vaccine needed 1534575458 106 Z23 Hypothyroidism 48030781 E03.9 Started on low dose supplement , will recheck labs in 2-3 months and evaluate nodules in the meantime. Chronic insomnia 4685129 04 F51.04 See if low dose gabapentin (because of CKD) helps. Thyroid nodule 382426639 E04.1 Delayed evaluation because of multiple health events/gomez demic last year. With thyroid dysfunctio n and based on size it should be investigat ed further. Now willing to pursue further evaluation . Will again ask endo to help assess and determine best plan/appro ach. Chronic ki dney disease stage 3A 703966780 N18.31 [id number] Sudheer Sims MD Main Office [address] [place] [address] 2022 14:28:41 2022 15:39:45 Adult health examination 542653397 Z00.00 Immunizati ons status utd. Will screen based on risk factors. Regular dental and ophtho care advised as well as seat belt and sunscreen use. Distracted driving discussed. Pt currently demonstrat es risk for falls but no significan t cognitive decline. Advance directives in place. Chronic ki dney disease stage 3A 927467554 N18.31 Has been stable and followed by Dr. Corrales, BP well controlled . Moderate m ajor depression 107251 F32.1 Well controlled on low dose mirtazepin e. Will continue as is for now but consider reducing dose depending on response to doxepin. Peripheral neuropathy due to type 2 diabetes mellitus 3201631327 107 E11.42 Diabetes well controlled . Carcinoma of prostate 25 3665584 C61 s/p radiation therapy. Will confirm PSA is stable and CC urology. Body mass index 30+ - obesity 943961054 E66.9 Z68.32 Insomnia 518616585 G47.0 0 Persistent issue. Will try low dose doxepin, titrate as tolerated to goal symptom control. At [facility] ed risk for falls 809753791 Z91.81 Referral provided for FPI. Hypomagnesemia 181949166 E83.42 Will see if supplement is needed. 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 Hypercholesterolemia 136 48904 E78.01 Well controlled on low dose statin. Continue as is. Adenoma of rectum 557363 005 D12.8 Has history but based on age/lack of symptoms and comorbidit ies will defer f/u for now. Thyroid nodule 109286010 E04.1 Following with endocrine, imaging felt to be stable. Biopsy being deferred for now. [id number] Sudheer Sims MD Telehealt h [address] [place] [address] 10/10/2022 13:35:49 10/10/2022 16:05:19 Persistent insomnia 874745961 G47.09 Recalcitra nt issue, no relief with mirtazepin e currently or with trazodone/ melatonin/ lorazepam/ doxepin in the past. Will see if low dose mood stabilizer helps. Moderate m ajor depression 464848 F32.1 Hypothyroidism 85923843 E03.9 Started on low dose supplement , dose recently increased will recheck labs in 2-3 months. Nodules being followed by Dr. Edwards. [id number] Sudheer Sims MD Telehealt h [address] [facility] [address] [facility] [place] [address] 10/31/2022 13:27:30 10/31/2022 15:26:43 Persistent insomnia 064957106 G47.09 Recalcitra nt issue, no relief with trazodone/ melatonin/ lorazepam/ doxepin in the past. Responding well to low ose mood stabilizer . Will continue current dose for now. Moderate m ajor depression 239583 F32.1 Well controlled with mirtazepin e. Will continue current dose for now, consider weaning if symptoms improve with better sleep quality. [id number] Sudheer Sims MD Main Office [address] [facility] [address] [place] [address] 02/15/2024 13:44:15 02/15/2024 14:49:30 Adult health examination 840472233 Z00.00 COVID booster, RSV and PCV20 advised via local pharmacy. Will screen based on risk factors. Regular dental and ophtho care advised as well as seat belt and sunscreen use. Distracted driving discussed. Pt currently demonstrat es risk for falls but no significan t cognitive decline. Advance directives in place. Hypercholesterolemia 136 68192 E78.01 Well controlled on low dose statin. Continue as is. Moderate m ajor depression 524306 F32.1 Well controlled on mirtazepin e. Will continue as is for now but consider reducing dose depending on response to doxepin. Peripheral neuropathy due to type 2 diabetes mellitus 1591230978 107 E11.42 Diabetes well controlled . Carcinoma of prostate 25 5886199 C61 s/p radiation therapy. Will confirm PSA is stable and CC urology. Body mass index 30+ - obesity 171406972 E66.9 Z68.30 Insomnia 912988049 G47.0 0 Responding to mirtazepin e, will monitor. Hypomagnesemia 944572763 E83.42 Will see if supplement is needed. Subclinica l hypothyroidism 11405975 E[address] Edwards. Renal diso rder due to type 2 diabetes mellitus 133743164 E11.22 Following labs every 6 months with renal. Adenoma of rectum 394373 005 D12.8 Has history but based on age/lack of symptoms and comorbidit ies will defer f/u for now. Thyroid nodule 668644303 E04.1 Has u/s booked then f/u with Dr. Edwards. Administra tion of viral vaccine 02461115 Z29.11 Chronic ki dney disease stage 4 107636138 N18.4 Stable and working with Dr. Corrales on HTN/DM control. [id number] [facility] [address] [facility] [address] [place] [address] 05/27/2024 12:52:03 05/27/2024 15:03:53 Persistent insomnia 346608721 G47.09 Recalcitra nt issue, no relief with trazodone/ melatonin/ lorazepam/ doxepin in the past. Responding well to mirtazepin e. Will continue current dose for now. Subclinica l hypothyroidism 84038396 E[address] Edwards. Will monitor slight TSH bump for now. Renal diso rder due to type 2 diabetes mellitus 884257403 E11.22 Following labs every 6 months with [...] Name 2022 1 [employer] (MEDICARE REPLACEMENT PPO) [id number] Papo Brand [id number] Papo [employer] 10/10/2022 1 [employer] (MEDICARE REPLACEMENT PPO) [id number] Papo Brand [id number] [employer] 10/31/2022 1 [employer] (MEDICARE REPLACEMENT PPO) [id number] Papo Brand [id number] [employer] 02/15/2024 1 [employer] (MEDICARE REPLACEMENT PPO) [id number] Papo Brand [id number] [employer] 05/27/2024 1 [employer] (MEDICARE REPLACEMENT PPO) [id number] 1 [employer]o Brand [id number] [employer] Notes Date Note Type Note [...] in the bathroom/shower Sudheer Sims MD [address], [address], [facility] 10/07/2022 09:01:03 10/10/2022 text/html Anxiety/Depressi onRe ported [...] of elevated TSH. Sudheer Sims MD [address], [address], [facility] [place] 10/10/2022 15:21:40 10/31/2022 text/html Anxiety/Depressi onRe ported [...] of elevated TSH. Sudheer Sims MD [address], [address], [facility] 10/31/2022 15:23:26 02/15/2024 text/html Medicare Annual Wellness [...] in the bathroom/shower Sudheer Sims MD [address], [address], [facility] 03/14/2024 06:49:08 05/27/2024 text/html Anxiety/Depressi onRe ported [...] TSH mildly elevated. Sudheer Sims MD [address] [address], [place], [address], [facility] 05/27/2024 13:56:30
== END 2024-10-11 11:53 | disposition home or self-care (01) ==
PROVIDERS: PCP Pediatrics; Visit Provider Internal Medicine Nephrology
DX: I12.9 Hypertensive chronic kidney disease with stage 1 through stage 4 chronic kidney disease, or unspecified chronic kidney disease (principal); N18.4 Chronic kidney disease, stage 4 (severe); R80.8 Other proteinuria; E11.21 Type 2 diabetes mellitus with diabetic nephropathy; N25.81 Secondary hyperparathyroidism of renal origin
CPT/HCPCS: 99214

== ENCOUNTER → 2024-10-11 11:05 | Outpatient (BNVA) | payer MEDICARE, SELFPAY | PROVIDERS: PCP Pediatrics; Visit Provider Internal Medicine Nephrology | DX: E11.22 Type 2 diabetes mellitus with diabetic chronic kidney disease (principal); I12.9 Hypertensive chronic kidney disease with stage 1 through stage 4 chronic kidney disease, or unspecified chronic kidney disease; N18.4 Chronic kidney disease, stage 4 (severe); E11.21 Type 2 diabetes mellitus with diabetic nephropathy; R80.8 Other proteinuria; N25.81 Secondary hyperparathyroidism of renal origin | CPT/HCPCS: 99212 ==

== ENCOUNTER 2025-01-24 13:07 | Outpatient (REF) | payer MEDICARE, SELFPAY ==
--- OUTSIDE RECORDS SUMMARY | 2025-01-24 14:56 | XMS_ITS | Clinical Summary ---
Author Organization [facility] Address [address] [facility] [address] [place] [address] Phone Care Team Providers Care Pediatric Physical Therapy Assistant Name Role Phone Sudheer Goyal MD Primary Care Provider [phone] Allergies Active Allergy Reactions Criticality Noted Date [...] 04/15/2016 10/30/2020 Spinal stenosis 04/15/2016 10/30/2020 Immunizations Immunization Administration Dates Next Due Influenza Split High Dose Pr eservative Free IM 04/27/2018,03/23/2017,04/10/2016,04/05 Influenza, Quadrivalent, Wit h Preservative 03/29/2020,05/02/2019,04/27/2018 Influenza, Trivalent, Adjuvanted 04/23/2016 Influenza, Unspecified 05/08/2021 CelebCalls SARS-COV-2 10/24/2020 Pfizer SARS-COV-2 06/24/2021,11/14/2020,10/25/19 21 Pneumococcal [...] 05/20/2022, 11/20/2020, Additional history exists Influenza Vaccine (Season Ended) 2025 05/08/2021, 03/29/2020, 05/02/2019, Additional history exists Pneumococcal Vaccine: 50+ Years Completed 10/01/2017, 10/01/2017, 05/10/2012, Additional history exists Pneumococcal Vaccine: Peds (0 to 5 Years) and At-Risk Patients (6 to 49 Years) Discontinued 10/01/2017, 10/01/2017, 05/10/2012, Additional history exists Hepatitis B Vaccine Aged Out No longe r eligible based on patient's age to complete this topic Procedures Procedure Name Priority Date/Time Associated Diagnosis Comments HEMOGLOBIN A1C Routine 06/12/2023 1:01 PM EDT from Last 3 Months or Most Recently Relevant to Health Maintenance Results * (ABNORMAL) Hemoglobin A1c (06/12/2023 1:01 PM EDT) Hemoglobin A1C 6.3(H) (4.0-5.6) % [facility] Comment: MONITORING: In known diabetic patients, hemoglobin A1c targets should be discussed with health care provider. DIAGNOSTIC USE: ??The [place] Diabetes Association (ADA) and the World Health [...] Supplement 1 Testing performed or reported by [facility], a Service of [facility], [address] [place] [address] Sidney Cano MD, Metal Furniture Polisher [facility]# [id number] 06/12/2023 1:01 PM EDT 06/12/2023 1:04 PM EDT Mitesh Corrales MD LAB BLOOD ORDERABLES Final Resul t [facility] from Last 3 Months or Most Recently Relevant to Health Maintenance Insurance [employer] MCR Adv PPO ([id number]) A[employer]na [facility] Adv PPO ([id number]) Care Teams Pediatric Physical Therapy Assistant Relationship Specialty Start Date End Date Sudheer Goyal MD [address] [address] PCP - General 08/20/20
[2025-01-24 17:38] LABS: MANUAL DIFF FLAG NO
[2025-01-24 17:52] LABS: Basophils Absolute Auto 0.1 X10*3/uL (0.0-0.2); Basophils Percent Auto 0.6 % (0-2); Eosinophils Absolute Auto 0.5 X10*3/uL (0.0-0.4); Hematocrit 42.7 % (42.0-52.0); Hemoglobin 13.8 g/dl (14.0-18.0); Imm Gran Abs Auto 0.04 X10*3/uL (0.00-0.03); Imm Gran Pct Auto 0.4 % (0.0-0.4); Lymphocytes Absolute Auto 1.2 X10*3/uL (1.2-4.9); Mean Corpuscular HGB Conc 32.3 g/dl (31.0-36.0); Mean Corpuscular Hemoglobin 28.8 pg (27.0-33.0); Mean Platelet Volume 11.9 fL (9.4-12.4); Monocytes Absolute Auto 0.6 X10*3/uL (0.1-1.2); Monocytes Percent Auto 6.3 % (2-11); Neutrophils Absolute Auto 7.1 x10*3/uL (2.0-8.3); Neutrophils Percent Auto 74.7 % (45-73); Platelet Count 228 X10*3/uL (160-400); Red Cell Distribution Width 14.6 % (11.0-16.0); White Blood Count 9.5 X10*3/uL (4.8-10.8)
[2025-01-24 17:58] LABS: Anion Gap 13 (12-20); Blood Urea Nitrogen 42 mg/dL (9-16); Carbon Dioxide 24 mmol/L (22-29); Chloride 112 mmol/L (96-108); Estimated Glomerular Filt Rate 20; Phosphorus 2.5 mg/dL (2.7-4.5); Potassium 4.6 mmol/L (3.3-5.1); Sodium 144 mmol/L (135-145)
[2025-01-24 18:46] LABS: Parathyroid Hormone Intact 375.9 pg/mL (8.7-77.1)
== END 2025-01-24 13:08 | disposition home or self-care (01) ==
LOC: HO.HKASLDS 13:07
PROVIDERS: Visit Provider Internal Medicine Nephrology
DX: N18.4 Chronic kidney disease, stage 4 (severe) (principal); R80.9 Proteinuria, unspecified; N25.81 Secondary hyperparathyroidism of renal origin; E11.21 Type 2 diabetes mellitus with diabetic nephropathy; R80.8 Other proteinuria; I10 Essential (primary) hypertension
CPT/HCPCS: 36415; 80051; 82310; 82565; 83970; 84100; 84520; 85025

== ENCOUNTER 2025-01-26 11:49 | Outpatient (AMB) | payer MEDICARE, SELFPAY ==
--- NOTE | 2025-01-26 12:41 | HO.NEPHOV_ITS ---
Vital Signs 01/26/25 12:43 Height 5 ft 9 in Weight 201 lb 2 oz BMI 29.7 BP 146/70 H Blood Pressure Location Lt brachial Position Sitting Pulse 60 Pulse Source Pulse Oximeter Pulse Oximetry (%) 97 Oxygen Delivery Method Room Air Intake Visit Reasons: 3 mnts f/u-Conf Work And Family Life Consultant Required: No Accompanied by: Daughter Allergies atorvastatin Allergy (Verified 01/26/25 12:42) Unknown pravastatin Allergy (Verified 01/26/25 12:42) Unknown HPI Comments Details: Papo was seen in follow-up for his chronic kidney disease and hypertension. He is known to have proteinuria. He is a diabetic. His blood pressure has been at goal. He does not have any hypervolemia. He denies chest pain, shortness of breath, hypoglycemia, nausea, vomiting, diarrhea or urinary symptoms. He is active now. He avoids nonsteroidal anti-inflammatory medications. He had no new complaints [facility] Medical History (Updated 10/11/24 @ 11:35 by Mitesh Corrales MD) Posterior reversible encephalopathy syndrome Chronic kidney disease, stage 4 (severe) Diabetes Acute kidney injury Essential (primary) hypertension Surgical History History of cataract surgery Social History Alcohol intake: never Patient Tobacco Use Status: Never used Tobacco Review of Systems Const All systems reviewed & are unremarkable except as noted in HPI and below Physical Exam Vital Signs: Last Vital Signs Pulse 60 01/26/25 12:43 BP 146/70 H 01/26/25 12:43 Pulse Ox 97 01/26/25 12:43 Oxygen Delivery Method Room Air 01/26/25 12:43 BMI result Body Mass Index 29.7 Const General: comfortable and no acute distress Orientation/consciousness: patient oriented x3 HEENT Head: Yes normocephalic Mouth: Normal oral and palatal mucosa present Eyes EOM: EOMs intact bilaterally Neck Neck: Yes supple Resp Auscultation: clear to auscultation bilaterally Cardio Jugular venous distension: no JVD Rate: regular rate GI Palpation (GI): Soft to palpation Auscultation: normal bowel sounds General: Yes no CVA tenderness Back/Spine/Pelvis Back: no CVA tenderness Skin General skin exam: no rashes or lesions noted Neuro General: patient oriented x3 and moves all extremities Extrem General: Yes no pedal edema Results Reviewed Nephrology Results: Hgb, (14.0-18.0) 13.8 g/dl L 01/24/25 WBC, (4.8-10.8) 9.5 X10*3/uL 01/24/25 Plt Count, (160-400) 228 X10*3/uL Δ 01/24/25 Sodium, (135-145) 144 mmol/L 01/24/25 Potassium, (3.3-5.1) 4.6 mmol/L 01/24/25 Chloride, (96-108) 112 mmol/L H 01/24/25 Carbon Dioxide, (22-29) 24 mmol/L 01/24/25 BUN, (9-16) 42 mg/dL H 01/24/25 Creatinine, (0.5-1.4) 3.05 mg/dL H 01/24/25 Calcium, (8.4-10.2) 10.0 mg/dL 01/24/25 Phosphorus, (2.7-4.5) 2.5 mg/dL L 01/24/25 PTH Intact, (8.7-77.1) 375.9 pg/mL H 01/24/25 Assessment & Plan Assessment & Plan (1) Chronic kidney disease, stage 4 (severe): Code(s): N18.4 - Chronic kidney disease, stage 4 (severe) Category: Medical (2) Essential (primary) hypertension: Code(s): I10 - Essential (primary) hypertension Category: Medical (3) Secondary hyperparathyroidism (of renal origin): Code(s): N25.81 - Secondary hyperparathyroidism of renal origin Category: Medical (4) Diabetic nephropathy: Code(s): E11.21 - Type 2 diabetes mellitus with diabetic nephropathy Category: Medical Qualifiers: Diabetes mellitus type: type 2 Qualified Code(s): E11.21 - Type 2 di abetes mellitus with diabetic nephropathy Plan Papo has stage 4 chronic kidney disease. His renal functions had been pretty stable. He is proteinuric. His blood pressure has been at goal. He has no orthostatic symptoms. He is not hyperkalemic or metabolically acidotic. He is on Jardiance to 25 mg daily and continue calcitriol 0.25 mcg 3 times a week. His blood sugars is better. He should be on a low-sodium diet. He should try to lose some weight. He should remain well hydrated. He should avoid nonsteroidal anti-inflammatory medications. All these have been explained detail .Follow-up of blood work were ordered. All his and his daughter's questions were answered. Follow-up appointment given Orders: Orders Calcium 3 Months E11. - Type 2 diabetes mellitus with diabetic nephropathy, I10 - Essential (primary) hypertension, N18.4 - Chronic kidney disease, stage 4 (severe), N25.81 - Secondary hyperparathyroidism of renal origin Parathyroid Hormone Intact 3 Months E11. - Type 2 diabetes mellitus with d iabetic nephropathy, I10 - Essential (primary) hypertension, N18.4 - Chronic kidney disease, stage 4 (severe), N25.81 - Secondary hyperparathyroidism of renal origin Creatinine 3 Months E11. - Type 2 diabetes mellitus with diabetic nephropathy, I10 - Essential (primary) hypertension, N18.4 - Chronic kidney disease, stage 4 (severe), N25.81 - Secondary hyperparathyroidism of renal origin Blood Urea Nitrogen 3 Months E11. - Type 2 diabetes mellitus with diabetic nephropathy, I10 - Essential (primary) hypertension, N18.4 - Chronic kidney d isease, stage 4 (severe), N25.81 - Secondary hyperparathyroidism of renal origin Electrolytes 3 Months E11. - Type 2 diabetes mellitus with diabetic nephropathy, I10 - Essential (primary) hypertension, N18.4 - Chronic kidney disease, stage 4 (severe), N25.81 - Secondary hyperparathyroidism of renal origin Coding Level of Care Code Est Pt Level 4 (26811) Diagnoses Chronic kidney disease, stage 4 (severe) N18.4 Essential (primary) hypertension I10 Secondary hyperparathyroidism (of renal origin) N25.81 Diabetic nephropathy associated with type 2 diabetes mellitus . Diabetes mellitus type: type 2
[2025-01-26 12:43] VITALS: BP 146/70; PULSE 60; O2SAT 97; BMI 29.7
--- OUTSIDE RECORDS SUMMARY | 2025-01-26 13:16 | XMS_ITS | Clinical Summary ---
Author Organization [facility] Address [address] [facility] [address] [place] [address] Phone Care Team Providers Care Metal Numerical Tool Programmer Name Role Phone Sudheer Goyal MD Primary Care Provider [phone] Allergies Active Allergy Reactions Criticality Noted Date [...] Influenza, Trivalent, Adjuvanted 04/23/2016 Influenza, Unspecified 05/08/2021 [employer] Medical SARS-COV-2 10/24/2020 Pfizer SARS-COV-2 06/24/2021,11/14/2020,10/25/19 21 Pneumococcal [...] PM EDT) Hemoglobin A1C 6.3(H) (4.0-5.6) % [facility] Comment: MONITORING: In known diabetic patients, hemoglobin A1c targets should be discussed with health care provider. DIAGNOSTIC USE: The [place] Diabetes Association (ADA) and the World Health [...] Supplement 1 Testing performed or reported by [facility], a Service of [facility], [address] [place] [address] Sidney Cano MD, Infectious Diseases Physician [facility]# [id number] 06/12/2023 1:01 PM EDT 06/12/2023 1:04 PM EDT Mitesh Corrales MD LAB BLOOD ORDERABLES Final Resul t [facility] from Last 3 Months or Most Recently Relevant to Health Maintenance Insurance [employer] MCR Adv PPO ([id number]) A[employer]na MCR Adv PPO ([id number]) Care Teams Metal Numerical Tool Programmer Relationship Specialty Start Date End Date Sudheer Goyal MD [address] [address] PCP - General 08/20/20
== END 2025-01-26 13:05 | disposition home or self-care (01) ==
LOC: HO.HKAS 11:50
PROVIDERS: PCP Pediatrics; Visit Provider Internal Medicine Nephrology
DX: I12.9 Hypertensive chronic kidney disease with stage 1 through stage 4 chronic kidney disease, or unspecified chronic kidney disease (principal); N18.4 Chronic kidney disease, stage 4 (severe); N25.81 Secondary hyperparathyroidism of renal origin; E11.21 Type 2 diabetes mellitus with diabetic nephropathy
CPT/HCPCS: 99214

== ENCOUNTER → 2025-01-26 11:49 | Outpatient (BNVA) | payer MEDICARE, SELFPAY | PROVIDERS: PCP Pediatrics; Visit Provider Internal Medicine Nephrology | DX: I10 Essential (primary) hypertension (principal); N25.81 Secondary hyperparathyroidism of renal origin; N18.4 Chronic kidney disease, stage 4 (severe); E11.21 Type 2 diabetes mellitus with diabetic nephropathy; R80.9 Proteinuria, unspecified; N17.9 Acute kidney failure, unspecified | CPT/HCPCS: 99212 ==

== ENCOUNTER 2025-04-17 13:20 | Outpatient (REF) | payer MEDICARE, SELFPAY ==
[2025-04-17 14:35] LABS: Parathyroid Hormone Intact 380.3 pg/mL (8.7-77.1)
--- OUTSIDE RECORDS SUMMARY | 2025-04-17 15:39 | XMS_ITS | Clinical Summary ---
Author Organization [facility] Address [address] [place] [address] Care Team Providers Care Frame Stripper Name Role Phone Unavailable Primary Care Provider Unavailabl e Social History Tobacco Use Types Packs/Day Years Used Date Smoking Tobacco: Never Assessed Sex and Gender Information Value Date Recorded Sex Assigned at Not on file Legal Sex Male 9:02 PM EST Gender Identity Not on file Sexual Orientation Not on file Plan of Treatment Health Maintenance Due Date Last Done Comments RSV Immunization Adult Patients (1 - 1-dose 75+ series) 2013 Depression Screening 08/10/2024 COVID-19 Vaccine ( season) 2025 05/29/2022, 01/03/2022, 06/24/2021, Additional history exists Influenza Vaccine (#1) 2025 , 05/22/2022, 05/08/2021, Additional history exists DTaP,Tdap,and Td Vaccines (3 - Td or Tdap) 09/17/2030 09/17/2020, 09/24/2016 Pneumococcal Vaccine: 50+ Years Completed 10/01/2017, 05/10/2012, 06/13/2011 Zoster Vaccines Completed 11/15/2018, 05/06/2018 HIB Vaccines Aged Out No longer eligi [...] age to complete this topic Meningococcal B Vaccine Aged Out No l onger eligible based on patient's age to complete this topic RSV Immunization Patients Under 20 months Aged Out No longer eligible based on patient's age to complete this topic Varicella Vaccines Aged Out No longer eligible based on patient's age to complete this topic
--- OUTSIDE RECORDS SUMMARY | 2025-04-17 15:39 | XMS_ITS | Clinical Summary ---
Author Organization [facility] Address [address] [place] [id number] Phone Care Team Providers Care Mailroom Clerk Name Role Phone Sudheer Goyal MD Primary Care Provider Allergies Active Allergy Reactions Criticality Noted Date Comments Atorvastatin Other (See Comments) Medium 10/30/2020 Pravastatin Other (See Comments) 10/30/2020 Medications magnesium oxide 400 mg magnesium Tab Take 1 tablet by mouth. Active amLODIPine (NORVASC) 10 MG tablet Take 10 mg by mouth daily. Active Bifidobacterium infantis (ALIGN) 4 mg Cap Take 1 capsule by mouth. Active cholecalciferol (VITAMIN D3) 25 MCG (1,000 unit) tablet Take 1,000 Units by mouth. Active JARDIANCE 10 mg tablet Take 20 mg by mouth every morning. 01/15/2024 Active levothyroxine (SYNTHROID, LEVOTHROID) 75 MCG tablet Take 75 mcg by mouth daily. Active metoprolol tartrate (LOPRESSOR) 25 MG tablet Take 12.5 mg by mouth. Active pantoprazole (PROTONIX) 40 MG tablet Take 1 tablet by mouth every morning. 11/16/2023 Active allopurinol (ZYLOPRIM) 300 MG tablet Take 1 tablet by mouth every morning. 01/19/2024 Active acetaminophen (TYLENOL) 500 MG tablet every 4 (four) hours. Active mirtazapine (REMERON) 15 MG tablet Take 15 mg by mouth daily. Active rosuvastatin (CRESTOR) 5 MG tablet Take 5 mg by mouth every morning. 11/26/2023 Active coenzyme [id number] E 100-5 mg-unit Cap Take 100 mg by mouth. Active glipiZIDE (GLUCOTROL XL) 2.5 MG 24 hr tablet Take 2.5 mg by mouth daily. Active melatonin 3 mg Tab Take 3 mg by mouth. Active Active Problems Problem Noted Date Diagnosed Date Multinodular goiter 01/22/2024 Assessment & Plan (01/22/2024 3:42 PM EDT): 83 y.o. man with incidentally found MNG. Had been seen @ [facility] late 2021/early 2022 (will obtain records), had reviewed imaging & felt was reasonable to monitor w/ recommendation for ultraound in 1 yr. No compressive symptoms. Clinically euthyroid. Will obtain records, including thyroid u/s images. Will repeat ultrasound. Will call for recent labs done via PCP. Diabetes mellitus 01/22/2024 GERD (gastroesophageal reflux disease) Malignant neoplasm of prostate 01/22/2024 Hypomagnesemia 09/25/2021 Hypertension 06/20/2021 Major depressive disorder, single episode, unspe cified 03/28/2021 Benign prostatic hyperplasia with lower urinary tract symptoms 03/25/2021 Gout 03/25/2021 Orthostatic hypotension 03/25/2021 Spinal stenosis, cervical region 03/25/2021 History of falling 11/22/2020 Vitamin D deficiency 11/22/2020 Type 2 diabetes mellitus without complications 0 11/22/2020 Diabetic nephropathy associa melony with type 2 diabetes mellitus 06/10/2017 Proteinuria 10/05/2016 Immunizations Immunization Administration Dates Next Due COVID-19 (Pre-06/01) Pfizer Vaccine, mRNA, PF 06/24/2021,11/14/2020,10/24/2020 COVID-19, Unspecified Formulation 10/24/2020 Influenza High-Dose Quadriva lent Preservative Free IM 04/27/2018,03/23/2017,04/10/2016,2014 Influenza, Unspecified Formulation 06/12/2023 Pneumococcal conjugate, unsp ecified formulation 10/01/2017 Tdap 09/17/2020 Zoster recombinant 11/15/2018,05/06/2018 Social History Tobacco Use Types Packs/Day Years Used Date Smoking Tobacco: Former Cigarettes Smokeless Tobacco: Never Tobacco Cessation:Counseling Given: Not Answered Alcohol Use Standard Drinks/Week Comments Never 0 (1 standard drink = 0.6 oz pur e alcohol) Education Answer Date Recorded Are you interested in more education? Not on ole e 06/15/2023 Are you concerned about learning? Not on file 06/15/2023 No 06/15/2023 No 06/15/2023 Digital Access Answer Date Recorded No 06/15/2023 No 06/15/2023 Reliable internet access at home? Not on file 06/15/2023 Device with a working camera? Not on file Sex and Gender Information Value Date Recorded Sex Assigned at Not on file Legal Sex Male 11:15 AM EST Gender Identity Not on file Sexual Orientation Not on file Last Filed Vital Signs Vital Sign Reading Time Taken Comments Blood Pressure 114/60 01/21/2024 2:51 PM EDT Pulse 62 01/21/2024 2:51 PM EDT Temperature - - Respiratory Rate - - Oxygen Saturation 97% 01/21/2024 2:51 PM EDT Inhaled Oxygen Concentration - - Weight 97.1 kg (214 lb) 01/21/2024 2:51 PM EDT w ith shoes on Height 174.7 cm (5' 8.78 ) 01/21/2024 2:51 PM ED T with shoes on Body Mass Index 31.8 01/21/2024 2:51 PM EDT Plan of Treatment Health Maintenance Due Date Last Done Comments CREATININE LEVEL 1938 TSH LEVEL 1938 DEPRESSION SCREENING 1950 PNEUMOCOCCAL VACCINES (50+ years) (1 of 2 - PCV) 1957 RSV VACCINE (1 - 1-dose 75+ series) 2013 HEMOGLOBIN A1C 12/11/2023 06/12/2023 DIABETIC EYE EXAM 01/22/2024 URINE MICROALBUMIN/CREATININE RATIO 01/22/2024 INFLUENZA VACCINE (#1) 2025 , 04/27/2018, 03/23/2017, Additional history exists COVID-19 VACCINE ( season) 2025 06/24/2021, 11/14/2020, 10/24/2020, Additional history exists Adult Td,Tdap Booster 09/17/2030 09/17/2020 ZOSTER VACCINES Completed 11/15/2018, 05/06/2018 HEPATITIS A VACCINES Aged Out No long er eligible based on patient's age to complete this topic HIB VACCINES Aged Out No longer eligi ble based on patient's age to complete this topic MENINGOCOCCAL VACCINES (ACWY) Aged Out No longer eligible based on patient's age to complete this topic MENINGOCOCCAL VACCINES (B) Aged Out N o longer eligible based on patient's age to complete this topic Medical Devices Not on file Insurance AETNA O MEDICARE REPLACEMENT AETNA O MEDICARE REPLACEMENT AETNA O MEDICARE REPLACEMENT AETNA PPO MEDICARE REPLACEMENT AETNA PPO MEDICARE REPLACEMENT AETNA PPO MEDICARE REPLACEMENT Care Teams Mailroom Clerk Relationship Specialty Start Date End Date Sudheer Goyal MD [address] [place] [address] PCP - General Internal Medicine 06/15/23 Additional Source Comments The information contained in this document represents components of the legal health record. It is not the complete legal health record.[facility]
--- OUTSIDE RECORDS SUMMARY | 2025-04-17 15:39 | XMS_ITS | Clinical Summary ---
Author Organization [facility] Address [address] [facility] [address] [place] [address] Phone Care Team Providers Care Bench Worker Apprentice Name Role Phone Sudheer Goyal MD Primary Care Provider [phone] Allergies Active Allergy Reactions Criticality Noted Date [...] Influenza, Trivalent, Adjuvanted 04/23/2016 Influenza, Unspecified 05/08/2021 [facility] SARS-COV-2 10/24/2020 Pfizer SARS-COV-2 06/24/2021,11/14/2020,10/25/19 21 Pneumococcal [...] 11/20/2020, Additional history exists Influenza Vaccine (#1) 2025 , 03/29/2020, 05/02/2019, Additional history exists Pneumococcal Vaccine: [...] PM EDT) Hemoglobin A1C 6.3(H) (4.0-5.6) % [facility] Comment: MONITORING: In known diabetic patients, hemoglobin A1c targets should be discussed with health care provider. DIAGNOSTIC USE: The [place] Diabetes Association (ADA) and the World Health [...] Supplement 1 Testing performed or reported by [facility], a Service of [facility], [address] [place] [id number] Sidney Cano MD, Respiratory Technician [facility]# [id number] 06/12/2023 1:01 PM EDT 06/12/2023 1:04 PM EDT Mitesh Corrales MD LAB BLOOD ORDERABLES Final Resul t [facility] from Last 3 Months or Most Recently Relevant to Health Maintenance Insurance Aetna MCR Adv PPO ([id number]) Aetna MCR Adv PPO ([id number]) Care Teams Bench Worker Apprentice Relationship Specialty Start Date End Date Sudheer Goyal MD [address] [address] PCP - General 08/20/20
[2025-04-17 17:54] LABS: Anion Gap 16 (12-20); Blood Urea Nitrogen 40 mg/dL (9-16); Calcium 9.8 mg/dL (8.4-10.2); Carbon Dioxide 25 mmol/L (22-29); Chloride 110 mmol/L (96-108); Estimated Glomerular Filt Rate 19; Potassium 5.0 mmol/L (3.3-5.1); Sodium 146 mmol/L (135-145)
== END 2025-04-17 13:21 | disposition home or self-care (01) ==
LOC: HO.HKASLDS 13:20
PROVIDERS: Visit Provider Internal Medicine Nephrology
DX: I12.9 Hypertensive chronic kidney disease with stage 1 through stage 4 chronic kidney disease, or unspecified chronic kidney disease (principal); E11.22 Type 2 diabetes mellitus with diabetic chronic kidney disease; N18.4 Chronic kidney disease, stage 4 (severe); N25.81 Secondary hyperparathyroidism of renal origin
CPT/HCPCS: 36415; 80051; 82310; 82565; 83970; 84520

== ENCOUNTER 2025-04-25 10:55 | Outpatient (REF) | payer MEDICARE, SELFPAY | END 2025-04-25 10:56 | disposition home or self-care (01) | LOC: HO.HKASLDS 10:55 | PROVIDERS: PCP Pediatrics; Visit Provider Internal Medicine Nephrology | DX: E11.21 Type 2 diabetes mellitus with diabetic nephropathy (principal); E11.22 Type 2 diabetes mellitus with diabetic chronic kidney disease; N18.4 Chronic kidney disease, stage 4 (severe); N25.81 Secondary hyperparathyroidism of renal origin; Z79.84 Long term (current) use of oral hypoglycemic drugs; Z79.899 Other long term (current) drug therapy | CPT/HCPCS: 87086; 87088; 87186; 99212 ==

== ENCOUNTER 2025-04-25 10:55 | Outpatient (AMB) | payer MEDICARE, SELFPAY ==
--- NOTE | 2025-04-25 10:57 | HO.NEPHOV ---
Vital Signs 04/25/25 11:00 Height 5 ft 9 in Weight 198 lb 8 oz BMI 29.3 BP 142/70 H Blood Pressure Location Lt brachial Position Sitting Pulse 66 Pulse Source Pulse Oximeter Pulse Oximetry (%) 96 Oxygen Delivery Method Room Air Intake Visit Reasons: 3mon follow-up w/labs-LVM Gravel Roofer Required: No Accompanied by: Self / Same As Patient Allergies atorvastatin Allergy (Verified 04/25/25 10:59) Unknown pravastatin Allergy (Verified 04/25/25 10:59) Unknown HPI Comments Details: Papo was seen in follow-up for his chronic kidney disease and hypertension. He is known to have proteinuria. He is a diabetic. His blood pressure has been at goal. He does not have any hypervolemia. He denies chest pain, shortness of breath, hypoglycemia, nausea, vomiting, diarrhea or urinary symptoms. He is active now. He avoids nonsteroidal anti-inflammatory medications. He had been having some burning while micturition without any fever, nausea, vomiting, chills or hematuria. [facility] Medical History (Updated 04/25/25 @ 11:09 by Mitesh Corrales MD) Posterior reversible encephalopathy syndrome Chronic kidney disease, stage 4 (severe) Diabetes Acute kidney injury Essential (primary) hypertension Surgical History History of cataract surgery Social History Alcohol intake: never Patient Tobacco Use Status: Never used Tobacco Review of Systems Const All systems reviewed & are unremarkable except as noted in HPI and below Physical Exam Vital Signs: Last Vital Signs Pulse 66 04/25/25 11:00 BP 142/70 H 04/25/25 11:00 Pulse Ox 96 04/25/25 11:00 Oxygen Delivery Method Room Air 04/25/25 11:00 BMI result Body Mass Index 29.3 Const General: comfortable and no acute distress Orientation/consciousness: patient oriented x3 HEENT Head: Yes normocephalic Mouth: Normal oral and palatal mucosa present Eyes EOM: EOMs intact bilaterally Neck Neck: Yes supple Resp Auscultation: clear to auscultation bilaterally Cardio Jugular venous distension: no JVD Rate: regular rate GI Palpation (GI): Soft to palpation Auscultation: normal bowel sounds General: Yes no CVA tenderness Back/Spine/Pelvis Back: no CVA tenderness Skin General skin exam: no rashes or lesions noted Neuro General: patient oriented x3 and moves all extremities Extrem General: Yes no pedal edema Results Reviewed Nephrology Results: Hgb, (14.0-18.0) 13.8 g/dl L 01/24/25 WBC, (4.8-10.8) 9.5 X10*3/uL 01/24/25 Plt Count, (160-400) 228 X10*3/uL Δ 01/24/25 Sodium, (135-145) 146 mmol/L H 04/17/25 Potassium, (3.3-5.1) 5.0 mmol/L 04/17/25 Chloride, (96-108) 110 mmol/L H 04/17/25 Carbon Dioxide, (22-29) 25 mmol/L 04/17/25 BUN, (9-16) 40 mg/dL H 04/17/25 Creatinine, (0.5-1.4) 3.09 mg/dL H 04/17/25 Calcium, (8.4-10.2) 9.8 mg/dL 04/17/25 Phosphorus, (2.7-4.5) 2.5 mg/dL L 01/24/25 PTH Intact, (8.7-77.1) 380.3 pg/mL H 04/17/25 Assessment & Plan Assessment & Plan (1) Diabetic nephropathy: Code(s): E11.21 - Type 2 diabetes mellitus with diabetic nephropathy Category: Medical Qualifiers: Diabetes mellitus type: type 2 Qualified Code(s): E11.21 - Type 2 diabetes mellitus with diabetic nephropathy (2) Chronic kidney disease, stage 4 (severe): Code(s): N18.4 - Chronic kidney disease, stage 4 (severe) Category: Medical (3) Secondary hyperparathyroidism (of renal origin): Code(s): N25.81 - Secondary hyperparathyroidism of renal origin Category: Medical (4) Essential (primary) hypertension: Code(s): I10 - Essential (primary) hypertension Category: Medical (5) Proteinuria: Code(s): R80.9 - Proteinuria, unspecified Category: Medical Qualifiers: Proteinuria type: other Qualified Code(s): R80.8 - Other proteinuria (6) Dysuria: Code(s): R30.0 - Dysuria Category: Medical Plan Papo has stage 4 chronic kidney disease. His renal functions had been pretty stable. He is proteinuric. His blood pressure has been at goal. He has no orthostatic symptoms. He is not hyperkalemic or metabolically acidotic. He is on Jardiance to 25 mg daily and continue calcitriol 0.25 mcg 3 times a week. His blood sugars is better. He should be on a low-sodium diet. He should try to lose some weight. He should remain well hydrated. He should avoid nonsteroidal anti-inflammatory medications. All these have been explained detail .Follow-up of blood work were ordered. All his and his daughter's questions were answered. Follow-up appointment given Orders: Orders Creatinine 3 Months E11.21 - Type 2 diabetes mellitus with diabetic nephropathy, I10 - Essential (primary) hypertension, N18.4 - Chronic kidney disease, stage 4 (severe), N25.81 - Secondary hyperparathyroidism of renal origin, R80.8 - Other proteinuria Electrolytes 3 Months E11.21 - Type 2 diabetes mellitus with diabetic nephropathy, I10 - Essential (primary) hypertension, N18.4 - Chronic kidney disease, stage 4 (severe), N25.81 - Secondary hyperparathyroidism of renal origin, R80.8 - Other proteinuria Vitamin D 25-OH Total 3 Months E11.21 - Type 2 diabetes mellitus with diabetic nephropathy, I10 - Essential (primary) hypertension, N18.4 - Chronic kidney disease, stage 4 (severe), N25.81 - Secondary hyperparathyroidism of renal origin, R80.8 - Other proteinuria Complete Blood Count Auto Diff 3 Months E11.21 - Type 2 diabetes mellitus with diabetic nephropathy, I10 - Essential (primary) hypertension, N18.4 - Chronic kidney disease, stage 4 (severe), N25.81 - Secondary hyperparathyroidism of renal origin, R80.8 - Other proteinuria Blood Urea Nitrogen 3 Months E11.21 - Type 2 diabetes mellitus with diabetic nephropathy, I10 - Essential (primary) hypertension, N18.4 - Chronic kidney disease, stage 4 (severe), N25.81 - Secondary hyperparathyroidism of renal origin, R80.8 - Other proteinuria Calcium 3 Months E11.21 - Type 2 diabetes mellitus with diabetic nephropathy, I10 - Essential (primary) hypertension, N18.4 - Chronic kidney disease, stage 4 (severe), N25.81 - Secondary hyperparathyroidism of renal origin, R80.8 - Other proteinuria Parathyroid Hormone Intact 3 Months E11.21 - Type 2 diabetes mellitus with diabetic nephropathy, I10 - Essential (primary) hypertension, N18.4 - Chronic kidney disease, stage 4 (severe), N25.81 - Secondary hyperparathyroidism of renal origin, R80.8 - Other proteinuria Phosphorus 3 Months E11.21 - Type 2 diabetes mellitus with diabetic nephropathy, I10 - Essential (primary) hypertension, N18.4 - Chronic kidney disease, stage 4 (severe), N25.81 - Secondary hyperparathyroidism of renal origin, R80.8 - Other proteinuria Urine Culture Today R30.0 - Dysuria Medications: Refilled calcitriol 0.25 mcg PO 3XW 60 caps 6RF Coding Level of Care Code Est Pt Level 4 (35381) Diagnoses 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
[2025-04-25 11:00] VITALS: BP 142/70; PULSE 66; O2SAT 96; BMI 29.3
--- OUTSIDE RECORDS SUMMARY | 2025-04-25 14:42 | XMS_ITS | Clinical Summary ---
Author Organization [facility] Address [address] [place] [id number] Phone Care Team Providers Care Fuel Island Attendant Name Role Phone Sudheer Goyal MD Primary [...] by mouth every morning. 11/26/2023 Active coenzyme G82-qjzhkow E 100-5 mg-unit Cap Take 100 mg by mouth. Active glipiZIDE (GLUCOTROL XL) 2.5 MG 24 hr tablet Take 2.5 mg by mouth daily. Active melatonin 3 mg Tab Take 3 mg by mouth. Active Active Problems Problem Noted Date Diagnosed Date Multinodular goiter 01/22/2024 Assessment & Plan (01/22/2024 3:42 PM EDT): 83 y.o. man with incidentally found MNG. Had been seen @ [facility] late 2021/early 2022 (will obtain records), had [...] REPLACEMENT A[employer] PPO MEDICARE REPLACEMENT Care Teams Fuel Island Attendant Relationship Specialty Start Date End Date Sudheer Goyal MD [address] [place] [address] PCP - General Internal Medicine 06/15/23 Additional Source Comments The information contained in this document represents components of the legal health record. It is not the complete legal health record.[facility]
--- OUTSIDE RECORDS SUMMARY | 2025-04-25 14:42 | XMS_ITS | Clinical Summary ---
Author Organization [facility] Address [address] [facility] [address] [place] [address] Phone Care Team Providers Care Automobile Technician Name Role Phone Sudheer Goyal MD Primary Care Provider [phone] Allergies Active Allergy Reactions Criticality Noted Date [...] Influenza, Trivalent, Adjuvanted 04/23/2016 Influenza, Unspecified 05/08/2021 [employer] SARS-COV-2 10/24/2020 Pfizer SARS-COV-2 06/24/2021,11/14/2020,10/25/19 21 Pneumococcal [...] PM EDT) Hemoglobin A1C 6.3(H) (4.0-5.6) % [facility] Comment: MONITORING: In known diabetic patients, hemoglobin A1c targets should be discussed with health care provider. DIAGNOSTIC USE: The [place] Diabetes Association (ADA) and the World Health [...] Supplement 1 Testing performed or reported by [facility], a Service of [facility], [address] [place] [id number] Sidney Cano MD, Radio Time Sales Supervisor [facility]# [id number] 06/12/2023 1:01 PM EDT 06/12/2023 1:04 PM EDT Mitesh Corrales MD LAB BLOOD ORDERABLES Final Resul t [facility] from Last 3 Months or Most Recently Relevant to Health Maintenance Insurance Aetna MCR Adv PPO ([id number]) Aetna MCR Adv PPO ([id number]) Care Teams Automobile Technician Relationship Specialty Start Date End Date Sudheer Goyal MD [address] [address] PCP - General 08/20/20
--- OUTSIDE RECORDS SUMMARY | 2025-04-25 14:42 | XMS_ITS | Clinical Summary ---
Author Organization [facility] Address [address] [place] [address] Care Team Providers Care Electro Mechanic Name Role Phone Unavailable Primary Care Provider [...]
== END 2025-04-25 11:32 | disposition home or self-care (01) ==
LOC: HO.HKAS 10:56
PROVIDERS: PCP Pediatrics; Visit Provider Internal Medicine Nephrology
DX: E11.21 Type 2 diabetes mellitus with diabetic nephropathy (principal); I12.9 Hypertensive chronic kidney disease with stage 1 through stage 4 chronic kidney disease, or unspecified chronic kidney disease; N18.4 Chronic kidney disease, stage 4 (severe); N25.81 Secondary hyperparathyroidism of renal origin; R80.8 Other proteinuria; R30.0 Dysuria
CPT/HCPCS: 99214

== ENCOUNTER 2025-05-30 13:06 | Outpatient (REF) | payer MEDICARE, SELFPAY ==
--- OUTSIDE RECORDS SUMMARY | 2025-05-30 16:57 | XMS_ITS | Clinical Summary ---
Author Organization [facility] Address [address] [facility] [address] [place] [address] Phone Care Team Providers Care Inspector Packer Name Role Phone Sudheer Goyal MD Primary [...] Influenza, Trivalent, Adjuvanted 04/23/2016 Influenza, Unspecified 05/08/2021 [employer] SARS-COV-2 10/24/2020 Pfizer SARS-COV-2 06/24/2021,11/14/2020,10/25/19 21 Pneumococcal [...] PM EDT) Hemoglobin A1C 6.3(H) (4.0-5.6) % [facility] Comment: MONITORING: In known diabetic patients, hemoglobin A1c targets should be discussed with health care provider. DIAGNOSTIC USE: The [place] Diabetes Association (ADA) and the World Health [...] Supplement 1 Testing performed or reported by [facility], a Service of [facility], [address] [place] [id number] Sidney Cano MD, Manuscripts Curator [facility]# [id number] 06/12/2023 1:01 PM EDT 06/12/2023 1:04 PM EDT Mitesh Corrales MD LAB BLOOD ORDERABLES Final Resul t [facility] from Last 3 Months or Most Recently Relevant to Health Maintenance Insurance A[employer]na MCR Adv PPO ([id number]) Aetna MCR Adv PPO ([id number]) Care Teams Inspector Packer Relationship Specialty Start Date End Date Sudheer Goyal MD [address] [address] PCP - General 08/20/20
--- OUTSIDE RECORDS SUMMARY | 2025-05-30 16:58 | XMS_ITS | Data Portability ---
Author Organization [facility], Main Office Address [address] [facility] [address] [place] [address] Care Team Providers Care Wildlife Biology Technician Name Role Phone SUDHEER SIMS Primary Care Provider HIRAL TURK Cigar Making Supervisor [phone] ONOFRE HARDIN Orthopedic Surgeon [phone] ALANNAH CORRALES Refuse Laborer DONNA DOUGLAS Motor Equipment Sergeant DYAN LOZADA Urologist LORENA CAZARES Orthopedic Surgeon [phone] ANGEL LUIS PAULINO Costume Maker RUDY EDWARDS Multiple Spindle Screw Machine Operator Assessment Encounter Date Assessment Date Assessment LastModified by Organization Details LastModified Time 10/10/2022 10/10/2022 This service was provided using telemedicine. Patient consented to video & audio visit Patient was located in the [facility]. Provider was located in the office. No other persons participated in the telemedicine visit except for the patient unless otherwise indicated here. Kareen Total time of visit was 13 minutes. awychowski Not available 10/10/2022 15:17:14 10/31/2022 10/31/2022 This service was provided using telemedicine. Patient consented to video & audio visit Patient was located in the [facility]. Provider was located in the office. No other persons participated in the telemedicine visit except for the patient unless otherwise indicated here. Dtr/Kareen Total time of visit was 12 minutes. awychowski Not available 10/31/2022 15:18:36 05/27/2024 05/27/2024 This service was provided using telemedicine. Patient consented to video & audio visit Patient was located in the [facility]. Provider was located in the office. No other persons participated in the telemedicine visit except for the patient unless otherwise indicated here. Phil Total time of visit was 17 minutes. flora Not available 05/27/2024 13:53:38 Plan of Treatment Reminders Order Date Submit Date Provider Last Modified By Organization Details Last Modified Time Details Appointments [id number] 2024 11:00A M Sudheer Sims MD Not available Not available Not available Lab HbA1c (hemog lobin A1c), blood 2024 025 MARIYA [facility] (Centralized Electronic Ordering - All Locations), Patient Can Go To The Location Of Their Choice, 11/24/2024 12:21:11 CMP, serum or plasma 2024 025 MARIYA [facility] (Centralized Electronic Ordering - All Locations), Patient Can Go To The Location Of Their Choice, 11/24/2024 12:21:12 TSH, ultra- sensit karlo, serum 2024 025 MARIYA [facility] (Centralized Electronic Ordering - All Locations), Patient Can Go To The Location Of Their Choice, 11/24/2024 12:21:11 CMP, serum or plasma 2023 025 [email or web address] [facility] (Centralized Electronic Ordering - All Locations), Patient Can Go To The Location Of Their Choice, 05/09/2025 10:36:56 HbA1c (hemog lobin A1c), blood 2023 025 [email or web address] [facility] (Centralized Electronic Ordering - All Locations), Patient Can Go To The Location Of Their Choice, 05/09/2025 10:36:56 TSH, ultra- sensit karlo, serum 2023 025 [email or web address] [facility] (Centralized Electronic Ordering - All Locations), Patient Can Go To The Location Of Their Choice, 05/09/2025 10:36:56 TSH, ultra- sensit karlo, serum 2023 024 MARIYA [facility] (Centralized Electronic Ordering - All Locations), Patient Can Go To The Location Of Their Choice, [id number] 05/18/2024 08:09:35 magnes ium, serum or plasma 2023 024 MARIYA [facility], [address], [place], [address], 05/18/2024 08:09:36 lipid panel, serum 2023 024 MARIYA [facility], [address], [place], [address], 05/18/2024 08:09:33 HbA1c (hemog lobin A1c), blood 2023 024 MARIYA [facility], [address], [address], [place], [address], 05/18/2024 08:09:34 CMP, serum or plasma 2023 024 MARIYA [facility], [address], [address], [place], [address], 05/18/2024 08:09:32 PSA, serum or plasma 2023 024 MARIYA [facility], [address], [place], [address], 05/18/2024 08:09:34 TSH, serum or plasma 2022 023 MARIYA [facility], [address], [place], [address], 12/02/2022 21:39:33 Referral None record ed. Procedures None record ed. Surgeries None record ed. Imaging None record ed. Medication Orders mirtaz apine 30 mg tablet 2023 MARIYA Not available 02/15/2024 14:43:12 rosuva statin 5 mg tablet 2023 024 MARIYA Not available 02/15/2024 14:43:09 Jardia nce 25 mg tablet 2023 024 awychowski Not available 03/14/2024 06:33:50 quetia pine 25 mg tablet 2022 023 [email or web address] Not available 02/15/2024 14:00:42 quetia pine 25 mg tablet 2022 023 [email or web address] Not available 02/15/2024 14:00:42 Patient TargetsNo targets recorded. Patient Instructions Encounter Date Encounter Id Patient Instructions Last Modified By Organization Details Last Modified Time 02/15/2024 [id number] insomnia: care instructions awychowski Not available 02/15/2024 14:42:59 preventing falls: care instructions awychowski Not available 02/15/2024 14:42:58 well visit, over 65: care instructions awychowski Not available 02/15/2024 14:42:58 medicare preventive services guide (male 74 rs and under) awychowski Not available 02/15/2024 14:42:59 11/24/2024 [id number] hypothyroidism: care instructions awychowski Not available 11/24/2024 12:21:00 Reason for Referral None Reported. Results Created Date Observation Date Name Description Value Unit Range Abnormal Flag Note LastModifiedBy Organization Detail LastModifiedTime 06/16/2006/16/2023 renal funct ion panel , serum WBC 8.4 Not Available [facility] (Centralized Electronic Ordering - All Locations) Patient Can Go To The Location Of Their Choice, [id number] 06/16/2023 08:42:41 06/16/2006/16/2023 renal funct ion panel , serum RBC 4.88 Not Available [facility] (Centralized Electronic Ordering - All Locations) Patient Can Go To The Location Of Their Choice, [id number] 06/16/2023 08:42:41 06/16/2006/16/2023 renal funct ion panel , serum HGB 14.4 Not Available [facility] (Centralized Electronic Ordering - All Locations) Patient Can Go To The Location Of Their Choice, [id number] 06/16/2023 08:42:41 06/16/2006/16/2023 renal funct ion panel [...] The Location Of Their Choice, 06/16/2023 08:42:41 11/07/20 23 06/16/2023 micro album in, urine BUN 40 Not [...] Go To The Location Of Their Choice, [id number] 06/16/2023 08:42:41 06/16/2006/16/2023 HbA1c (hemo globi n [...] 10/06/1910/06/2022 COMPR EHENS KARLO METAB OLIC PANL sodium [...] of [facility] and Appli ed Resea [facility] and Educa tion Volum e 43, Suppl ement 1 Not [...] The Location Of Their Choice, 10/06/2022 13:55:13 10/06/19 23 10/06/2022 TSH WITH REFLE X TO FT4 TSH 8.47 uIU/m L (0.4-4 .2) high Not Available [facility] (Centralized Electronic Ordering - All Locations) Patient Can Go To The Location Of Their Choice, 10/06/2022 13:55:15 10/06/19 23 10/06/2022 FREE T4 free T4 1.31 NG/dL (0.70- 1.80) Not Available [facility] (Centralized Electronic Ordering - All Locations) Patient Can Go To The Location Of Their Choice, 10/06/2022 14:41:48 10/06/19 23 10/07/2022 MAGNE SIUM magnesium 1.8 mg/dL (1.6-2 .3) [...] 06/12/20 23 06/12/2023 BASIC METAB OLIC PANEL BUN 41 mg/dL (8-23) high Not Available [facility] (Centralized Electronic Ordering - All Locations) Patient Can Go To The Location Of Their Choice, 06/12/2023 23:01:29 06/12/20 23 06/12/2023 BASIC METAB OLIC PANEL creatinine 2.8 mg/dL (0.7-1 .2) high Not Available [facility] ([facility]ized Electronic Ordering - All Locations) Patient Can Go To The Location Of Their Choice, [id number] 06/12/2023 23:01:29 06/12/20 23 06/12/2023 BASIC METAB OLIC PANEL sodium 144 mmol/ L (133-1 45) Not Available [facility] ([facility]ized Electronic Ordering - All Locations) Patient Can Go To The Location Of Their Choice, [id number] 06/12/2023 23:01:29 06/12/2006/12/2023 BASIC METAB OLIC PANEL [...] 06/12/2023 23:01:29 06/12/2006/12/2023 BASIC METAB OLIC PANEL bicarbonate 23 mmol/ L (22-29 ) Not Available [facility] (Centralized Electronic Ordering - All Locations) Patient Can Go To The Location Of Their Choice, 06/12/2023 23:01:29 06/12/2006/12/2023 BASIC METAB OLIC PANEL anion gap 12 (4-17) Not Available [facility] (Centralized Electronic Ordering - All Locations) Patient Can Go To The Location Of Their Choice, [id number] 06/12/2023 23:01:29 06/12/2006/12/2023 BASIC METAB OLIC PANEL calcium 9.9 mg/dL (8.6-1 0.5) Not Available [facility] ([facility]ized Electronic Ordering - All Locations) Patient Can Go To The Location Of Their Choice, [id number] 06/12/2023 23:01:29 06/12/20 23 06/12/2023 BASIC METAB OLIC PANEL estimated GFR creatinine 21 mL/mi n/1.7 3_M2 Creat inine based estim ated maddime carolina morton ation (eGFR ) in adult s is [...] The Location Of Their Choice, 06/16/2023 07:59:21 06/12/20 23 06/12/2023 CBC w/ auto diff HbA1C 6.3 Not [...] with diabe faina: <7.0 Not Available [facility] ([facility]) [address] [facility], [place], [address], 10/22/2023 22:06:05 05/17/2005/18/2024 COMP. METAB OLIC PANEL (14) glucose 122 mg/dL 70-99 above high normal Not Available [facility] ([facility]) [address] [facility], [place], [address], 05/18/2024 08:09:32 05/17/2005/18/2024 COMP. METAB OLIC PANEL (14) BUN 34 mg/dL 8-27 above high normal Not Available [facility] ([facility]) [address] [facility] [place], [address], 05/18/2024 08:09:32 05/17/20 24 05/18/2024 COMP. METAB OLIC PANEL (14) creatinine 3.18 mg/dL 0.76-1 .27 above high normal Not Available [facility] ([facility]) [address] [facility], [place], [address], 05/18/2024 08:09:32 05/17/2005/18/2024 COMP. METAB OLIC PANEL (14) eGFR 18 mL/mi n/1.7 3 >59 below low normal Not Available [facility] ([facility]) [address] [facility], [place], [address], 05/18/2024 08:09:32 05/17/20 24 05/18/2024 COMP. METAB OLIC PANEL (14) BUN/creatini ne ratio 11 10-24 normal Not Available [facility] ([facility]) [address] [facility] [place], [address], 05/18/2024 08:09:32 05/17/20 24 05/18/2024 COMP. METAB OLIC PANEL (14) sodium 145 mmol/ L 134-14 4 above high normal Not Available [facility] ([facility]) [address] [facility] [place], [address], 05/18/2024 08:09:32 05/17/20 24 05/18/2024 COMP. METAB OLIC PANEL (14) potassium 4.8 mmol/ L 3.5-5. 2 normal Not Available [facility] ([facility]) [address] [facility], [place], [address], 05/18/2024 08:09:32 05/17/20 24 05/18/2024 COMP. METAB OLIC PANEL (14) chloride 107 mmol/ L 96-106 above high normal Not Available [facility] ([facility]) [address] [place], [address], 05/18/2024 08:09:32 05/17/20 24 05/18/2024 COMP. METAB OLIC PANEL (14) carbon dioxide, total 18 mmol/ L 20-29 below low normal Not Available [facility] ([facility]) [address] [place], [address], 05/18/2024 08:09:32 05/17/20 24 05/18/2024 COMP. METAB OLIC PANEL (14) calcium 9.7 mg/dL 8.6-10 .2 normal Not Available [facility] ([facility]) [address] [place], [address], 05/18/2024 08:09:32 05/17/20 24 05/18/2024 COMP. METAB OLIC PANEL (14) protein, total 6.6 g/dL 6.0-8. 5 normal Not Available [facility] ([facility]) [address] [place], [address], 05/18/2024 08:09:32 05/17/20 24 05/18/2024 COMP. METAB OLIC PANEL (14) albumin 4.0 g/dL 3.7-4. 7 normal Not Available [facility] ([facility]) [address] [facility] [place], [address], 05/18/2024 08:09:32 05/17/20 24 05/18/2024 COMP. METAB OLIC PANEL (14) globulin, total 2.6 g/dL 1.5-4. 5 Not Available [facility] ([facility]) [address] [place], [address], 05/18/2024 08:09:32 05/17/20 24 05/18/2024 COMP. METAB OLIC PANEL (14) bilirubin, total 0.3 mg/dL 0.0-1. 2 normal Not Available [facility] ([facility]) [address] [place], [address], 05/18/2024 08:09:32 05/17/2005/18/2024 COMP. METAB OLIC PANEL (14) alkaline phosphatase 191 IU/L 44-121 above high normal Not Available [facility] ([facility]) [address] [place], [address], 05/18/2024 08:09:32 05/17/20 24 05/18/2024 COMP. METAB OLIC PANEL (14) AST (SGOT) 26 IU/L 0-40 normal Not Available [facility] ([facility]) [address] [place], [address], 05/18/2024 08:09:32 05/17/20 24 05/18/2024 COMP. METAB OLIC PANEL (14) ALT (SGPT) 21 IU/L 0-44 normal Not Available [facility] ([facility]) [address] [facility], [place], [address], 05/18/2024 08:09:32 05/17/2005/18/2024 LIPID PANEL cholesterol, total 140 mg/dL 100-19 9 normal Not Available [facility] ([facility]) [address] [place], [address], 05/18/2024 08:09:33 05/17/20 24 05/18/2024 LIPID PANEL triglyceride s 120 mg/dL 0-149 normal Not Available [facility] ([facility]) [address] [facility] [place], [address], 05/18/2024 08:09:33 05/17/2005/18/2024 LIPID PANEL HDL cholesterol 46 mg/dL >39 normal Not Available [facility] ([facility]) [address] [facility] [place], [address], 05/18/2024 08:09:33 05/17/2005/18/2024 LIPID PANEL VLDL cholesterol maya 22 mg/dL 5-40 Not Available [facility] ([facility]) [address] [facility], [place], [address], 05/18/2024 08:09:33 05/17/20 24 05/18/2024 LIPID PANEL LDL chol calc ([facility]) 72 mg/dL 0-99 Not Available [facility] ([facility]) [address] [facility], [place], [address], 05/18/2024 08:09:33 05/17/20 24 05/18/2024 LIPID PANEL LDL calc comment: [facility] Not Available [facility] ([facility]) [address] [facility], [place], [address], 05/18/2024 08:09:33 05/17/20 24 05/17/2024 PSA TOTAL (REFL EX TO FREE) reflex criteria COMMEN T The perce nt free PSA is perfo rmed on a refle x basis only when the total PSA is betwe en 4.0 and 10.0 ng/mL . Not Available [facility] ([facility]) [address] [facility], [place], [address], 05/18/2024 08:09:34 05/17/20 24 05/18/2024 PSA TOTAL [...] t be inter prete d as absol [place] evide nce of the prese nce or absen ce of yue abreu se. Not Available [facility] ([facility]) [address] [facility], [place], [address], 05/18/2024 08:09:34 05/17/20 24 05/17/2024 HEMOG LOBIN A1C hemoglobin A1C 6.5 % 4.8-5. 6 above high normal Predi abete s: 5.7 - 6.4 Diabe faina: >6.4 Glyce anshul contr ol for adult s with diabe faina: <7.0 Not Available [facility] ([facility]) [address] [place], [address], 05/18/2024 08:09:34 05/17/20 24 05/18/2024 TSH RFX ON ABNOR MAL TO FREE T4 TSH 4.730 uIU/m L 0.450- 4.500 above high normal Not Available [facility] ([facility]) [address] [place], [address], 05/18/2024 08:09:35 05/17/20 24 05/18/2024 TSH RFX ON ABNOR MAL TO FREE T4 T4,free (direct) 1.60 NG/dL 0.82-1 .77 normal Not Available [facility] ([facility]) [address] [place], [address], 05/18/2024 08:09:35 05/17/20 24 05/18/2024 MAGNE SIUM magnesium 2.2 mg/dL 1.6-2. 3 normal Not Available [facility] ([facility]) [address] [place], [address], 05/18/2024 08:09:36 Result Notes None recorded. Problems Name Problem SNOMED Code Status Onset Date Resolution Date Notes Provider Name and Address Organization Details Recorded Time Shira fraga 36977303 Completed 201010/01/2017 5th digit right foot, s/p amputati on Sudheer Sims MD [address], [place], [address] , [facility] 8 15:03:09 Chronic kidney disease stage 3 079204099 Completed 201510/31/2020 Pati Hubbard manisha, [facility] 2 11:00:31 Diabetes mellitus 65123373 Active 2015 ANNA Sinclair, [facility] 4 14:12:03 Carcinom a of prostate 833372454 Active 2015 ANNA Garner, [facility] 2 15:07:04 Spinal stenosis 12779368 Active 2015 ANNA Garner, [facility] 2 15:07:04 Adenoma of rectum 151101838 Active 2015 ANNA Garner, [facility] 2 15:07:04 Radiatio n proctiti s 519464763 Active 2015 ANNA Garner, [facility] 2 15:07:04 Polyp of colon 11158769 Active 2015 ANNA Garner, [facility] 2 15:07:04 Glaucoma 71129364 Completed 201610/01/2017 Sudheer Sims MD [address], [place], [address] , [facility] 8 15:02:39 Thyroid hormone tests outside referenc e range 609487162 Completed 201610/05/2018 Sudheer Sims MD [address], [place], [address] , [facility] 9 11:12:24 Proteinu neel 84952833 Completed 201610/05/2016 Sudheer Sims MD [address], [place], [address] , [facility] 5 22:31:45 Proteinu neel 89739206 Active 2016 Sudheer Sims MD [address], [place], [address] , [facility] 5 22:31:45 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 090102893 Active 2016 ANNA Garner, [facility] 2 15:07:04 Hypercho lesterol emia 38330014 [facility] 15:[facility]04 Renal disorder due to type 2 diabetes mellitus 031183522 Active 2016 Isabelabakari Ortega [facility] 1 09:04:10 Osteoart hritis of hip 028298131 Active 2017 ANNA Garner, [facility] 2 15:07:04 History of osteomye litis 940909681 Active 2017 ANNA Garner, [facility] 2 15:07:04 Diabetic foot ulcer 954902916 Completed 201810/07/2019 Sudheer Sims MD [address] [facility] [address], [place], [address] , [facility] 0 10:23:09 Methicil danielle resistan t Staphylo coccus aureus infectio n 108232932 Completed 201810/07/2019 Sudheer Sims MD [address] [facility] [address], [place], [address] , [facility] 0 10:27:23 Gout 15605379 Active 2018 ANNA Sinclair, [facility] 4 14:12:03 Infectio n of toe 696192654 Completed 201810/07/2019 left first MTP Sudheer Sims MD [address] [address], [place], [address] , [facility] 0 10:27:09 Ulcer of left foot Completed 201801/06/2019 grade 2 ANNA Wagner, [facility] 9 13:18:01 Gouty arthriti s of toe 694617014 Completed 201810/07/2019 Sudheer Sims MD [address] [address], [place], [address] , [facility] 0 10:27:00 Osteomye litis of left foot 45812795237 89927 Completed 201810/07/2019 MSSA Sudheer Sims MD [address] [address], [place], [address] , [facility] 0 10:27:37 Bursitis caused by bacteria l infectio n 628386906 Completed 201810/07/2019 Sudheer Sims MD [address] [address], [place], [address] , [facility] 0 10:23:02 Olecrano n bursitis 799163872 Completed 201810/07/2019 Sudheer Sims MD [address] [address], [place], [address] , [facility] 0 10:27:42 History of methicil danielle resistan t Staphylo coccus aureus infectio n 858545493 Active 2019 ANNA Garner, [facility] 2 15:07:04 Osteoart hritis of joint of bilatera l hands 87195820732 9109 Active 2019 ANNA Garner, [facility] 2 15:07:04 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 02217578147 07 Active 2019 Dyan Moreira MA null, [facility] 2 15:07:04 Vitamin D deficien cy 23853933 Active 2019 Barbi Burkett MA null, [facility] 4 14:12:03 Total replacem ent of hip Active 2020 right Dyan Moreira MA null, [facility] 2 15:07:04 Erosive esophagi tis 94817210 Active 2020 Dyan Moreira MA null, [facility] 2 15:07:04 History of total hip arthropl asty 31327540815 6 Active 2020 Dyan Moreira MA null, [facility] 2 15:07:04 Retentio n of urine 739440452 Active 2020 Dyan Moreira MA null, [facility] 2 15:07:04 Traumati c dislocat ion of joint of finger 240234112 Completed 202010/07/2022 Sudheer Sims MD [address], [place], [address] , [facility] 3 08:51:50 Cyst of kidney 894459884 Active 2020 Cain Saenz MD [address], [place], [address] , [facility] 1 22:49:45 Acute urinary tract infectio n 525254654 Completed 202008/16/2021 Sudheer Sims MD [address], [place], [address] , [facility] 3 08:48:25 Acute urinary tract infectio n 398688480 Completed 202010/07/2022 Sudheer Sims MD [address], [place], [address] , [facility] 3 08:48:25 History of SARS-CoV -2 24920087914 2431952 Active 2020 Dyan Moreira MA null, [facility] 2 15:07:04 COVID-19 003631169 Completed 202012/12/2020 Removal Reason: Problem marked historic al by user [email or web address] from the COVID-19 watch flag Iram Li RN null, [facility] 1 14:39:56 Thyroid nodule 142930101 Completed 202010/07/2022 Sudheer Sims MD [address], [place], [address] , [facility] 3 08:51:43 Spinal stenosis in cervical region 44129667 Active 2020 ANNA Sinclair, [facility] 4 14:12:03 Nodular thyroid disease Active 2020 ANNA Garner, [facility] 2 15:07:04 Hyperten sive renal disease 13402546 Active 2020 ANNA Garner, [facility] 2 15:07:04 Orthosta tic hypotens ion 27749356 Active 2020 ANNA Aguirre, [facility] 2 13:26:12 Lower urinary tract symptoms due to benign prostati c hypertro phy 71829931921 101 Active 2020 ANNA Garner, [facility] 2 15:07:04 Secondar y hyperpar athyroid ism 01946197 Active 2020 ANNA Garner, [facility] 2 15:07:04 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 456666610 Active 2020 [facility] 1 ACR 983.6 Yaneli Carlos MA null, [facility] 2 13:26:12 Vertigo 799530587 Completed 202110/07/2022 Sudheer Sims MD [address], [place], [address] , [facility] 3 08:51:46 At increase d risk for falls 503191606 Active 2021 Dyan Moreira MA null, [facility] 2 15:07:04 Moderate major depressi on Active 2021 Dyan Moreira MA null, [facility] 2 15:07:04 Subclini maya hypothyr oidism 06794797 Active 2021 Dyan Moreira MA null, [facility] 2 15:07:04 Hypomagn esemia 107094388 Active 2021 Yaneli Carlos MA null, [facility] 2 13:26:12 Persiste nt insomnia 340068017 Active 2021 Dyan Moreira MA null, [facility] 2 15:07:04 Chronic kidney disease stage 3A 044810406 Completed 202109/23/2023 Sudheer Sims MD [address], [place], [address] , [facility] 4 10:15:15 Multinod ular goiter 784630634 Active 2022 Barbi Burkett MA null, [facility] 4 14:12:02 Hypothyr oidism 66236173 Active 2022 Sudheer Sims MD [address] [facility] [address], [place], [address] , [facility] 3 09:06:16 Chronic kidney disease stage 4 238876253 [facility] 4 13:50:55 Body mass index 30+ - obesity 580250588 Active 2023 Sudheer Sims MD [address], [place], [address] , [facility] 4 06:47:30 Problem Notes None recorded. Procedures Surgical History Date Name Laterality Status Provider Name and Address Organization Details Recorded Time 2021 Advanced Care Planning completed Elizabeth torres MA [facility] 2 10:25:24 2020 esophagogastroduodenoscopy completed Sudheer Sims MD [address] [facility], [place], [phone], [facility] 1 16:22:14 2020 prosthetic arthroplasty of the hip completed Sudheer Sims MD [address] [facility] [address], [place] [place], [address], [facility] 1 12:44:46 2020 Joint Replacement completed Sudheer Sims MD [address], [place], [address], [facility] 1 21:46:38 2020 Eye Surgery completed Ewelina Velazquez MA [facility] 1 09:51:24 2019 Mini-Cog Test completed Yaneli Carlos MA [facility] 0 09:58:14 2018 Mini-Cog Test completed Yaneli Carlos MA [facility] 9 10:56:24 2017 Mini-Cog Test completed Yaneli Carlos MA [facility] 8 14:19:13 2016 Fall Risk Assessment completed Otonieltiffany Pastor [facility] 7 13:42:32 2016 Mini-Cog Test completed Otonieltiffany Pastor [facility] 7 13:44:30 2016 Advanced Care Planning completed Sudheer Sims MD [address], [place], [address], [facility] 7 12:13:29 2015 Colonoscopy completed Sudheer Sims MD [address], [place], [address], [facility] 9 11:11:56 2010 Amputation completed Sudheer Sims MD [address], [place], [address], [facility] 9 11:12:03 Cholecystectomy completed Sudheer Sims MD [address], [place], [address], [facility] 7 14:21:27 Laminotomy single lumbar completed Sudheer Sims MD [address], [place], [address], [facility] 7 14:22:18 Appendectomy completed Sudheer Sims MD [address], [place], [address], [facility] 0 10:18:05 Imaging Results None recorded. Procedure Notes None recorded. Medical Equipment None Reported. Allergies Allergen ID Allergen Name Allergen Category Reaction Reaction Severity Criticality Documentation Date Start Date Code Code System Note Provider Name and Address Organization Details Recorded Time 98553 atorvasta tin medicatio n myalgias (muscle pain) moderate Not available 03/23/2017 75128 RxNorm Sudheer Sims MD [address], [place], [address], [facility] 7 14:27:00 85475 pravastat in medicatio n myalgias (muscle pain) Not available Not available 04/23/20172020 74865 RxNorm ANNA Sinclair, [facility] 4 13:50:45 90395 atorvasta tin calcium medicatio n other moderate Not available 01/14/20222020 12922 RxNorm Sudheer Sims MD [address], [place], [address], [facility] 3 08:48:05 99774 doxepin medicatio n dizziness Not available Not available 10/10/2022 3638 RxNorm ANNA Garner, [facility] 3 14:46:07 Medications Name Sig Start Date Stop Date Status Note LastModified by Organization Details LastModified Time co q-10 100mg capsules TAKE 1 CAPSULE BY MOUTH TWICE DAILY 05/08 completed Not Available Not Available Not Available co q-10 100mg softgel capsules TAKE 1 CAPSULE BY MOUTH TWICE DAILY 09/12 completed Not Available Not Available Not Available quetiapine 25 mg tablet TAKE 1/2 TABLET BY MOUTH AT BEDTIME NEEDED 02/14 completed Not Available Not Available Not Available clonidine HCl 0.1 mg tablet TAKE 1 TABLET BY MOUTH TWICE DAILY 03/26 completed Not Available Not Available Not Available clindamyci n HCl 300 mg capsule 10/07 completed Not Available Not Available Not Available trazodone 50 mg tablet TAKE 2 TABLETS BY MOUTH EVERY DAY AT BEDTIME 05/13 completed Not Available Not Available Not Available atorvastat in 10 mg tablet Take by oral route for 90 days. 03/23 completed Not Available Not Available Not Available pravastati n 40 mg tablet Take 1 tablet every [...] completed Not Available Not Available Not Available minocyclin e 100 mg capsule Take 1 capsule every day by oral route for 10 days. 01/06 completed Not Available Not Available Not Available prednisone 20 mg tablet Take 2 tablets every day by oral route for 5 days. 04/27 completed Not Available Not Available Not Available glipizide ER 5 mg tablet, extended release 24 hr Take 1 tablet every day by oral route for 90 days. 03/23 completed Not Available Not Available Not Available Tylenol Arthritis Pain 650 mg tablet,ext ended release Take 1 tablet every 8 hours by oral route as needed. active Not Available Not Available No t Available melatonin 3 mg tablet Take 2 tablets every day by oral route. 09/18 completed Not Available Not Available Not Available chlorthali done 25 mg tablet TAKE 1 TABLET BY MOUTH ONCE DAILY 02/06 completed Not Available Not Available Not Available allopurino l 100 mg tablet take 1 tablet by mouth twice a day (90 DAYS SUPPLY PLEASE) 01/06 completed Not Available Not Available Not Available doxepin 10 mg capsule TAKE 1 CAPSULE BY MOUTH EVERY DAY AT BEDTIME 10/10 completed Not Available Not Available Not Available sulfametho xazole 800 mg-trimeth oprim 160 mg tablet TAKE 1 TABLET BY MOUTH TWICE DAILY FOR 7 DAYS 09/12 completed Not Available Not Available Not Available acetaminop hen 500 mg tablet 01/14 completed Not Available Not Available Not Available triamcinol one acetonide 0.1 % topical cream APPLY TOPICALL Y TO THE AFFECTED AREA TWICE DAILY FOR 14 DAYS NEEDED active Not Available Not Available No t Available Flomax 0.4 mg capsule,ex tended release Take 1 capsule every day by oral route. 12/24 completed Not Available Not Available Not Available levothyrox ine 25 mcg tablet TAKE 2 TABLETS ON MON, WED, FRI. AND TAKE 1 TABLET ON SAT, SUN, TUES,LYNNETTE RS. 10/10 completed Not Available Not Available Not Available levothyrox ine 75 mcg tablet TAKE 1 TABLET BY MOUTH EVERY DAY 2024 active Not Available Not Available Not Avai lable cefadroxil 500 mg capsule Take 1 capsule every day by oral route for 10 days. 01/06 completed Not Available Not Available Not Available famotidine 20 mg tablet TAKE 1 TABLET BY MOUTH TWICE DAILY active Not Available Not Available No t Available prednisolo ne acetate 1 % eye drops,susp ension 08/23 completed Not Available Not Available Not Available magnesium oxide 400 mg (241.3 mg magnesium) tablet Take 1 tablet every day by oral route. active Not Available Not Available No t Available lorazepam 0.5 mg tablet TAKE 1 TO 2 TABLETS BY MOUTH PRIOR TO PROCEDUR E NEEDED 02/06 completed Not Available Not Available Not Available tamsulosin 0.4 mg capsule TAKE 1 CAPSULE BY MOUTH EVERY DAY 03/26 completed Not Available Not Available Not Available meclizine 25 mg tablet Take 1 tablet by oral route for 6 days. 11/15 completed Not Available Not Available Not Available amlodipine 10 mg tablet TAKE 1 TABLET BY MOUTH DAILY active Not Available Not Available No t Available glipizide ER 2.5 mg tablet, extended release 24 hr TAKE 1 TABLET BY MOUTH TWICE DAILY 09/24 completed Not Available Not Available Not Available levothyrox ine 50 mcg tablet Take 1 tablet every day by oral route. 10/10 completed taking 25 mcg once daily Not Available Not Available Not Available cephalexin 500 mg capsule TAKE 1 CAPSULE BY MOUTH THREE TIMES DAILY 09/18 completed Not Available Not Available Not Available pantoprazo le 40 mg tablet,del ayed release TAKE 1 TABLET BY MOUTH EVERY DAY 2024 active Not Available Not Available Not Avai lable mirtazapin e 30 mg tablet TAKE 1 TABLET BY MOUTH EVERY DAY 2024 active Not Available Not Available Not Avai lable diclofenac 0.1 % eye drops 10/17 completed Not Available Not Available Not Available indomethac in 25 mg capsule Take 1 capsule every day by oral route for 5 days. 01/06 completed Not Available Not Available Not Available betamethas one dipropiona te 0.05 % topical cream Apply by topical route for 20 days. 04/27 completed Not Available Not Available Not Available allopurino l 300 mg tablet TAKE 1 TABLET BY [...] active Not Available Not Available Not Available mirtazapin e 15 mg tablet TAKE 1 TABLET BY MOUTH EVERY DAY 02/14 completed Not Available Not Available Not Available gabapentin 100 mg capsule TAKE 1 CAPSULE BY MOUTH AT BEDTIME NEEDED 09/18 completed Not Available Not Available Not Available triamteren e 75 mg-hydroch lorothiazi de 50 mg tablet 09/24 completed Not Available Not Available Not Available metoprolol succinate ER 25 mg tablet,ext ended release 24 hr TAKE 0.5 TABLET BY MOUTH TWICE DAILY active Not Available Not Available No t Available methylpred nisolone 4 mg tablets in a dose pack 10/07 completed Not Available Not Available Not Available calcitriol 0.25 mcg capsule TAKE 1 CAPSULE BY MOUTH 3 TIMES A WEEK active Not Available Not Available No t Available amoxicilli n 500 mg-potassi um clavulanat e 125 mg tablet TAKE 1 TABLET BY [...] Not Available Not Available No t Available minocyclin e 100 mg tablet 01/06 completed Not Available Not Available Not Available rosuvastat in 5 mg tablet TAKE 1 TABLET BY MOUTH DAILY 2024 active Not Available Not Available Not Avai lable Saccharomy melania boulardii 250 mg capsule 250 mg by oral route. 12/26 completed Not Available Not Available Not Available metoprolol tartrate 25 mg tablet TAKE 1/2 TABLET BY MOUTH TWICE DAILY active Not Available Not Available No t Available SilvaSorb topical gel,extend ed release APPLY TO WOUNDS EVERY OTHER DAY DIRECTED 10/17 completed Not Available Not Available Not Available nitrofuran toin monohydrat e/macrocry stals 100 mg capsule 11/20 completed Not Available Not Available Not Available cholecalci ferol (vitamin D3) 25 mcg (1,000 unit) tablet Take 1 tablet by oral route. 01/14 completed Not Available Not Available Not Available Align (B.infanti s) 4 mg capsule Take 1 capsule every day by oral route. active Not Available Not Available No t Available Align (B.infanti s) 01/11 completed Not Available Not Available Not Available GaviLyte-G 236 gram-22.74 gram-6.74 gram-5.86 gram oral solution 09/24 completed [...] Not Available Not Available Not Avai lable Shingrix (PF) 50 mcg/0.5 mL intramuscu lar suspension , kit 01/06 completed Not Available Not Available Not Available Tylenol 325 mg capsule Take 1 capsule by oral route. 02/06 completed Not Available Not Available Not Available Fluad 2018- 65yr up(PF)45 mcg(15 mcgx3)/0.5 mL intramuscu lar syringe 10/07 completed Not Available Not Available [...] t Available Vitals Date Recorded Body height Provider Name an d Address Organization Details Last Updated DateTime 10/31/2022 175.26 cm Katt Whitney MA [facility] 10/31/2022 14:36:57 Date Recorded Systolic And Diastolic Provider Name and Address Organization Details Last Updated DateTime 11/24/2024 141/74 mm[Hg] Sudheer Sims MD [address] [address], [place], [address], [facility] 11/24/2024 12:20:49 Date Recorded Body height Body mass index (BMI) Body weight Heart rate Oxygen saturation Oxygen saturation in Arterial blood by Pulse oximetry Body temperature Systolic And Diastolic Provider Name and Address Organization Details Last Updated DateTime 175.26 cm 30 kg/m2 20373.2 5 g 70 /min 97 % 97 % 97.7 [degF] 150/70 mm[Hg] Denia White MA [facility] 5 11:34:31 Date Recorded Body height Body mass index (BMI) Body weight Heart rate Oxygen saturation Oxygen saturation in Arterial blood by Pulse oximetry Body temperature Systolic And Diastolic Provider Name and Address Organization Details Last Updated DateTime 175.26 cm 30.9 kg/m2 23824.8 1 g 65 /min 98 % 98 % 98.4 [degF] 146/70 mm[Hg] Barbi Burkett MA [facility] 4 13:58:51 Date Recorded Body height Provider Name an d Address Organization Details Last Updated DateTime 05/27/2024 175.26 cm Denia White MA [facility] 05/27/2024 13:10:58 Social History Question Answer Notes LastModified by Organizat ion Details LastModified Time Tobacco Smoking Status Former Smoker Bella dyer, [facility] 09/24/2016 13:39:27 Do You Have An Advance Directive? Yes HCP/ Dtr's Sharon 8 [email or web address] Information not available 10/31/2022 Is Blood Transfusion Acceptable In An Emergency? Yes Information not available 09/24/2016 What Is Your Level Of Caffeine Consumption? Moderate 1 Daily [email or web address] Information not available 11/24/2024 How Much Tobacco Do You Chew? None Information not available 09/24/2016 In The 14 Days Before Symptom Onset, Have You Had Close Contact With A Laboratory-confir med COVID-19 While That Case Was Ill? No [email or web address] Information not available 10/31/2022 In The 14 Days Before Symptom Onset, Have You Had Close Contact With A Person Who Is Under Investigation For COVID-19 While That Person Was Ill? No [email or web address] Information not available 10/31/2022 What Type Of Diet Are You Following? CARDIAC Low Salt/low Carb Information not available 09/12/2021 Which Illicit Or Recreational Drugs Have You Used? None Information not available 09/24/2016 When Did You Quit Smoking? 16+yearssinc elastcigaret te [email or web address] Information not available 10/22/2020 Live Alone Or With Others? Alone [email or web address] Information not available 10/31/2022 Do You Take [...] Or Greater Than 100 Degrees Fahrenheit? No [email or web address] Information not available 03/16/2020 Are You Or Anyone In Your Household A Health Care Provider Or Emergency Responder? No [email or web address] Information not available 03/16/2020 To The Best Of Your Knowledge Have You Been In Close Proximity To Any Individual Who Tested Positive For COVID-19? No [email or web address] Information not available 03/16/2020 *AWV ONLY* Are You Presently Prescribed Opioid Medication By PCP Or Specialist? If YES -Provider Assess The Benefit For Other, Non-opioid Pain Therapies Instead, Even If The Patient Does Not Have OUD But Is Possibly At Risk. No Information not available 04/27/2020 Have You Recently Traveled To A [place] [address] High Risk Area Or Gathering In The Last 10 Days? No [email or web address] Information not available 08/23/2020 What Was The Date Of Your Most Recent Tobacco Screening? 02/15/2024 Information not available 02/15/2024 How Many Children Do You Have? 2 Sharon Information not available 09/12/2021 What Is Your Current Pack Years? 20-29paemil rs [email or web address] Information not available 10/31/2022 Do You Use Your Seat Belt Or Car Seat Routinely? Yes Information not available 10/15/2021 Seat Belts Used Routinely Yes [email or web address] Information not available 10/31/2022 Are You Sexually Active? No Information not available 10/15/2021 Smoke Alarm In Home Yes [email or web address] Information not available 10/31/2022 Do You Have Smoke And Carbon Monoxide Detectors In Your Home? Yes Information not available 10/15/2021 At What Age Did You Start Smoking Tobacco? 14 Information not available 10/05/2018 Are You Passively Exposed To Smoke? No Information no t available 09/24/2016 How Much Tobacco Do You Smoke? 1 PPD Quit 30 Years Ago Information not available 09/24/2016 Do You Use Sunscreen Routinely? No Information not available 09/24/2016 How Many Years Have You Smoked Tobacco? 20 Information not available 09/24/2016 Sex: Unknown Functional Status Question Answer Note LastModified by Organizat ion Details LastModified Time Do you use any illicit or recreational drugs? No [email or web address] Information not available 10/31/2022 What is your level of alcohol consumption? None Information not available 09/24/2016 Do you or have you ever used smokeless tobacco? Never used smokeless tobacco Information not available 04/27/2020 Are you currently employed? No Information not available 09/24/2016 Are you able to walk independently without assistance or assistive devices? YESASSIST Petee/Silvino nader Information not available 10/31/2022 Are you able to care for yourself independently? 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 Never used electronic cigarettes [email or web address] Information not available 10/31/2022 What is your exercise level? None Information not available 02/15/2024 Mental Status None recorded. Family History Relationship Description Onset Age of this Age Resolved Age Notes LastModified by Organization Details LastModified Time Mother Diabetes mellitus [email or web address] Not available 13:37:57 Father Essential hypertension [email or web address] Not available 11:25:43 Father Cerebrovascu lar accident [email or web address] Not available 14:18:17 Brother Coronary arterioscler osis [email or web address] Not available 2024 11:25:43 Brother Well adult Not availabl e 11/24/2024 11:25:43 Sister Well adult Not available 11/24/2024 11:25:43 Medical History Condition Response Other Y Gout Y Kidney Stones N Blood Diseases N Hyperthyroidism N Breast Cancer N Depression N COPD N Lung Disease N Hypothyroidism Y Defects or Inherited Disease N Anesthesia Complications N Headaches/Migraines N Varicose Veins N Anxiety Disorder N Obesity N Vision or Eye Problems [...] Influenza, high-dose, trivalent, PF 6 completed ANNA Sinclair, [facility] 02/15/2024 14:12:10 pneumococcal polysaccharide PPV23 1 completed ANNA Garner, [facility] 07/09/2022 15:07:16 zoster recombinant 8 completed ANNA Sinclair, [facility] 02/15/2024 14:12:10 zoster recombinant 9 completed ANNA Sinclair, [facility] 02/15/2024 14:12:10 Influenza, split virus, quadrivalent, preservative 9 completed Isabela dyer, [facility] 10/23/2020 09:04:11 COVID-19, mRNA, LNP-S, PF, 30 mcg/0.3 mL dose 1 completed ANNA Sinclair, [facility] 02/15/2024 14:12:10 COVID-19, mRNA, LNP-S, PF, 30 mcg/0.3 mL dose 1 completed ANNA Sinclair, [facility] 02/15/2024 14:12:10 pneumococcal polysaccharide PPV23 2 completed ANNA Coulter, [facility] 09/12/2021 10:32:04 Tdap 1 completed ANNA Sinclair, [facility] 02/15/2024 14:12:10 Influenza, high-dose, trivalent, PF 5 completed ANNA Sinclair, [facility] 02/15/2024 14:12:10 Influenza, adjuvanted, trivalent, PF 6 completed ANNA Sinclair, [facility] 02/15/2024 14:12:10 Influenza, high-dose, quadrivalent, PF 0 completed ANNA Sinclair, [facility] 02/15/2024 13:51:03 COVID-19, mRNA, LNP-S, PF, 30 mcg/0.3 mL dose 1 completed ANNA Sinclair, [facility] 02/15/2024 14:12:10 COVID-19, mRNA, LNP-S, PF, 30 mcg/0.3 mL dose, rita-sucrose 2 completed ANNA Garner, [facility] 07/09/2022 15:07:17 [facility] 13 [facility] 14:12:10 Influenza, high-dose, trivalent, PF 7 completed ANNA Sinclair, [facility] 02/15/2024 14:12:10 Influenza, high-dose, trivalent, PF 8 [facility] 14:12:10 Influenza, high-dose, quadrivalent, PF [facility] 13:51:03 Td (adult), 5 Lf tetanus toxoid, preservative free, adsorbed 7 completed ANNA Sinclair [facility] 02/15/2024 13:51:04 COVID-19, mRNA, LNP-S, bivalent, PF, 30 mcg/0.3 mL dose 2 completed ANNA Sinclair, [facility] 2022 15:04:26 Influenza, high-dose, quadrivalent, PF 2 completed Pati dyer [facility] 06/12/2022 14:10:50 Past Encounters Encounter ID Performer Location Encounter Start Date Encounter Closed Date Diagnosis/Indication Diagnosis SNOMED-CT Code Diagnosis ICD10 Code Diagnosis IMO Codes Diagnosis Note [id number] Sudheer Sims MD Main Office [address] [facility] [address] [place] [address] 09/24/2016 13:27:24 09/24/2016 14:48:57 Carcinoma of prostate 931118746 C61 s/p radiation therapy. Will confirm PSA is stable. Hypertensive disorder 38 023735 I10 Well controlled /at goal. Continue current regimen.Im munization status updated, will screen based on risk factors. Regular dental and ophtho care advised as well as seat belt and sunscreen use. Pt currently demonstrat es mild/moder ate risk for falls as well as cognitive decline. Advance directives in place. 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 Monofilame nt exam unremarkab le today but has history of osteomyeli tis. Will monitor. Ophtho exam utd, wll track down most recent report. Increased frequency of urination 735224291 R35.0 Refer to urology to help address this issue and follow up on prostate cancer monitoring . 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 Regular physical and mental activity advised. Will monitor. [id number] Sudheer Sims MD Main Office [address] [facility] [address] [place] [address] 03/23/2017 13:29:27 03/23/2017 14:40:58 Hypertensive disorder 78324662 I10 Well controlled , continue current regimen. Influenza vaccine needed 3267207435 106 Z23 Proteinuria 16436124 R80 .9 Stable on ACEI and also followed by renal. Renal diso rder due to type 2 diabetes mellitus 606612151 E11.22 On ASA. Has ophtho exam next month. Chronic ki dney disease stage 3 386208156 N18.3 Diabetic p eripheral neuropathy 263655768 E11.42 Hypercholesterolemia 136 03813 E78.00 WIll resume statin but see if pravastati n is better tolerated. [id number] Sudheer Sims MD Main Office [address] [place] [address] 08/28/2017 09:41:39 08/28/2017 10:22:35 Intermittent claudication 29073664 I73.9 ? if musculoske letal vs vascular vs neurogenic in etiology. Will start with orthopedic and vascular assessment s. If abnormal will refer accordingl y. If studies are normal will pursue neurologic eval. Advised to call if new symptoms develop. Pain in lower limb 79735 006 M79.604 M79.605 [id number] Sudheer Sims MD Main Office [address] [facility] [address] [place] [address] 10/01/2017 13:53:12 10/01/2017 15:26:49 Adult health examination 427355170 Z00.00 Immunizati ons status updated. Will screen based on risk factors. Regular dental and ophtho care advised as well as seat belt and sunscreen use. Distracted driving discussed. Pt currently demonstrat es low risk for falls and no significan t cognitive decline. Diabetes mellitus 548245 09 E11.21 Carcinoma of prostate 25 8584120 C61 s/p radiation therapy. Will confirm PSA is stable. Obesity 764219414 E66.9 Body mass index 30+ - obesity 289051099 Z68.32 Hypercholesterolemia 136 09220 E78.00 Will reassess back on statin and titrate as tolerated to goal LDL <100. Thyroid ho rmone tests outside reference range 558422128 R94.6 Clinically euthyroid, will recheck labs. Hypertensive disorder 38 086628 I10 Not at goal today. Has renal f/u scheduled next week. Chronic ki dney disease stage 3 727490294 N18.[address] Corrales next week. Renal; function has been stable. Administra tion of pneumococcal vaccine 61353658 Z23 Disorder o f nervous system due to type 2 diabetes mellitus 869038716 E11.40 Followed by podiatry. Ophtho exam utd. [id number] Sudheer Sims MD Main Office [address] [place] [address] 12/24/2017 09:40:07 12/24/2017 10:39:35 Hypertensive disorder 50823441 I10 Fair control. Continue current regimen for now. Diabetes mellitus 937858 09 E11.21 Hypercholesterolemia 136 83222 E78.00 LDL at goal. Continue current regimen/do se. Osteoarthritis of hip 23 8775713 M16.12 Improved, following with ortho. Renal diso rder due to type 2 diabetes mellitus 710375623 E11.22 Following labs every 6 months with renal. Chronic ki dney disease stage 3 806192834 N18.3 Renal; function has been stable. [id number] Sudheer Sims MD Main Office [address] [facility] [place] [address] 04/27/2018 09:43:46 04/27/2018 10:38:20 Diabetes mellitus 37310074 E11.21 Hypertensive disorder 38 779766 I10 Influenza vaccine needed 9520369849 106 Z23 Varicella vaccination 68 980468 Z23 Thyroid ho rmone tests outside reference range 765792508 R94.6 Clinically euthyroid, will recheck labs. Hypercholesterolemia 136 97127 E78.00 LDL at goal. Continue current regimen/do se. [id number] Sudheer Sims MD Main Office [address] [facility] [facility] [address] [facility] [place] [address] 10/05/2018 10:01:33 10/05/2018 11:23:34 Adult health examination 175194073 Z00.00 Immunizati ons status updated. Will screen based on risk factors. Regular dental and ophtho care advised as well as seat belt and sunscreen use. Distracted driving discussed. Pt currently demonstrat es low risk for falls and no significan t cognitive decline. Advance directives in place. Diabetes mellitus 628582 09 E11.21 Fair control. COntineu currnt regimen. Carcinoma of prostate 25 7052445 C61 s/p radiation therapy. Will confirm PSA is stable. Obesity 079249522 E66.9 Body mass index 30+ - obesity 996909811 Z68.30 Hypercholesterolemia 136 38404 E78.00 Will reassess back on statin and titrate as tolerated to goal LDL <100. Hypertensive disorder 38 135386 I10 Well controlled , continue current regimen. Chronic ki dney disease stage 3 898841576 N18.[address] Corrales next week. Renal; function has been stable. Disorder o f nervous system due to type 2 diabetes mellitus 023877393 E11.40 Followed by podiatry. Ophtho exam utd. Infection of toe 8767946 06 L08.9 Foot dressed. Currently following with podiatry and wound care referral underway. WIll request podiatry notes. [id number] Sudheer Sims MD Main Office 36[address] [facility] 207 [facility] [address] 01/06/2019 12:50:48 01/06/2019 13:50:26 Diabetic foot ulcer 089191753 E13.621 f/u c wound care clinic later this afternoon Osteomyeli tis of left foot 8170833574 531192 M86.9 cont abx as dir by alkylation operator x 5 more weeks - agree c taking probiotic daily Gout 21701717 M10.9 seen by rheum yest - cont allopurino l as dir, f/u c rheum 6 months/prn Chronic ki dney disease stage 3 200888833 N18.3 mild yaneth as inpt - will recheck bmp and cc: labs to renal, next f/u in a few months Essential hypertension 98313054 I10 bp stable, cont meds as dir [id number] Sudheer Sims MD Main Office 36[address] [facility] 207 [facility] [place] [address] 10/07/2019 09:16:12 10/07/2019 10:50:59 Adult health examination 309556268 Z00.00 Immunizati ons status utd. Will screen based on risk factors. Regular dental and ophtho care advised as well as seat belt and sunscreen use. Distracted driving discussed. Pt currently demonstrat es low risk for falls and no significan t cognitive decline. Advance directives in place. Diabetes mellitus 056997 09 E11.21 Fair control. Continue current regimen. Chronic ki dney disease stage 3 510725741 N18.[address] Corrales next week. Renal; function has been stable. Carcinoma of prostate 25 8376804 C61 s/p radiation therapy. Will confirm PSA is stable. Benign pro static hyperplasia with outflow obstruction 158153229 N40.1 Gout 91991759 M10.9 Hypercholesterolemia 136 11622 E78.01 Will reassess back on statin and titrate as tolerated to goal LDL <100. Hypertensive disorder 38 846080 I10 Has been well controlled , continue current regimen and reassess. Renal diso rder due to type 2 diabetes mellitus 796238032 E11.22 Following labs every 6 months with renal. Peripheral neuropathy due to type 2 diabetes mellitus 5496994007 107 E11.42 Stable, followed by podiatry. Vitamin D deficiency 347 65145 E55.9 On supplement will confirm appropriat eness. [id number] Kelsey campbell MD Main Office 36[address] [facility] 207 [facility] [place] [address] 03/16/2020 10:34:55 03/16/2020 11:39:08 Eruption 240013114 R21 pt has had a rash in [...] as he ahs a hx of MRSA [id number] Sudheer Sims MD Telehealt h [address] [facility] [address] [place] [place] [address] 04/27/2020 13:09:51 04/27/2020 16:13:58 Hypertensive disorder 03336130 I10 Has been well controlled based on home numbers continue current regimen and reassess in office next visit. Diabetes mellitus 705308 09 E11.21 Good control. Continue current regimen. Chronic ki dney disease stage 3 257137334 N18.3 Renal function has been stable on ACEI. Renal following. Hypercholesterolemia 136 87346 E78.01 Well controlled on low dose statin. Continue as is. Gout 18338273 M10.9 [id number] Cain Saenz MD Main Office 36[address] [facility] 207 [facility] [place] [address] 07/18/2020 08:49:40 07/18/2020 09:19:13 Pre-surgery evaluation 673863114 Z01.818 1.Pre-Surg ical Evaluation /Surgical Clearance for [...] or up to 30 days post-op Cataract 720575596 H26.9 Patient to have left cataract surgery 07/23/2020 and right in Sep 03 2020. [id number] Kelsey campbell MD Main Office [address] [place] [address] 08/23/2020 09:43:35 08/23/2020 10:42:02 Cellulitis of toe of left foot 4134988639 6215095 L03.032 Due to redness, will start med for a week, followup with wound care/Dr Becerra. Keep toe covered, wash and dry as normal, call if weeping , pus develops or worsens. Ulcer of toe 275630562 L 97.529 pt has appt to see podiatry on thursday, Dr Becerra in [place] [id number] Cain Saenz MD Main Office [address] [facility] 207 [facility] [place] [address] 10/22/2020 09:47:08 10/22/2020 10:39:18 Transition of care 7873564057 105 Z75.8 Medication s were reconciled , [...] to follow-up with gastro. Retention of urine 17011 4002 R33.9 This is likely due to postop urinary retention, and history of BPH he is on tamsulosin , has a Nieves in place that is draining straw-colo red urine and he is due to see urology who will evaluate for Nieves removal. Traumatic dislocation of joint of finger 182160538 S63.250D Patient had a dislocatio n of the right fifth PIP secondary to fall he is post reduction. Patient is to follow-up with hand surgeon outpatient . Mass of duodenum 4890618 [address] scan showed possible [...] a large renal cyst. Cyst of kidney 034430784 N28.1 Patient is to have an MRI, and he is following with nephrology thus this will need following up and coordinati on with his primary care doctor and nephrology once further imaging is obtained. Acute urin chi tract infection 260919568 N39.0 This is a UTI likely due to Nieves placement, Nieves was replaced. Patient was started on Macrobid and is to follow-up with urology. Urine was straw-colo red and not cloudy. Skin irritation 93385537 7 L30.9 This is due to prolonged pressure in the gluteal region however there is no skin break at this time I advised the patient to offload and change position frequently to prevent ulcers. Fracture of femur 940301 00 S72.91XD Given the mechanism of the [...] cause of his osteoporos is. fall W19.XXXD [id number] Sudheer Sims MD Telehealt h [address] [facility] 207 [facility] [place] [address] 11/20/2020 13:02:50 11/23/2020 13:51:08 Fever 366637533 R50.9 given his fever, cough, and signs of dehydratio n (dark urine in bag) - unsure of etiology of his sxs - strongly urged pt/dtr to take pt to [facility] for prompt evaluation to r/o covid, pna, uti, etc as well as receive IV fluids - dtr expressed understand ing and will take him there, will fwd this note to [facility] triage Cough 81363038 R05 [id number] Kelsey campbell MD Main Office [address] [place] [address] 02/06/2021 14:38:47 02/06/2021 15:53:18 Moderate major depression 537223 F32.1 pt stable on meds, needs refill of mirtazapin e which is helping with depression , anxiety and wt Peripheral neuropathy due to type 2 diabetes mellitus 1141099245 107 E11.42 stable Chronic ki dney disease stage 3B 220913750 N18.32 check labs in 2 days; pt has orders, creat was stable at last check, will need to see renal in the next month or two Diabetes mellitus 770435 09 E11.40 BS controlled , will do labs to followup, not sure if he has labs ordered from renal History of SARS-CoV-2 29 59537418 43140378 Z86.16 has recovered, no cough in study for post covid surveillan ce Gout 05927837 M10.9 stable , no sx on allopurino l Mass of duodenum 4175118 08 R19.09 Thsi was seen on imaging study in Sep 2020. Pt had neg EUS, per discharge summary was recomended to have MRI, will arrange in the next few weeks. Thyroid nodule 843838109 E04.1 Hypercalcemia 74354048 E 83.52 calcium to be done as part of bmp above Hypertensi ve renal disease 27994377 I12.9 BP is controlled on present regimen, continue all meds at current dosages. Continue with low salt diet, exercise [id number] Sudheer Sims MD Main Office 36[address] [facility] [address] [place] [address] 05/08/2021 14:23:53 05/08/2021 15:53:40 Influenza vaccine needed 2543030386 106 Z23 Benign pro static hyperplasia with outflow obstruction 142768103 N13.8 stable lately, cont f/u c uro Muscle weakness 62478031 M62.81 generalize d weakness from multiple inpt admissions for past 7-8 months, slowly getting better/str onger - cont PT as dir Chronic ki dney disease stage 3B 490252400 N18.32 stable, cont f/u c renal - next month Hypertensi ve renal disease 99821479 I12.9 stable, cont meds as dir Insomnia 723298808 G47.0 0 stable on 25mg qhs - advised if having difficulty sleeping can increase to 50mg qhs [id number] Soto Castle MD Telehealt h [address] [facility] [address] [place] [address] 08/16/2021 13:46:32 08/19/2021 12:03:13 Urinary tract infectious disease 38787461 N39.0 [id number] Sudheer Sims MD Main Office [address] [facility] [address] [place] [address] 09/12/2021 10:06:59 09/12/2021 11:20:17 Adult health examination 566268127 Z00.00 Immunizati ons status utd. Will screen based on risk factors. Regular dental and ophtho care advised as well as seat belt and sunscreen use. Distracted driving discussed. Pt currently demonstrat es risk for falls but no significan t cognitive decline. Advance directives in place. Advance di rective discussed with patient 268696019 Z71.89 Will obtain copy of MOLST form for chart. Vertigo 112885526 R42 Suspect this is related to sinusitis. Will use meclizine while waiting for abx to help. At [facility] ed risk for falls 154099303 Z91.81 Acute sinusitis 26372116 J01.90 Sounds like secondary bacterial infection is likely. Will cover with Augmentin, renally dosed. Gout 43223023 M10.9 On allopurino l, will verify adequate control. Goal UA level <6.8. Chronic ki dney disease stage 3B 427228227 N18.32 Carcinoma of prostate 25 0286540 C61 s/p radiation therapy. Will confirm PSA is stable. Hypercholesterolemia 136 79548 E78.01 Well controlled on low dose statin. Continue as is. Hypertensi ve renal disease 47850557 I12.9 BP well controlled , following with Dr. Corrales. Vitamin D deficiency 347 74245 E55.9 On supplement will confirm appropriat eness. Erosive esophagitis 4071 9004 K22.10 On PPI, well controlled . Hypomagnesemia 942077020 E83.42 Will see if supplement is needed. Peripheral neuropathy due to type 2 diabetes mellitus 7732391100 107 E11.42 Stable, followed by podiatry. Moderate m ajor depression 171690 F32.1 Symptoms not limiting. Trazodone helping with sleep. Will monitor. [id number] Sudheer Sims MD Telehealt h [address] [facility] [address] [facility] [place] [address] 11/15/2021 08:45:26 11/18/2021 08:24:05 Moderate major depression 078006 F32.1 Mood improved back on SSRI. Not sure trazodone is helping. Will titrate traz dose down and monitor. Hypercholesterolemia 136 60860 E78.01 Well controlled on low dose statin. Continue as is. Persistent insomnia 1919 92186 G47.09 Will see if mirtazepin e helps with this and mood. Titrate as tolerated to goal symptom control. [id number] Sudheer Sims MD Main Office 36[address] [facility] 207 [facility] [place] [address] 01/14/2022 13:15:31 01/14/2022 14:21:26 Peripheral neuropathy due to type 2 diabetes mellitus 3204654059 107 E11.42 Will reassess and continue current regimen for now. Benign hyp ertensive renal disease 794184 I12.9 Well controlled at recent renal appt 128/70 and improving with recheck here. Will contiue current regimen. Persistent insomnia 1919 10075 G47.09 Doing well on mirtazepon e and melatonin. Will continue current regimen. Hypomagnesemia 072543922 E83.42 Will see if supplement is needed. Abnormal t hyroid hormone 608572194 R94.6 Subclinica l, will follow/jhonathan ssess. [id number] Sudheer Sims MD Main Office 36[address] [facility] 207 [facility] [place] [place] [address] 05/22/2022 14:28:25 05/22/2022 15:44:38 Peripheral neuropathy due to type 2 diabetes mellitus 0584056305 107 E11.42 Diabetes well controlled . Will try low dose gabapentin for neuropathy . Moderate m ajor depression 427430 F32.1 Well controlled on low dose mirtazepin e. Will continue as is. Consider switch to duloxetine depending on neuropathy progressio n. Hypertensi ve renal disease 51577898 I12.9 Not under great control. Following with renal where plan was to reduce amlodipine and restart chlorthali done. I will defer these decisions to Dr. Corrales given his CKD. Influenza vaccine needed 8977497451 106 Z23 Hypothyroidism 52088716 E03.9 Started on low dose supplement , will recheck labs in 2-3 months and evaluate nodules in the meantime. Chronic insomnia 8054316 04 F51.04 See if low dose gabapentin (because of CKD) helps. Thyroid nodule 086578871 E04.1 Delayed evaluation because of multiple health events/gomez demic last year. With thyroid dysfunctio n and based on size it should be investigat ed further. Now willing to pursue further evaluation . Will again ask endo to help assess and determine best plan/appro ach. Chronic ki dney disease stage 3A 516182562 N18.31 [id number] Sudheer Sims MD Main Office [address] [place] [address] 2022 14:28:41 2022 15:39:45 Adult health examination 213465257 Z00.00 Immunizati ons status utd. Will screen based on risk factors. Regular dental and ophtho care advised as well as seat belt and sunscreen use. Distracted driving discussed. Pt currently demonstrat es risk for falls but no significan t cognitive decline. Advance directives in place. Chronic ki dney disease stage 3A 206888316 N18.31 Has been stable and followed by Dr. Corrales, BP well controlled . Moderate m ajor depression 313199 F32.1 Well controlled on low dose mirtazepin e. Will continue as is for now but consider reducing dose depending on response to doxepin. Peripheral neuropathy due to type 2 diabetes mellitus 3634722983 107 E11.42 Diabetes well controlled . Carcinoma of prostate 25 8258685 C61 s/p radiation therapy. Will confirm PSA is stable and CC urology. Body mass index 30+ - obesity 331406856 E66.9 Z68.32 Insomnia 580995667 G47.0 0 Persistent issue. Will try low dose doxepin, titrate as tolerated to goal symptom control. At [facility] risk for falls 119723699 Z91.81 Referral provided for FPI. Hypomagnesemia 661366585 E83.42 Will see if supplement is needed. Subclinica l hypothyroidism 99416045 E02 Renal diso rder due to type 2 diabetes mellitus 771114411 E11.22 Following labs every 6 months with renal. Hypercholesterolemia 136 86085 E78.01 Well controlled on low dose statin. Continue as is. Adenoma of rectum 926877 005 D12.8 Has history but based on age/lack of symptoms and comorbidit ies will defer f/u for now. Thyroid nodule 979267360 E04.1 Following with endocrine, imaging felt to be stable. Biopsy being deferred for now. [id number] Sudheer Sims MD Telehealt h [address] [place] [address] 10/10/2022 13:35:49 10/10/2022 16:05:19 Persistent insomnia 885392015 G47.09 Recalcitra nt issue, no relief with mirtazepin e currently or with trazodone/ melatonin/ lorazepam/ doxepin in the past. Will see if low dose mood stabilizer helps. Moderate m ajor depression 768911 F32.1 Hypothyroidism 91306650 E03.9 Started on low dose supplement , dose recently increased will recheck labs in 2-3 months. Nodules being followed by Dr. Edwards. [id number] Sudheer Sims MD Telehealt h [address] [facility] 207 [facility] [place] [address] 10/31/2022 13:27:30 10/31/2022 15:26:43 Persistent insomnia 440160205 G47.09 Recalcitra nt issue, no relief with trazodone/ melatonin/ lorazepam/ doxepin in the past. Responding well to low ose mood stabilizer . Will continue current dose for now. Moderate m ajor depression 219352 F32.1 Well controlled with mirtazepin e. Will continue current dose for now, consider weaning if symptoms improve with better sleep quality. [id number] Sudheer Sims MD Main Office 36[address] [facility] 207 [facility] [place] [address] 02/15/2024 13:44:15 02/15/2024 14:49:30 Adult health examination 514207712 Z00.00 COVID booster, RSV and PCV20 advised via local pharmacy. Will screen based on risk factors. Regular dental and ophtho care advised as well as seat belt and sunscreen use. Distracted driving discussed. Pt currently demonstrat es risk for falls but no significan t cognitive decline. Advance directives in place. Hypercholesterolemia 136 53335 E78.01 Well controlled on low dose statin. Continue as is. Moderate m ajor depression 172985 F32.1 Well controlled on mirtazepin e. Will continue as is for now but consider reducing dose depending on response to doxepin. Peripheral neuropathy due to type 2 diabetes mellitus 9830121433 107 E11.42 Diabetes well controlled . Carcinoma of prostate 25 5260454 C61 s/p radiation therapy. Will confirm PSA is stable and CC urology. Body mass index 30+ - obesity 848779130 E66.9 Z68.30 Insomnia 195468448 G47.0 0 Responding to mirtazepin e, will monitor. Hypomagnesemia 597698039 E83.42 Will see if supplement is needed. Subclinica l hypothyroidism 88142477 E[address] Edwards. Renal diso rder due to type 2 diabetes mellitus 158952127 E11.22 Following labs every 6 months with renal. Adenoma of rectum 541079 005 D12.8 Has history but based on age/lack of symptoms and comorbidit ies will defer f/u for now. Thyroid nodule 050219615 E04.1 Has u/s booked then f/u with Dr. Edwards. Administra tion of viral vaccine 69401677 Z29.11 Chronic ki dney disease stage 4 894000671 N18.4 Stable and working with Dr. Corrales on HTN/DM control. [id number] Sudheer Sim[facility] [address] [facility] [address] [facility] [place] [address] 05/27/2024 12:52:03 05/27/2024 15:03:53 Persistent insomnia 989454684 G47.09 Recalcitra nt issue, no relief with trazodone/ melatonin/ lorazepam/ doxepin in the past. Responding well to mirtazepin e. Will continue current dose for now. Subclinica l hypothyroidism 98973658 E[address] Edwards. Will monitor slight TSH bump for now. Renal diso rder due to type 2 diabetes mellitus 603654695 E11.22 Following labs every 6 months with renal. [id number] Sudheer Sims MD Main Office [address] [facility] 207 [facility] [place] [place] [address] 11/24/2024 11:23:36 11/24/2024 12:23:14 Hypothyroidism 08062992 E03.9 Will reassess labs and consider increasing weekly dose if TSH remains high. Diabetes mellitus 413788 09 E11.40 Has been well controlled . Continue Jardiance. Chronic ki dney disease stage 4 283883092 N18.4 BP better on recheck. Had labs done in Sep and was recently started on calcitriol . Health Concerns Section Related Observation LastModified by Organization Detai LastModified Time None Recorded Concern Status LastModified by Organization Details LastModified Time None Recorded Advance Directives Directive Y: HCP/ Dtr's Omayra 09/24/2017 Payers Insurance Date Sequence Insurance Name Policy Number Policy Johnson Covered Member ID Johnson Member ID Guarantor Name 05/27/2024 2 [place] [id number] Papo Brand [id number] Papo Brand 05/27/2024 1 [place]: [employer] Papo Brand [id number] Papo Brand 12/07/2024 1 [employer] (MEDICARE REPLACEMENT/ ADVANTAGE - PPO) [id number] Papo Mominreji [id number] Papo Brand 05/27/2024 1 [facility] (MEDICARE REPLACEMENT/ ADVANTAGE - PPO) [id number] Papo Brand [id number] Papo Mominreji 05/27/2024 3 [place] [id number] Papo Mominreji [id number] Papo Brand Notes Date Note Type Note Provider Name and Address Organization Details Recorded Time 3 text/html InsomniaReported by PatientHPIFor context, patient reportsusing medications for sleep. For associated symptoms, patient reportsdepressionbut reportsno known sleep apnea,no pain,no urinary frequency, andlegs do not feel restless. For quality, patient reportssymptoms worse in the evening. For severity, patient reportsmoderate. For duration, patient reportsfrequent. For onset/timing, patient reportsgradual onset.Good sleep hygeine, tried doxepin at last visit and it only afforded dizziness. ThyroidReported by PatientHPIFor context, patient reportslow thyroid levels. For exercise, patient reportsno exercise. For associated symptoms, patient reportsno cold intolerance,no heat intolerance, andno weight loss.Levothyroxine dose increased since last visit because of elevated TSH. Anxiety/DepressionReporte d by PatientHPIFor severity, patient reportsdenies suicidal ideations,able to maintain relationships, anddoes not interfere with activities of daily living.Doing well on low dose mirtazepine. Sudheer Sims MD [address], [address], [facility] 10/10/2022 15:21:40 3 text/html InsomniaReported by PatientHPIFor context, patient reportsusing medications for sleep. For associated symptoms, patient reportsdepressionbut reportsno known sleep apnea,no pain,no urinary frequency, andlegs do not feel restless. For quality, patient reportssymptoms worse in the evening. For severity, patient reportsmoderate. For duration, patient reportsfrequent. For onset/timing, patient reportsgradual onset.Good sleep hygeine, started 12.5mg of quetiepine at last visit which is working well. Anxiety/DepressionReporte d by PatientHPIFor severity, patient reportsdenies suicidal ideations,able to maintain relationships, anddoes not interfere with activities of daily living.Doing well on low dose mirtazepine. ThyroidReported by PatientHPIFor context, patient reportslow thyroid levels. For exercise, patient reportsno exercise. For associated symptoms, patient reportsno cold intolerance,no heat intolerance, andno weight loss.Levothyroxine dose increased since last visit because of elevated TSH. Sudheer Sims MD [address] [facility] [address], [place], [address], [facility] 10/31/2022 15:23:26 4 text/html Medicare Annual Wellness VisitReported by PatientSocial/Behavioral HistoryFor fracture risk, patient reportshistory of fractures. For physical activity, patient reportsdecreased physical activity. For diet and nutrition, patient reportshealthy diet.Mental Status:For depression risk, patient reportssleep disturbances or insomniabut reportsno significant changes in weightandno history of depression. For concentration and memory, patient reportsforgetting wordsbut reportsno decreased concentrating abilityandno memory lapses or loss. For orientation, patient reportsno disorientation to time,no disorientation to date, andno disorientation to place. For speech/motor difficulties, patient reportsno speech difficulties,no difficulty expressing formulated concepts,no difficulty with fine manipulative tasks,no difficulty writing/copying,no slowed reaction time, anddoes not knock things over when trying to pick them up.Functional AbilityFor instrumental activities of daily living, patient reportsunable to grocery shop without assistance,unable to manage medications without assistance, andunable to manage money without assistancebut reportsable to do house work with limited or no assistanceandable to prepare meals with limited or no assistance(medications and finances managed by daughter). For hearing, patient reportsno loss of hearing. For vision, patient reportsno vision problems(wears glasses). For activities of daily living, patient reportsable to bathe with limited or no assistance,able to contol urination and bowels,able to dress with limited or no assistance,able to feed self with limited or no assistance,able to get out of chair or bed with limited or no assistance, andable to toilet with limited or no assistance. For falls risk assessment, patient reportsno frequent falls while walking,no fall in the past year,no fall since last visit, andno dizziness/vertigo. For home safety, patient reportsno unsafe alexandra hazzards,working smoke/co detectors,use of seatbelts,no fire arms, andhas hand bars in the bathroom/shower.ROS as noted in the HPI Sudheer Sims MD [address] [address], [place], [id number], [facility] 03/14/2024 06:49:08 4 text/html InsomniaReported by PatientHPIFor context, patient reportsusing medications for sleep. For associated symptoms, patient reportsdepressionbut reportsno known sleep apnea,no pain,no urinary frequency, andlegs do not feel restless. For quality, patient reportssymptoms worse in the evening. For severity, patient reportsmoderate. For duration, patient reportsfrequent. For onset/timing, patient reportsgradual onset.Good sleep hygeine, increased mirtazepine at last visit which is working well for sleep along with 3mg of melatonin. ThyroidReported by PatientHPIFor context, patient reportslow thyroid levels. For severity, patient reportsmild. For onset/timing, patient reportsstill present. For exercise, patient reportsgets exercise. For associated symptoms, patient reportsno cold intoleranceandno heat intolerance.Recent TSH mildly elevated. Anxiety/DepressionReporte d by PatientHPIFor severity, patient reportsdenies suicidal ideations,able to maintain relationships, anddoes not interfere with activities of daily living.Doing well on moderate dose mirtazepine. Sudheer Sims MD [address], [place], [address], [facility] 05/27/2024 13:56:30 5 text/html InsomniaReported by PatientHPIFor context, patient reportsusing medications for sleep. For associated symptoms, patient reportsdepressionbut reportsno known sleep apnea,no pain,no urinary frequency, andlegs do not feel restless. For quality, patient reportssymptoms worse in the evening. For severity, patient reportsmoderate. For duration, patient reportsfrequent. For onset/timing, patient reportsgradual onset.Good sleep hygeine, sleeping well since mirtazepine dose increase. Anxiety/DepressionReporte d by PatientHPIFor severity, patient reportsdenies suicidal ideations,able to maintain relationships, anddoes not interfere with activities of daily living.Doing well on mirtazepine. ThyroidReported by PatientHPIFor context, patient reportslow thyroid levels. For exercise, patient reportsno exercise. For associated symptoms, patient reportsno cold intolerance,no heat intolerance, andno weight loss.Was advised to take levothyroxine on empty stomach in the AM when his TSH was slightly elevated in July. Sudheer Sims MD [address], [place], [phone], [facility] 11/24/2024 13:13:37
--- OUTSIDE RECORDS SUMMARY | 2025-05-30 16:58 | XMS_ITS | Clinical Summary ---
Author Organization [facility] Address [address] [place] [id number] Phone Care Team Providers Care Fabric Pattern Grader Name Role Phone Sudheer Goyal MD Primary [...] by mouth every morning. 11/26/2023 Active coenzyme [id number] 100-5 mg-unit Cap Take 100 mg by mouth. Active glipiZIDE (GLUCOTROL XL) 2.5 MG 24 hr tablet Take 2.5 mg by mouth daily. Active melatonin 3 mg Tab Take 3 mg by mouth. Active Active Problems Problem Noted Date Diagnosed Date Multinodular goiter 01/22/2024 Assessment & Plan (01/22/2024 3:42 PM EDT): 83 y.o. man with incidentally found MNG. Had been seen @ [facility] late 2021/early 2022 (will obtain records), had [...] REPLACEMENT [employer] PPO MEDICARE REPLACEMENT Care Teams Fabric Pattern Grader Relationship Specialty Start Date End Date Sudheer Goyal MD [address] [place] [address] PCP - General Internal Medicine 06/15/23 Additional Source Comments The information contained in this document represents components of the legal health record. It is not the complete legal health record.[facility]
--- OUTSIDE RECORDS SUMMARY | 2025-05-30 16:59 | XMS_ITS | Data Portability ---
Author Organization [facility], Main Office Address [address], [address] [place] [address] Care Team Providers Care Assault Amphibious Vehicle Officer Name Role Phone SUZI ARNOLD 1ST FLOOR OTHER KEITH SIMS OTHER Assessment No assessment recorded. [...] Organization Details Recorded Time Benign prostatic hyperplasia 511255957 Active 2020 JAYA FRIEDMAN NP [address], [address], [place], [address], [facility] 13:12:59 Essential hypertension 21775461 Active 2020 JAYA FRIEDMAN NP [address], [address], [place], [address], [facility] 13:13:05 Gout 30359620 Active 2020 JAYA FRIEDMAN NP [address], [address], [place], [address], [facility] [employer] [facility] 13:13:13 Hyperlipidemia 48461865 Active 2020 JAYA FRIEDMAN NP [address], [address], [place], [address], [facility] 13:13:19 Gastroesophage al reflux disease without esophagitis 018046963 Active 2020 JAYA FRIEDMAN NP [address], [address], [place], [address], [facility] [employer] 1 13:13:28 SARS-CoV-2 Active 2020 JAYA FRIEDMAN, ZIGZAG APPLIQUER [address], [place], [address], [facility] [employer] 1 13:13:59 Acute urinary tract infection 975091072 Active 2020 JAYA FRIEDMAN, ZIGZAG APPLIQUER [address], [place], [address], [facility] [employer] 1 13:15:55 At increased risk for falls 470539490 Active 2020 JAYA FRIEDMAN, ZIGZAG APPLIQUER [address], [place], [address], [facility] [employer] 1 13:18:38 Type 2 diabetes mellitus without complication 578442891 Active 2020 Ary Javed MD [address], [address], [place], [address], [facility] [employer] 19:37:57 Unresponsive 470871289 Active 2020 JAYA FRIEDMAN, ZIGZAG APPLIQUER [address], [address], [place], [address], [facility] [employer] 09:22:18 Atrial fibrillation 60082102 Active 2020 JAYA FRIEDMAN, ZIGZAG APPLIQUER [address], [address], [place], [address], [facility] [employer] 1 13:25:45 Altered mental status 738712236 Active 2020 JAYA FRIEDMAN, ZIGZAG APPLIQUER [address], [place], [address], [facility] [employer] 10:06:28 Pneumonia 121245183 Active 2020 JAYA ELDER, ZIGZAG APPLIQUER [address], [place], [address], [facility] [employer] 1 10:05:14 Orthostatic hypotension 52292592 Active 2020 JAYA GRIPPIN, ZIGZAG APPLIQUER [address], [place], [address], [employer] 1 11:14:33 Chronic retention of urine 827553637 Active 2020 JAYA FRIEDMAN NP [address], [address], [place], [address], [employer] 1 11:14:58 Insomnia 521934443 Active 2020 JAYA FRIEDMAN NP [address], [address], [place], [address], [employer] 1 15:24:06 Problem Notes None recorded. Medical Equipment None Reported. Allergies No known drug allergies Vitals Date Recorded Body height Heart rate Respiratory rate Body temperature Oxygen saturation Oxygen saturation in Arterial blood by Pulse oximetry Systolic And Diastolic Provider Name and Address Organization Details Last Updated DateTime 1 167.64 cm 60 /min 18 /min 97.1 [degF] 100 % 100 % 129/60 mm[Hg] JAYA FRIEDMAN NP [address], [address], [place], [address], [employer] 1 15:14:37 Date Recorded Body height Heart rate Respiratory rate Body temperature Oxygen saturation Oxygen saturation in Arterial blood by Pulse oximetry Systolic And Diastolic Provider Name and Address Organization Details Last Updated DateTime 1 167.64 cm 77 /min 18 /min 97.4 [degF] 97 % 97 % 138/81 mm[Hg] JAYA FRIEDMAN NP [address], [address], [place], [address], [employer] [facility] 1 13:01:02 Date Recorded Body height Heart rate Respiratory rate Body temperature Oxygen saturation Oxygen saturation in Arterial blood by Pulse oximetry Systolic And Diastolic Provider Name and Address Organization Details Last Updated DateTime 1 167.64 cm 70 /min 18 /min 98.3 [degF] 97 % 97 % 140/71 mm[Hg] JAYA FRIEDMAN NP [address], [address], [place], [address], [employer] [facility] 1 13:43:49 Date Recorded Body height Heart rate Respiratory rate Body temperature Oxygen saturation Oxygen saturation in Arterial blood by Pulse oximetry Systolic And Diastolic Provider Name and Address Organization Details Last Updated DateTime 1 167.64 cm 61 /min 18 /min 97.4 [degF] 98 % 98 % 142/75 mm[Hg] JAYA FRIEDMAN NP [address], [address], [place], [address], [employer] [facility] 1 12:41:48 Date Recorded Body height Body mass index (BMI) Body weight Heart rate Respiratory rate Body temperature Oxygen saturation Oxygen saturation in Arterial blood by Pulse oximetry Systolic And Diastolic Provider Name and Address Organization Details Last Updated DateTime 1 167.64 cm 30.4 kg/m2 28427.8 g 62 /min 18 /min 97.3 [degF] 98 % 98 % 157/75 mm[Hg] JAYA FRIEDMAN NP [address], [address], [place], [address], [employer] 1 10:15:26 Social History Question Answer Notes LastModified by [facility] Details LastModified Time Tobacco Smoking Status Former Smoker quit about a month ago JAYA FRIEDMAN NP [address], [address], [place], [address], [employer] [facility] 11/23/2020 13:17:00 Do You Have An Advance Directive? Yes Ok Cpr DNI Ok To Hosp, NO Hd, Ivf, Art Nut Information not available 03/26/2021 How Much Tobacco Do You Chew? None Information not available 12/11/2020 What Is Your Code Status? DNI Information not available 04/02/2021 Legal Guardian? No Informati on not available 04/02/2021 Do You Have A Medical Power Of Overnight Babysitter? Yes Information not available 12/11/2020 What Was The Date Of Your Most Recent Tobacco Screening? 12/11/2020 Information not available 12/11/2020 Has Tobacco Cessation Counseling Been Provided? No Information not available 04/02/2021 How Many Years Have You Smoked Tobacco? 60 Information not available 12/11/2020 Sex: Unknown Functional Status Question Answer Note LastModified by Organizat ion Details LastModified Time Do you or have you ever used any other forms of tobacco or nicotine? No Information not available 04/02/2021 What is your level of alcohol consumption? Occasional Information not available 11/23/2020 Do you or have you ever used smokeless tobacco? Never used smokeless tobacco Information not available 12/11/2020 Do you or have you ever used e-cigarettes or vape? Never used electronic cigarettes Information not available 12/11/2020 Mental Status None recorded. Family History Nothing Reported Notes:n/c Medical History No medical history recorded. Immunizations Vaccine Type Date Status Note Provider Nam e and Address Organization Details Recorded Time Td (adult), 5 Lf tetanus toxoid, preservative free, adsorbed 7 [facility] 10:52:50 Influenza, split virus, quadrivalent, preservative 0 [facility] 11/26/2020 10:53:03 Influenza, split virus, quadrivalent, preservative 9 completed [facility] 11/26/2020 10:53:14 Influenza, split virus, quadrivalent, preservative 8 completed [facility] 11/26/2020 10:53:20 Pneumococcal conjugate PCV 13 8 [facility] 11/26/2020 10:53:34 pneumococcal polysaccharide PPV23 1 [facility] 11/26/2020 10:53:46 zoster recombinant 9 completed Elodia Valencia [facility] 11/26/2020 10:53:58 zoster recombinant 8 [facility] 11/26/2020 10:54:09 Past Encounters Encounter ID Performer Location Encounter Start Date Encounter Closed Date Diagnosis/Indication Diagnosis SNOMED-CT Code Diagnosis ICD10 Code Diagnosis IMO Codes Diagnosis Note [id number] [facility] [address] [place] [address] 11/23/2020 08:30:27 11/27/2020 12:18:26 Benign prostatic hyperplasia 187989677 N40.0 conner cath followup with urology flomax 0.4 mg daily augmentin 875/125 mg bid to 11/25 Essential hypertension 04595660 I10 amlodipine 10 mg daily enalapril 20 mg bid clonidine 0.1 mg bid CoQ10 bid monitor bp Gastroesop hageal reflux disease without esophagitis 615642726 K21.9 protonix 40 mg daily Gout 62004502 M10.9 allopurino l 300 mg daily Hyperlipidemia 51373359 E78.5 rosuvastat in 5 mg daily SARS-CoV-2 714253290 U07 .1 11/20 positive O2 prn encourage po intake of food and fluids ivf for anorexia monitor for any changes in mental or medical status send to ED for decompensa tion Acute urin chi tract infection 277638426 N39.0 augmentin bid to 11/25 At increas ed risk for falls 519583828 Z91.81 PT OT eval and treat fall precaution s frequent safety checks [id number] [facility] [address] [place] [address] 11/26/2020 14:06:52 11/28/2020 16:25:23 At increased risk for falls 535548094 Z91.81 PT OT eval and treat fall precaution s frequent safety checks SARS-CoV-2 170407793 U07 .1 11/20 positive O2 prn encourage po intake of food and fluids ivf for anorexia monitor for any changes in mental or medical status send to ED for decompensa tion start D51/2 NS at 60 ml/hr x 2 liter rocephin 1 gm IV x7 days zpak if can take po [id number] MCKENZIE WEAVER [address] [place] [address] 12/01/2020 12:41:54 12/05/2020 08:22:16 At increased risk for falls 112816538 Z91.81 PT OT eval and treat fall precaution s frequent safety checks Benign pro static hyperplasia 264950970 N40.0 followup with urology flomax 0.4 mg daily Essential hypertension 83401627 I10 amlodipine 10 mg daily clonidine 0.1 mg bid CoQ10 bid monitor bp Gastroesop hageal reflux disease without esophagitis 892872870 K21.9 protonix 40 mg daily Gout 08364195 M10.9 allopurino l 300 mg daily Hyperlipidemia 10873516 E78.5 rosuvastat in 5 mg daily SARS-CoV-2 221518279 U07 .1 11/20 positive O2 prn encourage po intake of food and fluids ivf for anorexia monitor for any changes in mental or medical status send to ED for decompensa tion decadron 6 mg x 4 days albuterol mdi 2 puffs q 4hr prn remeron 7.5 mg hs for appetite [id number] JAYA FRIEDMAN NP [address] [address] 12/03/2020 07:55:59 12/05/2020 08:40:14 SARS-CoV-2 767364881 U07.1 11/20 positive O2 prn encourage po intake of food and fluids ivf for anorexia monitor for any changes in mental or medical status send to ED for decompensa tion decadron 6 mg x 4 days albuterol mdi 2 puffs q 4hr prn remeron 7.5 mg hs for appetite Benign pro static hyperplasia 360318714 N40.0 followup with urology flomax 0.4 mg daily [id number] [facility]IE [employer]AVER [facility] [address] [place] [address] 12/07/2020 08:32:58 12/10/2020 12:07:45 At increased risk for falls 651283697 Z91.81 PT OT eval and treat fall precaution s frequent safety checks SARS-CoV-2 273071262 U07 .1 11/20 positive O2 prn encourage po intake of food and fluids ivf for anorexia monitor for any changes in mental or medical status send to ED for decompensa tion decadron 6 mg x 4 days albuterol mdi 2 puffs q 4hr prn remeron 7.5 mg hs for appetite [id number] JAYA FRIEDMAN NP [address] [address] 12/10/2020 15:22:09 12/13/2020 10:56:51 At increased risk for falls 672087892 Z91.81 PT OT eval and treat fall precaution s frequent safety checks SARS-CoV-2 872275784 U07 .1 11/20 positive O2 prn encourage po intake of food and fluids ivf for anorexia monitor for any changes in mental or medical status send to ED for decompensa tion albuterol mdi 2 puffs q 4hr prn remeron 7.5 mg hs for appetite D5 1/2 NS at 60 ml/hr x 2 liters [id number] JAYA FRIEDMAN NP [address] [address] 12/11/2020 15:13:36 12/13/2020 03:48:29 SARS-CoV-2 529719522 U07.1 recovered 11/20 positive O2 prn encourage po intake of food and fluids ivf for anorexia monitor for any changes in mental or medical status send to ED for decompensa tion albuterol mdi 2 puffs q 4hr prn remeron 7.5 mg hs for appetite NS at 60 ml/hr x 2 liters [facility] 999985524 Z91.81 PT OT eval and treat fall precaution s frequent safety checks [id number] Ary Javed MD [address] [address] 12/11/2020 17:36:32 12/13/2020 11:38:42 SARS-CoV-2 262024524 U07.1 Considered recovered, was + on 11/20, [...] sxs and po intake. At [facility] ed risk for falls 579398699 Z91.81 Very deconditio yana, needs PT/OT for strengthen ing, balance, gait training, safety and function. Fall precaution s in place. Monitor for safety. Benign pro static hyperplasia 144756083 N40.0 No current issues. Continue tamsulosin 0.4 mg qd. F/U with uro as planned. Essential hypertension 73087971 I10 SBP borderline today, Continue amlodipine 10 mg qd and clonidine 0.1 mg BID. Monitor BP and labs and adjust as needed. Gastroesop hageal reflux disease without esophagitis 677904981 K21.9 No current sxs. Continue pantoprazo le 40 mg qd. Monitor sxs. Gout 57039923 M10.09 Continue allopurino l 300 mg qd. Monitor for sxs and for uric acid level prn. Hyperlipidemia 95226454 E78.5 Continue rosuvastat in 5 mg qd and CoQ10/fish oil BID. Monitor labs as outpt. Type 2 miguel a betes mellitus without complication 137952454 E11.9 One high BS likely due to D5NS. Off steroids for 5 days, so unlikely to be contributi ng. Now improved. Continue SSI and adjust as needed. Vitamin D deficiency 347 55240 E56.8 Continue cholecalci ferol 1000 IU qd. Recheck level in 4 weeks. [id number] [facility]CKENZIE WEAVER [facility] [address] [place] [address] 12/12/2020 07:51:37 12/14/2020 15:19:28 At increased risk for falls 325944698 Z91.81 PT OT eval and treat fall precaution s frequent safety checks SARS-CoV-2 331296712 U07 .1 recovered 11/20 positive O2 prn encourage po intake of food and fluids ivf for anorexia monitor for any changes in mental or medical status send to ED for decompensa tion albuterol mdi 2 puffs q 4hr prn remeron 7.5 mg hs for appetite NS at 60 ml/hr x 2 liters Type 2 migeul a betes mellitus without complication 798624462 E11.9 Continue SSI and adjust as needed. Unresponsive 012985358 R 40.20 code called, sent to hospital [id number] JAYA GRIPPIN, ZIGZAG APPLIQUER SUZI [address] [address] 12/19/2020 13:18:05 12/25/2020 14:01:46 At increased risk for falls 151160141 Z91.81 PT OT eval and treat fall precaution s frequent safety checks Benign pro static hyperplasia 321761827 N40.0 followup with urology flomax 0.4 mg daily Essential hypertension 46111376 I10 amlodipine 10 mg daily clonidine 0.1 mg bid CoQ10 bid monitor bp Gastroesop hageal reflux disease without esophagitis 724298885 K21.9 protonix 40 mg daily Gout 57679504 M10.9 allopurino l 300 mg daily Hyperlipidemia 64797730 E78.5 rosuvastat in 5 mg daily SARS-CoV-2 346633122 U07 .1 recovered 11/20 positive O2 prn encourage po intake of food and fluids ivf for anorexia monitor for any changes in mental or medical status send to ED for decompensa tion albuterol mdi 2 puffs q 4hr prn remeron 7.5 mg hs for appetite Type 2 miguel a betes mellitus without complication 523586317 E11.9 Continue SSI and adjust as needed. Atrial fibrillation 4943 6004 I48.91 metoprolol 12.5 mg bid [id number] MCKENZIE WEAVER [address] [address] 12/21/2020 15:02:43 12/25/2020 14:43:29 At increased risk for falls 688271394 Z91.81 PT OT eval and treat fall precaution s frequent safety checks SARS-CoV-2 105269172 U07 .1 recovered 11/20 positive O2 prn encourage po intake of food and fluids ivf for anorexia monitor for any changes in mental or medical status send to ED for decompensa tion albuterol mdi 2 puffs q 4hr prn remeron 7.5 mg hs for appetite [id number] MCKENZIE WEAVER [address] [address] 12/24/2020 07:54:31 12/26/2020 12:15:29 Altered mental status 199071629 R41.82 sent to [facility] for further evaluation [id number] JAYA GRIPPIN, ZIGZAG APPLIQUER SUZI [address] [address] 12/28/2020 08:00:51 12/31/2020 16:12:32 Altered mental status 227062986 R41.82 continue to reorient prn seroquel 12.5 mg hs to 12/31 At [facility] ed risk for falls 947493472 Z91.81 PT OT eval and treat fall precaution s frequent safety checks Atrial fibrillation 4943 6004 I48.91 metoprolol 12.5 mg bid Benign pro static hyperplasia 955826644 N40.0 followup with urology flomax 0.4 mg daily Essential hypertension 10490264 I10 amlodipine 10 mg daily clonidine 0.1 mg bid CoQ10 bid monitor bp Gastroesop hageal reflux disease without esophagitis 187779255 K21.9 protonix 40 mg daily Gout 10765159 M10.9 allopurino l 300 mg daily Hyperlipidemia 50129885 E78.5 rosuvastat in 5 mg daily Type 2 miguel a betes mellitus without complication 010517405 E11.9 Continue SSI and adjust as needed. SARS-CoV-2 805113667 U07 .1 recovered 11/20 positive O2 prn encourage po intake of food and fluids ivf for anorexia monitor for any changes in mental or medical status send to ED for decompensa tion albuterol mdi 2 puffs q 4hr prn remeron 15 mg hs for appetite [id number] MCKENZIE WEAVER [place] [address] [place] [address] 12/31/2020 12:02:10 01/03/2021 12:06:40 Altered mental status 690740191 R41.82 continue to reorient prn seroquel 12.5 mg hs to 12/31 Type 2 miguel a betes mellitus without complication 029348753 E11.9 Continue SSI and adjust as needed. [id number] JAYA FRIEDMAN NP [address] [address] 01/02/2021 07:46:14 01/04/2021 16:30:37 Type 2 diabetes mellitus without complication 435771646 E11.9 Continue SSI and adjust as needed. glucerna with meals Hyperlipidemia 95146677 E78.5 rosuvastat in 5 mg daily Gout 52275802 M10.9 allopurino l 300 mg daily Gastroesop hageal reflux disease without esophagitis 878093215 K21.9 protonix 40 mg daily Essential hypertension 45481768 I10 amlodipine 10 mg daily clonidine 0.1 mg bid CoQ10 bid monitor bp Benign pro static hyperplasia 608235778 N40.0 followup with urology flomax 0.4 mg daily Atrial fibrillation 4943 6004 I48.91 metoprolol 12.5 mg bid At [facility] ed risk for falls 929952873 Z91.81 PT OT eval and treat fall precaution s frequent safety checks Pneumonia 089015751 J18. 9 recovered O2 prn , trying to wean him to room air [id number] MCKENZIE WEAVER [address] [place] [address] 01/07/2021 11:06:12 01/09/2021 15:49:15 Atrial fibrillation 82443692 I48.91 metoprolol 12.5 mg bid Type 2 miguel a betes mellitus without complication 116200221 E11.9 Continue SSI and adjust as needed. glucerna with meals [facility] 885890261 Z91.81 PT OT eval and treat fall precaution s frequent safety checks [id number] MCKENZIE WEAVER [address] [place] [address] 01/11/2021 14:24:00 01/15/2021 14:37:10 Type 2 diabetes mellitus without complication 975113758 E11.9 Continue SSI and adjust as needed. glucerna with meals Gastroesop hageal reflux disease without esophagitis 217556420 K21.9 protonix 40 mg daily Essential hypertension 84880152 I10 amlodipine 10 mg daily clonidine 0.1 mg bid CoQ10 bid monitor bp [id number] MCKENZIE WEAVER [address] [place] [address] 01/14/2021 12:41:51 01/16/2021 13:09:42 Gastroesophageal reflux disease without esophagitis 749269978 K21.9 protonix 40 mg daily Type 2 miguel a betes mellitus without complication 652497469 E11.9 Continue SSI and adjust as needed. glucerna with meals [id number] MCKENZIE WEAVER [address] [place] [address] 01/18/2021 13:22:41 01/21/2021 14:13:18 Gastroesophageal reflux disease without esophagitis 421527938 K21.9 protonix 40 mg daily Type 2 miguel a betes mellitus without complication 567105334 E11.9 Continue SSI and adjust as needed. glucerna with meals At increas ed risk for falls 801987376 Z91.81 PT OT eval and treat fall precaution s frequent safety checks [id number] MD SUZI Skaggs [facility] [address] [place] [address] 01/23/2021 07:54:25 01/25/2021 13:56:28 At increased risk for falls 958170469 Z91.81 PT/OTwill monitor and continue to try to minimize fall risk Atrial fibrillation 4943 6004 I48.19 metoprolol 12.5 mg bid for rate controlwil l monitor Benign pro static hyperplasia 174005475 N40.0 tamsulosin 0.4 mg dailywill monitor Essential hypertension 99853869 I10 metoprolol 12.5 mg bid amlodipine 10 mg dailycloni dine 0.1 mg bidwill monitor Gastroesop hageal reflux disease without esophagitis 716104502 K21.9 pantoprazo le 40 mg dailywill monitor Gout 92486814 M10.09 allopurino l 300 mg dailywill monitor Hyperlipidemia 67186303 E78.49 rosuvastat in 5 mg dailywill monitor 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 9 recovered O2 prn , trying to wean him to room air Type 2 miguel a betes mellitus without complication 781173735 E11.9 Continue SSI and adjust as needed. glucerna with meals Hyperlipidemia 12216136 E78.5 rosuvastat in 5 mg daily Gout 71201823 M10.9 allopurino l 300 mg daily Gastroesop hageal reflux disease without esophagitis 619084367 K21.9 protonix 40 mg daily Essential hypertension 62874953 I10 amlodipine 10 mg daily clonidine 0.1 mg bid CoQ10 bid monitor bp Benign pro static hyperplasia 511677607 N40.0 followup with urology flomax 0.4 mg daily Atrial fibrillation 4943 6004 I48.91 metoprolol 12.5 mg bid Acute urin chi tract infection 128532747 N39.0 recoveredp robiotic daily At [facility] ed risk for falls 716752699 Z91.81 PT OT eval and treat fall precaution s frequent safety checks [id number] MCKENZIE WEAVER [facility] [address] [place] [address] [place] [address] 03/26/2021 10:32:00 03/28/2021 14:22:20 Orthostatic hypotension 04704499 I95.1 Chronic re tention of urine 451163217 R33.8 Atrial fibrillation 4943 6004 I48.91 metoprolol 12.5 mg bid Benign pro static hyperplasia 043563770 N40.0 followup with urologyfol ey to be removed Essential hypertension 13509680 I10 valsartan 160 mg [id number] bidamlodip ine 10 mg dailymonit or bp Gastroesop hageal reflux disease without esophagitis 216171027 K21.9 protonix 40 mg daily Gout 49307003 M10.9 allopurino l 300 mg daily Hyperlipidemia 27333940 E78.5 rosuvastat in 5 mg daily Type 2 miguel a betes mellitus without complication 427549252 E11.9 Continue SSI and adjust as needed. glucerna with mealsglipi zide 2.5 mg bid Altered mental status 41 1159513 R41.82 resolved monitor for changestra zodone 25 mg hsmelatoni n 5 mg hs prnremeron 15 mg hs At [facility] ed risk for falls 559213492 Z91.81 PT OT eval and treat fall precaution s frequent safety checks [id number] MD SUZI Sheridan [facility] [address] [place] [address] rd [place] [address] 03/29/2021 16:23:18 04/03/2021 15:17:55 Orthostatic hypotension 37685242 I95.1 Improved since here.Very deconditio yana.Needs PT/OT for strengthen ing, balance, gait training, safety and function.C ontinue fall precaution s.Monitor for safety. Chronic re tention of urine 569042664 R33.8 Continue conner for now. Plan voiding trial for next week.Uro consult if fails voiding trial. Atrial fibrillation 4943 6004 I48.0 Rate in good control on metoprolol 12.5 mg BID.Not on AC due to GI bleed.Terri tor HR. Benign pro static hyperplasia [id number] N40.1 As above. Essential hypertension 86826424 I10 With some borderline systolic HTN, but BP goal is permissive HTN, with SBP<160 amd DBP<90, to help avoid orhostasis .Continue valsartan 160 mg qd, amlodipine 10 mg qd and metoprolol 12.5 mg BID.Monito r BP and labs. Gastroesop hageal reflux disease without esophagitis 952005282 K21.9 No current sxs.Contin ue pantoprazo le 40 mg qd.Monitor sxs. Gout 05230034 M10.09 No current sxs. Continue allopurino l 300 mg qd.Monitor for sxs. Hyperlipidemia 28328498 E78.49 Continue rosuvastat in 5 mg qd and CoQ10 100 mg BID.Monito r labs as outpt. Type 2 miguel a betes mellitus without complication 641125418 E11.9 In good control.Co ntinue glipizide 2.5 mg BID and SSI.Monito r accuchecks TID and HgA1C q 3 months. Altered mental status 41 4566778 G93.49 MS still variable.C ontinue trazodone 25 mg qhs, mirtazapin e 15 mg qhs and melatonin 5 mg qhs prnMOnitor MS and mood.Psych consult prn. At [facility] ed risk for falls 984480655 Z91.81 Continue PT/OT as above.Cont inue fall precaution s.Monitor for safety. [id number] JAYA FRIEDMAN NP [facility] [address] [place] [address] 04/01/2021 12:25:54 04/03/2021 15:37:28 Benign prostatic hyperplasia 691186896 N40.0 followup with urologyfol ey to be removed Acute urin chi tract infection 923575306 N39.0 bactrim DS bid for 5 daysprobio tic daily [id number] JAYA FRIEDMAN NP [address] [address] 04/05/2021 15:13:25 04/09/2021 11:48:29 Chronic retention of urine 273687477 R33.8 monitor urine outputavoi d dehydratio n Acute urin chi tract infection 438233212 N39.0 probiotic daily Atrial fibrillation 4943 6004 I48.0 metoprolol 12.5 mg bid Benign pro static hyperplasia 057743796 N40.1 followup with urology Essential hypertension 08492407 I10 CoQ10 bidamlodip ine 10 mg dailymonit or bp Gastroesop hageal reflux disease without esophagitis 395550744 K21.9 protonix 40 mg daily Gout 47787747 M10.09 monitor for symptoms Hyperlipidemia 04385665 E78.49 rosuvastat in 5 mg daily 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 glucerna with mealsglipi zide 2.5 mg bid At [facility] ed risk for falls 840396462 Z91.81 PT OT eval and treat fall precaution s frequent safety checks Insomnia 462273757 G47.0 0 melatonin 5 mg hs prnremeron 15 mg hstrazodon e 25 mg hs [id number] JAYA FRIEDMAN NP [address] [address] 04/08/2021 11:46:51 04/12/2021 09:03:52 Gastroesophageal reflux disease without esophagitis 309390528 K21.9 protonix 40 mg daily Benign pro static hyperplasia 039785819 N40.1 followup with urology Acute urin chi tract infection 582978009 N39.0 probiotic daily [id number] JAYA FRIEDMAN NP [address] [address] 04/12/2021 10:40:41 04/19/2021 09:05:23 Benign prostatic hyperplasia 420346110 N40.1 [facility]up [facility] 936601165 Z91.81 PT OT eval and treat fall precaution s frequent safety checks Acute urin chi tract infection 449423993 N39.0 probiotic daily [id number] JAYA FRIEDMAN NP [address] [address] 04/16/2021 12:13:30 04/19/2021 10:25:31 Acute urinary tract infection 945600508 N39.0 probiotic dailyawait ing results 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 glucerna with mealsglipi zide 2.5 mg bid [id number] JAYA FRIEDMAN MCKENZIE [address] [address] 04/19/2021 09:58:13 04/23/2021 11:09:47 Orthostatic hypotension 49664399 I95.1 Improved since here.Very deconditio yana.Needs PT/OT for strengthen ing, balance, gait training, safety and function.C ontinue fall precaution s.Monitor for safety. 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 glucerna with mealsglipi zide 2.5 mg bid Altered mental status 41 3882363 R41.82 resolved monitor for changestra zodone 25 mg hsmelatoni n 5 mg hs prnremeron 15 mg hs [facility] 191830956 Z91.81 PT OT eval and treat fall precaution s frequent safety checks Health Concerns Section Related Observation LastModified by Organization Detai ls LastModified Time None Recorded Concern Status LastModified by Organization Details LastModified Time None Recorded Advance Directives Directive Y: ok cpr DNI ok to hosp, NO hd, ivf, art nut Payers Insurance Date Sequence Insurance Name Policy Number Policy Johnson Covered Member ID Johnson Member ID Guarantor Name 04/19/2021 1 [facility] (MEDICARE REPLACEMENT/A DVANTAGE - PPO) [id number] Papo Brand [id number] Papo [employer] Notes Date Note Type Note Provider Name and Address Organization Details Recorded Time 04/05/2021 text/html ROS as noted in the HPI seen today for readmission-80 yom readmitted to [...] IVF. CAOx2 he knew we were in [place] but did not know the name of the facility. lungs clear, no edema, he denies any disstress or discomfort, reminded nursing that he needed a urinal and fluids at the bedside JAYA FRIEDMAN NP [address], [address], [place], [address], [facility] [employer] 04/05/2021 15:25:29 04/08/2021 text/html ROS as noted in the HPI seen today for acute rounding visit, CAOx3 sitting up in bed, lungs clear, participates with PT, mood has improved, more animated today JAYA FRIEMDAN NP [address], [address], [place], [address], [facility] [employer] [facility] 04/08/2021 13:03:53 04/12/2021 text/html ROS as noted in the HPI seen today for acute rounding visit, CAOx3 resting in bed, lungs clear, supervision with ambulation, eating and drinking well, still has episodes of impaired cognition, will repeat the UA per family request JAYA FRIEDMAN NP [address], [address], [place], [address], [facility] [employer] [facility] 04/12/2021 13:47:11 04/16/2021 text/html ROS as noted in the HPI seen today for acute rounding visit, CAOx3 sitting up in bed, eating and drinking well, no ua symtoms, awaiting repeat ua results JAYA FRIEDMAN NP [address], [address], [place], [address], [facility] [employer] [facility] 04/16/2021 12:44:13 04/19/2021 text/html ROS as noted in the HPI seen today for discharge summary-80 yom admitted [...] and drinking well. JAYA FRIEDMAN NP [address], [address], [place], [address], [facility] [employer] 04/19/2021 10:22:06
--- OUTSIDE RECORDS SUMMARY | 2025-05-30 16:59 | XMS_ITS | Clinical Summary ---
Author Organization [facility] Address [address] [place] [address] Care Team Providers Care Director Web Name Role Phone Unavailable Primary Care Provider [...]
== END 2025-05-30 13:07 | disposition home or self-care (01) ==
LOC: HO.HKASLDS 13:06
PROVIDERS: PCP Pediatrics; Visit Provider Internal Medicine Nephrology
DX: R30.0 Dysuria (principal)
CPT/HCPCS: 87086

== ENCOUNTER 2025-07-21 13:03 | Outpatient (REF) | payer MEDICARE, SELFPAY ==
[2025-07-21 17:39] LABS: MANUAL DIFF FLAG NO
[2025-07-21 17:47] LABS: Hematocrit 47.3 % (42.0-52.0); Hemoglobin 14.7 g/dl (14.0-18.0); Imm Gran Abs Auto 0.04 X10*3/uL (0.00-0.03); Imm Gran Pct Auto 0.4 % (0.0-0.4); Lymphocytes Absolute Auto 2.0 X10*3/uL (1.2-4.9); Mean Corpuscular HGB Conc 31.1 g/dl (31.0-36.0); Mean Corpuscular Hemoglobin 28.8 pg (27.0-33.0); Mean Corpuscular Volume 92.7 fL (80.0-98.0); NRBC Abs Auto 0.000 X10*3/uL (0.0-0.012); NRBC Pct Auto 0.0 /100WBC (0.0-0.2); Platelet Count 262 X10*3/uL (160-400); Red Blood Count 5.10 X10*6/uL (4.60-5.80); White Blood Count 10.6 X10*3/uL (4.8-10.8)
[2025-07-21 17:59] LABS: Anion Gap 17 (12-20); Blood Urea Nitrogen 39 mg/dL (9-16); Calcium 10.4 mg/dL (8.4-10.2); Carbon Dioxide 23 mmol/L (22-29); Chloride 107 mmol/L (96-108); Estimated Glomerular Filt Rate 17; Potassium 4.6 mmol/L (3.3-5.1); Sodium 142 mmol/L (135-145)
[2025-07-21 18:11] LABS: Parathyroid Hormone Intact 340.1 pg/mL (8.7-77.1)
--- OUTSIDE RECORDS SUMMARY | 2025-07-21 18:43 | XMS_ITS | Patient Health Record ---
Author Organization [facility] Address [address] [place] [address] Care Team Providers Care Oil Boiler Name Role Phone BETHANY HALEY, KEITH Primary Care Provider Unavail able RUDY Flores Unavailable [phone] Allergies No Known Allergies Reason For Referral No Information Medications Medication SIG (Take, Route, Frequency, Duration) Notes Start Date End Date Status Rosuvastatin Calcium 5 MG Tablet 1 tab(s) orally once a day (at bedtime); Duration: 30 day(s) Active Vitamin D 25 MCG (1000 UT) Tablet 1 tab(s) orally once a day Active Metoprolol Tartrate 25 MG Tablet 1.5 tab(s) orally 2 times a day Active Levothyroxine Sodium 25 MCG Tablet 2 tabs MWF, 1 tab rest of the week Orally Once a day; Duration: 90 days Active glipiZIDE ER 2.5 MG Tablet Extended Release 24 Hour 1 tab(s) orally BID Active Allopurinol 300 MG Tablet 1 tab(s) orally once a day Active amLODIPine Besylate 10 MG Tablet 1 tab(s) orally once a day Active Pantoprazole Sodium 40 MG Tablet Delayed Release 1 tablet Orally Once a day; Duration: 30 day(s) Active Align 4 MG Capsule 1 tab orally daily Active Magnesium Oxide 400 MG Tablet 1 tablet as needed Orally Once a day; Duration: 30 day(s) Active Mirtazapine 15 MG Tablet 1 tablet at bedtime Orally Once a day; Duration: 30 day(s) Active EXTRA STRENGHT TYLENOL PRN *Please review for potential replacement for e-prescription and drug interaction check* Active Tylenol PM Extra Strength 500-25 MG Tablet 1 tablet at bedtime as needed Orally Once a dayprn Active COENZYME 100 MG 1 TAB(S) ORALLY BID *Please review for potential replacement for e-prescription and drug interaction check* Active Social History Tobacco Use: Social History Observation Description Date Details (start date - stop date) Former Smoker NA - NA Social History Tobacco Use: Social Info Question Answer Notes Smoking Are you a: former smoker Additional Details Category Social Info Options Details General 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 alcohol use: yes occ drug use: no Coffee/Tea/Soda: no 2 cups of coffe e daily , no tea, no soda Marital Status Living with alone smokers in household no quit 1980 Problems Problem Type SNOMED Code ICD Code Onset Dates Problem Status W/U Status Risk Notes Problem History of polyp of colon (situation) (213027733) History of colon polyps (Z86.010) Active confirmed Problem Multinodular goiter (206159984) Multinodular goiter (E04.2) Active confirmed Problem Inflammation of bursa of olecranon (287074056) Olecranon bursitis, right elbow (M70.21) Active confirmed Problem Hypothyroidism (74939573) Hypothyroidism (E03.9) Active confirmed Problem Primary gout (38019660) Acute idiopathic gout of left foot (M10.072) Active confirmed Problem Chronic gouty arthritis (29669635) 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) Active confirmed Plan Of Treatment No Information Insurance Providers Payer Name Payer Address Payer Phone Subscriber Number Group Number Insured Name Patient Relationship to Insured Coverage Start Date Coverage End Date [facility] [address] [address] [place], [place] [id number] SAHARA RASCON Self - patient is the insured Medical (General) History Medical History History ICD Code arthritis Chronic Kidney disease diabetes-foot ulcers, Amputation small t oe hypertension prostate cancer RT 2013-resolved PSA spinal stenosis Colon Radiation proctitis RxAPC--rectal [id number] Rec [id number] gout multinodular goiter - incide ntal finding - u/s 2021, MATTHEW - 0.7 cm TIRADS 3 nodule right mid-gland, 1.7 cm hypoechoic nodule right lower pole noted to be TIRADs 5 with increase in size from 2020, to me appears cystic; 1.2 cm nodule lower pole - minimal increase in size, solid, read as TIRADS 5, but may be TIRADS 4 right hip fx - 09/2020 - s/p THR Covid - 11/2020 Surgical History Surgery Date(Month/Year) right THR left foot I & D 12/30/18 cholecystectomy laminectomy metatarsal amputation R foot Hospitalization History Reason Date(Month/Year) Covid - prolonged hospitalization/rehab 11/2020 above cellulitis/osteomyelitis 12/2018
--- OUTSIDE RECORDS SUMMARY | 2025-07-21 18:43 | XMS_ITS | Clinical Summary ---
Author Organization [facility] Address [address] [place] [address] Care Team Providers Care Director Of Field Service Name Role Phone Unavailable Primary Care Provider [...]
== END 2025-07-21 13:04 | disposition home or self-care (01) ==
LOC: HO.HKASLDS 13:03
PROVIDERS: PCP Pediatrics; Visit Provider Internal Medicine Nephrology
DX: I12.9 Hypertensive chronic kidney disease with stage 1 through stage 4 chronic kidney disease, or unspecified chronic kidney disease (principal); N18.4 Chronic kidney disease, stage 4 (severe); E11.22 Type 2 diabetes mellitus with diabetic chronic kidney disease; R80.8 Other proteinuria; N25.81 Secondary hyperparathyroidism of renal origin
CPT/HCPCS: 36415; 80051; 82306; 82310; 82565; 83970; 84100; 84520; 85025

== ENCOUNTER 2025-07-25 11:22 | Outpatient (AMB) | payer MEDICARE, SELFPAY ==
--- NOTE | 2025-07-25 11:27 | HO.NEPHOV ---
Vital Signs 07/25/25 11:32 Height 5 ft 9 in Weight 198 lb 8 oz BMI 29.3 BP 130/60 Blood Pressure Location Lt brachial Position Sitting Pulse 61 Pulse Source Pulse Oximeter Pulse Oximetry (%) 98 Oxygen Delivery Method Room Air Intake Visit Reasons: 3mnth w labs-LVM Liquid Fertilizer Servicer Required: No Accompanied by: Daughter Allergies atorvastatin Allergy (Verified 07/25/25 11:32) Unknown pravastatin Allergy (Verified 07/25/25 11:32) Unknown HPI Comments Details: Papo was seen in follow-up for his chronic kidney disease and hypertension. He is known to have proteinuria. He is a diabetic. His blood pressure has been at goal. He does not have any hypervolemia. He denies chest pain, shortness of breath, hypoglycemia, nausea, vomiting, diarrhea or urinary symptoms. He is active now. He avoids nonsteroidal anti-inflammatory medications. He had been having some burning while micturition without any fever, nausea, vomiting, chills or hematuria. [facility] Medical History (Updated 04/25/25 @ 11:09 by Mitesh Corrales MD) Posterior reversible encephalopathy syndrome Chronic kidney disease, stage 4 (severe) Diabetes Acute kidney injury Essential (primary) hypertension Surgical History History of cataract surgery Social History Alcohol intake: never Patient Tobacco Use Status: Never used Tobacco Review of Systems Const All systems reviewed & are unremarkable except as noted in HPI and below Physical Exam Const General: comfortable and no acute distress Orientation/consciousness: patient oriented x3 HEENT Head: Yes normocephalic Mouth: Normal oral and palatal mucosa present Eyes EOM: EOMs intact bilaterally Neck Neck: Yes supple Resp Auscultation: clear to auscultation bilaterally Cardio Jugular venous distension: no JVD Rate: regular rate GI Palpation (GI): Soft to palpation Auscultation: normal bowel sounds General: Yes no CVA tenderness Back/Spine/Pelvis Back: no CVA tenderness Skin General skin exam: no rashes or lesions noted Neuro General: patient oriented x3 and moves all extremities Extrem General: Yes no pedal edema Results Reviewed Nephrology Results: Hgb, (14.0-18.0) 14.7 g/dl 12/12/25 WBC, (4.8-10.8) 10.6 X10*3/uL 07/21/25 Plt Count, (160-400) 262 X10*3/uL 07/21/25 Sodium, (135-145) 142 mmol/L 07/21/25 Potassium, (3.3-5.1) 4.6 mmol/L 07/21/25 Chloride, (96-108) 107 mmol/L 07/21/25 Carbon Dioxide, (22-29) 23 mmol/L 07/21/25 BUN, (9-16) 39 mg/dL H 07/21/25 Creatinine, (0.5-1.4) 3.46 mg/dL H 07/21/25 Calcium, (8.4-10.2) 10.4 mg/dL H Δ 07/21/25 Phosphorus, (2.7-4.5) 3.1 mg/dL 07/21/25 PTH Intact, (8.7-77.1) 340.1 pg/mL H 07/21/25 Assessment & Plan Assessment & Plan (1) Chronic kidney disease, stage 4 (severe): Code(s): N18.4 - Chronic kidney disease, stage 4 (severe) Category: Medical (2) Diabetic nephropathy: Code(s): E11.21 - Type 2 diabetes mellitus with diabetic nephropathy Category: Medical Qualifiers: Diabetes mellitus type: type 2 Qualified Code(s): E11.21 - Type 2 diabetes mellitus with diabetic nephropathy (3) Secondary hyperparathyroidism (of renal origin): Code(s): N25.81 - Secondary hyperparathyroidism of renal origin Category: Medical (4) Essential (primary) hypertension: Code(s): I10 - Essential (primary) hypertension Category: Medical Plan Papo has stage 4 chronic kidney disease. His renal functions had been pretty stable. He is on Jardiance to 25 mg daily which I may cut back to 10 mg if his serum creatinine goes up. He is proteinuric. His blood pressure has been at goal. He has no orthostatic symptoms. He is not hyperkalemic or metabolically acidotic. He can continue calcitriol 0.25 mcg 3 times a week. His blood sugars is better. He should be on a low-sodium diet. He should try to lose some weight. He should remain well hydrated. He should avoid nonsteroidal anti-inflammatory medications. All these have been explained detail .Follow-up of blood work were ordered. All his and his daughter's questions were answered. Follow-up appointment given Orders: Orders Calcium 3 Months E11.21 - Type 2 diabetes mellitus with diabetic nephropathy, I10 - Essential (primary) hypertension, N18.4 - Chronic kidney disease, stage 4 (severe), N25.81 - Secondary hyperparathyroidism of renal origin Blood Urea Nitrogen 3 Months E11.21 - Type 2 diabetes mellitus with diabetic nephropathy, I10 - Essential (primary) hypertension, N18.4 - Chronic kidney disease, stage 4 (severe), N25.81 - Secondary hyperparathyroidism of renal origin Creatinine 3 Months E11.21 - Type 2 diabetes mellitus with diabetic nephropathy, I10 - Essential (primary) hypertension, N18.4 - Chronic kidney disease, stage 4 (severe), N25.81 - Secondary hyperparathyroidism of renal origin Electrolytes 3 Months E11.21 - Type 2 diabetes mellitus with diabetic nephropathy, I10 - Essential (primary) hypertension, N18.4 - Chronic kidney disease, stage 4 (severe), N25.81 - Secondary hyperparathyroidism of renal origin Coding Level of Care Code Est Pt Level 4 (90397) Diagnoses Chronic kidney disease, stage 4 (severe) N18.4 Diabetic nephropathy associated with type 2 diabetes mellitus E11.21 Diabetes mellitus type: type 2 Secondary hyperparathyroidism (of renal origin) N25.81 Essential (primary) hypertension I10
[2025-07-25 11:32] VITALS: BP 130/60; PULSE 61; O2SAT 98; BMI 29.3
--- OUTSIDE RECORDS SUMMARY | 2025-07-25 15:04 | XMS_ITS | Clinical Summary ---
Author Organization [facility] Address [address] [place] [address] Phone Care Team Providers Care Radio Intelligence Operator Name Role Phone Sudheer Goyal MD Primary [...] by mouth every morning. 11/26/2023 Active coenzyme [id number] E 100-5 mg-unit Cap Take 100 mg by mouth. Active glipiZIDE (GLUCOTROL XL) 2.5 MG 24 hr tablet Take 2.5 mg by mouth daily. Active melatonin 3 mg Tab Take 3 mg by mouth. Active Active Problems Problem Noted Date Diagnosed Date Multinodular goiter 01/22/2024 Assessment & Plan (01/22/2024 3:42 PM EDT): 83 y.o. man with incidentally found MNG. Had been seen @ [facility] late 2021/early 2022 (will obtain [...] REPLACEMENT [employer] PPO MEDICARE REPLACEMENT Care Teams Radio Intelligence Operator Relationship Specialty Start Date End Date Sudheer Goyal MD [address] [place] [address] PCP - General Internal Medicine 06/15/23 Additional Source Comments The information contained in this document represents components of the legal health record. It is not the complete legal health record.[facility]
--- OUTSIDE RECORDS SUMMARY | 2025-07-25 15:04 | XMS_ITS | Patient Health Record ---
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 alcohol use: yes occ drug use: no Coffee/Tea/Soda: no 2 cups of coffe e daily , no tea, no soda Marital Status Living with alone smokers in household no quit 1980 Problems Problem Type SNOMED Code ICD Code Onset Dates Problem Status W/U Status Risk Notes Problem History of polyp of colon (situation) (526984448) History of colon polyps (Z86.010) Active confirmed Problem Multinodular goiter (759551564) Multinodular goiter (E04.2) Active confirmed Problem Inflammation of bursa of olecranon (914590659) Olecranon bursitis, right elbow (M70.21) Active confirmed Problem Hypothyroidism (15068407) Hypothyroidism (E03.9) Active confirmed Problem Primary gout (61534954) Acute idiopathic gout of left foot (M10.072) Active confirmed Problem Chronic gouty arthritis (92544676) 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) Active confirmed Plan Of Treatment No Information Insurance Providers Payer Name Payer Address Payer Phone Subscriber Number Group Number Insured Name Patient Relationship to Insured Coverage Start Date Coverage End Date [facility] [address] [address] [place], [place] [id number] SAHARA RASCON Self - patient is the insured Medical (General) History Medical History History ICD Code arthritis Chronic Kidney disease diabetes-foot ulcers, Amputation small t oe hypertension prostate cancer RT 2013-resolved PSA spinal stenosis Colon Radiation proctitis RxAPC--rectal mhrs6ag Rec [id number] gout multinodular goiter - incide ntal finding [...]
--- OUTSIDE RECORDS SUMMARY | 2025-07-25 15:04 | XMS_ITS | Clinical Summary ---
Author Organization [facility] Address [address] [place] [address] Care Team Providers Care Boat Worker Name Role Phone Unavailable Primary Care Provider [...]
== END 2025-07-25 11:55 | disposition home or self-care (01) ==
LOC: HO.HKAS 11:22
PROVIDERS: PCP Pediatrics; Visit Provider Internal Medicine Nephrology
DX: N18.4 Chronic kidney disease, stage 4 (severe) (principal); E11.21 Type 2 diabetes mellitus with diabetic nephropathy; N25.81 Secondary hyperparathyroidism of renal origin; I12.9 Hypertensive chronic kidney disease with stage 1 through stage 4 chronic kidney disease, or unspecified chronic kidney disease
CPT/HCPCS: 99214

== ENCOUNTER → 2025-07-25 11:22 | Outpatient (BNVA) | payer MEDICARE, SELFPAY | PROVIDERS: PCP Pediatrics; Visit Provider Internal Medicine Nephrology | DX: I12.9 Hypertensive chronic kidney disease with stage 1 through stage 4 chronic kidney disease, or unspecified chronic kidney disease (principal); E11.22 Type 2 diabetes mellitus with diabetic chronic kidney disease; N18.4 Chronic kidney disease, stage 4 (severe); N25.81 Secondary hyperparathyroidism of renal origin; R80.9 Proteinuria, unspecified; Z79.84 Long term (current) use of oral hypoglycemic drugs; Z79.899 Other long term (current) drug therapy | CPT/HCPCS: 99212 ==